=== PATIENT | male | born 1945 | race American Indian/Alaskan Native ===

== ENCOUNTER 2019-04-11 09:55 | Outpatient (CLI) | payer MEDICARE ==
[2019-04-11] MEDS ORDERED: XYLOCAINE TOPICAL 4% TP ONE (10:30)
[2019-04-11] MEDS ORDERED: AD OINTMENT TP SCH (10:30)
== END 2019-04-11 09:56 | disposition home or self-care (01) ==
LOC: WOUND 09:55
PROVIDERS: ATTEND Surgery
DX: L97.521 Non-pressure chronic ulcer of other part of left foot limited to breakdown of skin (principal); I96 Gangrene, not elsewhere classified; L84 Corns and callosities; I10 Essential (primary) hypertension; I48.91 Unspecified atrial fibrillation; I77.6 Arteritis, unspecified; Z87.891 Personal history of nicotine dependence; Z95.5 Presence of coronary angioplasty implant and graft
CPT/HCPCS: 11042; 11045; 36415; 73620; 80048; 83036; 85025; G0463; 99205; A6250

== ENCOUNTER 2019-04-11 11:50 | Outpatient (CLI) | payer MEDICARE ==
[2019-04-11 12:37] LABS: Basophils % (Auto) 0.6 % (0.0-1.8); Eosinophils # (Auto) 0.3 K/mm3 (0.0-0.4); Hematocrit 34.4 % (35.5-45.6); Hemoglobin 11.3 gm/dl (11.8-15.2); Lymphocytes # (Auto) 0.7 K/mm3 (1.2-5.4); Lymphocytes % (Auto) 9.9 % (13.4-35.0); Mean Corpuscular HGB Conc 33 % (32-34); Mean Corpuscular Volume 94 fl (84-94); Monocytes # (Auto) 0.4 K/mm3 (0.0-0.8); Monocytes % (Auto) 5.8 % (0.0-7.3); Platelet Count 212 K/mm3 (140-440); Red Blood Count 3.67 M/mm3 (3.65-5.03); Red Cell Distribution Width 16.3 % (13.2-15.2)
--- NOTE | 2019-04-11 13:18 | XRay Report ---
BILATERAL FEET 4 VIEWS INDICATION / CLINICAL INFORMATION: X-RAY OF LT RT FOOT R/O OSTEOMYELITIS OR OTHER ABNORMALIILTY. COMPARISON: None available. FINDINGS: Vascular calcification is present. A surgical screw is seen in the head of the fifth metatarsal on th e right. Mild degenerative changes seen in both first metatarsophalangeal joints. No definite radiogr aphic evidence of osteomyelitis on this exam. Signer Name: Nasir Isabel MD FACCande Signed: 04/11/2019 1:14 PM Workstation Name: [id number]
== END 2019-04-11 11:51 | disposition home or self-care (01) ==
LOC: XRAY 11:50
PROVIDERS: ATTEND Surgery
DX: I70.291 Other atherosclerosis of native arteries of extremities, right leg (principal); M19.071 Primary osteoarthritis, right ankle and foot; L97.509 Non-pressure chronic ulcer of other part of unspecified foot with unspecified severity; I99.8 Other disorder of circulatory system; G62.9 Polyneuropathy, unspecified; R73.09 Other abnormal glucose
CPT/HCPCS: 36415; 80048; 83036; 85025

== ENCOUNTER 2019-04-18 10:09 | Outpatient (CLI) | payer MEDICARE ==
[2019-04-18] MEDS ORDERED: SILVER NITRATE TP ONE (10:31)
[2019-04-18] MEDS ORDERED: XYLOCAINE TOPICAL 4% TP ONE (10:31)
== END 2019-04-18 10:10 | disposition home or self-care (01) ==
LOC: WOUND 10:09
PROVIDERS: ATTEND Surgery
DX: L97.522 Non-pressure chronic ulcer of other part of left foot with fat layer exposed (principal); I96 Gangrene, not elsewhere classified; I77.6 Arteritis, unspecified; L84 Corns and callosities; I10 Essential (primary) hypertension; G60.3 Idiopathic progressive neuropathy; Z87.891 Personal history of nicotine dependence

== ENCOUNTER 2019-04-24 12:05 | Inpatient (IN) | payer MEDICARE ==
--- NOTE | 2019-04-24 12:19 | Emergency Department Report ---
Blank Doc - Documentation Documentation: 73-year-old male that presents with bilateral leg swelling and acute kidney fa ilure. Was sent by PCP for possible sepsis. No fever or tackycardia in traiage noted. Denies taking any medications prior to arrival. This initial assessment/diagnostic orders/clinical plan/treatment(s) is/are subject to change based on patient's health status, clinical progression and re- assessment by fellow clinical providers in the ED. Further treatment and workup at subsequent clinical providers discretion. Patient/guardians urged not to elope from the ED as their condition may be serious if not clinically assessed and managed. Initial orders include: 1- Patient sent to MAIN for further evaluation and treatment 2- labs 3- EKG
--- NOTE | 2019-04-24 13:18 | XRay Report ---
CHEST 2 VIEWS INDICATION: Chest Pain. COMPARISON: None. FINDINGS: Support devices: None. Heart: Within normal limits. Pulmonary vasculature: Lungs/pleura: No acute air space or interstitial disease. No pneumothorax. Additional findings: None. IMPRESSION: 1. Normal chest. Signer Name: Dwayne Lindsay MD Signed: 04/24/2019 1:13 PM Workstation Name: [id number]
[2019-04-24 13:28] LABS: Hematocrit 25.2 % (35.5-45.6); Hemoglobin 8.5 gm/dl (11.8-15.2); INR 1.88 (0.87-1.13); Mean Corpuscular HGB Conc 34 % (32-34); Mean Corpuscular Volume 91 fl (84-94); Platelet Count 268 K/mm3 (140-440); Red Blood Count 2.76 M/mm3 (3.65-5.03); Red Cell Distribution Width 15.9 % (13.2-15.2)
[2019-04-24 13:30] LABS: Partial Thromboplastin Time 41.8 Sec. (24.2-36.6)
[2019-04-24 13:44] LABS: Albumin 3.9 g/dL (3.9-5); Calcium 9.6 mg/dL (8.4-10.2)
[2019-04-24 14:21] LABS: Chol/HDL Ratio 2.42 %
[2019-04-24] MEDS ORDERED: MORPHINE 4 MG/1 ML INJ IM ONE (14:40)
--- NOTE | 2019-04-24 14:55 | Event Note ---
Date: 04/24/19 73 year old male PVD with bilateral CLI who presented with gangrene of the RLE and ulceration of the LLE. Had his RLE revascularization completed 2 weeks ago with revascularization of the right popliteal and tibioperoneal trunk from a left TUBE HEATER approach. After revascularization, was referred to wound care. Had plan to have R 1st digit amputation tomorrow. Presented to [facility] today and iSTAT demonstrated mild decrease in hemoglobin and ARF. Patient was sent to the hospital for further evaluation. Discussed with Dr. Orourke who will plan on performing amputation tomorrow. Recommend arterial ultrasound of the lower extremities with RYANNE. Recommend CT AP w/o contrast to exclude RP bleed.
--- NOTE | 2019-04-24 15:08 | Consultation ---
History of Present Illness Consult date: 04/24/19 Chief complaint: Gangrene of right great toe - History of present illness History of present illness: 73 yo non-diabetic male who hit his right great toe on some furniture about two weeks ago. The toe has since become black with some drainage about it's base. He denies fever or chills. He quit smoking about a year ago. He says he has bilateral calf pain with ambulation. Medications and Allergies Allergies Allergy/AdvReac Type Severity Reaction Status Date / Time No Known Allergies Allergy Unverified 04/11/19 10:16 Review of Systems All systems: negative (none) Exam Vital Signs Temp Pulse Resp BP Pulse Ox 99.2 F 89 15 170/63 98 04/24/19 12:18 04/24/19 12:18 04/24/19 12:18 04/24/19 12:18 04/24/19 12:18 - General physical appearance Positive: well developed, well nourished, no distress - Eyes Positive: PERRL, normal occular movement - ENT Positive: normal pinna, normal nares, normal mucosa, no hearing loss, no congestion - Neck Positive: no masses, no bruits, trachea midline, no venous distension - Respiratory Positive: normal expansion, normal respiratory effort, clear to auscultation - Cardiovascular Rhythm: regular Heart Sounds: Present: S1 & S2. Absent: rub, click - Extremities Extremity abnormal: other (The right great toe is gangrenous with a small amount of purulent drainage circumferentially about the base of the toe. DP and PT pulses on the right are non-palpable.) - Breasts Breasts: deferred - Abdomen Abdomen: Present: soft, bowel sounds normal. Absent: tender, distended Hernia: none - Genitourinary Male Genitourinary: deferred - Neurologic Neurologic: alert and oriented to time, place and person, motor strength and sensation are grossly intact - Musculoskeletal normal gait, normal posture - Psychiatric Psychiatric: appropriate mood/affect, intact judgment & insight Results - Labs 04/24/19 12:55 04/24/19 12:55 Abnormal lab results 04/24/19 04/24/19 04/24/19 Range/Units 12:55 12:55 12:55 RBC 2.76 L (3.65-5.03) M/mm3 Hgb 8.5 L (11.8-15.2) gm/dl Hct 25.2 L (35.5-45.6) % RDW 15.9 H (13.2-15.2) % PT 21.2 H (12.2-14.9) Sec. INR 1.88 H (0.87-1.13) APTT 41.8 H (24.2-36.6) Sec. Potassium 5.2 H (3.6-5.0) mmol/L Chloride 108.5 H (98-107) mmol/L Carbon Dioxide 21 L (22-30) mmol/L BUN 61 H (9-20) mg/dL Creatinine 4.4 H (0.8-1.5) mg/dL Troponin T 0.033 H (0.00-0.029) ng/mL NT-Pro-B Natriuret Pep 6067 H (0-900) pg/mL Diabetes panel 04/24/19 Range/Units 12:55 Sodium 144 (137-145) mmol/L Potassium 5.2 H (3.6-5.0) mmol/L Chloride 108.5 H (98-107) mmol/L Carbon Dioxide 21 L (22-30) mmol/L BUN 61 H (9-20) mg/dL Creatinine 4.4 H (0.8-1.5) mg/dL Glucose 89 (75-100) mg/dL Calcium 9.6 (8.4-10.2) mg/dL AST 16 (5-40) units/L ALT 10 (7-56) units/L Alkaline Phosphatase 86 (35-129) units/L Total Protein 7.4 (6.3-8.2) g/dL Albumin 3.9 (3.9-5) g/dL Triglycerides 59 (2-149) mg/dL HDL Cholesterol 47 (40-59) mg/dL Calcium panel 04/24/19 Range/Units 12:55 Calcium 9.6 (8.4-10.2) mg/dL Albumin 3.9 (3.9-5) g/dL Pituitary panel 04/24/19 Range/Units 12:55 Sodium 144 (137-145) mmol/L Potassium 5.2 H (3.6-5.0) mmol/L Chloride 108.5 H (98-107) mmol/L Carbon Dioxide 21 L (22-30) mmol/L BUN 61 H (9-20) mg/dL Creatinine 4.4 H (0.8-1.5) mg/dL Glucose 89 (75-100) mg/dL Calcium 9.6 (8.4-10.2) mg/dL Adrenal panel 04/24/19 Range/Units 12:55 Sodium 144 (137-145) mmol/L Potassium 5.2 H (3.6-5.0) mmol/L Chloride 108.5 H (98-107) mmol/L Carbon Dioxide 21 L (22-30) mmol/L BUN 61 H (9-20) mg/dL Creatinine 4.4 H (0.8-1.5) mg/dL Glucose 89 (75-100) mg/dL Calcium 9.6 (8.4-10.2) mg/dL Total Bilirubin 0.30 (0.1-1.2) mg/dL AST 16 (5-40) units/L ALT 10 (7-56) units/L Alkaline Phosphatase 86 (35-129) units/L Total Protein 7.4 (6.3-8.2) g/dL Albumin 3.9 (3.9-5) g/dL Assessment and Plan - Patient Problems (1) 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 BRANDIE and anemia 3) I discussed amputation of the right great toe in the ED vs amputation in the OR tomorrow. Pt desires to proceed with amputation in the ED.
--- NOTE | 2019-04-24 15:15 | Post Operative Note ---
Pre-op diagnosis: Gangrene of right great toe Post-op diagnosis: same Procedure: Amputation of right great toe at MTP joint Anesthesia: other (IM Morphine) Surgeon: JONATHAN BURCH Estimated blood loss: minimal Pathology: list (Right great toe) Specimen disposition: to lab Condition: stable Disposition: no change
[2019-04-24] MEDS ORDERED: HYDROmorphone 1 MG/1 ML INJ IV ONE (15:42)
--- NOTE | 2019-04-24 16:10 | Cat Scan Report ---
CT ABDOMEN AND PELVIS WITHOUT CONTRAST HISTORY: decreased hemoglobin, low back pain COMPARISON: None. TECHNIQUE: Axial CT images were obtained through the abdomen and pelvis without IV contrast. Sagittal and coronal reformatted images. All CT scans at this location are performed using CT dose reduction for ALARA by means of automated exposure control. FINDINGS: CT ABDOMEN: Lung Bases: Clear. Liver: The liver is normal size and contour. There are a few scattered millimetric hypodensities prim arily in the left hepatic lobe which probably represent tiny cysts or hemangiomas. Biliary: 5 mm calcified gallstone is noted in the fundus of the gallbladder. No biliary dilatation. Spleen: No significant abnormality. Unenlarged. Pancreas: No significant abnormality. Adrenals: No significant abnormality. Kidneys: Mild bilateral hydronephrosis. No focal renal lesion or nephrolithiasis. Lymphatics: No lymphadenopathy. Vasculature: No significant abnormality. Bowel/Peritoneum: No significant abnormality. No free air. No free fluid. Normal appendix. CT PELVIS: : The bladder is markedly distended. No bladder wall abnormality or filling defect is identified. T he prostate gland is mildly enlarged measuring 5.9 cm in diameter. Osseous Structures: Mild lumbar spondylosis. Additional Findings: Bilateral gynecomastia. IMPRESSION: Markedly distended bladder and mild bilateral hydronephrosis. Correlate for bladder outlet obstructio n. Small gallstone. Scattered liver hypodensities consistent with small cysts or hemangiomas. No acute inflammatory process is identified Signer Name: Crescencio Myers Jr, MD Signed: 04/24/2019 4:06 PM Workstation Name: [id number]
--- NOTE | 2019-04-24 17:07 | Emergency Department Report ---
HPI - General Chief Complaint: Extremity Injury, Lower Time Seen by Provider: 04/24/19 12:15 - HPI HPI: 73-year-old -[place] male presents to the emergency Department from the office of his vascular surgeon, Dr. Blake, with the concern for possible sepsis from a gangrenous right great toe. The patient has a history of bilateral critical limb ischemia and had revascularization done about 2 weeks ago. The patient also had an injury to the right great toe in which he hit it on some furniture and this also happened about 2 weeks ago. Since that time it has become black and necrotic with some oozing or drainage. The patient was scheduled to have a right great toe amputation done tomorrow he was seen in the vascular office and he was ill-appearing and was sent into the emergency department for further evaluation. Patient is a former smoker having quit about 1 year ago. ED Past Medical Hx - Past Medical History Hx Hypertension: Yes Hx Dementia: Yes - Social History Smoking Status: Never Smoker Substance Use Type: None - Medications Home Medications: Home Medications Medication Instructions Recorded Confirmed Last Taken Type Amiodarone [Cordarone 200 MG TAB] 200 mg PO QDAY 04/24/19 04/24/19 04/23/19 History Clopidogrel [Plavix] 75 mg PO QDAY 04/24/19 04/24/19 04/23/19 History Donepezil [Aricept] 10 mg PO QDAY 04/24/19 04/24/19 04/23/19 History Furosemide [Lasix TAB] 40 mg PO QDAY 04/24/19 04/24/19 04/23/19 History Memantine [Namenda] 10 mg PO TID 04/24/19 04/24/19 04/23/19 History Metoprolol [Lopressor] 25 mg PO QDAY 04/24/19 04/24/19 04/23/19 History Rivaroxaban [Xarelto] 20 mg PO QDAY 04/24/19 04/24/19 04/23/19 History amLODIPine [Norvasc] 10 mg PO DAILY 04/24/19 04/24/19 04/23/19 History ED Review of Systems ROS: Stated complaint: DOC ORDER/LFT LOWER/PAIN Other details as noted in HPI Comment: All other systems reviewed and negative Constitutional: denies: chills, fever Eyes: denies: eye pain, vision change ENT: denies: ear pain, throat pain Respiratory: denies: cough, shortness of breath Cardiovascular: denies: chest pain, palpitations Gastrointestinal: denies: abdominal pain, vomiting Genitourinary: denies: dysuria, discharge Musculoskeletal: arthralgia, myalgia Skin: denies: rash, lesions Neurological: denies: headache, weakness Physical Exam - Physical Exam Vital Signs: Vital Signs 04/24/19 12:18 Temperature 99.2 F Pulse Rate 89 Respiratory 15 Rate Blood Pressure 170/63 [Left] O2 Sat by Pulse 98 Oximetry Physical Exam: GENERAL: The patient is well-developed well-nourished. HENT: Normocephalic. Atraumatic. Patient has moist mucous membranes. EYES: Extraocular motions are intact. NECK: Supple. Trachea is midline. CHEST/LUNGS: Clear to auscultation. There is no respiratory distress noted. HEART/CARDIOVASCULAR: Regular. There is no tachycardia. There is no murmur. ABDOMEN: Abdomen is soft, nontender. Patient has normal bowel sounds. There is no abdominal distention. SKIN: Gangrenous right great toe. NEURO: The patient is awake, alert, and oriented. The patient is cooperative. The patient has no focal neurologic deficits. Normal speech. MUSCULOSKELETAL: Gangrenous right great toe. Full ROM of all extremities. ED Course Vital Signs 04/24/19 12:18 Temperature 99.2 F Pulse Rate 89 Respiratory 15 Rate Blood Pressure 170/63 [Left] O2 Sat by Pulse 98 Oximetry - Consultations Consultation #1: 04/24/19 18:47 The general surgeon, Dr. Orourke, was called by the vascular physician. I spoke with the vascular physician, Dr. Blake, who is ordering a CT scan of the abdomen and pelvis without contrast ordered to evaluate the patient's drop in hemoglobin, and some arterial and venous Doppler studies have been ordered as well. ED Medical Decision Making - Lab Data Result diagrams: 04/24/19 12:55 04/24/19 12:55 - Radiology Data Radiology results: report reviewed, image reviewed interpreted by me: Chest x-ray does not show any acute process. There are no pleural effusions, obvious pneumonia and there is no pneumothorax. CT ABDOMEN AND PELVIS WITHOUT CONTRAST HISTORY: decreased hemoglobin, low back pain COMPARISON: None. TECHNIQUE: Axial CT images were obtained through the abdomen and pelvis without IV contrast. Sagittal and coronal reformatted images. All CT scans at this location are performed using CT dose reduction for ALARA by means of automated exposure control. FINDINGS: CT ABDOMEN: Lung Bases: Clear. Liver: The liver is normal size and contour. There are a few scattered millim etric hypodensities primarily in the left hepatic lobe which probably represent tiny cysts or hemangiomas. Biliary: 5 mm calcified gallstone is noted in the fundus of the gallbladder. No biliary dilatation. Spleen: No significant abnormality. Unenlarged. Pancreas: No significant abnormality. Adrenals: No significant abnormality. Kidneys: Mild bilateral hydronephrosis. No focal renal lesion or nephrolithiasis. Lymphatics: No lymphadenopathy. Vasculature: No significant abnormality. Bowel/Peritoneum: No significant abnormality. No free air. No free fluid. Normal appendix. CT PELVIS: : The bladder is markedly distended. No bladder wall abnormality or filling defect is identified. The prostate gland is mildly enlarged measuring 5.9 cm in diameter. Osseous Structures: Mild lumbar spondylosis. Additional Findings: Bilateral gynecomastia. IMPRESSION: Markedly distended bladder and mild bilateral hydronephrosis. Correlate for bladder outlet obstruction. Small gallstone. Scattered liver hypodensities consistent with small cysts or hemangiomas. No acute inflammatory process is identified - Medical Decision Making This patient was initially sent in by the vascular physician with a history of critical limb ischemia and revascularization, right toe gangrene that was scheduled for amputation tomorrow, and some concern for possible sepsis. The general surgeon, Dr. Orourke, did the MTP amputation of the right great toe in the emergency department. The patient appears to have some recent acute kidney injury and also has some drop in his hemoglobin. The anemia could be secondary to the kidney dysfunction, but a CT scan of the abdomen and pelvis was ordered by vascular to rule out some type of intra-abdominal or peritoneal bleed. It shows markedly distended bladder with mild bilateral hydronephrosis. A Triplett catheter will be placed for decompression. Patient has some hypertension but otherwise his vital signs stable throughout his ED course. He will be admitted to the hospital for further evaluation and treatment was accepted for admission by the hospitalist, Dr. Alanis. Critical Care Time: No Critical care attestation.: If time is entered above; I have spent that time in minutes in the direct care of this critically ill patient, excluding procedure time. ED Disposition Clinical Impression: Gangrene of toe of right foot, Peripheral arterial disease Acute renal failure Qualifiers: Acute renal failure type: unspecified Qualified Code(s): N17.9 - Acute kidney failure, unspecified Hypertension Qualifiers: Hypertension type: essential hypertension Qualified Code(s): I10 - Essential (primary) hypertension Anemia Qualifiers: Anemia type: unspecified type Qualified Code(s): D64.9 - Anemia, unspecified Disposition: 09 OP ADMIT IP TO THIS HOSP Is pt being admited?: Yes Condition: Fair Time of Disposition: 18:52
[2019-04-24] MEDS ORDERED: HYDROmorphone 2 MG/1 ML INJ IV ONE (18:01)
[2019-04-24] MEDS ORDERED: HYDROmorphone 1 MG/1 ML INJ ONE (18:06)
[2019-04-24] MEDS ORDERED: ONDANSETRON 4 MG/2 ML INJ IV PRN (22:27)
[2019-04-24] MEDS ORDERED: SODIUM CHLORIDE 0.9% 1000 ML 1,000 ML IV SCH (22:27)
[2019-04-24] MEDS ORDERED: METOCLOPRAMIDE 10 MG/2 ML INJ IV PRN (22:28)
[2019-04-24] MEDS ORDERED: HYDROmorphone 1 MG/1 ML INJ IV PRN (22:28)
--- NOTE | 2019-04-24 22:30 | History and Physical Report ---
History of Present Illness Date of examination: 04/24/19 Date of admission: 04/24/19 17:16 Chief complaint: Right foot infection--S/p right great toe amputation History of present illness: 73-year-old -[place] male with history of severe peripheral artery dis ease with recent intervention and right great toe gangrene for which patient had amputation of the right great toe while in the emergency room by Dr. Orourke. Patient has redness of the right foot for which the patient is being admitted. No fever or chills. Right great toe is black and necrotic with some oozing and drainage. Patient had amputation done while in the emergency room. Past Medical History Hypertension Dementia PAD Social History Smoking Status: Never Smoker Substance Use Type: None Surgical history right great toe amputation, Had his RLE revascularization completed 2 weeks ago with revascularization of the right popliteal and tibioperoneal trunk from a left JOINER approach. After revascularization, was referred to wound care Family history Hypertension - Medications Home Medications: Home Medications Medication Instructions Recorded Confirmed Last Taken Type Amiodarone [Cordarone 200 MG TAB] 200 mg PO QDAY 04/24/19 04/24/19 04/23/19 History Clopidogrel [Plavix] 75 mg PO QDAY 04/24/19 04/24/19 04/23/19 History Donepezil [Aricept] 10 mg PO QDAY 04/24/19 04/24/19 04/23/19 History Furosemide [Lasix TAB] 40 mg PO QDAY 04/24/19 04/24/19 04/23/19 History Memantine [Namenda] 10 mg PO TID 04/24/19 04/24/19 04/23/19 History Metoprolol [Lopressor] 25 mg PO QDAY 04/24/19 04/24/19 04/23/19 History Rivaroxaban [Xarelto] 20 mg PO QDAY 04/24/19 04/24/19 04/23/19 History amLODIPine [Norvasc] 10 mg PO DAILY 04/24/19 04/24/19 04/23/19 History Review of Systems ROS: Stated complaint: DOC ORDER/LFT LOWER/PAIN Other details as noted in HPI Comment: All other systems reviewed and negative Constitutional: denies: chills, fever Eyes: denies: eye pain, vision change ENT: denies: ear pain, throat pain Respiratory: denies: cough, shortness of breath Cardiovascular: denies: chest pain, palpitations Gastrointestinal: denies: abdominal pain, vomiting Genitourinary: denies: dysuria, discharge Musculoskeletal: arthralgia, myalgia Skin: denies: rash, lesions Neurological: denies: headache, weakness Medications and Allergies Allergies Allergy/AdvReac Type Severity Reaction Status Date / Time No Known Allergies Allergy Unverified 04/11/19 10:16 Home Medications Medication Instructions Recorded Confirmed Last Taken Type Amiodarone [Cordarone 200 MG TAB] 200 mg PO QDAY 04/24/19 04/24/19 04/23/19 History Clopidogrel [Plavix] 75 mg PO QDAY 04/24/19 04/24/19 04/23/19 History Donepezil [Aricept] 10 mg PO QDAY 04/24/19 04/24/19 04/23/19 History Furosemide [Lasix TAB] 40 mg PO QDAY 04/24/19 04/24/19 04/23/19 History Memantine [Namenda] 10 mg PO TID 04/24/19 04/24/19 04/23/19 History Metoprolol [Lopressor] 25 mg PO QDAY 04/24/19 04/24/19 04/23/19 History Rivaroxaban [Xarelto] 20 mg PO QDAY 04/24/19 04/24/19 04/23/19 History amLODIPine [Norvasc] 10 mg PO DAILY 04/24/19 04/24/19 04/23/19 History Exam - Constitutional Vitals: Temp Pulse Resp BP Pulse Ox 98.1 F 85 18 176/71 95 04/24/19 19:40 04/24/19 19:40 04/24/19 19:40 04/24/19 19:40 04/24/19 19:40 Results - Labs CBC & Chem 7: 04/24/19 12:55 04/24/19 12:55 Labs: Laboratory Last Values WBC 8.0 K/mm3 (4.5-11.0) 04/24/19 12:55 RBC 2.76 M/mm3 (3.65-5.03) L 04/24/19 12:55 Hgb 8.5 gm/dl (11.8-15.2) L 04/24/19 12:55 Hct 25.2 % (35.5-45.6) L 04/24/19 12:55 MCV 91 fl (84-94) 04/24/19 12:55 MCH 31 pg (28-32) 04/24/19 12:55 MCHC 34 % (32-34) 04/24/19 12:55 RDW 15.9 % (13.2-15.2) H 04/24/19 12:55 Plt Count 268 K/mm3 (140-440) 04/24/19 12:55 Lymph % (Auto) Business Case Analyst 04/24/19 12:55 [place] % (Auto) Business Case Analyst 04/24/19 12:55 Eos % (Auto) Business Case Analyst 04/24/19 12:55 Baso % (Auto) Business Case Analyst 04/24/19 12:55 Lymph # Business Case Analyst 04/24/19 12:55 [place] # Business Case Analyst 04/24/19 12:55 Eos # Business Case Analyst 04/24/19 12:55 Baso # Business Case Analyst 04/24/19 12:55 Seg Neutrophils % Business Case Analyst 04/24/19 12:55 Seg Neutrophils # Business Case Analyst 04/24/19 12:55 PT 21.2 Sec. (12.2-14.9) H 04/24/19 12:55 INR 1.88 (0.87-1.13) H 04/24/19 12:55 APTT 41.8 Sec. (24.2-36.6) H 04/24/19 12:55 Sodium 144 mmol/L (137-145) 04/24/19 12:55 Potassium 5.2 mmol/L (3.6-5.0) H 04/24/19 12:55 Chloride 108.5 mmol/L (98-107) H 04/24/19 12:55 Carbon Dioxide 21 mmol/L (22-30) L 04/24/19 12:55 20 mmol/L 04/24/19 12:55 BUN 61 mg/dL (9-20) H 04/24/19 12:55 4.4 mg/dL (0.8-1.5) H 04/24/19 12:55 Estimated GFR 16 ml/min 04/24/19 12:55 14 % 04/24/19 12:55 Glucose 89 mg/dL (75-100) 04/24/19 12:55 POC Glucose < 40 (70-105) L 04/24/19 21:24 Lactic Acid 1.80 mmol/L (0.7-2.0) 04/24/19 12:55 Calcium 9.6 mg/dL (8.4-10.2) 04/24/19 12:55 0.30 mg/dL (0.1-1.2) 04/24/19 12:55 AST 16 units/L (5-40) 04/24/19 12:55 ALT 10 units/L (7-56) 04/24/19 12:55 86 units/L (35-129) 04/24/19 12:55 0.027 ng/mL (0.00-0.029) 04/24/19 16:09 NT-Pro-B Natriuret Pep 6067 pg/mL (0-900) H 04/24/19 12:55 7.4 g/dL (6.3-8.2) 04/24/19 12:55 3.9 g/dL (3.9-5) 04/24/19 12:55 1.1 % 04/24/19 12:55 Triglycerides 59 mg/dL (2-149) 04/24/19 12:55 Cholesterol 114 mg/dL (50-199) 04/24/19 12:55 70 mg/dL (50-130) 04/24/19 12:55 47 mg/dL (40-59) 04/24/19 12:55 2.42 % 04/24/19 12:55 Short CBC 04/24/19 Range/Units 12:55 WBC 8.0 (4.5-11.0) K/mm3 Hgb 8.5 L (11.8-15.2) gm/dl Hct 25.2 L (35.5-45.6) % Plt Count 268 (140-440) K/mm3 BMP 04/24/19 12:55 Sodium 144 Potassium 5.2 H Chloride 108.5 H Carbon Dioxide 21 L BUN 61 H Creatinine 4.4 H Glucose 89 Calcium 9.6 Cardiac Enzymes 04/24/19 04/24/19 Range/Units 12:55 16:09 Troponin T 0.033 H 0.027 (0.00-0.029) ng/mL Liver Function 04/24/19 Range/Units 12:55 Total Bilirubin 0.30 (0.1-1.2) mg/dL AST 16 (5-40) units/L ALT 10 (7-56) units/L Alkaline Phosphatase 86 (35-129) units/L Albumin 3.9 (3.9-5) g/dL - Imaging and Cardiology EKG: report reviewed (atrial fibrillation 88/m) Imaging and Cardiology: CT abdomen IMPRESSION: Markedly distended bladder and mild bilateral hydronephrosis. Correlate for bladder outlet obstruction. Small gallstone. Scattered liver hypodensities consistent with small cysts or hemangiomas. No acute inflammatory process is identified Assessment and Plan Advance Directives: Yes (full code) VTE prophylaxis?: Chemical Plan of care discussed with patient/family: Yes - Patient Problems (1) Gangrene of toe of right foot Current Visit: Yes Status: Acute Plan to address problem: Patient had] 2 amputated in the emergency room by Dr. Orourke Postop patient patient doing well (2) Cellulitis of right foot Current Visit: Yes Status: Acute Plan to address problem: Patient initiated on IV Unasyn and IV vancomycin (3) Acute on chronic renal failure Current Visit: Yes Status: Acute Qualifiers: Acute renal failure type: with acute tubular necrosis Plan to address problem: IV fluids nephrology consult requested (4) Peripheral arterial disease Current Visit: Yes Status: Chronic Plan to address problem: Patient had revascularization of the right lower extremity few days ago Revascularization successful. (5) Hypertension Current Visit: Yes Status: Chronic Qualifiers: Hypertension type: essential hypertension Qualified Code(s): I10 - Essential (primary) hypertension Plan to address problem: Continue antihypertensives (6) Atrial fibrillation Current Visit: Yes Status: Chronic Qualifiers: Atrial fibrillation type: chronic Qualified Code(s): I48.2 - Chronic atrial fibrillation Plan to address problem: Continue Xarelto (7) Hyperkalemia Current Visit: Yes Status: Acute Plan to address problem: Mild IV calcium gluconate given (8) Anemia Current Visit: Yes Status: Chronic Qualifiers: Anemia type: due to chronic kidney disease Qualified Code(s): D64.9 - Anemia, unspecified Plan to address problem: Will defer to nephrology 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
[2019-04-24] MEDS ORDERED: CALCIUM GLUCONATE 2,000 MG in SODIUM CHLORIDE 0.9% 100 ML IV ONE ×2 (22:56→23:00)
[2019-04-24] MEDS ORDERED: VANCOMYCIN PHARMACY TO DOSE IV SCH (23:00)
[2019-04-24] MEDS ORDERED: VANCOMYCIN 1,750 MG in SODIUM CHLORIDE 0.9% 500 ML 500 ML IV ONE (23:00)
[2019-04-25] MEDS: oxyCODONE /ACETAMINOPHEN 5-325MG TAB PO PRN (02:41)
[2019-04-25 05:46] LABS: Bilirubin,Urine NEG (Negative); Blood,Urine LG (Negative); Color,Urine Yellow (Yellow); Protein,Urine <15 mg/dL mg/dL (Negative); Urobilinogen,Urine < 2.0 mg/dL (<2.0)
[2019-04-25 06:26] LABS: Basophils % (Auto) 0.5 % (0.0-1.8); Eosinophils # (Auto) 0.1 K/mm3 (0.0-0.4); Eosinophils % (Auto) 0.6 % (0.0-4.3); Hematocrit 23.8 % (35.5-45.6); Hemoglobin 7.6 gm/dl (11.8-15.2); Lymphocytes # (Auto) 0.6 K/mm3 (1.2-5.4); Mean Corpuscular HGB Conc 32 % (32-34); Mean Corpuscular Volume 94 fl (84-94); Monocytes # (Auto) 0.5 K/mm3 (0.0-0.8); Monocytes % (Auto) 5.7 % (0.0-7.3); Platelet Count 253 K/mm3 (140-440); Red Blood Count 2.54 M/mm3 (3.65-5.03); Red Cell Distribution Width 16.5 % (13.2-15.2)
[2019-04-25 06:38] LABS: Albumin 3.5 g/dL (3.9-5); Calcium 9.7 mg/dL (8.4-10.2)
--- NOTE | 2019-04-25 08:08 | Progress Note ---
Assessment and Plan Assessment and plan: Patient is a 73 yo man with a history of hypertension, Afib on Xarelto, AOCD, CKD 3-4, Dementia and PAD s/p recent RLE revascularization completed 2 weeks ago with revascularization of the right popliteal and tibioperoneal trunk from a left [employer]ER approach who came from Dr. Blake's [facility] office to [facility] with the concern for possible sepsis from a gangrenous right great toe. The patient has a history of bilateral critical limb ischemia and had revascularization done about 2 weeks ago. The patient also had an injury to the right great toe in which he hit it on some furniture and this also happened about 2 weeks ago. Since that time it has become black and necrotic with some oozing or drainage. The patient was scheduled to have a right great toe amputation done tomorrow, he was seen in the vascular office and he was ill-appearing and was sent into the emergency department for further evaluation. At the [facility] office, patient was found to have mild drop in hemoglobin and ARF. Patient was sent to the hospital for further evaluation. Dr. Orourke who will plan on performing amputation tomorrow. * CT abdomen IMPRESSION: Markedly distended bladder and mild bilateral hydronephrosis. Correlate for bladder outlet obstruction. Small gallstone. Scattered liver hypodensities consistent with small cysts or hemangiomas. No acute inflammatory process is identified Atherosclerosis of right lower extremity with gangrene s/p Amputated in the emergency room by Dr. Orourke on 04/24/2019 Cellulitis of right foot: Patient initiated on IV Unasyn and IV vancomycin Acute on chronic renal failure, tubular necrosis, dye exposure, +vasomotor nephropathy: treat with IV fluids, Nephrology consulted, evaluate for obstruction with renal u/s Bilateral hydronphrosis on CT: order renal U/S then decide if Urology consult and folely is needed. Peripheral arterial disease: Vascular surgeon following, Hypertension: Continue antihypertensives Atrial fibrillation: Continue Xarelto Hyperkalemia,IV calcium gluconate given: Nephrology consulted, monitor bmp closely Drop in H/H, acute on chronic Anemia chronic kidney disease stage 5: difficult decision on whether to stop Xarelto, repeat h/h Elevated brain natriuretic peptide (BNP) level: Echocardiogram for ejection fraction, Cardiology consulted DVT prophylaxis on Xarelto, watch cbc closely and GI prophylaxis CCT 35 min History Interval history: Patient was seen and examined. Follow-up on current diagnosis of PVD. No overnight events reported to me. Patient denies any chest pain, shortness breath, nausea/vomiting or severe headaches. Imaging, nursing note, chart, labs and old chart reviewed. Discussed with patient. Hospitalist Physical - Physical exam Narrative exam: Gen: WDWN, NAD, Awake, Alert, Orientated HEENT: NCAT, EOMI, PERRL, OP Clear Neck: supple, no adenopathy, no thyromegaly, no JVD CVS/Heart: irreg, normal S1S2, pulses present bilaterally Chest/Lungs: CTA B, Symmetrical chest expansion, good air entry bilaterally GI/Abdomen: soft, NTND, good bowel sounds, no guarding or rebound /Bladder: no suprapubic tenderness, no CVA or paraspinal tenderness Extermity/Skin: right foot dsg on MSK: FROM x 4 Neuro: CN 2-12 grossly intact, no new focal deficits Psych: calm - Constitutional Vitals: Temp Pulse Resp BP Pulse Ox 98.4 F 106 H 18 167/75 92 04/25/19 01:57 04/25/19 02:21 04/25/19 04:43 04/25/19 01:57 04/25/19 04:43 Results - Labs CBC & Chem 7: 04/25/19 06:06 04/25/19 06:06 Labs: Laboratory Last Values WBC 9.4 K/mm3 (4.5-11.0) 04/25/19 06:06 RBC 2.54 M/mm3 (3.65-5.03) L 04/25/19 06:06 Hgb 7.6 gm/dl (11.8-15.2) L 04/25/19 06:06 Hct 23.8 % (35.5-45.6) L 04/25/19 06:06 MCV 94 fl (84-94) 04/25/19 06:06 MCH 30 pg (28-32) 04/25/19 06:06 MCHC 32 % (32-34) 04/25/19 06:06 RDW 16.5 % (13.2-15.2) H 04/25/19 06:06 Plt Count 253 K/mm3 (140-440) 04/25/19 06:06 Lymph % (Auto) 6.0 % (13.4-35.0) L 04/25/19 06:06 [place] % (Auto) 5.7 % (0.0-7.3) 04/25/19 06:06 Eos % (Auto) 0.6 % (0.0-4.3) 04/25/19 06:06 Baso % (Auto) 0.5 % (0.0-1.8) 04/25/19 06:06 Lymph # 0.6 K/mm3 (1.2-5.4) L 04/25/19 06:06 [place] # 0.5 K/mm3 (0.0-0.8) 04/25/19 06:06 Eos # 0.1 K/mm3 (0.0-0.4) 04/25/19 06:06 Baso # 0.0 K/mm3 (0.0-0.1) 04/25/19 06:06 Seg Neutrophils % 87.2 % (40.0-70.0) H 04/25/19 06:06 Seg Neutrophils # 8.2 K/mm3 (1.8-7.7) H 04/25/19 06:06 PT 21.2 Sec. (12.2-14.9) H 04/24/19 12:55 INR 1.88 (0.87-1.13) H 04/24/19 12:55 APTT 41.8 Sec. (24.2-36.6) H 04/24/19 12:55 Sodium 141 mmol/L (137-145) 04/25/19 06:06 Potassium 5.6 mmol/L (3.6-5.0) H 04/25/19 06:06 Chloride 107.1 mmol/L (98-107) H 04/25/19 06:06 Carbon Dioxide 21 mmol/L (22-30) L 04/25/19 06:06 19 mmol/L 04/25/19 06:06 BUN 62 mg/dL (9-20) H 04/25/19 06:06 4.9 mg/dL (0.8-1.5) H 04/25/19 06:06 Estimated GFR 14 ml/min 04/25/19 06:06 13 % 04/25/19 06:06 Glucose 100 mg/dL (75-100) 04/25/19 06:06 POC Glucose 103 (70-105) 04/25/19 06:21 5.4 % (4-6) 04/25/19 06:06 Lactic Acid 1.80 mmol/L (0.7-2.0) 04/24/19 12:55 Calcium 9.7 mg/dL (8.4-10.2) 04/25/19 06:06 0.50 mg/dL (0.1-1.2) 04/25/19 06:06 AST 19 units/L (5-40) 04/25/19 06:06 ALT 10 units/L (7-56) 04/25/19 06:06 86 units/L (35-129) 04/25/19 06:06 0.027 ng/mL (0.00-0.029) 04/24/19 16:09 NT-Pro-B Natriuret Pep 6067 pg/mL (0-900) H 04/24/19 12:55 6.9 g/dL (6.3-8.2) 04/25/19 06:06 3.5 g/dL (3.9-5) L 04/25/19 06:06 1.0 % 04/25/19 06:06 Triglycerides 59 mg/dL (2-149) 04/24/19 12:55 Cholesterol 114 mg/dL (50-199) 04/24/19 12:55 70 mg/dL (50-130) 04/24/19 12:55 47 mg/dL (40-59) 04/24/19 12:55 2.42 % 04/24/19 12:55 Yellow (Yellow) 04/25/19 05:20 Clear (Clear) 04/25/19 05:20 8.0 (5.0-7.0) H 04/25/19 05:20 Ur Specific [place] 1.009 (1.003-1.030) 04/25/19 05:20 <15 mg/dl mg/dL (Negative) 04/25/19 05:20 Neg mg/dL (Negative) 04/25/19 05:20 Neg mg/dL (Negative) 04/25/19 05:20 Lg (Negative) 04/25/19 05:20 Neg (Negative) 04/25/19 05:20 Neg (Negative) 04/25/19 05:20 < 2.0 mg/dL (<2.0) 04/25/19 05:20 Ur Leukocyte Esterase Neg (Negative) 04/25/19 05:20 2.0 /HPF (0.0-6.0) 04/25/19 05:20 15.0 /HPF (0.0-6.0) 04/25/19 05:20 U Epithel Cells (Auto) < 1.0 /HPF (0-13.0) 04/25/19 05:20 Active Medications - Current Medications Current Medications: Generic Name Dose Route Start Last Admin Trade Name Freq PRN Reason Stop Dose Admin Acetaminophen 650 mg 04/24/19 22:27 Tylenol PO Q4H PRN Pain MILD(1-3)/Fever >100.5/LEVY Amiodarone HCl 200 mg 04/25/19 10:00 Cordarone PO QDAY [facility] Amlodipine Besylate 10 mg 04/25/19 10:00 Norvasc PO DAILY [facility] Clopidogrel Bisulfate 75 mg 04/25/19 10:00 Plavix PO QDAY [facility] Dextrose 50 ml 04/24/19 23:33 D50w (25gm) Syringe IV PRN PRN Hypoglycemia Donepezil HCl 10 mg 04/25/19 10:00 Aricept PO QDAY [facility] Famotidine 20 mg 04/25/19 10:00 Pepcid IV BID [facility] Furosemide 40 mg 04/25/19 10:00 Lasix PO QDAY [facility] Hydromorphone HCl 0.5 mg 04/24/19 22:28 Dilaudid IV Q3H PRN Pain , Severe (7-10) Sodium Chloride 1,000 mls @ 75 mls/hr 04/24/19 22:27 04/24/19 23:25 Nacl 0.9% 1000 Ml IV 04/25/19 12:00 75 mls/hr DIRECT [facility] Administration Ampicillin Sodium/Sulbactam Sodium 1.5 gm in 50 mls @ 100 mls/hr 04/25/19 10:00 Unasyn/Ns 1.5 Gm/50 Ml IV Q12HR [facility] Memantine 10 mg 04/25/19 08:00 Namenda PO TID [facility] Metoclopramide HCl 10 mg 04/24/19 22:28 Reglan IV Q6H PRN Nausea And Vomiting Metoprolol Tartrate 25 mg 04/25/19 10:00 Lopressor PO QDAY [facility] Ondansetron HCl 4 mg 04/24/19 22:27 Zofran IV Q8H PRN Nausea And Vomiting Oxycodone/Acetaminophen 1 tab 04/24/19 22:28 04/25/19 02:41 Percocet 5/325 PO 1 tab Q6H PRN Administration Pain, Moderate (4-6) Rivaroxaban 20 mg 04/25/19 10:00 Xarelto PO QDAY [facility] Protocol Sodium Chloride 10 ml 04/25/19 10:00 Sodium Chloride Flush Syringe 10 Ml IV BID [facility] Sodium Chloride 10 ml 04/24/19 22:27 Sodium Chloride Flush Syringe 10 Ml IV PRN PRN LINE FLUSH
[2019-04-25] MEDS ORDERED: SODIUM POLYSTYRENE 15 GM/60 ML ORAL LIQD PO ONE ×2 (08:10→13:00)
[2019-04-25] MEDS ORDERED: INSULIN REGULAR, HUMAN 100 UNITS/1 ML IV ONE ×3 (08:11→13:00)
[2019-04-25] MEDS ORDERED: DEXTROSE 50% IN WATER (25GM) 50 ML SYRINGE IV ONE (08:11)
--- NOTE | 2019-04-25 08:13 | Consultation ---
History of Present Illness - Reason for Consult Consult date: 04/25/19 acute renal failure, chronic renal failure - History of Present Illness The patient is a 73 YO male with history significant for Hypertension, BPH, Anemia, bilateral PAD, CKD, Paroxysmal A.fib on AC and Dementia who was admitted to the hospital evaluation of BRANDIE and Anemia. Patient is a very poor historian and there was no family members at the bedside. He had revascularization of the right popliteal and tibioperoneal trunk from a left [employer] approach about 2 weeks ago. After revascularization he was referred to wound care. He presented to Vascular clinic and iSTAT demonstrated mild decrease in hemoglobin and elevated creatinine. Patient was sent to [facility] for further evaluation. He underwent R great toe amputation yesterday. Labs are significant for creatinine 4.9 and K 5.6. On 05/12/2019 his creatinine was 4. CT abdomen shwoed bilateral hydronephrosis and distended bladder. Nephrology was consulted for evaluation of BRANDIE. Past History Past Medical History: atrial fib, anemia, hypertension, renal failure, other (PAD, Dementia) Medications and Allergies Allergies Allergy/AdvReac Type Severity Reaction Status Date / Time No Known Allergies Allergy Unverified 04/11/19 10:16 Home Medications Medication Instructions Recorded Confirmed Last Taken Type Amiodarone [Cordarone 200 MG TAB] 200 mg PO QDAY 04/24/19 04/24/19 04/23/19 History Clopidogrel [Plavix] 75 mg PO QDAY 04/24/19 04/24/19 04/23/19 History Donepezil [Aricept] 10 mg PO QDAY 04/24/19 04/24/19 04/23/19 History Furosemide [Lasix TAB] 40 mg PO QDAY 04/24/19 04/24/19 04/23/19 History Memantine [Namenda] 10 mg PO TID 04/24/19 04/24/19 04/23/19 History Metoprolol [Lopressor] 25 mg PO QDAY 04/24/19 04/24/19 04/23/19 History Rivaroxaban [Xarelto] 20 mg PO QDAY 04/24/19 04/24/19 04/23/19 History amLODIPine [Norvasc] 10 mg PO DAILY 04/24/19 04/24/19 04/23/19 History Active Meds: Active Medications Acetaminophen (Tylenol) 650 mg PO Q4H PRN PRN Reason: Pain MILD(1-3)/Fever >100.5/LEVY Amiodarone HCl (Cordarone) 200 mg PO QDAY [facility] Amlodipine Besylate (Norvasc) 10 mg PO DAILY [facility] Clopidogrel Bisulfate (Plavix) 75 mg PO QDAY [facility] Dextrose (D50w (25gm) Syringe) 50 ml IV PRN PRN PRN Reason: Hypoglycemia Dextrose (D50w (25gm) Syringe) 50 ml IV ONCE ONE Stop: 04/25/19 08:12 Donepezil HCl (Aricept) 10 mg PO QDAY [facility] Famotidine (Pepcid) 10 mg IV BID [facility] Furosemide (Lasix) 40 mg PO QDAY [facility] Hydromorphone HCl (Dilaudid) 0.5 mg IV Q3H PRN PRN Reason: Pain , Severe (7-10) Sodium Chloride (Nacl 0.9% 1000 Ml) 1,000 mls @ 75 mls/hr IV DIRECT SAGE Stop: 04/25/19 12:00 Last Admin: 04/24/19 23:25 Dose: 75 mls/hr Documented by: Ampicillin Sodium/Sulbactam Sodium (Unasyn/Ns 1.5 Gm/50 Ml) 1.5 gm in 50 mls @ 100 mls/hr IV Q12HR [facility] Insulin Human Regular (Humulin R) 2 units IV ONCE ONE Stop: 04/25/19 08:12 Memantine (Namenda) 10 mg PO TID [facility] Metoclopramide HCl (Reglan) 10 mg IV Q6H PRN PRN Reason: Nausea And Vomiting Metoprolol Tartrate (Lopressor) 25 mg PO QDAY [facility] Ondansetron HCl (Zofran) 4 mg IV Q8H PRN PRN Reason: Nausea And Vomiting Oxycodone/Acetaminophen (Percocet 5/325) 1 tab PO Q6H PRN PRN Reason: Pain, Moderate (4-6) Last Admin: 04/25/19 02:41 Dose: 1 tab Documented by: Rivaroxaban (Xarelto) 20 mg PO QDAY [facility]; Protocol Sodium Chloride (Sodium Chloride Flush Syringe 10 Ml) 10 ml IV BID [facility] Sodium Chloride (Sodium Chloride Flush Syringe 10 Ml) 10 ml IV PRN PRN PRN Reason: LINE FLUSH Sodium Polystyrene Sulfonate (Kionex) 30 gm PO ONCE ONE Stop: 04/25/19 08:11 Review of Systems ROS unobtainable: due to mental status Exam - Vital Signs Vital signs: Vital Signs Temp Pulse Resp BP Pulse Ox 99.2 F 89 15 170/63 98 04/24/19 12:18 04/24/19 12:18 04/24/19 12:18 04/24/19 12:18 04/24/19 12:18 - General Appearance General appearance: well-developed, appears stated age, other (no distress) EENT: ATNC, PERRL, hearing intact, vision intact Neck: Present: neck supple, trachea midline Respiratory: Clear to Ascultation Heart: regular, S1S2, no murmurs Gastrointestinal: Present: normoactive bowel sounds. Absent: tenderness, d istended Integumentary: other (slight erythema of L leg, R leg covered with dressing) Neurologic: no focal deficit, no asterixis, confused, disoriented Musculoskeletal: Present: other (Trace LE edema noted, R great toe amputated) Psychiatric: cooperative Results - Lab Results 04/25/19 14:33 04/25/19 06:06 Most recent lab results Calcium 9.7 mg/dL (8.4-10.2) 04/25/19 06:06 - Image Kidney/bladder ultrasound: other Assessment and Plan 1. Acute kidney injury: Vasomotor BRANDIE superimposed on CKD in the setting of obstrutive uropathy. CT abdomen showed distended bladder and hydronephrosis. Continue IV fluids. Monitor renal function. Renal prognosis is guarded. Avoid nephrotoxic agents. Meds dosage based on GFR. 2. FEN: Hyperkalemia, Kayexalate ordered. Metabolic acidosis, monitor. Monitor lytes. 3. Obstructive Uropathy: S/p delgado catheter. 4. PAD: S/p amputation of R great toe. 5. Normochromic anemia: POA. 6. Hypertension. 7. Dementia. 8. ?DM.
--- NOTE | 2019-04-25 08:50 | History and Physical Report ---
History of Present Illness Date of examination: 04/25/19 Date of admission: 04/24/19 17:16 History of present illness: 73 yo M PMHx severe bilateral PAD, CKD, HTN, Afib on AC admitted to the hospital due to R toe gangrene and surrounding cellulitis. He notes that the issue began after stubbing his toe on some furniture a few weeks prior to admission. He denied symptoms of systemic infection such as fevers, sweats, chills. He complains of some drainage from the toe in addition to necrotic changes of the skin. Dr. Orourke saw the patient in the ER and amputated the toe there at the [facility]. 2 weeks prior, the patient had an RLE revascularization and was referred to wound care at that time. There was plan to have the toe amputated on a scheduled basis at the time of the surgery, however on follow up was found to have acute decrease in Hgb and an BRANDIE. The patient notes there may be further debridement in the near future. Afebrile since admission with a normal white count. He is currently receiving Unasyn and vancomycin. There are no current cultures available for review. Imaging personally reviewed: 04/24 CTAP: distended bladder and mild bilateral hydronephrosis. 04/24 CXR: No abnormality Review of systems: Bold if positive; otherwise negative GENERAL: fever, chills, weight loss, fatigue, night sweats EYES: blurry vision, eye pain HENT: headache, hearing loss, sore throat, dysphagia, sinus pain CARDIO: chest pain, palpitations, orthopnea PULM: shortness of breath, wheezing, cough, sputum, hemoptysis GI: nausea, vomiting, diarrhea, abdominal pain, blood in stool : urinary frequency, urgency, dysuria, urethral discharge MSK: joint pain, back pain, swelling SKIN: rash, redness HEME: easy bruising, bleeding Past History Past Medical History: atrial fib, hypertension, PVD Past Surgical History: Other (RLE revascularization) Social history: smoking. denies: alcohol abuse Family history: CAD, hypertension Medications and Allergies Allergies Allergy/AdvReac Type Severity Reaction Status Date / Time No Known Allergies Allergy Unverified 04/11/19 10:16 Home Medications Medication Instructions Recorded Confirmed Last Taken Type Amiodarone [Cordarone 200 MG TAB] 200 mg PO QDAY 0904/24/19 04/23/19 History Clopidogrel [Plavix] 75 mg PO QDAY 04/24/19 04/24/19 04/23/19 History Donepezil [Aricept] 10 mg PO QDAY 04/24/19 04/24/19 04/23/19 History Furosemide [Lasix TAB] 40 mg PO QDAY 04/24/19 04/24/19 04/23/19 History Memantine [Namenda] 10 mg PO TID 04/24/19 04/24/19 04/23/19 History Metoprolol [Lopressor] 25 mg PO QDAY 04/24/19 04/24/19 04/23/19 History Rivaroxaban [Xarelto] 20 mg PO QDAY 04/24/19 04/24/19 04/23/19 History amLODIPine [Norvasc] 10 mg PO DAILY 04/24/19 04/24/19 04/23/19 History Active Meds: Active Medications Acetaminophen (Tylenol) 650 mg PO Q4H PRN PRN Reason: Pain MILD(1-3)/Fever >100.5/LEVY Amiodarone HCl (Cordarone) 200 mg PO QDAY [facility] Amlodipine Besylate (Norvasc) 10 mg PO DAILY [facility] Clopidogrel Bisulfate (Plavix) 75 mg PO QDAY [facility] Dextrose (D50w (25gm) Syringe) 50 ml IV PRN PRN PRN Reason: Hypoglycemia Donepezil HCl (Aricept) 10 mg PO QDAY [facility] Famotidine (Pepcid) 10 mg IV BID [facility] Furosemide (Lasix) 40 mg PO QDAY [facility] Hydromorphone HCl (Dilaudid) 0.5 mg IV Q3H PRN PRN Reason: Pain , Severe (7-10) Sodium Chloride (Nacl 0.9% 1000 Ml) 1,000 mls @ 75 mls/hr IV DIRECT [facility] Stop: 04/25/19 12:00 Last Admin: 04/24/19 23:25 Dose: 75 mls/hr Documented by: Ampicillin Sodium/Sulbactam Sodium (Unasyn/Ns 1.5 Gm/50 Ml) 1.5 gm in 50 mls @ 100 mls/hr IV Q12HR [facility] Memantine (Namenda) 10 mg PO TID [facility] Metoclopramide HCl (Reglan) 10 mg IV Q6H PRN PRN Reason: Nausea And Vomiting Metoprolol Tartrate (Lopressor) 25 mg PO QDAY [facility] Ondansetron HCl (Zofran) 4 mg IV Q8H PRN PRN Reason: Nausea And Vomiting Oxycodone/Acetaminophen (Percocet 5/325) 1 tab PO Q6H PRN PRN Reason: Pain, Moderate (4-6) Last Admin: 04/25/19 02:41 Dose: 1 tab Documented by: Rivaroxaban (Xarelto) 15 mg PO DAILY [facility] Sodium Chloride (Sodium Chloride Flush Syringe 10 Ml) 10 ml IV BID [facility] Sodium Chloride (Sodium Chloride Flush Syringe 10 Ml) 10 ml IV PRN PRN PRN Reason: LINE FLUSH Physical Examination - Physical Exam Narrative exam: General Normal appearance, well developed, no acute distress Eyes - PERRLA, EOM intact ENT - Moist mucous membranes, no lymphadenopathy Neck - No noticeable or palpable swelling, redness or rash around throat or on face Lymph Nodes - No lymphadenopathy Cardiovascular - RRR no m/r/g, no JVD, no carotid bruits Lungs - Clear to auscultation, no use of accessory muscles, no crackles or wheezes. Skin - No rashes, skin warm and dry, no erythematous areas Abdomen - Normal bowel sounds, abdomen soft and nontender Extremities - No edema, cyanosis or clubbing Musculoskeletal - 5/5 strength, normal range of motion, no swollen or erythematous joints. R great toe stump wrapped. R 2nd toe no acute ulcer. Neurological Alert and oriented x 3, CN 2-12 grossly intact. - Constitutional Vitals: Vital Signs Temp Pulse Resp BP Pulse Ox 99.2 F 96 H 18 173/69 90 04/25/19 07:35 04/25/19 07:35 04/25/19 07:35 04/25/19 07:35 04/25/19 07:35 Temperature -Last 24 Hours Temperature 99.2 F Temperature 98.4 F Temperature 98.1 F Temperature 97.8 F Temperature 99.2 F Results - Labs CBC & Chem 7: 04/25/19 14:33 04/25/19 06:06 Labs: Abnormal lab results 04/24/19 04/24/19 04/24/19 Range/Units 12:55 12:55 12:55 RBC 2.76 L (3.65-5.03) M/mm3 Hgb 8.5 L (11.8-15.2) gm/dl Hct 25.2 L (35.5-45.6) % RDW 15.9 H (13.2-15.2) % Lymph % (Auto) (13.4-35.0) % Lymph # (1.2-5.4) K/mm3 Seg Neutrophils % (40.0-70.0) % Seg Neutrophils # (1.8-7.7) K/mm3 PT 21.2 H (12.2-14.9) Sec. INR 1.88 H (0.87-1.13) APTT 41.8 H (24.2-36.6) Sec. Potassium 5.2 H (3.6-5.0) mmol/L Chloride 108.5 H (98-107) mmol/L Carbon Dioxide 21 L (22-30) mmol/L BUN 61 H (9-20) mg/dL Creatinine 4.4 H (0.8-1.5) mg/dL Glucose (75-100) mg/dL POC Glucose (70-105) Troponin T 0.033 H (0.00-0.029) ng/mL NT-Pro-B Natriuret Pep 6067 H (0-900) pg/mL Albumin (3.9-5) g/dL Urine pH (5.0-7.0) 04/24/19 04/24/19 04/25/19 Range/Units 21:24 22:24 05:20 RBC (3.65-5.03) M/mm3 Hgb (11.8-15.2) gm/dl Hct (35.5-45.6) % RDW (13.2-15.2) % Lymph % (Auto) (13.4-35.0) % Lymph # (1.2-5.4) K/mm3 Seg Neutrophils % (40.0-70.0) % Seg Neutrophils # (1.8-7.7) K/mm3 PT (12.2-14.9) Sec. INR (0.87-1.13) APTT (24.2-36.6) Sec. Potassium (3.6-5.0) mmol/L Chloride (98-107) mmol/L Carbon Dioxide (22-30) mmol/L BUN (9-20) mg/dL Creatinine (0.8-1.5) mg/dL Glucose 123 H (75-100) mg/dL POC Glucose < 40 L (70-105) Troponin T (0.00-0.029) ng/mL NT-Pro-B Natriuret Pep (0-900) pg/mL Albumin (3.9-5) g/dL Urine pH 8.0 H (5.0-7.0) 04/25/19 04/25/19 Range/Units 06:06 06:06 RBC 2.54 L (3.65-5.03) M/mm3 Hgb 7.6 L (11.8-15.2) gm/dl Hct 23.8 L (35.5-45.6) % RDW 16.5 H (13.2-15.2) % Lymph % (Auto) 6.0 L (13.4-35.0) % Lymph # 0.6 L (1.2-5.4) K/mm3 Seg Neutrophils % 87.2 H (40.0-70.0) % Seg Neutrophils # 8.2 H (1.8-7.7) K/mm3 PT (12.2-14.9) Sec. INR (0.87-1.13) APTT (24.2-36.6) Sec. Potassium 5.6 H (3.6-5.0) mmol/L Chloride 107.1 H (98-107) mmol/L Carbon Dioxide 21 L (22-30) mmol/L BUN 62 H (9-20) mg/dL Creatinine 4.9 H (0.8-1.5) mg/dL Glucose (75-100) mg/dL POC Glucose (70-105) Troponin T (0.00-0.029) ng/mL NT-Pro-B Natriuret Pep (0-900) pg/mL Albumin 3.5 L (3.9-5) g/dL Urine pH (5.0-7.0) - Imaging and Cardiology Chest x-ray: image reviewed CT scan - abdomen: image reviewed Assessment and Plan Cultures: None Assessment: 73 yo M PMHx severe bilateral PAD, CKD, HTN, Afib on AC admitted wit h R great toe gangrene and cellulitis 1. R great toe gangrene with cellulitis - Given there was surrounding cellulitis seen on the photos of the great and 2nd toe. Would continue vancomycin and Unasyn for now, and assuming good recovery from the surgery likely to discharge on PO antibiotics. Given that there was surrounding cellulitis according to the chart, I would treat for a cellulitis course even if surgical cure of osteo obtained. 2. Severe bilateral PAD - s/p recent revascularization 3. BRANDIE on CKD - renally dose antibiotics 4. HTN 5. Afib on AC Recs: - continue Unasyn 1.5g q12h - Continue vancomycin dosed per pharmacy. Appreciate their assistance. Goal trough 15-20. - follow up future debridements. - follow up pathology if obtained to determine possibility of surgical cure of osteo. - ultimate duration of antibiotics pending surgical outcomes. Thank you for the consult, we will continue to follow. Dr. Vernon taking over tomorrow. Angela Cabrera MD [facility] ([facility]) M: [phone] O: [phone] F: [phone]
[2019-04-25 09:32] LABS: Creatinine,Urine 64.1 mg/dL (0.1-20.0)
[2019-04-25] MEDS ORDERED: FAMOTIDINE 20 MG/2 ML INJ IV SCH (10:00)
[2019-04-25] MEDS ORDERED: RIVAROXABAN 20 MG TAB PO SCH (10:00)
[2019-04-25] MEDS ORDERED: CLOPIDOGREL 75 MG TAB PO SCH (10:00)
[2019-04-25] MEDS ORDERED: RIVAROXABAN 15 MG TAB PO SCH (10:00)
--- NOTE | 2019-04-25 11:43 | Event Note ---
Date: 04/25/19 GI has been consulted for drop in H/H, however patient currently off floor. No active signs of bleeding per nursing. Full consult to follow once patient is available.
--- NOTE | 2019-04-25 11:53 | Vascular Lab Report ---
DUPLEX DOPPLER LOWER EXTREMITY VEINS, BILATERAL INDICATION: Bilateral lower extremity swelling. TECHNIQUE: Duplex doppler imaging was performed through the veins of both lower extremities using ve nous compression and other maneuvers. COMPARISON: No relevant prior imaging study available. FINDINGS: Right Common femoral vein: Negative. Right Superficial femoral vein: Negative. Right Popliteal vein: Negative. Right Calf veins: Negative. Left Common femoral vein: Negative. Left Superficial femoral vein: Negative. Left Popliteal vein: Negative. Left Calf veins: Negative. Additional findings: No evidence for superficial or deep venous reflux disease by Valsalva, proximal compression or distal augmentation. No evidence for perforators in the right or left lower extremitie s. Moderate nonspecific bilateral subcutaneous edema is noted. IMPRESSION: No sonographic evidence for DVT in either lower extremity. No evidence for superficial or deep venou s reflux disease. Signer Name: Crescencio Myers Jr, MD Signed: 04/25/2019 11:48 AM Workstation Name: [id number]
--- NOTE | 2019-04-25 11:59 | Vascular Lab Report ---
LOWER EXTREMITY SEGMENTAL ARTERIAL DOPPLER PRESSURE AND PVR STUDY HISTORY: Right lower extremity gangrene, left lower extremity ulcer COMPARISON: none TECHNIQUE: Lower extremity segmental arterial doppler pressure and PVR analysis were obtained at [facility] lower extremity levels bilaterally. FINDINGS: RIGHT: Brachial artery peak-systolic pressure: 170 mmHg Posterior tibial artery: Unable to obtain due to patient's pain tolerance to cuff pressure. Second toe: 105 mmHg TBI: 0.62 LEFT: Brachial artery peak-systolic pressure: 101 mmHg Posterior tibialis: Unable to obtain due to patient's pain tolerance to cuff pressure. Great toe: 83 TBI: 0.49 Pressure volume recordings suggest blunted flow to the left foot compared to the right. IMPRESSION: TBI's as described. 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 Signer Name: Crescencio Myers Jr, MD Signed: 04/25/2019 11:55 AM Workstation Name: [id number]
--- NOTE | 2019-04-25 12:11 | Vascular Lab Report ---
DUPLEX DOPPLER LOWER EXTREMITY ARTERIAL, BILATERAL INDICATION: right great toe gangrene. Revascularization 2 weeks ago at right popliteal/tibioperoneal trunk. TECHNIQUE: Arterial duplex examination of both lower extremities performed using B-mode, color flow and spectral Doppler assessment. FINDINGS: RIGHT: Common Femoral Artery: PSV 120 cm/sec. Triphasic waveform. Proximal SFA/origin: PSV 247 cm/sec. Biphasic waveform. Prestenosis PSV 120 cm/s. Mid SFA: PSV 207 cm/sec. Biphasic waveform. Prestenosis PSV 120 cm/s Distal SFA: PSV 119 cm/sec. Biphasic waveform. Popliteal artery: PSV 274 cm/sec. Monophasic waveform. Prestenosis PSV 138 cm/s Tibioperoneal trunk: PSV 232 cm/s. Monophasic waveform. Prestenosis PSV 123 cm/s. Posterior tibial artery: PSV 135 cm/sec. Monophasic waveform. Anterior tibial artery: Occluded distally. LEFT: Common Femoral Artery: PSV 356 cm/sec. Biphasic waveform. Prestenosis PSV 182 cm/s Proximal SFA: PSV 108 cm/sec. Biphasic waveform. Mid SFA: PSV 229 cm/sec. Biphasic waveform. Prestenosis PSV 107 cm/s Distal SFA: PSV 82 cm/sec. Triphasic waveform. Popliteal artery: PSV 123 cm/sec. Biphasic waveform. Tibioperoneal trunk: PSV 455 cm/s. Monophasic waveform. Prestenosis PSV 63 cm/s. Posterior tibial artery: PSV 48 cm/sec. Monophasic waveform. Anterior tibial artery: Occluded. IMPRESSION: Greater than 50% stenosis in the right SFA origin. Less than 50% stenosis in the right mid SFA and mid to distal right popliteal artery. Approaching greater than 50% stenosis in the right tibioperoneal trunk. Approaching greater than 50% stenosis in the left proximal [employer]. Greater than 50% stenosis in the left mid SFA. Greater than 75% stenosis in the left tibioperoneal trunk. The bilateral anterior tibial arteries appear occluded distally. Doppler Waveform: * Triphasic is normal. * Biphasic is abnormal if clear transition from triphasic signal along vascular tree. * Monophasic is abnormal. Signer Name: Crescencio Myers Jr, MD Signed: 04/25/2019 12:06 PM Workstation Name: [id number]
--- NOTE | 2019-04-25 12:29 | Consultation ---
History of Present Illness - Reason for Consult Consult date: 04/25/19 - History of Present Illness 73 yo M PMHx severe bilateral PAD, CKD, HTN, Afib on AC admitted to the hospital due to R toe gangrene and surrounding cellulitis. He notes that the issue began after stubbing his toe on some furniture a few weeks prior to admission. He denied symptoms of systemic infection such as fevers, sweats, chills. He complains of some drainage from the toe in addition to necrotic changes of the skin. Dr. Orourke saw the patient in the ER and amputated the toe there at the [facility]. 2 weeks prior, the patient had an RLE revascularization and was referred to wound care at that time. There was plan to have the toe amputated on a scheduled basis at the time of the surgery, however on follow up was found to have acute decrease in Hgb and an BRANDIE CT abdomen IMPRESSION: Markedly distended bladder and mild bilateral hydronephrosis. Correlate for bladder outlet obstruction. Small gallstone. Scattered liver hypodensities consistent with small cysts or hemangiomas. No acute inflammatory process is identified uncirced---condom cath removed condom ----wire delgado (16f)---clear urine A/P BPH / retention home with delgado outpt cmg Past History Past Medical History: atrial fib, hypertension, PVD Past Surgical History: Other (RLE revascularization) Social history: smoking. denies: alcohol abuse Family history: CAD, hypertension Medications and Allergies Allergies Allergy/AdvReac Type Severity Reaction Status Date / Time No Known Allergies Allergy Unverified 04/11/19 10:16 Home Medications Medication Instructions Recorded Confirmed Last Taken Type Amiodarone [Cordarone 200 MG TAB] 200 mg PO QDAY 04/24/19 04/24/19 04/23/19 History Clopidogrel [Plavix] 75 mg PO QDAY 04/24/19 04/24/19 04/23/19 History Donepezil [Aricept] 10 mg PO QDAY 04/24/19 04/24/19 04/23/19 History Furosemide [Lasix TAB] 40 mg PO QDAY 04/24/19 04/24/19 04/23/19 History Memantine [Namenda] 10 mg PO TID 04/24/19 04/24/19 04/23/19 History Metoprolol [Lopressor] 25 mg PO QDAY 04/24/19 04/24/19 04/23/19 History Rivaroxaban [Xarelto] 20 mg PO QDAY 04/24/19 04/24/19 04/23/19 History amLODIPine [Norvasc] 10 mg PO DAILY 04/24/19 04/24/19 04/23/19 History Active Meds: Active Medications Acetaminophen (Tylenol) 650 mg PO Q4H PRN PRN Reason: Pain MILD(1-3)/Fever >100.5/LEVY Amiodarone HCl (Cordarone) 200 mg PO QDAY [facility] Amlodipine Besylate (Norvasc) 10 mg PO DAILY [facility] Aspirin (Baby Aspirin) 81 mg PO QDAY [facility] Dextrose (D50w (25gm) Syringe) 50 ml IV PRN PRN PRN Reason: Hypoglycemia Donepezil HCl (Aricept) 10 mg PO QDAY [facility] Famotidine (Pepcid) 10 mg IV BID [facility] Furosemide (Lasix) 40 mg PO QDAY [facility] Hydromorphone HCl (Dilaudid) 0.5 mg IV Q3H PRN PRN Reason: Pain , Severe (7-10) Ampicillin Sodium/Sulbactam Sodium (Unasyn/Ns 1.5 Gm/50 Ml) 1.5 gm in 50 mls @ 100 mls/hr IV Q12HR [facility] Insulin Human Regular (Humulin R) 2 units IV ONCE ONE Stop: 04/25/19 13:01 Memantine (Namenda) 10 mg PO TID [facility] Metoclopramide HCl (Reglan) 10 mg IV Q6H PRN PRN Reason: Nausea And Vomiting Metoprolol Tartrate (Lopressor) 25 mg PO QDAY [facility] Ondansetron HCl (Zofran) 4 mg IV Q8H PRN PRN Reason: Nausea And Vomiting Oxycodone/Acetaminophen (Percocet 5/325) 1 tab PO Q6H PRN PRN Reason: Pain, Moderate (4-6) Last Admin: 04/25/19 02:41 Dose: 1 tab Documented by: Sodium Chloride (Sodium Chloride Flush Syringe 10 Ml) 10 ml IV BID [facility] Sodium Chloride (Sodium Chloride Flush Syringe 10 Ml) 10 ml IV PRN PRN PRN Reason: LINE FLUSH Sodium Polystyrene Sulfonate (Kionex) 30 gm PO ONCE ONE Stop: 04/25/19 13:01 Exam - Constitutional Vitals: Temp Pulse Resp BP Pulse Ox 99.2 F 96 H 16 173/69 90 04/25/19 07:35 04/25/19 07:35 04/25/19 09:39 04/25/19 07:35 04/25/19 07:35 Results - Labs CBC & Chem 7: 04/25/19 06:06 04/25/19 06:06 Labs: Abnormal lab results 04/24/19 04/24/19 04/24/19 Range/Units 12:55 12:55 12:55 RBC 2.76 L (3.65-5.03) M/mm3 Hgb 8.5 L (11.8-15.2) gm/dl Hct 25.2 L (35.5-45.6) % RDW 15.9 H (13.2-15.2) % Lymph % (Auto) (13.4-35.0) % Lymph # (1.2-5.4) K/mm3 Seg Neutrophils % (40.0-70.0) % Seg Neutrophils # (1.8-7.7) K/mm3 PT 21.2 H (12.2-14.9) Sec. INR 1.88 H (0.87-1.13) APTT 41.8 H (24.2-36.6) Sec. Potassium 5.2 H (3.6-5.0) mmol/L Chloride 108.5 H (98-107) mmol/L Carbon Dioxide 21 L (22-30) mmol/L BUN 61 H (9-20) mg/dL Creatinine 4.4 H (0.8-1.5) mg/dL Glucose (75-100) mg/dL POC Glucose (70-105) Troponin T 0.033 H (0.00-0.029) ng/mL NT-Pro-B Natriuret Pep 6067 H (0-900) pg/mL Albumin (3.9-5) g/dL Urine pH (5.0-7.0) Urine Creatinine (0.1-20.0) mg/dL 04/24/19 04/24/19 04/25/19 Range/Units 21:24 22:24 05:20 RBC (3.65-5.03) M/mm3 Hgb (11.8-15.2) gm/dl Hct (35.5-45.6) % RDW (13.2-15.2) % Lymph % (Auto) (13.4-35.0) % Lymph # (1.2-5.4) K/mm3 Seg Neutrophils % (40.0-70.0) % Seg Neutrophils # (1.8-7.7) K/mm3 PT (12.2-14.9) Sec. INR (0.87-1.13) APTT (24.2-36.6) Sec. Potassium (3.6-5.0) mmol/L Chloride (98-107) mmol/L Carbon Dioxide (22-30) mmol/L BUN (9-20) mg/dL Creatinine (0.8-1.5) mg/dL Glucose 123 H (75-100) mg/dL POC Glucose < 40 L (70-105) Troponin T (0.00-0.029) ng/mL NT-Pro-B Natriuret Pep (0-900) pg/mL Albumin (3.9-5) g/dL Urine pH 8.0 H (5.0-7.0) Urine Creatinine (0.1-20.0) mg/dL 04/25/19 04/25/19 04/25/19 Range/Units 06:06 06:06 08:30 RBC 2.54 L (3.65-5.03) M/mm3 Hgb 7.6 L (11.8-15.2) gm/dl Hct 23.8 L (35.5-45.6) % RDW 16.5 H (13.2-15.2) % Lymph % (Auto) 6.0 L (13.4-35.0) % Lymph # 0.6 L (1.2-5.4) K/mm3 Seg Neutrophils % 87.2 H (40.0-70.0) % Seg Neutrophils # 8.2 H (1.8-7.7) K/mm3 PT (12.2-14.9) Sec. INR (0.87-1.13) APTT (24.2-36.6) Sec. Potassium 5.6 H (3.6-5.0) mmol/L Chloride 107.1 H (98-107) mmol/L Carbon Dioxide 21 L (22-30) mmol/L BUN 62 H (9-20) mg/dL Creatinine 4.9 H (0.8-1.5) mg/dL Glucose (75-100) mg/dL POC Glucose (70-105) Troponin T (0.00-0.029) ng/mL NT-Pro-B Natriuret Pep (0-900) pg/mL Albumin 3.5 L (3.9-5) g/dL Urine pH (5.0-7.0) Urine Creatinine 64.1 H (0.1-20.0) mg/dL
[2019-04-25] MEDS: AMIODARONE 200 MG TAB PO SCH (12:38)
[2019-04-25] MEDS: DONEPEZIL 10 MG TAB PO SCH (12:39)
[2019-04-25] MEDS: ASPIRIN 81 MG TAB CHEW PO SCH (12:39)
[2019-04-25] MEDS: MEMANTINE 10 MG TAB PO SCH ×3 (13:00→20:20)
--- NOTE | 2019-04-25 13:12 | Consultation ---
History of Present Illness - Reason for Consult Consult date: 04/25/19 anemia Requesting physician: JESSICA BARDALES - History of Present Illness Mr. Woods is a 73-year-old man admitted for abnormal hemoglobin and creatinine on i-STAT done as an outpatient. He is 2 weeks status post revascularization of his right lower extremity. He has significant peripheral arterial disease and underwent a right toe amputation yesterday for gangrene. In the ER, he was noted to have erythema of the foot and was admitted for further evaluation. Here, he was noted to be anemic and GI consultation is obtained. Of note, patient had been on Plavix and Xarelto as an outpatient for his peripheral arterial disease as well as for chronic atrial fibrillation.. Patient had a hemoglobin of 11.3 on April 11, and it was 8.5 yesterday and is down to 7.6 today. Patient however denies any GI bleeding. Bowel movements are regular on a daily basis without any change. There is no abdominal pain nausea vomiting hematemesis or hematochezia. He denies weight loss. There is no heartburn or dysphagia. He denies chest pain or shortness of breath or lightheadedness or dizziness. Patient is currently lying in bed and looking very comfortable. He denies any complaints. Meds reviewed. Past History Past Medical History: atrial fib, hypertension, PVD Past Surgical History: Other (RLE revascularization) Social history: smoking. denies: alcohol abuse Family history: CAD, hypertension Medications and Allergies Allergies Allergy/AdvReac Type Severity Reaction Status Date / Time No Known Allergies Allergy Unverified 04/11/19 10:16 Home Medications Medication Instructions Recorded Confirmed Last Taken Type Amiodarone [Cordarone 200 MG TAB] 200 mg PO QDAY 04/24/19 04/24/19 04/23/19 History Clopidogrel [Plavix] 75 mg PO QDAY 04/24/19 04/24/19 04/23/19 History Donepezil [Aricept] 10 mg PO QDAY 04/24/19 04/24/19 04/23/19 History Furosemide [Lasix TAB] 40 mg PO QDAY 04/24/19 04/24/19 04/23/19 History Memantine [Namenda] 10 mg PO TID 04/24/19 04/24/19 04/23/19 History Metoprolol [Lopressor] 25 mg PO QDAY 04/24/19 04/24/19 04/23/19 History Rivaroxaban [Xarelto] 20 mg PO QDAY 04/24/19 04/24/19 04/23/19 History amLODIPine [Norvasc] 10 mg PO DAILY 04/24/19 04/24/19 04/23/19 History Active Meds: Active Medications Acetaminophen (Tylenol) 650 mg PO Q4H PRN PRN Reason: Pain MILD(1-3)/Fever >100.5/LEVY Amiodarone HCl (Cordarone) 200 mg PO QDAY [facility] Last Admin: 04/25/19 12:38 Dose: 200 mg Documented by: Amlodipine Besylate (Norvasc) 10 mg PO DAILY [facility] Aspirin (Baby Aspirin) 81 mg PO QDAY [facility] Last Admin: 04/25/19 12:39 Dose: 81 mg Documented by: Dextrose (D50w (25gm) Syringe) 50 ml IV PRN PRN PRN Reason: Hypoglycemia Donepezil HCl (Aricept) 10 mg PO QDAY [facility] Last Admin: 04/25/19 12:39 Dose: 10 mg Documented by: Famotidine (Pepcid) 10 mg IV BID [facility] Last Admin: 04/25/19 12:38 Dose: 10 mg Documented by: Furosemide (Lasix) 40 mg PO QDAY [facility] Hydromorphone HCl (Dilaudid) 0.5 mg IV Q3H PRN PRN Reason: Pain , Severe (7-10) Ampicillin Sodium/Sulbactam Sodium (Unasyn/Ns 1.5 Gm/50 Ml) 1.5 gm in 50 mls @ 100 mls/hr IV Q12HR [facility] Memantine (Namenda) 10 mg PO TID [facility] Last Admin: 04/25/19 13:07 Dose: 10 mg Documented by: Metoclopramide HCl (Reglan) 10 mg IV Q6H PRN PRN Reason: Nausea And Vomiting Metoprolol Tartrate (Lopressor) 25 mg PO QDAY [facility] Ondansetron HCl (Zofran) 4 mg IV Q8H PRN PRN Reason: Nausea And Vomiting Oxycodone/Acetaminophen (Percocet 5/325) 1 tab PO Q6H PRN PRN Reason: Pain, Moderate (4-6) Last Admin: 04/25/19 02:41 Dose: 1 tab Documented by: Sodium Chloride (Sodium Chloride Flush Syringe 10 Ml) 10 ml IV BID [facility] Last Admin: 04/25/19 12:45 Dose: 10 ml Documented by: Sodium Chloride (Sodium Chloride Flush Syringe 10 Ml) 10 ml IV PRN PRN PRN Reason: LINE FLUSH Review of Systems All systems: negative (as noted) Exam - Constitutional Vitals: Temp Pulse Resp BP Pulse Ox 99.2 F 96 H 16 173/69 90 04/25/19 07:35 04/25/19 07:35 04/25/19 09:39 04/25/19 07:35 04/25/19 07:35 General appearance: Present: no acute distress - EENT Eyes: Present: PERRL, EOM intact ENT: hearing intact - Respiratory Respiratory effort: normal Respiratory: bilateral: CTA - Cardiovascular Rhythm: regular Heart Sounds: Present: S1 & S2 - Extremities Extremities: abnormal (ischemic changes to both feet, and s/p R great toe amputation, with dry clean dressing) - Abdominal General gastrointestinal: Present: soft, non-tender Results - Labs CBC & Chem 7: 04/25/19 06:06 04/25/19 06:06 Labs: Abnormal lab results 04/24/19 04/24/19 04/24/19 Range/Units 12:55 12:55 12:55 RBC 2.76 L (3.65-5.03) M/mm3 Hgb 8.5 L (11.8-15.2) gm/dl Hct 25.2 L (35.5-45.6) % RDW 15.9 H (13.2-15.2) % Lymph % (Auto) (13.4-35.0) % Lymph # (1.2-5.4) K/mm3 Seg Neutrophils % (40.0-70.0) % Seg Neutrophils # (1.8-7.7) K/mm3 PT 21.2 H (12.2-14.9) Sec. INR 1.88 H (0.87-1.13) APTT 41.8 H (24.2-36.6) Sec. Potassium 5.2 H (3.6-5.0) mmol/L Chloride 108.5 H (98-107) mmol/L Carbon Dioxide 21 L (22-30) mmol/L BUN 61 H (9-20) mg/dL Creatinine 4.4 H (0.8-1.5) mg/dL Glucose (75-100) mg/dL POC Glucose (70-105) Troponin T 0.033 H (0.00-0.029) ng/mL NT-Pro-B Natriuret Pep 6067 H (0-900) pg/mL Albumin (3.9-5) g/dL Urine pH (5.0-7.0) Urine Creatinine (0.1-20.0) mg/dL 04/24/19 04/24/19 04/25/19 Range/Units 21:24 22:24 05:20 RBC (3.65-5.03) M/mm3 Hgb (11.8-15.2) gm/dl Hct (35.5-45.6) % RDW (13.2-15.2) % Lymph % (Auto) (13.4-35.0) % Lymph # (1.2-5.4) K/mm3 Seg Neutrophils % (40.0-70.0) % Seg Neutrophils # (1.8-7.7) K/mm3 PT (12.2-14.9) Sec. INR (0.87-1.13) APTT (24.2-36.6) Sec. Potassium (3.6-5.0) mmol/L Chloride (98-107) mmol/L Carbon Dioxide (22-30) mmol/L BUN (9-20) mg/dL Creatinine (0.8-1.5) mg/dL Glucose 123 H (75-100) mg/dL POC Glucose < 40 L (70-105) Troponin T (0.00-0.029) ng/mL NT-Pro-B Natriuret Pep (0-900) pg/mL Albumin (3.9-5) g/dL Urine pH 8.0 H (5.0-7.0) Urine Creatinine (0.1-20.0) mg/dL 04/25/19 04/25/19 04/25/19 Range/Units 06:06 06:06 08:30 RBC 2.54 L (3.65-5.03) M/mm3 Hgb 7.6 L (11.8-15.2) gm/dl Hct 23.8 L (35.5-45.6) % RDW 16.5 H (13.2-15.2) % Lymph % (Auto) 6.0 L (13.4-35.0) % Lymph # 0.6 L (1.2-5.4) K/mm3 Seg Neutrophils % 87.2 H (40.0-70.0) % Seg Neutrophils # 8.2 H (1.8-7.7) K/mm3 PT (12.2-14.9) Sec. INR (0.87-1.13) APTT (24.2-36.6) Sec. Potassium 5.6 H (3.6-5.0) mmol/L Chloride 107.1 H (98-107) mmol/L Carbon Dioxide 21 L (22-30) mmol/L BUN 62 H (9-20) mg/dL Creatinine 4.9 H (0.8-1.5) mg/dL Glucose (75-100) mg/dL POC Glucose (70-105) Troponin T (0.00-0.029) ng/mL NT-Pro-B Natriuret Pep (0-900) pg/mL Albumin 3.5 L (3.9-5) g/dL Urine pH (5.0-7.0) Urine Creatinine 64.1 H (0.1-20.0) mg/dL - Imaging and Cardiology CT scan - abdomen: report reviewed (No retroperitoneal hematoma) Assessment and Plan 1. Anemia - with relatively rapid decline in H/H. No clear hx of GI bleed. Multifactorial, with component related to renal disease. May have had some soft tissue losses with interventions, since on anticoagulation. Need to exclude GI pathology given ongoing need for anticoagulation. - check stool for OB - empiric PPI - monitor H/H and transfuse as needed - will proceed with EGD/colonoscopy once medically stable, and Cardiac evaluation which is in progress is completed.
[2019-04-25] MEDS: AMPICILLIN/SULBACTA 1.5GM/50ML 1.5 GM/50 ML BAG IV SCH ×3 (14:12→23:53)
[2019-04-25] MEDS: PANTOPRAZOLE 40 MG TAB PO SCH (14:16)
--- NOTE | 2019-04-25 14:52 | Progress Note ---
Assessment and Plan He will need further evaluation and management of his bladder outlet obstruction prior to any additional arterial interventions. Nephrology has been consulted for the patient's elevated creatinine. The patient experienced a decline in his hemoglobin for which GI has been consulted. Subjective Date of service: 04/25/19 Principal diagnosis: peripheral vascular disease with nonhealing wounds Interval history: The patient presented for revascularization procedure. He was noted to have bilateral lower extremity edema. His evaluation in the hospital demonstrated L of obstruction and mild hydronephrosis. Additionally, the patient has renal i mpairment. On examination today, the patient has had a Triplett placed. His legs are swollen bilaterally however do not appear tense. Venous ultrasound demonstration no evidence of DVT in bilateral lower extremities. His arterial ultrasound demonstrates multifocal disease throughout both legs with occluded anterior tibial arteries bilaterally. Objective - Constitutional Vitals: Vital Signs - 12hr 04/25/19 04/25/19 04/25/19 04:43 07:35 09:39 Temperature 99.2 F Pulse Rate 96 H Respiratory 18 18 16 Rate Blood Pressure 173/69 O2 Sat by Pulse 92 90 Oximetry General appearance: Present: no acute distress - EENT Eyes: EOM intact ENT: hearing intact - Neck Neck: supple - Respiratory Respiratory effort: normal Extremities: abnormal Extremity abnormal: edema - Gastrointestinal General gastrointestinal: Present: deferred Rectal Exam: deferred - Genitourinary Male genitourinary: deferred - Psychiatric Psychiatric: cooperative - Labs CBC & Chem 7: 04/25/19 14:33 04/25/19 06:06 Labs: Abnormal lab results 04/24/19 04/24/19 04/25/19 Range/Units 21:24 22:24 05:20 RBC (3.65-5.03) M/mm3 Hgb (11.8-15.2) gm/dl Hct (35.5-45.6) % RDW (13.2-15.2) % Lymph % (Auto) (13.4-35.0) % Lymph # (1.2-5.4) K/mm3 Seg Neutrophils % (40.0-70.0) % Seg Neutrophils # (1.8-7.7) K/mm3 Potassium (3.6-5.0) mmol/L Chloride (98-107) mmol/L Carbon Dioxide (22-30) mmol/L BUN (9-20) mg/dL Creatinine (0.8-1.5) mg/dL Glucose 123 H (75-100) mg/dL POC Glucose < 40 L (70-105) Albumin (3.9-5) g/dL Urine pH 8.0 H (5.0-7.0) Urine Creatinine (0.1-20.0) mg/dL 04/25/19 04/25/19 04/25/19 Range/Units 06:06 06:06 08:30 RBC 2.54 L (3.65-5.03) M/mm3 Hgb 7.6 L (11.8-15.2) gm/dl Hct 23.8 L (35.5-45.6) % RDW 16.5 H (13.2-15.2) % Lymph % (Auto) 6.0 L (13.4-35.0) % Lymph # 0.6 L (1.2-5.4) K/mm3 Seg Neutrophils % 87.2 H (40.0-70.0) % Seg Neutrophils # 8.2 H (1.8-7.7) K/mm3 Potassium 5.6 H (3.6-5.0) mmol/L Chloride 107.1 H (98-107) mmol/L Carbon Dioxide 21 L (22-30) mmol/L BUN 62 H (9-20) mg/dL Creatinine 4.9 H (0.8-1.5) mg/dL Glucose (75-100) mg/dL POC Glucose (70-105) Albumin 3.5 L (3.9-5) g/dL Urine pH (5.0-7.0) Urine Creatinine 64.1 H (0.1-20.0) mg/dL Medications & Allergies - Medications Allergies/Adverse Reactions: Allergies No Known Allergies Allergy (Unverified 04/11/19 10:16) Home Medications: Home Medications Medication Instructions Recorded Confirmed Last Taken Type Amiodarone [Cordarone 200 MG TAB] 200 mg PO QDAY 04/24/19 04/24/19 04/23/19 History Clopidogrel [Plavix] 75 mg PO QDAY 04/24/19 04/24/19 04/23/19 History Donepezil [Aricept] 10 mg PO QDAY 04/24/19 04/24/19 04/23/19 History Furosemide [Lasix TAB] 40 mg PO QDAY 04/24/19 04/24/19 04/23/19 History Memantine [Namenda] 10 mg PO TID 04/24/19 04/24/19 04/23/19 History Metoprolol [Lopressor] 25 mg PO QDAY 04/24/19 04/24/19 04/23/19 History Rivaroxaban [Xarelto] 20 mg PO QDAY 04/24/19 04/24/19 04/23/19 History amLODIPine [Norvasc] 10 mg PO DAILY 04/24/19 04/24/19 04/23/19 History Active Medications: Generic Name Dose Route Start Last Admin Trade Name Freq PRN Reason Stop Dose Admin Acetaminophen 650 mg 04/24/19 22:27 Tylenol PO Q4H PRN Pain MILD(1-3)/Fever >100.5/LEVY Amiodarone HCl 200 mg 04/25/19 10:00 04/25/19 12:38 Cordarone PO 200 mg QDAY [facility] Administration Amlodipine Besylate 10 mg 04/25/19 10:00 Norvasc PO DAILY [facility] Aspirin 81 mg 04/25/19 10:00 04/25/19 12:39 Baby Aspirin PO 81 mg QDAY [facility] Administration Dextrose 50 ml 04/24/19 23:33 D50w (25gm) Syringe IV PRN PRN Hypoglycemia Donepezil HCl 10 mg 04/25/19 10:00 04/25/19 12:39 Aricept PO 10 mg QDAY [facility] Administration Furosemide 40 mg 04/25/19 10:00 Lasix PO QDAY [facility] Hydromorphone HCl 0.5 mg 04/24/19 22:28 Dilaudid IV Q3H PRN Pain , Severe (7-10) Ampicillin Sodium/Sulbactam Sodium 1.5 gm in 50 mls @ 100 mls/hr 04/25/19 10:00 04/25/19 14:12 Unasyn/Ns 1.5 Gm/50 Ml IV 100 mls/hr Q12HR [facility] Administration Memantine 10 mg 04/25/19 08:00 04/25/19 13:07 Namenda PO 10 mg TID [facility] Administration Metoclopramide HCl 10 mg 04/24/19 22:28 Reglan IV Q6H PRN Nausea And Vomiting Metoprolol Tartrate 25 mg 04/25/19 10:00 Lopressor PO QDAY [facility] Ondansetron HCl 4 mg 04/24/19 22:27 Zofran IV Q8H PRN Nausea And Vomiting Oxycodone/Acetaminophen 1 tab 04/24/19 22:28 04/25/19 02:41 Percocet 5/325 PO 1 tab Q6H PRN Administration Pain, Moderate (4-6) Pantoprazole Sodium 40 mg 04/25/19 14:00 04/25/19 14:16 Protonix PO 40 mg QDAY [facility] Administration Sodium Chloride 10 ml 04/25/19 10:00 04/25/19 12:45 Sodium Chloride Flush Syringe 10 Ml IV 10 ml BID [facility] Administration Sodium Chloride 10 ml 04/24/19 22:27 Sodium Chloride Flush Syringe 10 Ml IV PRN PRN LINE FLUSH
[2019-04-25 14:53] LABS: Hemoglobin 7.6 gm/dl (11.8-15.2)
--- NOTE | 2019-04-25 16:39 | Consultation ---
History of Present Illness Consult date: 04/25/19 Consult reason: congestive heart failure History of present illness: The patient is a 73-year-old man with multiple medical problems. He was specifically sent to the hospital by his vascular surgeon for progressive gangrene of the right foot. In the emergency room, he received a right toe amputation. Otherwise, he has no cardiac complaints no chest pain, no shortness of breath and no palpitations. Laboratory values done in the emergency room showed marked anemia with a hematocrit of 23 (was 34 two weeks ago), and severe renal failure, creatinine of 4.9 which appears to be chronic and progressive. I Dosier consultation was requested because a BNP level was ordered, and found elevated prompting a consultation for "CHF". As noted, the patient had no shortness of breath, chest x-ray showed clear lungs with no interstitial edema. ECG was a normal sinus rhythm, normal ECG. The patient's past cardiac history is uncertain, he is a poor historian and unable to articulate any prior cardiac workup. We do note he is on oral anticoagulation with Xarelto, and also takes amiodarone both of which probably suggest a history of paroxysmal atrial fibrillation. As reported above, current ECG is sinus rhythm. Past History Past Medical History: atrial fib, hypertension, PVD Past Surgical History: Other (RLE revascularization) Social history: smoking. denies: alcohol abuse Family history: CAD, hypertension Medications and Allergies Allergies Allergy/AdvReac Type Severity Reaction Status Date / Time No Known Allergies Allergy Unverified 04/11/19 10:16 Home Medications Medication Instructions Recorded Confirmed Last Taken Type Amiodarone [Cordarone 200 MG TAB] 200 mg PO QDAY 04/24/19 04/24/19 04/23/19 History Clopidogrel [Plavix] 75 mg PO QDAY 04/24/19 04/24/19 04/23/19 History Donepezil [Aricept] 10 mg PO QDAY 04/24/19 04/24/19 04/23/19 History Furosemide [Lasix TAB] 40 mg PO QDAY 04/24/19 04/24/19 04/23/19 History Memantine [Namenda] 10 mg PO TID 04/24/19 04/24/19 04/23/19 History Metoprolol [Lopressor] 25 mg PO QDAY 04/24/19 04/24/19 04/23/19 History Rivaroxaban [Xarelto] 20 mg PO QDAY 04/24/19 04/24/19 04/23/19 History amLODIPine [Norvasc] 10 mg PO DAILY 04/24/19 04/24/19 04/23/19 History Active Meds: Active Medications Acetaminophen (Tylenol) 650 mg PO Q4H PRN PRN Reason: Pain MILD(1-3)/Fever >100.5/LEVY Amiodarone HCl (Cordarone) 200 mg PO QDAY [facility] Last Admin: 04/25/19 12:38 Dose: 200 mg Documented by: Amlodipine Besylate (Norvasc) 10 mg PO DAILY [facility] Aspirin (Baby Aspirin) 81 mg PO QDAY [facility] Last Admin: 04/25/19 12:39 Dose: 81 mg Documented by: Dextrose (D50w (25gm) Syringe) 50 ml IV PRN PRN PRN Reason: Hypoglycemia Donepezil HCl (Aricept) 10 mg PO QDAY [facility] Last Admin: 04/25/19 12:39 Dose: 10 mg Documented by: Furosemide (Lasix) 40 mg PO QDAY [facility] Hydromorphone HCl (Dilaudid) 0.5 mg IV Q3H PRN PRN Reason: Pain , Severe (7-10) Ampicillin Sodium/Sulbactam Sodium (Unasyn/Ns 1.5 Gm/50 Ml) 1.5 gm in 50 mls @ 100 mls/hr IV Q12HR [facility] Last Admin: 04/25/19 14:12 Dose: 100 mls/hr Documented by: Memantine (Namenda) 10 mg PO TID [facility] Last Admin: 04/25/19 13:07 Dose: 10 mg Documented by: Metoclopramide HCl (Reglan) 10 mg IV Q6H PRN PRN Reason: Nausea And Vomiting Metoprolol Tartrate (Lopressor) 25 mg PO QDAY [facility] Ondansetron HCl (Zofran) 4 mg IV Q8H PRN PRN Reason: Nausea And Vomiting Oxycodone/Acetaminophen (Percocet 5/325) 1 tab PO Q6H PRN PRN Reason: Pain, Moderate (4-6) Last Admin: 04/25/19 02:41 Dose: 1 tab Documented by: Pantoprazole Sodium (Protonix) 40 mg PO QDAY [facility] Last Admin: 04/25/19 14:16 Dose: 40 mg Documented by: Sodium Chloride (Sodium Chloride Flush Syringe 10 Ml) 10 ml IV BID [facility] Last Admin: 04/25/19 12:45 Dose: 10 ml Documented by: Sodium Chloride (Sodium Chloride Flush Syringe 10 Ml) 10 ml IV PRN PRN PRN Reason: LINE FLUSH Review of Systems Cardiovascular: no chest pain, no orthopnea, no palpitations, no rapid/irregular heart beat, no edema, no syncope, no lightheadedness, no shortness of breath Physical Examination Vital Signs Temp Pulse Resp BP Pulse Ox 99.2 F 89 15 170/63 98 04/24/19 12:18 04/24/19 12:18 04/24/19 12:18 04/24/19 12:18 04/24/19 12:18 General appearance: no acute distress, cachectic HEENT: Positive: PERRL Neck: Positive: neck supple Cardiac: Positive: Reg Rate and Rhythm Lungs: Positive: Decreased Breath Sounds Neuro: Positive: Grossly Intact Abdomen: Positive: Soft Male genitourinary: Positive: deferred Skin: Positive: Clear Extremities: Absent: edema Results 04/25/19 14:33 04/25/19 06:06 Cardiac Enzymes 04/25/19 Range/Units 06:06 AST 19 (5-40) units/L CBC 04/25/19 04/25/19 Range/Units 06:06 14:33 WBC 9.4 (4.5-11.0) K/mm3 RBC 2.54 L (3.65-5.03) M/mm3 Hgb 7.6 L 7.6 L (11.8-15.2) gm/dl Hct 23.8 L 23.0 L (35.5-45.6) % Plt Count 253 (140-440) K/mm3 Lymph # 0.6 L (1.2-5.4) K/mm3 [place] # 0.5 (0.0-0.8) K/mm3 Eos # 0.1 (0.0-0.4) K/mm3 Baso # 0.0 (0.0-0.1) K/mm3 Comprehensive Metabolic Panel 04/24/19 04/25/19 Range/Units 22:24 06:06 Sodium 141 (137-145) mmol/L Potassium 5.6 H (3.6-5.0) mmol/L Chloride 107.1 H (98-107) mmol/L Carbon Dioxide 21 L (22-30) mmol/L BUN 62 H (9-20) mg/dL Creatinine 4.9 H (0.8-1.5) mg/dL Glucose 123 H 100 (75-100) mg/dL Calcium 9.7 (8.4-10.2) mg/dL AST 19 (5-40) units/L ALT 10 (7-56) units/L Alkaline Phosphatase 86 (35-129) units/L Total Protein 6.9 (6.3-8.2) g/dL Albumin 3.5 L (3.9-5) g/dL EKG interpretations - Telemetry EKG Rhythm: Sinus Rhythm Assessment and Plan - Patient Problems (1) Elevated brain natriuretic peptide (BNP) level Current Visit: Yes Status: Acute Plan to address problem: Patient has no symptoms or clinical signs of fluid overload or heart failure. We will manage conservatively from a cardiac standpoint. Request old records for further medical management.
[2019-04-25] MEDS: amLODIPine 10 MG TAB PO SCH (17:10)
[2019-04-25] MEDS: METOPROLOL TARTRATE 25 MG TAB PO SCH (17:12)
[2019-04-25] MEDS: FUROSEMIDE 40 MG TAB PO SCH (17:12)
[2019-04-25] MEDS: ACETAMINOPHEN 325 MG TAB PO PRN (20:20)
[2019-04-26] MEDS: AMPICILLIN/SULBACTA 1.5GM/50ML 1.5 GM/50 ML BAG IV SCH ×3 (00:25→22:27)
[2019-04-26] MEDS: ACETAMINOPHEN 325 MG TAB PO PRN (01:26)
[2019-04-26 06:12] LABS: Hematocrit 22.8 % (35.5-45.6); Hemoglobin 7.7 gm/dl (11.8-15.2); Mean Corpuscular HGB Conc 34 % (32-34); Mean Corpuscular Volume 92 fl (84-94); Platelet Count 245 K/mm3 (140-440); Red Blood Count 2.49 M/mm3 (3.65-5.03); Red Cell Distribution Width 16.6 % (13.2-15.2)
[2019-04-26 06:16] LABS: Calcium 9.2 mg/dL (8.4-10.2)
--- NOTE | 2019-04-26 08:45 | Progress Note ---
Assessment and Plan 1. Elevated BNP: Patient has no symptoms or clinical signs of fluid overload or heart failure. Could be related to renal failure. We will manage conservatively from a cardiac standpoint. 2. H/O paroxysmal atrial fibrillation: On amiodarone and Xarelto at home. Xarelto currently held - restart at lower dose of 15 mg per day when able to restart. 3. PAD and Right foot Gangerene s/p toe amputation. 4. Echo 04/24/19: [id number]%, biatrial enlargement, Moderate AI, Severe Pulmonary Htn. 5. Progressive anemia: Evaluation pending 6. Acute on CKD Continue cuirrent therapy. Will follow on intermittent basis. Subjective Date of service: 04/26/19 Principal diagnosis: peripheral vascular disease with nonhealing wounds Interval history: No cardiac complaints Objective Vital Signs Temp Pulse Resp BP Pulse Ox 04/26/19 07:13 96 H 96 04/26/19 07:12 98.7 F 97 H 20 162/59 90 04/26/19 06:21 99.4 F 04/26/19 02:43 100.5 F H 102 H 18 163/66 95 04/25/19 23:50 100.6 F H 04/25/19 19:39 100.6 F H 18 143/63 04/25/19 17:10 111 H 166/58 04/25/19 16:51 166/58 04/25/19 12:35 115/71 04/25/19 09:39 16 - Physical Examination HEENT: Positive: PERRL Neck: Positive: neck supple Cardiac: Positive: irregularly irregular Lungs: Positive: clear to auscultation Abdomen: Positive: Soft Skin: Positive: Clear Extremities: Absent: edema - Labs and Meds CBC 04/25/19 04/26/19 Range/Units 14:33 05:24 WBC 10.8 (4.5-11.0) K/mm3 RBC 2.49 L (3.65-5.03) M/mm3 Hgb 7.6 L 7.7 L (11.8-15.2) gm/dl Hct 23.0 L 22.8 L (35.5-45.6) % Plt Count 245 (140-440) K/mm3 Comprehensive Metabolic Panel 04/26/19 Range/Units 05:24 Sodium 147 H (137-145) mmol/L Potassium 4.5 (3.6-5.0) mmol/L Chloride 109.7 H (98-107) mmol/L Carbon Dioxide 25 (22-30) mmol/L BUN 47 H (9-20) mg/dL Creatinine 3.4 H (0.8-1.5) mg/dL Glucose 121 H (75-100) mg/dL Calcium 9.2 (8.4-10.2) mg/dL - Imaging and Cardiology EKG: report reviewed (atrial fibrillation 88/m)
[2019-04-26] MEDS: MEMANTINE 10 MG TAB PO SCH ×3 (08:50→19:35)
[2019-04-26] MEDS ORDERED: METOCLOPRAMIDE 10 MG/2 ML INJ IV PRN (09:00)
[2019-04-26] MEDS ORDERED: VANCOMYCIN 1,500 MG in SODIUM CHLORIDE 0.9% 500 ML 500 ML IV ONE (10:00)
[2019-04-26] MEDS: DONEPEZIL 10 MG TAB PO SCH (10:11)
[2019-04-26] MEDS: AMIODARONE 200 MG TAB PO SCH (10:11)
[2019-04-26] MEDS: FUROSEMIDE 40 MG TAB PO SCH (10:11)
[2019-04-26] MEDS: METOPROLOL TARTRATE 25 MG TAB PO SCH (10:11)
[2019-04-26] MEDS: amLODIPine 10 MG TAB PO SCH (10:11)
[2019-04-26] MEDS: PANTOPRAZOLE 40 MG TAB PO SCH (10:11)
[2019-04-26] MEDS: ASPIRIN 81 MG TAB CHEW PO SCH (10:11)
[2019-04-26] MEDS: SODIUM HYPOCHLORITE, DAKIN'S 1/2 STRENGTH (0.25%) 473 ML TOPICAL SOLN TP SCH (10:12)
--- NOTE | 2019-04-26 11:49 | Progress Note ---
Assessment and Plan 1. Acute kidney injury: Vasomotor BRANDIE superimposed on CKD in the setting of obstrutive uropathy. CT abdomen showed distended bladder and hydronephrosis. Renal function is improving. Monitor renal function. Renal prognosis is guarded. Avoid nephrotoxic agents. Meds dosage based on GFR. 2. FEN: Hyperkalemia, improved. Metabolic acidosis, improved. Hypernatremia, hold Lasix. Monitor lytes. 3. Obstructive Uropathy: S/p delgado catheter. 4. PAD: S/p amputation of R great toe. 5. Normochromic anemia: POA. 6. Hypertension. 7. Dementia. 8. ?DM. Subjective Date of service: 04/26/19 Principal diagnosis: peripheral vascular disease with nonhealing wounds Interval history: Patient was seen and examined at the bedside. Doing ok. Objective - Vital Signs Vital signs: Vital Signs - 12hr 04/25/19 04/26/19 04/26/19 23:50 02:43 06:21 Temperature 100.6 F H 100.5 F H 99.4 F Pulse Rate 102 H Respiratory 18 Rate Blood Pressure 163/66 O2 Sat by Pulse 95 Oximetry 04/26/19 04/26/19 07:12 07:13 Temperature 98.7 F Pulse Rate 97 H 96 H Respiratory 20 Rate Blood Pressure 162/59 O2 Sat by Pulse 90 96 Oximetry - General Appearance General appearance: well-developed, well-nourished, appears stated age, other (no distress) EENT: ATNC, PERRL, hearing intact Neck: supple Respiratory: Present: Clear to Ascultation Cardiology: regular, S1S2, no murmurs Gastrointestinal: normoactive bowel sounds, no tenderness, no distended Integumentary: chronic venous stasis, other (R leg dressing noted) Neurologic: no focal deficit, no asterixis, confused, disoriented Musculoskeletal: other (Trace LE edema noted, amputation of R great toe) Psychiatric: cooperative - Lab 04/26/19 05:24 04/26/19 05:24 Most recent lab results Calcium 9.2 mg/dL (8.4-10.2) 04/26/19 05:24 64.1 mg/dL (0.1-20.0) H 04/25/19 08:30 44 mmol/L 04/25/19 08:30 Medications & Allergies - Medications Allergies/Adverse Reactions: Allergies No Known Allergies Allergy (Unverified 04/11/19 10:16) Home Medications: Home Medications Medication Instructions Recorded Confirmed Last Taken Type Amiodarone [Cordarone 200 MG TAB] 200 mg PO QDAY 04/24/19 04/24/19 04/23/19 History Clopidogrel [Plavix] 75 mg PO QDAY 04/24/19 04/24/19 04/23/19 History Donepezil [Aricept] 10 mg PO QDAY 04/24/19 04/24/19 04/23/19 History Furosemide [Lasix TAB] 40 mg PO QDAY 04/24/19 04/24/19 04/23/19 History Memantine [Namenda] 10 mg PO TID 04/24/19 04/24/19 04/23/19 History Metoprolol [Lopressor] 25 mg PO QDAY 04/24/19 04/24/19 04/23/19 History Rivaroxaban [Xarelto] 20 mg PO QDAY 04/24/19 04/24/19 04/23/19 History amLODIPine [Norvasc] 10 mg PO DAILY 04/24/19 04/24/19 04/23/19 History Active Medications: Generic Name Dose Route Start Last Admin Trade Name Freq PRN Reason Stop Dose Admin Acetaminophen 650 mg 04/24/19 22:27 04/26/19 01:26 Tylenol PO 650 mg Q4H PRN Administration Pain MILD(1-3)/Fever >100.5/LEVY Amiodarone HCl 200 mg 04/25/19 10:00 04/26/19 10:11 Cordarone PO 200 mg QDAY SAGE Administration Amlodipine Besylate 10 mg 04/25/19 10:00 04/26/19 10:11 Norvasc PO 10 mg DAILY SAGE Administration Aspirin 81 mg 04/25/19 10:00 04/26/19 10:11 Baby Aspirin PO 81 mg QDAY SAGE Administration Dextrose 50 ml 04/24/19 23:33 D50w (25gm) Syringe IV PRN PRN Hypoglycemia Donepezil HCl 10 mg 04/25/19 10:00 04/26/19 10:11 Aricept PO 10 mg QDAY SAGE Administration Furosemide 40 mg 04/25/19 10:00 04/26/19 10:11 Lasix PO 40 mg QDAY SAGE Administration Hydromorphone HCl 0.5 mg 04/24/19 22:28 Dilaudid IV Q3H PRN Pain , Severe (7-10) Ampicillin Sodium/Sulbactam Sodium 1.5 gm in 50 mls @ 100 mls/hr 04/25/19 10:00 04/26/19 10:15 Unasyn/Ns 1.5 Gm/50 Ml IV 100 mls/hr Q12HR SAGE Administration Memantine 10 mg 04/25/19 08:00 04/26/19 08:50 Namenda PO 10 mg TID SAGE Administration Metoclopramide HCl 5 mg 04/26/19 09:00 Reglan IV Q6H PRN Nausea And Vomiting Metoprolol Tartrate 25 mg 04/25/19 10:00 04/26/19 10:11 Lopressor PO 25 mg QDAY SAGE Administration Ondansetron HCl 4 mg 04/24/19 22:27 Zofran IV Q8H PRN Nausea And Vomiting Oxycodone/Acetaminophen 1 tab 04/24/19 22:28 04/25/19 02:41 Percocet 5/325 PO 1 tab Q6H PRN Administration Pain, Moderate (4-6) Pantoprazole Sodium 40 mg 04/25/19 14:00 04/26/19 10:11 Protonix PO 40 mg QDAY SAGE Administration Sodium Chloride 10 ml 04/25/19 10:00 04/26/19 10:12 Sodium Chloride Flush Syringe 10 Ml IV 10 ml BID SAGE Administration Sodium Chloride 10 ml 04/24/19 22:27 Sodium Chloride Flush Syringe 10 Ml IV PRN PRN LINE FLUSH Sodium Hypochlorite 1 applic 04/26/19 10:00 04/26/19 10:12 Dakin's Half Strength TP 1 applicatio DAILY SAGE Administration
--- NOTE | 2019-04-26 13:03 | Gastroenterology Progress Note ---
Assessment and Plan - Patient Problems (1) Acute blood loss anemia Current Visit: Yes Status: Acute Plan to address problem: - Clinically improved; will plan EGD and colonoscopy on Sunday. - Continue to hold Xarelto until endoscopy completed. - Converted to clear liquid diet in the AM tomorrow. Subjective Date of service: 04/26/19 Principal diagnosis: Anemia Interval history: The patient has had no significant GI bleeding overnight. He denies N/V/abdomi nal pain and is tolerating his regular diet. Objective - Constitutional Vitals: Temp Pulse Resp BP Pulse Ox 98.7 F 96 H 20 162/59 96 04/26/19 07:12 04/26/19 07:13 04/26/19 07:12 04/26/19 07:12 04/26/19 07:13 General appearance: no acute distress - Respiratory Respiratory effort: normal Respiratory: bilateral: CTA - Cardiovascular Rhythm: regular Heart Sounds: Present: S1 & S2 - Gastrointestinal General gastrointestinal: Present: soft, non-tender, non-distended - Labs CBC & Chem 7: 04/26/19 05:24 04/26/19 05:24 Labs: Laboratory Results - last 24 hr 04/25/19 04/25/19 04/25/19 14:33 17:33 18:28 WBC RBC Hgb 7.6 L Hct 23.0 L MCV MCH MCHC RDW Plt Count Sodium Potassium Chloride Carbon Dioxide Anion Gap BUN Creatinine Estimated GFR BUN/Creatinine Ratio Glucose POC Glucose 66 L 107 H Calcium Random Vancomycin 04/26/19 04/26/19 04/26/19 00:12 05:24 05:24 WBC 10.8 RBC 2.49 L Hgb 7.7 L Hct 22.8 L MCV 92 MCH 31 MCHC 34 RDW 16.6 H Plt Count 245 Sodium 147 H Potassium 4.5 Chloride 109.7 H Carbon Dioxide 25 Anion Gap 17 BUN 47 H Creatinine 3.4 H Estimated GFR 22 BUN/Creatinine Ratio 14 Glucose 121 H POC Glucose 119 H Calcium 9.2 Random Vancomycin 04/26/19 04/26/19 04/26/19 05:24 06:41 11:34 WBC RBC Hgb Hct MCV MCH MCHC RDW Plt Count Sodium Potassium Chloride Carbon Dioxide Anion Gap BUN Creatinine Estimated GFR BUN/Creatinine Ratio Glucose POC Glucose 90 84 Calcium Random Vancomycin 10.9
--- NOTE | 2019-04-26 13:40 | Progress Note ---
Assessment and Plan Assessment and plan: Patient is a 73 yo man with a history of hypertension, Afib on Xarelto, AOCD, CKD 3-4, Dementia and PAD s/p recent RLE revascularization completed 2 weeks ago with revascularization of the right popliteal and tibioperoneal trunk from a left CHAIN PEGGER approach who came from Dr. Blake's [facility] office to [facility] ED with the concern for possible sepsis from a gangrenous right great toe. The patient has a history of bilateral critical limb ischemia and had revascularization done about 2 weeks ago. The patient also had an injury to the right great toe in which he hit it on some furniture and this also happened about 2 weeks ago. Since that time it has become black and necrotic with some oozing or drainage. The patient was scheduled to have a right great toe amputation done tomorrow, he was seen in the vascular office and he was ill-appearing and was sent into the emergency department for further evaluation. At the [facility] office, patient was found to have mild drop in hemoglobin and ARF. Patient was sent to the hospital for further evaluation. Dr. Orourke who will plan on performing amputation tomorrow. * CT abdomen IMPRESSION: Markedly distended bladder and mild bilateral hydronephrosis. Correlate for bladder outlet obstruction. Small gallstone. Scattered liver hypodensities consistent with small cysts or hemangiomas. 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 Orourke on 04/24/2019 Cellulitis of right foot: Patient initiated on IV Unasyn and IV vancomycin Acute on chronic renal failure, tubular necrosis, dye exposure, +vasomotor nephropathy: treat with IV fluids, Nephrology consulted, evaluate for obstruction with renal u/s Bilateral hydronphrosis on CT: order renal U/S then decide if Urology consult and folely is needed. 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 Follow-up on current diagnosis of PVD. No overnight events reported to me. Patient denies any chest pain, shortness breath, nausea/vomiting or severe headaches. Imaging, nursing note, chart, labs and old chart reviewed. Discussed with patient. Hospitalist Physical - Physical exam Narrative exam: Gen: WDWN, NAD, Awake, Alert, Orientated HEENT: NCAT, EOMI, PERRL, OP Clear Neck: supple, no adenopathy, no thyromegaly, no JVD CVS/Heart: irreg, normal S1S2, pulses present bilaterally Chest/Lungs: CTA B, Symmetrical chest expansion, good air entry bilaterally GI/Abdomen: soft, NTND, good bowel sounds, no guarding or rebound /Bladder: no suprapubic tenderness, no CVA or paraspinal tenderness Extermity/Skin: right foot dressing removed to reveal malodorous wet gangrene right big toe stump s/p amputation with drainage, dorsal foot and miller ulceration (miller ulceration is tender)+pitting ble edema, MSK: FROM x 4 Neuro: CN 2-12 grossly intact, no new focal deficits Psych: calm - Constitutional Vitals: Temp Pulse Resp BP Pulse Ox 98.7 F 96 H 20 162/59 96 04/26/19 07:12 04/26/19 07:13 04/26/19 07:12 04/26/19 07:12 04/26/19 07:13 General appearance: Present: no acute distress, cachectic Results - Labs CBC & Chem 7: 04/26/19 05:24 04/26/19 05:24 Labs: Laboratory Last Values WBC 10.8 K/mm3 (4.5-11.0) 04/26/19 05:24 RBC 2.49 M/mm3 (3.65-5.03) L 04/26/19 05:24 Hgb 7.7 gm/dl (11.8-15.2) L 04/26/19 05:24 Hct 22.8 % (35.5-45.6) L 04/26/19 05:24 MCV 92 fl (84-94) 04/26/19 05:24 MCH 31 pg (28-32) 04/26/19 05:24 MCHC 34 % (32-34) 04/26/19 05:24 RDW 16.6 % (13.2-15.2) H 04/26/19 05:24 Plt Count 245 K/mm3 (140-440) 04/26/19 05:24 Lymph % (Auto) 6.0 % (13.4-35.0) L 04/25/19 06:06 Mayes % (Auto) 5.7 % (0.0-7.3) 04/25/19 06:06 Eos % (Auto) 0.6 % (0.0-4.3) 04/25/19 06:06 Baso % (Auto) 0.5 % (0.0-1.8) 04/25/19 06:06 Lymph # 0.6 K/mm3 (1.2-5.4) L 04/25/19 06:06 Mayes # 0.5 K/mm3 (0.0-0.8) 04/25/19 06:06 Eos # 0.1 K/mm3 (0.0-0.4) 04/25/19 06:06 Baso # 0.0 K/mm3 (0.0-0.1) 04/25/19 06:06 Seg Neutrophils % 87.2 % (40.0-70.0) H 04/25/19 06:06 Seg Neutrophils # 8.2 K/mm3 (1.8-7.7) H 04/25/19 06:06 PT 21.2 Sec. (12.2-14.9) H 04/24/19 12:55 INR 1.88 (0.87-1.13) H 04/24/19 12:55 APTT 41.8 Sec. (24.2-36.6) H 04/24/19 12:55 Sodium 147 mmol/L (137-145) H 04/26/19 05:24 Potassium 4.5 mmol/L (3.6-5.0) 04/26/19 05:24 Chloride 109.7 mmol/L (98-107) H 04/26/19 05:24 Carbon Dioxide 25 mmol/L (22-30) 04/26/19 05:24 17 mmol/L 04/26/19 05:24 BUN 47 mg/dL (9-20) H 04/26/19 05:24 3.4 mg/dL (0.8-1.5) H 04/26/19 05:24 Estimated GFR 22 ml/min 04/26/19 05:24 14 % 04/26/19 05:24 Glucose 121 mg/dL (75-100) H 04/26/19 05:24 POC Glucose 84 (70-105) 04/26/19 11:34 5.4 % (4-6) 04/25/19 06:06 Lactic Acid 1.80 mmol/L (0.7-2.0) 04/24/19 12:55 Calcium 9.2 mg/dL (8.4-10.2) 04/26/19 05:24 0.50 mg/dL (0.1-1.2) 04/25/19 06:06 AST 19 units/L (5-40) 04/25/19 06:06 ALT 10 units/L (7-56) 04/25/19 06:06 86 units/L (35-129) 04/25/19 06:06 0.027 ng/mL (0.00-0.029) 04/24/19 16:09 NT-Pro-B Natriuret Pep 6067 pg/mL (0-900) H 04/24/19 12:55 6.9 g/dL (6.3-8.2) 04/25/19 06:06 3.5 g/dL (3.9-5) L 04/25/19 06:06 1.0 % 04/25/19 06:06 Triglycerides 59 mg/dL (2-149) 04/24/19 12:55 Cholesterol 114 mg/dL (50-199) 04/24/19 12:55 70 mg/dL (50-130) 04/24/19 12:55 47 mg/dL (40-59) 04/24/19 12:55 2.42 % 04/24/19 12:55 Yellow (Yellow) 04/25/19 05:20 Clear (Clear) 04/25/19 05:20 8.0 (5.0-7.0) H 04/25/19 05:20 Ur Specific [place] 1.009 (1.003-1.030) 04/25/19 05:20 <15 mg/dl mg/dL (Negative) 04/25/19 05:20 Neg mg/dL (Negative) 04/25/19 05:20 Neg mg/dL (Negative) 04/25/19 05:20 Lg (Negative) 04/25/19 05:20 Neg (Negative) 04/25/19 05:20 Neg (Negative) 04/25/19 05:20 < 2.0 mg/dL (<2.0) 04/25/19 05:20 Ur Leukocyte Esterase Neg (Negative) 04/25/19 05:20 2.0 /HPF (0.0-6.0) 04/25/19 05:20 15.0 /HPF (0.0-6.0) 04/25/19 05:20 U Epithel Cells (Auto) < 1.0 /HPF (0-13.0) 04/25/19 05:20 None seen (None Seen) 04/25/19 08:30 64.1 mg/dL (0.1-20.0) H 04/25/19 08:30 44 mmol/L 04/25/19 08:30 Random Vancomycin 10.9 ug/mL (0-40.0) 04/26/19 05:24 Active Medications - Current Medications Current Medications: Generic Name Dose Route Start Last Admin Trade Name Freq PRN Reason Stop Dose Admin Acetaminophen 650 mg 04/24/19 22:27 04/26/19 01:26 Tylenol PO 650 mg Q4H PRN Administration Pain MILD(1-3)/Fever >100.5/LEVY Amiodarone HCl 200 mg 04/25/19 10:00 04/26/19 10:11 Cordarone PO 200 mg QDAY SAGE Administration Amlodipine Besylate 10 mg 04/25/19 10:00 04/26/19 10:11 Norvasc PO 10 mg DAILY SAGE Administration Aspirin 81 mg 04/25/19 10:00 04/26/19 10:11 Baby Aspirin PO 81 mg QDAY SAGE Administration Dextrose 50 ml 04/24/19 23:33 D50w (25gm) Syringe IV PRN PRN Hypoglycemia Donepezil HCl 10 mg 04/25/19 10:00 04/26/19 10:11 Aricept PO 10 mg QDAY SAGE Administration Hydromorphone HCl 0.5 mg 04/24/19 22:28 Dilaudid IV Q3H PRN Pain , Severe (7-10) Ampicillin Sodium/Sulbactam Sodium 1.5 gm in 50 mls @ 100 mls/hr 04/25/19 10:00 04/26/19 10:15 Unasyn/Ns 1.5 Gm/50 Ml IV 100 mls/hr Q12HR SAGE Administration Memantine 10 mg 04/25/19 08:00 04/26/19 08:50 Namenda PO 10 mg TID SAGE Administration Metoclopramide HCl 5 mg 04/26/19 09:00 Reglan IV Q6H PRN Nausea And Vomiting Metoprolol Tartrate 25 mg 04/25/19 10:00 04/26/19 10:11 Lopressor PO 25 mg QDAY SAGE Administration Ondansetron HCl 4 mg 04/24/19 22:27 Zofran IV Q8H PRN Nausea And Vomiting Oxycodone/Acetaminophen 1 tab 04/24/19 22:28 04/25/19 02:41 Percocet 5/325 PO 1 tab Q6H PRN Administration Pain, Moderate (4-6) Pantoprazole Sodium 40 mg 04/25/19 14:00 04/26/19 10:11 Protonix PO 40 mg QDAY SAGE Administration Sodium Chloride 10 ml 04/25/19 10:00 04/26/19 10:12 Sodium Chloride Flush Syringe 10 Ml IV 10 ml BID SAGE Administration Sodium Chloride 10 ml 04/24/19 22:27 Sodium Chloride Flush Syringe 10 Ml IV PRN PRN LINE FLUSH Sodium Hypochlorite 1 applic 04/26/19 10:00 04/26/19 10:12 Dakin's Half Strength TP 1 applicatio DAILY SAGE Administration
--- NOTE | 2019-04-26 20:12 | Event Note ---
Date: 04/26/19 Patient with arterial duplex suggestive of flow-limiting stenosis in his recently revascularized right lower extremity. He may require additional endovascular treatment to assist with healing of his toe amputation site, however given his acute renal failure and suspected GI bleeding, this will need to be postponed until these issues have been resolved.
[2019-04-27] MEDS: ACETAMINOPHEN 325 MG TAB PO PRN ×2 (00:29→04:39)
[2019-04-27 04:56] LABS: Calcium 8.6 mg/dL (8.4-10.2)
[2019-04-27] MEDS: MEMANTINE 10 MG TAB PO SCH ×3 (08:34→20:21)
[2019-04-27] MEDS: PANTOPRAZOLE 40 MG TAB PO SCH (09:16)
[2019-04-27] MEDS: ASPIRIN 81 MG TAB CHEW PO SCH (09:16)
[2019-04-27] MEDS: DONEPEZIL 10 MG TAB PO SCH (09:17)
[2019-04-27] MEDS: AMIODARONE 200 MG TAB PO SCH (09:18)
[2019-04-27] MEDS: SODIUM HYPOCHLORITE, DAKIN'S 1/2 STRENGTH (0.25%) 473 ML TOPICAL SOLN TP SCH (09:18)
[2019-04-27] MEDS: amLODIPine 10 MG TAB PO SCH (09:20)
[2019-04-27] MEDS: METOPROLOL TARTRATE 25 MG TAB PO SCH (09:20)
[2019-04-27] MEDS ORDERED: POTASSIUM CHLORIDE ER 20 MEQ TAB PO ONE ×2 (09:45→11:10)
--- NOTE | 2019-04-27 09:51 | Progress Note ---
Assessment and Plan 1. Acute kidney injury: Vasomotor BRANDIE superimposed on CKD in the setting of obstrutive uropathy. CT abdomen showed distended bladder and hydronephrosis. Renal function is improving. Monitor renal function. Avoid nephrotoxic agents. Meds dosage based on GFR. 2. FEN: Hypokalemia, replete K.. Metabolic acidosis, improved. Hypernatremia, improving. Repleet Mg. Monitor lytes. 3. Obstructive Uropathy: S/p delgado catheter. 4. PAD: S/p amputation of R great toe. 5. Normochromic anemia: POA. 6. Hypertension. 7. Dementia. 8. ?DM. Subjective Date of service: 04/27/19 Principal diagnosis: Anemia Interval history: Patient was seen and examined at the bedside. Doing ok. Objective - Vital Signs Vital signs: Vital Signs - 12hr 04/27/19 04/27/19 04/27/19 02:31 05:51 07:45 Temperature 101.0 F H 100.9 F H 99.1 F Pulse Rate 97 H 60 Respiratory 18 18 Rate Blood Pressure 141/53 87/55 O2 Sat by Pulse 94 96 Oximetry - General Appearance General appearance: well-developed, well-nourished, appears stated age, other (no distress) EENT: ATNC, PERRL, vision intact Neck: supple Respiratory: Present: Clear to Ascultation Cardiology: regular, S1S2, no murmurs Gastrointestinal: normoactive bowel sounds, no tenderness, no distended Integumentary: chronic venous stasis, other (R leg dressing) Neurologic: no focal deficit, confused, disoriented Musculoskeletal: other (Trace LE edema noted, R great toe amputated) - Lab 04/26/19 05:24 04/27/19 03:53 Most recent lab results Calcium 8.6 mg/dL (8.4-10.2) 04/27/19 03:53 Phosphorus 4.30 mg/dL (2.5-4.5) 04/27/19 03:53 Magnesium 1.60 mg/dL (1.7-2.3) L 04/27/19 03:53 64.1 mg/dL (0.1-20.0) H 04/25/19 08:30 44 mmol/L 04/25/19 08:30 Medications & Allergies - Medications Allergies/Adverse Reactions: Allergies No Known Allergies Allergy (Unverified 04/11/19 10:16) Home Medications: Home Medications Medication Instructions Recorded Confirmed Last Taken Type Amiodarone [Cordarone 200 MG TAB] 200 mg PO QDAY 04/24/19 04/24/19 04/23/19 History Clopidogrel [Plavix] 75 mg PO QDAY 04/24/19 04/24/19 04/23/19 History Donepezil [Aricept] 10 mg PO QDAY 04/24/19 04/24/19 04/23/19 History Furosemide [Lasix TAB] 40 mg PO QDAY 04/24/19 04/24/19 04/23/19 History Memantine [Namenda] 10 mg PO TID 04/24/19 04/24/19 04/23/19 History Metoprolol [Lopressor] 25 mg PO QDAY 04/24/19 04/24/19 04/23/19 History Rivaroxaban [Xarelto] 20 mg PO QDAY 04/24/19 04/24/19 04/23/19 History amLODIPine [Norvasc] 10 mg PO DAILY 04/24/19 04/24/19 04/23/19 History Active Medications: Generic Name Dose Route Start Last Admin Trade Name Freq PRN Reason Stop Dose Admin Acetaminophen 650 mg 04/24/19 22:27 04/27/19 04:39 Tylenol PO 650 mg Q4H PRN Administration Pain MILD(1-3)/Fever >100.5/LEVY Amiodarone HCl 200 mg 04/25/19 10:00 04/27/19 09:18 Cordarone PO 200 mg QDAY SAGE Administration Amlodipine Besylate 10 mg 04/25/19 10:00 04/27/19 09:20 Norvasc PO Not Given DAILY SAGE Aspirin 81 mg 04/25/19 10:00 04/27/19 09:16 Baby Aspirin PO 81 mg QDAY SAGE Administration Dextrose 50 ml 04/24/19 23:33 D50w (25gm) Syringe IV PRN PRN Hypoglycemia Donepezil HCl 10 mg 04/25/19 10:00 04/27/19 09:17 Aricept PO 10 mg QDAY SAGE Administration Hydromorphone HCl 0.5 mg 04/24/19 22:28 Dilaudid IV Q3H PRN Pain , Severe (7-10) Ampicillin Sodium/Sulbactam Sodium 1.5 gm in 50 mls @ 100 mls/hr 04/27/19 12:00 Unasyn/Ns 1.5 Gm/50 Ml IV Q6HR SAGE Vancomycin HCl 1,500 mg/ 530 mls @ 333.333 mls/hr 04/27/19 14:00 Sodium Chloride IV Q24H SAGE Magnesium Oxide 400 mg 04/27/19 10:00 Mag-Ox PO BID SAGE Memantine 10 mg 04/25/19 08:00 04/27/19 08:34 Namenda PO 10 mg TID SAGE Administration Metoclopramide HCl 5 mg 04/26/19 09:00 Reglan IV Q6H PRN Nausea And Vomiting Metoprolol Tartrate 25 mg 04/25/19 10:00 04/27/19 09:20 Lopressor PO Not Given QDAY SAGE Ondansetron HCl 4 mg 04/24/19 22:27 Zofran IV Q8H PRN Nausea And Vomiting Oxycodone/Acetaminophen 1 tab 04/24/19 22:28 04/25/19 02:41 Percocet 5/325 PO 1 tab Q6H PRN Administration Pain, Moderate (4-6) Pantoprazole Sodium 40 mg 04/25/19 14:00 04/27/19 09:16 Protonix PO 40 mg QDAY SAGE Administration Sodium Chloride 10 ml 04/25/19 10:00 04/27/19 09:19 Sodium Chloride Flush Syringe 10 Ml IV 10 ml BID SAGE Administration Sodium Chloride 10 ml 04/24/19 22:27 Sodium Chloride Flush Syringe 10 Ml IV PRN PRN LINE FLUSH Sodium Hypochlorite 1 applic 04/26/19 10:00 04/27/19 09:18 Dakin's Half Strength TP 1 applicatio DAILY SAGE Administration
[2019-04-27] MEDS: MAGNESIUM OXIDE 400 MG TAB PO SCH ×2 (10:50→22:01)
--- NOTE | 2019-04-27 11:11 | Progress Note ---
Assessment and Plan Assessment and plan: Patient is a 73 yo man with a history of hypertension, Afib on Xarelto, AOCD, CKD 3-4, Dementia and PAD s/p recent RLE revascularization completed 2 weeks ago with revascularization of the right popliteal and tibioperoneal trunk from a left [employer] approach who came from Dr. Blake's [facility] office to [facility] ED with the concern for possible sepsis from a gangrenous right great toe. The patient has a history of bilateral critical limb ischemia and had revascularization done about 2 weeks ago. The patient also had an injury to the right great toe in which he hit it on some furniture and this also happened about 2 weeks ago. Since that time it has become black and necrotic with some oozing or drainage. The patient was scheduled to have a right great toe amputation done tomorrow, he was seen in the vascular office and he was ill-appearing and was sent into the emergency department for further evaluation. At the [facility] office, patient was found to have mild drop in hemoglobin and ARF. Patient was sent to the hospital for further evaluation. Dr. Orourke who will plan on performing amputation tomorrow. * CT abdomen IMPRESSION: Markedly distended bladder and mild bilateral hydronephrosis. Correlate for bladder outlet obstruction. Small gallstone. Scattered liver hypodensities consistent with small cysts or hemangiomas. 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 Orourke on 04/24/2019 Cellulitis of right foot: Patient initiated on IV Unasyn and IV vancomycin Acute on chronic renal failure, tubular necrosis, dye exposure, +vasomotor nephropathy: treat with IV fluids, Nephrology consulted, evaluate for obstruction with renal u/s Bilateral hydronphrosis on CT: order renal U/S then decide if Urology consult and folely is needed. Peripheral arterial disease: Vascular surgeon patient Hypertension: Continue antihypertensives Atrial fibrillation: off Xarelto Hyperkalemia,IV calcium gluconate given: Nephrology consulted, monitor bmp closely Drop in H/H, acute on chronic Anemia chronic kidney disease stage 5: difficult decision on whether to stop Xarelto, repeat h/h Elevated brain natriuretic peptide (BNP) level: Echocardiogram for ejection fr action, Cardiology consulted DVT prophylaxis off Xarelto, watch cbc closely and GI prophylaxis EGD/Colonoscopy on Sunday, off Xarelto ?need more right foot debridement and more re-vascularization History Interval history: Patient was seen and examined. Follow-up on current diagnosis of PVD. No overnight events reported to me. Patient denies any chest pain, shortness breath, nausea/vomiting or severe headaches. Imaging, nursing note, chart, labs and old chart reviewed. Discussed with patient. Hospitalist Physical - Physical exam Narrative exam: Gen: WDWN, NAD, Awake, Alert, Orientated HEENT: NCAT, EOMI, PERRL, OP Clear Neck: supple, no adenopathy, no thyromegaly, no JVD CVS/Heart: irreg, normal S1S2, pulses present bilaterally Chest/Lungs: CTA B, Symmetrical chest expansion, good air entry bilaterally GI/Abdomen: soft, NTND, good bowel sounds, no guarding or rebound /Bladder: no suprapubic tenderness, no CVA or paraspinal tenderness Extermity/Skin: right foot dressing removed to reveal malodorous wet gangrene right big toe stump s/p amputation with drainage, dorsal foot and miller ulceration (miller ulceration is tender)+pitting ble edema, MSK: FROM x 4 Neuro: CN 2-12 grossly intact, no new focal deficits Psych: calm - Constitutional Vitals: Temp Pulse Resp BP Pulse Ox 99.1 F 60 18 87/55 96 04/27/19 07:45 04/27/19 07:45 04/27/19 07:45 04/27/19 07:45 04/27/19 07:45 General appearance: Present: no acute distress, cachectic Results - Labs CBC & Chem 7: 04/26/19 05:24 04/27/19 03:53 Labs: Laboratory Last Values WBC 10.8 K/mm3 (4.5-11.0) 04/26/19 05:24 RBC 2.49 M/mm3 (3.65-5.03) L 04/26/19 05:24 Hgb 7.7 gm/dl (11.8-15.2) L 04/26/19 05:24 Hct 22.8 % (35.5-45.6) L 04/26/19 05:24 MCV 92 fl (84-94) 04/26/19 05:24 MCH 31 pg (28-32) 04/26/19 05:24 MCHC 34 % (32-34) 04/26/19 05:24 RDW 16.6 % (13.2-15.2) H 04/26/19 05:24 Plt Count 245 K/mm3 (140-440) 04/26/19 05:24 Lymph % (Auto) 6.0 % (13.4-35.0) L 04/25/19 06:06 [place] % (Auto) 5.7 % (0.0-7.3) 04/25/19 06:06 Eos % (Auto) 0.6 % (0.0-4.3) 04/25/19 06:06 Baso % (Auto) 0.5 % (0.0-1.8) 04/25/19 06:06 Lymph # 0.6 K/mm3 (1.2-5.4) L 04/25/19 06:06 Forrest # 0.5 K/mm3 (0.0-0.8) 04/25/19 06:06 Eos # 0.1 K/mm3 (0.0-0.4) 04/25/19 06:06 Baso # 0.0 K/mm3 (0.0-0.1) 04/25/19 06:06 Seg Neutrophils % 87.2 % (40.0-70.0) H 04/25/19 06:06 Seg Neutrophils # 8.2 K/mm3 (1.8-7.7) H 04/25/19 06:06 PT 21.2 Sec. (12.2-14.9) H 04/24/19 12:55 INR 1.88 (0.87-1.13) H 04/24/19 12:55 APTT 41.8 Sec. (24.2-36.6) H 04/24/19 12:55 Sodium 143 mmol/L (137-145) 04/27/19 03:53 Potassium 3.3 mmol/L (3.6-5.0) L D 04/27/19 03:53 Chloride 101.7 mmol/L (98-107) 04/27/19 03:53 Carbon Dioxide 27 mmol/L (22-30) 04/27/19 03:53 18 mmol/L 04/27/19 03:53 BUN 32 mg/dL (9-20) H 04/27/19 03:53 2.2 mg/dL (0.8-1.5) H 04/27/19 03:53 Estimated GFR 36 ml/min 04/27/19 03:53 15 % 04/27/19 03:53 Glucose 104 mg/dL (75-100) H 04/27/19 03:53 POC Glucose 111 (70-105) H 04/27/19 05:40 5.4 % (4-6) 04/25/19 06:06 Lactic Acid 1.80 mmol/L (0.7-2.0) 04/24/19 12:55 Calcium 8.6 mg/dL (8.4-10.2) 04/27/19 03:53 Phosphorus 4.30 mg/dL (2.5-4.5) 04/27/19 03:53 Magnesium 1.60 mg/dL (1.7-2.3) L 04/27/19 03:53 0.50 mg/dL (0.1-1.2) 04/25/19 06:06 AST 19 units/L (5-40) 04/25/19 06:06 ALT 10 units/L (7-56) 04/25/19 06:06 86 units/L (35-129) 04/25/19 06:06 0.027 ng/mL (0.00-0.029) 04/24/19 16:09 NT-Pro-B Natriuret Pep 6067 pg/mL (0-900) H 04/24/19 12:55 6.9 g/dL (6.3-8.2) 04/25/19 06:06 3.5 g/dL (3.9-5) L 04/25/19 06:06 1.0 % 04/25/19 06:06 Triglycerides 59 mg/dL (2-149) 04/24/19 12:55 Cholesterol 114 mg/dL (50-199) 04/24/19 12:55 70 mg/dL (50-130) 04/24/19 12:55 47 mg/dL (40-59) 04/24/19 12:55 2.42 % 04/24/19 12:55 Yellow (Yellow) 04/25/19 05:20 Clear (Clear) 04/25/19 05:20 8.0 (5.0-7.0) H 04/25/19 05:20 Ur Specific [place] 1.009 (1.003-1.030) 04/25/19 05:20 <15 mg/dl mg/dL (Negative) 04/25/19 05:20 Neg mg/dL (Negative) 04/25/19 05:20 Neg mg/dL (Negative) 04/25/19 05:20 Lg (Negative) 04/25/19 05:20 Neg (Negative) 04/25/19 05:20 Neg (Negative) 04/25/19 05:20 < 2.0 mg/dL (<2.0) 04/25/19 05:20 Ur Leukocyte Esterase Neg (Negative) 04/25/19 05:20 2.0 /HPF (0.0-6.0) 04/25/19 05:20 15.0 /HPF (0.0-6.0) 04/25/19 05:20 U Epithel Cells (Auto) < 1.0 /HPF (0-13.0) 04/25/19 05:20 None seen (None Seen) 04/25/19 08:30 64.1 mg/dL (0.1-20.0) H 04/25/19 08:30 44 mmol/L 04/25/19 08:30 Random Vancomycin 15.3 ug/mL (0-40.0) 04/27/19 03:53 Active Medications - Current Medications Current Medications: Generic Name Dose Route Start Last Admin Trade Name Freq PRN Reason Stop Dose Admin Acetaminophen 650 mg 04/24/19 22:27 04/27/19 04:39 Tylenol PO 650 mg Q4H PRN Administration Pain MILD(1-3)/Fever >100.5/LEVY Amiodarone HCl 200 mg 04/25/19 10:00 04/27/19 09:18 Cordarone PO 200 mg QDAY SAGE Administration Amlodipine Besylate 10 mg 04/25/19 10:00 04/27/19 09:20 Norvasc PO Not Given DAILY SAGE Aspirin 81 mg 04/25/19 10:00 04/27/19 09:16 Baby Aspirin PO 81 mg QDAY SAGE Administration Dextrose 50 ml 04/24/19 23:33 D50w (25gm) Syringe IV PRN PRN Hypoglycemia Donepezil HCl 10 mg 04/25/19 10:00 04/27/19 09:17 Aricept PO 10 mg QDAY SAGE Administration Hydromorphone HCl 0.5 mg 04/24/19 22:28 Dilaudid IV Q3H PRN Pain , Severe (7-10) Ampicillin Sodium/Sulbactam Sodium 1.5 gm in 50 mls @ 100 mls/hr 04/27/19 12:00 Unasyn/Ns 1.5 Gm/50 Ml IV Q6HR SAGE Vancomycin HCl 1,500 mg/ 530 mls @ 333.333 mls/hr 04/27/19 14:00 Sodium Chloride IV Q24H SAGE Magnesium Oxide 400 mg 04/27/19 10:00 04/27/19 10:50 Mag-Ox PO 400 mg BID SAGE Administration Memantine 10 mg 04/25/19 08:00 04/27/19 08:34 Namenda PO 10 mg TID SAGE Administration Metoclopramide HCl 5 mg 04/26/19 09:00 Reglan IV Q6H PRN Nausea And Vomiting Metoprolol Tartrate 25 mg 04/25/19 10:00 04/27/19 09:20 Lopressor PO Not Given QDAY SAGE Ondansetron HCl 4 mg 04/24/19 22:27 Zofran IV Q8H PRN Nausea And Vomiting Oxycodone/Acetaminophen 1 tab 04/24/19 22:28 04/25/19 02:41 Percocet 5/325 PO 1 tab Q6H PRN Administration Pain, Moderate (4-6) Pantoprazole Sodium 40 mg 04/25/19 14:00 04/27/19 09:16 Protonix PO 40 mg QDAY SAGE Administration Potassium Chloride 20 meq 04/27/19 11:10 K-Dur PO 04/27/19 11:11 ONCE ONE Sodium Chloride 10 ml 04/25/19 10:00 04/27/19 09:19 Sodium Chloride Flush Syringe 10 Ml IV 10 ml BID SAGE Administration Sodium Chloride 10 ml 04/24/19 22:27 Sodium Chloride Flush Syringe 10 Ml IV PRN PRN LINE FLUSH Sodium Hypochlorite 1 applic 04/26/19 10:00 04/27/19 09:18 Dakin's Half Strength TP 1 applicatio DAILY SAGE Administration
[2019-04-27] MEDS: AMPICILLIN/SULBACTA 1.5GM/50ML 1.5 GM/50 ML BAG IV SCH ×2 (11:18→17:33)
[2019-04-27] MEDS: VANCOMYCIN 1,500 MG in SODIUM CHLORIDE 0.9% 500 ML 500 ML IV SCH (14:19)
--- NOTE | 2019-04-27 18:12 | Gastroenterology Progress Note ---
Assessment and Plan - Patient Problems (1) Acute blood loss anemia Current Visit: Yes Status: Acute Plan to address problem: - Clinically improved; will plan EGD and colonoscopy on Sunday. - Continue to hold Xarelto until endoscopy completed. - Converted to clear liquid diet with prep today, and NPO after Mn. Subjective Date of service: 04/27/19 Principal diagnosis: Anemia Interval history: The patient is tolerating clear liquids without N/V/abdominal pain. He has not had any GI bleeding noted. Continues to be off xarelto. Objective - Constitutional Vitals: Temp Pulse Resp BP Pulse Ox 98.1 F 80 20 143/61 97 04/27/19 16:28 04/27/19 16:28 04/27/19 16:28 04/27/19 16:25 04/27/19 13:49 General appearance: no acute distress - Respiratory Respiratory effort: normal Respiratory: bilateral: CTA - Cardiovascular Rhythm: regular Heart Sounds: Present: S1 & S2 - Gastrointestinal General gastrointestinal: Present: soft, non-tender, non-distended - Labs CBC & Chem 7: 04/26/19 05:24 04/27/19 03:53 Labs: Laboratory Results - last 24 hr 04/27/19 04/27/19 04/27/19 00:07 03:53 03:53 Sodium 143 Potassium 3.3 L D Chloride 101.7 Carbon Dioxide 27 Anion Gap 18 BUN 32 H Creatinine 2.2 H Estimated GFR 36 BUN/Creatinine Ratio 15 Glucose 104 H POC Glucose 179 H Calcium 8.6 Phosphorus 4.30 Magnesium 1.60 L Random Vancomycin 15.3 04/27/19 04/27/19 05:40 11:18 Sodium Potassium Chloride Carbon Dioxide Anion Gap BUN Creatinine Estimated GFR BUN/Creatinine Ratio Glucose POC Glucose 111 H 103 Calcium Phosphorus Magnesium Random Vancomycin
[2019-04-27] MEDS ORDERED: POLYETHYLENE GLYCOL/ELECT SOLN 4000 ML PO ONE (19:00)
[2019-04-28] MEDS: DEXTROSE 50% IN WATER (25GM) 50 ML SYRINGE IV PRN (00:21)
[2019-04-28] MEDS ORDERED: DEXTROSE 50% IN WATER (25GM) 50 ML SYRINGE IV ONE ×3 (00:40→08:00)
[2019-04-28] MEDS: AMPICILLIN/SULBACTA 1.5GM/50ML 1.5 GM/50 ML BAG IV SCH ×3 (00:55→13:00)
--- NOTE | 2019-04-28 06:50 | Progress Note ---
Assessment and Plan Assessment and plan: Patient is a 73 yo man with a history of hypertension, Afib on Xarelto, AOCD, CKD 3-4, Dementia and PAD s/p recent RLE revascularization completed 2 weeks ago with revascularization of the right popliteal and tibioperoneal trunk from a left [employer]IAN approach who came from Dr. Blake's [facility] office to [facility] ED with the concern for possible sepsis from a gangrenous right great toe. The patient has a history of bilateral critical limb ischemia and had revascularization done about 2 weeks ago. The patient also had an injury to the right great toe in which he hit it on some furniture and this also happened about 2 weeks ago. Since that time it has become black and necrotic with some oozing or drainage. The patient was scheduled to have a right great toe amputation done tomorrow, he was seen in the vascular office and he was ill-appearing and was sent into the emergency department for further evaluation. At the [facility] office, patient was found to have mild drop in hemoglobin and ARF. Patient was sent to the hospital for further evaluation. Dr. Orourke who will plan on performing amputation tomorrow. * CT abdomen IMPRESSION: Markedly distended bladder and mild bilateral hydronephrosis. Correlate for bladder outlet obstruction. Small gallstone. Scattered liver hypodensities consistent with small cysts or hemangiomas. 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 Orourke on 04/24/2019 Cellulitis of right foot: Patient initiated on IV Unasyn and IV vancomycin Acute on chronic renal failure, tubular necrosis, dye exposure, +vasomotor nephropathy: treat with IV fluids, Nephrology consulted, evaluate for obstruction with renal u/s Bilateral hydronphrosis on CT: order renal U/S then decide if Urology consult and folely is needed. Peripheral arterial disease: Vascular surgeon patient Hypertension: Continue antihypertensives Atrial fibrillation: off Xarelto Hyperkalemia,IV calcium gluconate given: Nephrology consulted, monitor bmp closely Drop in H/H, acute on chronic Anemia chronic kidney disease stage 5: difficult decision on whether to stop Xarelto, repeat h/h Elevated brain natriuretic peptide (BNP) level: Echocardiogram for ejection fr action, Cardiology consulted DVT prophylaxis off Xarelto, watch cbc closely and GI prophylaxis full code Disposition: EGD/Colonoscopy on Sunday, off Xarelto, ?need more right foot debridement and more re-vascularization; restart Xarelto once cleared by GI, labs pending, History Interval history: Patient was seen and examined. Follow-up on current diagnosis of PVD. No overnight events reported to me. Patient denies any chest pain, shortness breath, nausea/vomiting or severe headaches. Imaging, nursing note, chart, labs and old chart reviewed. Discussed with patient. Hospitalist Physical - Physical exam Narrative exam: Gen: WDWN, NAD, Awake, Alert, Orientated HEENT: NCAT, EOMI, PERRL, OP Clear Neck: supple, no adenopathy, no thyromegaly, no JVD CVS/Heart: irreg, normal S1S2, pulses present bilaterally Chest/Lungs: CTA B, Symmetrical chest expansion, good air entry bilaterally GI/Abdomen: soft, NTND, good bowel sounds, no guarding or rebound /Bladder: no suprapubic tenderness, no CVA or paraspinal tenderness Extermity/Skin: right foot dressing removed to reveal malodorous wet gangrene right big toe stump s/p amputation with drainage, dorsal foot and miller ulceration (miller ulceration is tender)+pitting ble edema, MSK: FROM x 4 Neuro: CN 2-12 grossly intact, no new focal deficits Psych: calm - Constitutional Vitals: Temp Pulse Resp BP Pulse Ox 98.6 F 66 20 178/64 93 04/28/19 02:33 04/28/19 02:47 04/28/19 02:33 04/28/19 02:33 04/28/19 02:47 General appearance: Present: no acute distress, cachectic Results - Labs CBC & Chem 7: 04/26/19 05:24 04/28/19 00:30 Labs: Laboratory Last Values WBC 10.8 K/mm3 (4.5-11.0) 04/26/19 05:24 RBC 2.49 M/mm3 (3.65-5.03) L 04/26/19 05:24 Hgb 7.7 gm/dl (11.8-15.2) L 04/26/19 05:24 Hct 22.8 % (35.5-45.6) L 04/26/19 05:24 MCV 92 fl (84-94) 04/26/19 05:24 MCH 31 pg (28-32) 04/26/19 05:24 MCHC 34 % (32-34) 04/26/19 05:24 RDW 16.6 % (13.2-15.2) H 04/26/19 05:24 Plt Count 245 K/mm3 (140-440) 04/26/19 05:24 Lymph % (Auto) 6.0 % (13.4-35.0) L 04/25/19 06:06 [place] % (Auto) 5.7 % (0.0-7.3) 04/25/19 06:06 Eos % (Auto) 0.6 % (0.0-4.3) 04/25/19 06:06 Baso % (Auto) 0.5 % (0.0-1.8) 04/25/19 06:06 Lymph # 0.6 K/mm3 (1.2-5.4) L 04/25/19 06:06 [place] # 0.5 K/mm3 (0.0-0.8) 04/25/19 06:06 Eos # 0.1 K/mm3 (0.0-0.4) 04/25/19 06:06 Baso # 0.0 K/mm3 (0.0-0.1) 04/25/19 06:06 Seg Neutrophils % 87.2 % (40.0-70.0) H 04/25/19 06:06 Seg Neutrophils # 8.2 K/mm3 (1.8-7.7) H 04/25/19 06:06 PT 21.2 Sec. (12.2-14.9) H 04/24/19 12:55 INR 1.88 (0.87-1.13) H 04/24/19 12:55 APTT 41.8 Sec. (24.2-36.6) H 04/24/19 12:55 Sodium 143 mmol/L (137-145) 04/27/19 03:53 Potassium 3.3 mmol/L (3.6-5.0) L D 04/27/19 03:53 Chloride 101.7 mmol/L (98-107) 04/27/19 03:53 Carbon Dioxide 27 mmol/L (22-30) 04/27/19 03:53 18 mmol/L 04/27/19 03:53 BUN 32 mg/dL (9-20) H 04/27/19 03:53 2.2 mg/dL (0.8-1.5) H 04/27/19 03:53 Estimated GFR 36 ml/min 04/27/19 03:53 15 % 04/27/19 03:53 Glucose 96 mg/dL (75-100) 04/28/19 00:30 POC Glucose 89 (70-105) 04/28/19 06:13 5.4 % (4-6) 04/25/19 06:06 Lactic Acid 1.80 mmol/L (0.7-2.0) 04/24/19 12:55 Calcium 8.6 mg/dL (8.4-10.2) 04/27/19 03:53 Phosphorus 4.30 mg/dL (2.5-4.5) 04/27/19 03:53 Magnesium 1.60 mg/dL (1.7-2.3) L 04/27/19 03:53 0.50 mg/dL (0.1-1.2) 04/25/19 06:06 AST 19 units/L (5-40) 04/25/19 06:06 ALT 10 units/L (7-56) 04/25/19 06:06 86 units/L (35-129) 04/25/19 06:06 0.027 ng/mL (0.00-0.029) 04/24/19 16:09 NT-Pro-B Natriuret Pep 6067 pg/mL (0-900) H 04/24/19 12:55 6.9 g/dL (6.3-8.2) 04/25/19 06:06 3.5 g/dL (3.9-5) L 04/25/19 06:06 1.0 % 04/25/19 06:06 Triglycerides 59 mg/dL (2-149) 04/24/19 12:55 Cholesterol 114 mg/dL (50-199) 04/24/19 12:55 70 mg/dL (50-130) 04/24/19 12:55 47 mg/dL (40-59) 04/24/19 12:55 2.42 % 04/24/19 12:55 Yellow (Yellow) 04/25/19 05:20 Clear (Clear) 04/25/19 05:20 8.0 (5.0-7.0) H 04/25/19 05:20 Ur Specific [place] 1.009 (1.003-1.030) 04/25/19 05:20 <15 mg/dl mg/dL (Negative) 04/25/19 05:20 Neg mg/dL (Negative) 04/25/19 05:20 Neg mg/dL (Negative) 04/25/19 05:20 Lg (Negative) 04/25/19 05:20 Neg (Negative) 04/25/19 05:20 Neg (Negative) 04/25/19 05:20 < 2.0 mg/dL (<2.0) 04/25/19 05:20 Ur Leukocyte Esterase Neg (Negative) 04/25/19 05:20 2.0 /HPF (0.0-6.0) 04/25/19 05:20 15.0 /HPF (0.0-6.0) 04/25/19 05:20 U Epithel Cells (Auto) < 1.0 /HPF (0-13.0) 04/25/19 05:20 None seen (None Seen) 04/25/19 08:30 64.1 mg/dL (0.1-20.0) H 04/25/19 08:30 44 mmol/L 04/25/19 08:30 Random Vancomycin 15.3 ug/mL (0-40.0) 04/27/19 03:53 Active Medications - Current Medications Current Medications: Generic Name Dose Route Start Last Admin Trade Name Freq PRN Reason Stop Dose Admin Acetaminophen 650 mg 04/24/19 22:27 04/27/19 04:39 Tylenol PO 650 mg Q4H PRN Administration Pain MILD(1-3)/Fever >100.5/LEVY Amiodarone HCl 200 mg 04/25/19 10:00 04/27/19 09:18 Cordarone PO 200 mg QDAY SAGE Administration Amlodipine Besylate 10 mg 04/25/19 10:00 04/27/19 09:20 Norvasc PO Not Given DAILY SAGE Aspirin 81 mg 04/25/19 10:00 04/27/19 09:16 Baby Aspirin PO 81 mg QDAY SAGE Administration Dextrose 50 ml 04/24/19 23:33 04/28/19 00:21 D50w (25gm) Syringe IV 50 ml PRN PRN Administration Hypoglycemia Donepezil HCl 10 mg 04/25/19 10:00 04/27/19 09:17 Aricept PO 10 mg QDAY SAGE Administration Hydromorphone HCl 0.5 mg 04/24/19 22:28 Dilaudid IV Q3H PRN Pain , Severe (7-10) Ampicillin Sodium/Sulbactam Sodium 1.5 gm in 50 mls @ 100 mls/hr 04/27/19 12:00 04/28/19 06:18 Unasyn/Ns 1.5 Gm/50 Ml IV 100 mls/hr Q6HR SAGE Administration Vancomycin HCl 1,500 mg/ 530 mls @ 333.333 mls/hr 04/27/19 14:00 04/27/19 14:19 Sodium Chloride IV 333.333 mls/hr Q24H SAGE Administration Magnesium Oxide 400 mg 04/27/19 10:00 04/27/19 22:01 Mag-Ox PO 400 mg BID SAGE Administration Memantine 10 mg 04/25/19 08:00 04/27/19 20:21 Namenda PO 10 mg TID SAGE Administration Metoclopramide HCl 5 mg 04/26/19 09:00 Reglan IV Q6H PRN Nausea And Vomiting Metoprolol Tartrate 25 mg 04/25/19 10:00 04/27/19 09:20 Lopressor PO Not Given QDAY SAGE Ondansetron HCl 4 mg 04/24/19 22:27 Zofran IV Q8H PRN Nausea And Vomiting Oxycodone/Acetaminophen 1 tab 04/24/19 22:28 04/25/19 02:41 Percocet 5/325 PO 1 tab Q6H PRN Administration Pain, Moderate (4-6) Pantoprazole Sodium 40 mg 04/25/19 14:00 04/27/19 09:16 Protonix PO 40 mg QDAY SAGE Administration Sodium Chloride 10 ml 04/25/19 10:00 04/27/19 22:01 Sodium Chloride Flush Syringe 10 Ml IV 10 ml BID SAGE Administration Sodium Chloride 10 ml 04/24/19 22:27 Sodium Chloride Flush Syringe 10 Ml IV PRN PRN LINE FLUSH Sodium Hypochlorite 1 applic 04/26/19 10:00 04/27/19 09:18 Dakin's Half Strength TP 1 applicatio DAILY SAGE Administration
[2019-04-28 06:55] LABS: BUN/Creatinine Ratio 11; Blood Urea Nitrogen 16 mg/dL (9-20); Calcium 8.5 mg/dL (8.4-10.2); Hemolysis Index 258
[2019-04-28] MEDS ORDERED: MAGNESIUM SULFATE 2 GM/50 ML BAG IV ONE (08:00)
[2019-04-28] MEDS: MEMANTINE 10 MG TAB PO SCH ×4 (08:16→22:01)
[2019-04-28] MEDS: SODIUM HYPOCHLORITE, DAKIN'S 1/2 STRENGTH (0.25%) 473 ML TOPICAL SOLN TP SCH ×2 (10:10→11:38)
--- NOTE | 2019-04-28 10:11 | Progress Note ---
Assessment and Plan 1. Acute kidney injury: Vasomotor BRANDIE superimposed on CKD in the setting of obstrutive uropathy. CT abdomen showed distended bladder and hydronephrosis. Renal function is better. Monitor renal function. Avoid nephrotoxic agents. Meds dosage based on GFR. 2. FEN: Hyperkalemia, s/p D50, monitor. Metabolic acidosis, improved. Hypernatremia, improving. Repleet Mg. Monitor lytes. 3. Obstructive Uropathy: S/p delgado catheter. 4. PAD: S/p amputation of R great toe. 5. Normochromic anemia: POA. 6. Hypertension. 7. Dementia. 8. ?DM. Subjective Date of service: 04/28/19 Principal diagnosis: Anemia Interval history: Patient was seen and examined at the bedside. Doing ok. Objective - Vital Signs Vital signs: Vital Signs - 12hr 04/28/19 04/28/19 04/28/19 02:33 02:47 07:28 Temperature 98.6 F 98.7 F Pulse Rate 66 101 H Respiratory 20 20 Rate Blood Pressure 178/64 159/56 O2 Sat by Pulse 93 93 Oximetry - General Appearance General appearance: well-developed, well-nourished, appears stated age, other (no distress) EENT: ATNC, PERRL, mucous membranes moist Neck: supple Respiratory: Present: Clear to Ascultation Cardiology: regular, S1S2, no murmurs Gastrointestinal: normoactive bowel sounds, no tenderness, no distended Integumentary: other (R leg dressing noted) Neurologic: no focal deficit, no asterixis, confused Musculoskeletal: other (Trace LE edema noted, R great toe amputated) Psychiatric: cooperative - Lab 04/26/19 05:24 04/28/19 05:42 Most recent lab results Calcium 8.5 mg/dL (8.4-10.2) 04/28/19 05:42 Phosphorus 2.80 mg/dL (2.5-4.5) D 04/28/19 05:42 Magnesium 1.60 mg/dL (1.7-2.3) L 04/28/19 05:42 64.1 mg/dL (0.1-20.0) H 04/25/19 08:30 44 mmol/L 04/25/19 08:30 Medications & Allergies - Medications Allergies/Adverse Reactions: Allergies No Known Allergies Allergy (Unverified 04/11/19 10:16) Home Medications: Home Medications Medication Instructions Recorded Confirmed Last Taken Type Amiodarone [Cordarone 200 MG TAB] 200 mg PO QDAY 04/24/19 04/24/19 04/23/19 History Clopidogrel [Plavix] 75 mg PO QDAY 04/24/19 04/24/19 04/23/19 History Donepezil [Aricept] 10 mg PO QDAY 04/24/19 04/24/19 04/23/19 History Furosemide [Lasix TAB] 40 mg PO QDAY 04/24/19 04/24/19 04/23/19 History Memantine [Namenda] 10 mg PO TID 04/24/19 04/24/19 04/23/19 History Metoprolol [Lopressor] 25 mg PO QDAY 04/24/19 04/24/19 04/23/19 History Rivaroxaban [Xarelto] 20 mg PO QDAY 04/24/19 04/24/19 04/23/19 History amLODIPine [Norvasc] 10 mg PO DAILY 04/24/19 04/24/19 04/23/19 History Active Medications: Generic Name Dose Route Start Last Admin Trade Name Freq PRN Reason Stop Dose Admin Acetaminophen 650 mg 04/24/19 22:27 04/27/19 04:39 Tylenol PO 650 mg Q4H PRN Administration Pain MILD(1-3)/Fever >100.5/LEVY Amiodarone HCl 200 mg 04/25/19 10:00 04/27/19 09:18 Cordarone PO 200 mg QDAY SAGE Administration Amlodipine Besylate 10 mg 04/25/19 10:00 04/27/19 09:20 Norvasc PO Not Given DAILY SAGE Aspirin 81 mg 04/25/19 10:00 04/27/19 09:16 Baby Aspirin PO 81 mg QDAY SAGE Administration Dextrose 50 ml 04/24/19 23:33 04/28/19 00:21 D50w (25gm) Syringe IV 50 ml PRN PRN Administration Hypoglycemia Donepezil HCl 10 mg 04/25/19 10:00 04/27/19 09:17 Aricept PO 10 mg QDAY SAGE Administration Hydromorphone HCl 0.5 mg 09/12/19 22:28 Dilaudid IV Q3H PRN Pain , Severe (7-10) Ampicillin Sodium/Sulbactam Sodium 1.5 gm in 50 mls @ 100 mls/hr 04/27/19 12:00 04/28/19 07:05 Unasyn/Ns 1.5 Gm/50 Ml IV Infused Q6HR [facility] Infusion Vancomycin HCl 1,500 mg/ 530 mls @ 333.333 mls/hr 04/27/19 14:00 04/28/19 07:06 Sodium Chloride IV Infused Q24H [facility] Infusion Sodium Chloride 1,000 mls @ 50 mls/hr 04/28/19 09:00 Nacl 0.9% 1000 Ml IV DIRECT SAGE Magnesium Oxide 400 mg 04/27/19 10:00 04/27/19 22:01 Mag-Ox PO 400 mg BID SAGE Administration Memantine 10 mg 04/25/19 08:00 04/28/19 08:17 Namenda PO Not Given TID SAGE Metoclopramide HCl 5 mg 04/26/19 09:00 Reglan IV Q6H PRN Nausea And Vomiting Metoprolol Tartrate 25 mg 04/25/19 10:00 04/27/19 09:20 Lopressor PO Not Given QDAY SAGE Ondansetron HCl 4 mg 04/24/19 22:27 Zofran IV Q8H PRN Nausea And Vomiting Oxycodone/Acetaminophen 1 tab 04/24/19 22:28 04/25/19 02:41 Percocet 5/325 PO 1 tab Q6H PRN Administration Pain, Moderate (4-6) Pantoprazole Sodium 40 mg 04/25/19 14:00 04/27/19 09:16 Protonix PO 40 mg QDAY SAGE Administration Sodium Chloride 10 ml 04/25/19 10:00 04/27/19 22:01 Sodium Chloride Flush Syringe 10 Ml IV 10 ml BID SAGE Administration Sodium Chloride 10 ml 04/24/19 22:27 Sodium Chloride Flush Syringe 10 Ml IV PRN PRN LINE FLUSH Sodium Hypochlorite 1 applic 04/26/19 10:00 04/27/19 09:18 Dakin's Half Strength TP 1 applicatio DAILY SAGE Administration
[2019-04-28] MEDS: ASPIRIN 81 MG TAB CHEW PO SCH (11:37)
[2019-04-28] MEDS: AMIODARONE 200 MG TAB PO SCH (11:37)
[2019-04-28] MEDS: DONEPEZIL 10 MG TAB PO SCH (11:37)
[2019-04-28] MEDS: METOPROLOL TARTRATE 25 MG TAB PO SCH (11:38)
[2019-04-28] MEDS: MAGNESIUM OXIDE 400 MG TAB PO SCH ×2 (11:38→22:01)
[2019-04-28] MEDS: PANTOPRAZOLE 40 MG TAB PO SCH (11:39)
[2019-04-28] MEDS: amLODIPine 10 MG TAB PO SCH (11:39)
--- NOTE | 2019-04-28 14:02 | Progress Note ---
Assessment and Plan Cultures: None Assessment: 73 yo M PMHx severe bilateral PAD, CKD, HTN, Afib on AC admitted with R great toe gangrene and cellulitis 1. R great toe gangrene with cellulitis - Continue vancomycin and Unasyn for now. Awaiting surgical intervention (great toe amputation and possible endovascular revascularization) once GI bleeding issues sorted. Vascular following. 2. Severe bilateral PAD - s/p recent revascularization. Vascular following. waiting surgical intervention (great toe amputation and possible endovascular revascularization) 3. BRANDIE on CKD - renally dose antibiotics. BRANDIE improving. 4. HTN 5. Afib on AC Recs: - increased Unasyn to 3 gm q6 hrs - Continue vancomycin dosed per pharmacy. Appreciate their assistance. Goal trough 15-20. - Awaiting surgical intervention (great toe amputation and possible endovascular revascularization) once GI bleeding issues sorted. - would d/c abx 48 hours post amputation Taylor Vernon MD FACP [facility] C: [phone] Subjective Date of service: 04/28/19 Principal diagnosis: Anemia Interval history: Denies any complaints. No fever. No nausea, vomiting or diarrhea. No rash. Objective - Exam Narrative Exam: General Normal appearance, well developed, no acute distress Eyes - PERRLA, EOM intact ENT - Moist mucous membranes, no lymphadenopathy Neck - No noticeable or palpable swelling, redness or rash around throat or on face Lymph Nodes - No lymphadenopathy Cardiovascular - RRR no m/r/g, no JVD, no carotid bruits Lungs - Clear to auscultation, no use of accessory muscles, no crackles or whee zes. Skin - No rashes, skin warm and dry, no erythematous areas Abdomen - Normal bowel sounds, abdomen soft and nontender Extremities - No edema, cyanosis or clubbing Musculoskeletal - 5/5 strength, normal range of motion, no swollen or erythematous joints. R foot wrapped in dressing Neurological Alert and oriented x 3, CN 2-12 grossly intact. - Constitutional Vitals: Vital Signs Temp Pulse Resp BP Pulse Ox 98.7 F 101 H 20 159/56 93 04/28/19 07:28 04/28/19 07:28 04/28/19 07:28 04/28/19 07:28 04/28/19 07:28 Temperature -Last 24 Hours Temperature 98.7 F Temperature 98.6 F Temperature 98.1 F - Labs CBC & Chem 7: 04/26/19 05:24 04/28/19 05:42 Labs: Abnormal lab results 04/28/19 04/28/19 04/28/19 Range/Units 00:11 00:17 00:29 Potassium (3.6-5.0) mmol/L Glucose (75-100) mg/dL POC Glucose < 40 L < 40 L < 40 L (70-105) Magnesium (1.7-2.3) mg/dL 04/28/19 Range/Units 05:42 Potassium 5.3 H D (3.6-5.0) mmol/L Glucose 73 L (75-100) mg/dL POC Glucose (70-105) Magnesium 1.60 L (1.7-2.3) mg/dL
[2019-04-28] MEDS: VANCOMYCIN 1,500 MG in SODIUM CHLORIDE 0.9% 500 ML 500 ML IV SCH (14:07)
[2019-04-28] MEDS: AMPICILLIN/SULBACTA 3GM/100ML 3 GM/100 ML BAG IV SCH ×3 (15:00→22:00)
[2019-04-28] MEDS ORDERED: SODIUM CHLORIDE 0.9% 1000 ML 1,000 ML ONE ×2 (15:11→16:09)
[2019-04-28] MEDS ORDERED: LIDOCAINE MPF (2%) 20 MG/1 ML VIAL 5 ML ONE (16:00)
[2019-04-28] MEDS: SODIUM CHLORIDE 0.9% 1000 ML 1,000 ML IV SCH (16:20)
[2019-04-28] MEDS ORDERED: PROPOFOL 200 MG/20 ML VIAL IV ONE ×2 (16:30)
--- NOTE | 2019-04-28 17:05 | Post Operative Note ---
Pre-op diagnosis: Symptomatic Anemia Post-op diagnosis: other (HH, Tics, IH, No bleeding) Findings: 1. Small hiatal hernia 2. Sigmoid diverticulosis 3. Int Hemorrhoids, Grade I 4. Good prep without bleeding in upper/lower GI tract Procedure: EGD + Colonoscopy Anesthesia: MAC Surgeon: ALIREZA STONE Estimated blood loss: none Pathology: none Specimen disposition: other (N/A) Condition: stable Disposition: floor (Recs: 1. MVI daily therapy, and regular diet. 2. D/C tobacco. 3. Anemia likely of chronic disease, or medication side effect; no evidence of gross GI losses. 4. OK to resume Xarelto with caution.)
--- NOTE | 2019-04-28 17:25 | Progress Note ---
Assessment and Plan 73-year-old male with peripheral vascular disease, acute renal failure, and H&H decline of unclear cause with lower extremity edema. Patient has some residual right lower extremity arterial disease with a palpable right pedal pulse and preserved second digit wave forms suggestive of adequate blood flow to heal. Left lower extremity does not have adequate blood flow to heal and will require revascularization as an outpatient. Appreciate Dr. Orourke first digit amputation. Will need wound care. Followup at outpatient. Will have office contact family. Has acute renal failure and it appears to be predominately responding to fluids with Triplett placement. Patient will be following with urology as an outpatient. Unclear cause of hemoglobin decline. No retroperitoneal bleeding. Endoscopy negative. Hematology consult? From vascular point of view, patient can be on aspirin with DOAC. Does not need to be on plavix with DOAC given hemoglobin decline. Subjective Date of service: 04/28/19 Principal diagnosis: Anemia Interval history: Patient's an endoscopy. Spoke to patient prior to endoscopy. Feeling better. Creatinine improved. H&H stable. Palpable right posterior tibial pulse. Nonpalpable left pedal pulses. Objective - Constitutional Vitals: Vital Signs - 12hr 04/28/19 04/28/19 04/28/19 07:28 16:08 16:15 Temperature 98.7 F 98.2 F 98.2 F Pulse Rate 101 H 93 H 93 H Respiratory 20 17 17 Rate Blood Pressure 159/56 106/76 106/76 O2 Sat by Pulse 93 100 100 Oximetry General appearance: Present: no acute distress - EENT Eyes: EOM intact ENT: hearing intact - Respiratory Respiratory effort: normal Extremities: pulses intact (right posterior tibial pulse), normal temperature, normal color, abnormal (pt seen prior to endoscopy without materials to redress wound) Extremity abnormal: edema (2-3+ swelling of the lower extremities), pulses diminished (right dorsalis pedis and left pedal pulses) - Gastrointestinal General gastrointestinal: Present: soft - Psychiatric Psychiatric: appropriate mood/affect, cooperative - Labs CBC & Chem 7: 04/26/19 05:24 04/28/19 05:42 Labs: Abnormal lab results 04/28/19 04/28/19 04/28/19 Range/Units 00:11 00:17 00:29 Potassium (3.6-5.0) mmol/L Glucose (75-100) mg/dL POC Glucose < 40 L < 40 L < 40 L (70-105) Magnesium (1.7-2.3) mg/dL 04/28/19 Range/Units 05:42 Potassium 5.3 H D (3.6-5.0) mmol/L Glucose 73 L (75-100) mg/dL POC Glucose (70-105) Magnesium 1.60 L (1.7-2.3) mg/dL Medications & Allergies - Medications Allergies/Adverse Reactions: Allergies No Known Allergies Allergy (Unverified 04/11/19 10:16) Home Medications: Home Medications Medication Instructions Recorded Confirmed Last Taken Type Amiodarone [Cordarone 200 MG TAB] 200 mg PO QDAY 04/24/19 04/24/19 04/23/19 H istory Clopidogrel [Plavix] 75 mg PO QDAY 04/24/19 04/24/19 04/23/19 History Donepezil [Aricept] 10 mg PO QDAY 04/24/19 04/24/19 04/23/19 History Furosemide [Lasix TAB] 40 mg PO QDAY 04/24/19 04/24/19 04/23/19 History Memantine [Namenda] 10 mg PO TID 04/24/19 04/24/19 04/23/19 History Metoprolol [Lopressor] 25 mg PO QDAY 04/24/19 04/24/19 04/23/19 History Rivaroxaban [Xarelto] 20 mg PO QDAY 04/24/19 04/24/19 04/23/19 History amLODIPine [Norvasc] 10 mg PO DAILY 04/24/19 04/24/19 04/23/19 History Active Medications: Generic Name Dose Route Start Last Admin Trade Name Freq PRN Reason Stop Dose Admin Acetaminophen 650 mg 04/24/19 22:27 04/27/19 04:39 Tylenol PO 650 mg Q4H PRN Administration Pain MILD(1-3)/Fever >100.5/LEVY Amiodarone HCl 200 mg 04/25/19 10:00 04/28/19 11:37 Cordarone PO Not Given QDAY [facility] Amlodipine Besylate 10 mg 04/25/19 10:00 04/28/19 11:39 Norvasc PO Not Given DAILY SAGE Aspirin 81 mg 04/25/19 10:00 04/28/19 11:37 Baby Aspirin PO Not Given QDAY [facility] Dextrose 50 ml 04/24/19 23:33 04/28/19 00:21 D50w (25gm) Syringe IV 50 ml PRN PRN Administration Hypoglycemia Donepezil HCl 10 mg 04/25/19 10:00 04/28/19 11:37 Aricept PO Not Given QDAY [facility] Hydromorphone HCl 0.5 mg 04/24/19 22:28 Dilaudid IV Q3H PRN Pain , Severe (7-10) Vancomycin HCl 1,500 mg/ 530 mls @ 333.333 mls/hr 04/27/19 14:00 04/28/19 14:07 Sodium Chloride IV 333.33 mls/hr Q24H SAGE Administration Sodium Chloride 1,000 mls @ 50 mls/hr 04/28/19 09:00 04/28/19 16:20 Nacl 0.9% 1000 Ml IV 50 mls/hr DIRECT SAGE Administration Ampicillin Sodium/Sulbactam Sodium 3 gm in 100 mls @ 200 mls/hr 04/28/19 15:00 Unasyn/Ns 3 Gm/100 Ml IV Q6HR [facility] Protocol Magnesium Oxide 400 mg 04/27/19 10:00 04/28/19 11:38 Mag-Ox PO Not Given BID [facility] Memantine 10 mg 04/25/19 08:00 04/28/19 14:07 Namenda PO Not Given TID [facility] Metoclopramide HCl 5 mg 04/26/19 09:00 Reglan IV Q6H PRN Nausea And Vomiting Metoprolol Tartrate 25 mg 04/25/19 10:00 04/28/19 11:38 Lopressor PO Not Given QDAY [facility] Multivitamins 1 each 04/29/19 10:00 Theragran Tab PO QDAY [facility] Ondansetron HCl 4 mg 04/24/19 22:27 Zofran IV Q8H PRN Nausea And Vomiting Oxycodone/Acetaminophen 1 tab 04/24/19 22:28 04/25/19 02:41 Percocet 5/325 PO 1 tab Q6H PRN Administration Pain, Moderate (4-6) Pantoprazole Sodium 40 mg 04/25/19 14:00 04/28/19 11:39 Protonix PO Not Given QDAY [facility] Sodium Chloride 10 ml 04/25/19 10:00 04/28/19 11:39 Sodium Chloride Flush Syringe 10 Ml IV Not Given BID SAGE Sodium Chloride 10 ml 04/24/19 22:27 Sodium Chloride Flush Syringe 10 Ml IV PRN PRN LINE FLUSH Sodium Hypochlorite 1 applic 04/26/19 10:00 04/28/19 10:10 Dakin's Half Strength TP 1 applicatio DAILY [facility]GAE Administration
--- NOTE | 2019-04-28 17:57 | Operative Report ---
PROCEDURE PERFORMED: Esophagogastroduodenoscopy and colonoscopy. PREOPERATIVE DIAGNOSIS: Symptomatic anemia. POSTOPERATIVE DIAGNOSES: Hiatal hernia, diverticulosis, hemorrhoids, no active bleeding. ENDOSCOPIST: Dr. Wilfredo Hansen. INSTRUMENT: Olympus video endoscope. MEDICATIONS: MAC anesthesia by [facility]. COMPLICATIONS: No apparent complications. ESTIMATED BLOOD LOSS: None. SPECIMENS: None. IMPLANTS: None. ASSISTANTS: None. CONDITION AT COMPLETION: Stable. TECHNIQUE: The patient was informed of the risks and benefits of the procedure. He signed informed consent to proceed. He was placed in the left lateral decubitus position. The above sedative medications were given. His vital signs remained stable throughout the procedure. The instrument was advanced from the mouth to the second portion of the duodenum under direct visualization. At that point, the bowel was insufflated and the endoscope was slowly withdrawn. The colonoscope was then advanced from the anus to the cecum under direct visualization. The cecum was identified by the appendiceal orifice and the ileocecal valve, the bowel was insufflated, and the endoscope was slowly withdrawn. The quality of preparation was excellent. FINDINGS: 1. Good preparation of the bowels with no evidence of bleeding in the upper or lower GI tract. 2. Small hiatal hernia, otherwise normal upper endoscopy. 3. Medium small sigmoid diverticula. 4. Internal hemorrhoids, grade 1. RECOMMENDATIONS: 1. Multivitamin daily therapy and regular diet. 2. Discontinue tobacco. 3. Anemia is likely of chronic disease, or a medication side effect; there was no evidence of gross gastrointestinal losses. 4. Okay to resume daily Xarelto with caution. 5. We will sign off. Please call if needed. JOB# [id number] LUDY/NTS
[2019-04-29] MEDS: AMPICILLIN/SULBACTA 3GM/100ML 3 GM/100 ML BAG IV SCH ×4 (01:07→21:02)
[2019-04-29 07:03] LABS: BUN/Creatinine Ratio 9; Blood Urea Nitrogen 13 mg/dL (9-20); Calcium 8.3 mg/dL (8.4-10.2); Hemolysis Index 3
[2019-04-29] MEDS: DONEPEZIL 10 MG TAB PO SCH (09:34)
[2019-04-29] MEDS: ASPIRIN 81 MG TAB CHEW PO SCH (09:34)
[2019-04-29] MEDS: AMIODARONE 200 MG TAB PO SCH (09:34)
[2019-04-29] MEDS: amLODIPine 10 MG TAB PO SCH (09:34)
[2019-04-29] MEDS: PANTOPRAZOLE 40 MG TAB PO SCH (09:34)
[2019-04-29] MEDS: MULTIVITAMINS ,THERAPEUTIC TAB PO SCH (09:34)
[2019-04-29] MEDS: MAGNESIUM OXIDE 400 MG TAB PO SCH ×2 (09:34→21:03)
[2019-04-29] MEDS: METOPROLOL TARTRATE 25 MG TAB PO SCH (09:34)
[2019-04-29] MEDS: SODIUM HYPOCHLORITE, DAKIN'S 1/2 STRENGTH (0.25%) 473 ML TOPICAL SOLN TP SCH (09:35)
[2019-04-29] MEDS: MEMANTINE 10 MG TAB PO SCH ×3 (09:35→21:03)
--- NOTE | 2019-04-29 09:58 | Progress Note ---
Assessment and Plan 1. Acute kidney injury: Vasomotor BRANDIE superimposed on CKD in the setting of obstrutive uropathy. CT abdomen showed distended bladder and hydronephrosis. Renal function is better. Monitor renal function. Avoid nephrotoxic agents. Meds dosage based on GFR. 2. FEN: Hyperkalemia, improved. Metabolic acidosis, improved. Hypernatremia, sodium level is better. Monitor lytes. 3. Obstructive Uropathy: S/p delgado catheter. 4. PAD: S/p amputation of R great toe. 5. Normochromic anemia: POA. EGD negative. 6. Hypertension. 7. Dementia. 8. ?DM. Subjective Date of service: 04/29/19 Principal diagnosis: Anemia Interval history: Patient was seen and examined at the bedside. Doing ok. Objective - Vital Signs Vital signs: Vital Signs - 12hr 04/28/19 04/29/19 04/29/19 22:00 02:55 02:56 Temperature 98.3 F 98.3 F Pulse Rate 78 Pulse Rate [ 66 Right Brachial] Respiratory 18 18 18 Rate Blood Pressure 157/60 Blood Pressure 157/60 [Left] O2 Sat by Pulse 99 92 Oximetry 04/29/19 04/29/19 03:03 07:16 Temperature 97.4 F L 99.0 F Pulse Rate 90 91 H Pulse Rate [ Right Brachial] Respiratory 18 18 Rate Blood Pressure 132/67 147/58 Blood Pressure [Left] O2 Sat by Pulse 91 100 Oximetry - General Appearance General appearance: well-developed, appears stated age, other (no distress) EENT: ATNC, PERRL Neck: supple Respiratory: Present: Clear to Ascultation Cardiology: regular, S1S2, no murmurs Gastrointestinal: normoactive bowel sounds, no tenderness, no distended Integumentary: chronic venous stasis Neurologic: no focal deficit, no asterixis, confused, disoriented Musculoskeletal: other (Trace LE edema noted, R great toe amputated) - Lab 04/26/19 05:24 04/29/19 06:14 Most recent lab results Calcium 8.3 mg/dL (8.4-10.2) L 04/29/19 06:14 Phosphorus 2.80 mg/dL (2.5-4.5) D 04/28/19 05:42 Magnesium 1.60 mg/dL (1.7-2.3) L 04/28/19 05:42 64.1 mg/dL (0.1-20.0) H 04/25/19 08:30 44 mmol/L 04/25/19 08:30 Medications & Allergies - Medications Allergies/Adverse Reactions: Allergies No Known Allergies Allergy (Unverified 04/11/19 10:16) Home Medications: Home Medications Medication Instructions Recorded Confirmed Last Taken Type Amiodarone [Cordarone 200 MG TAB] 200 mg PO QDAY 04/24/19 04/24/19 04/23/19 History Clopidogrel [Plavix] 75 mg PO QDAY 04/24/19 04/24/19 04/23/19 History Donepezil [Aricept] 10 mg PO QDAY 04/24/19 04/24/19 04/23/19 History Furosemide [Lasix TAB] 40 mg PO QDAY 04/24/19 04/24/19 04/23/19 History Memantine [Namenda] 10 mg PO TID 04/24/19 04/24/19 04/23/19 History Metoprolol [Lopressor] 25 mg PO QDAY 04/24/19 04/24/19 04/23/19 History Rivaroxaban [Xarelto] 20 mg PO QDAY 04/24/19 04/24/19 04/23/19 History amLODIPine [Norvasc] 10 mg PO DAILY 04/24/19 04/24/19 04/23/19 History Active Medications: Generic Name Dose Route Start Last Admin Trade Name Freq PRN Reason Stop Dose Admin Acetaminophen 650 mg 04/24/19 22:27 04/27/19 04:39 Tylenol PO 650 mg Q4H PRN Administration Pain MILD(1-3)/Fever >100.5/LEVY Amiodarone HCl 200 mg 04/25/19 10:00 04/29/19 09:34 Cordarone PO 200 mg QDAY [facility] Administration Amlodipine Besylate 10 mg 04/25/19 10:00 04/29/19 09:34 Norvasc PO 10 mg DAILY [facility]AGE Administration Aspirin 81 mg 04/25/19 10:00 04/29/19 09:34 Baby Aspirin PO 81 mg QDAY [facility] Administration Dextrose 50 ml 04/24/19 23:33 04/28/19 00:21 D50w (25gm) Syringe IV 50 ml PRN PRN Administration Hypoglycemia Donepezil HCl 10 mg 04/25/19 10:00 04/29/19 09:34 Aricept PO 10 mg QDAY [facility] Administration Hydromorphone HCl 0.5 mg 04/24/19 22:28 Dilaudid IV Q3H PRN Pain , Severe (7-10) Vancomycin HCl 1,500 mg/ 530 mls @ 333.333 mls/hr 04/27/19 14:00 04/28/19 14:07 Sodium Chloride IV 333.33 mls/hr Q24H SAGE Administration Sodium Chloride 1,000 mls @ 50 mls/hr 04/28/19 09:00 04/28/19 16:20 Nacl 0.9% 1000 Ml IV 50 mls/hr DIRECT SAGE Administration Ampicillin Sodium/Sulbactam Sodium 3 gm in 100 mls @ 200 mls/hr 04/28/19 20:00 04/29/19 09:33 Unasyn/Ns 3 Gm/100 Ml IV 200 mls/hr Q6H [facility] Administration Protocol Magnesium Oxide 400 mg 04/27/19 10:00 04/29/19 09:34 Mag-Ox PO 400 mg BID SAGE Administration Memantine 10 mg 04/25/19 08:00 04/29/19 09:35 Namenda PO 10 mg TID SAGE Administration Metoclopramide HCl 5 mg 04/26/19 09:00 Reglan IV Q6H PRN Nausea And Vomiting Metoprolol Tartrate 25 mg 04/25/19 10:00 04/29/19 09:34 Lopressor PO 25 mg QDAY [facility] Administration Multivitamins 1 each 04/29/19 10:00 04/29/19 09:34 Theragran Tab PO 1 each QDAY [facility] Administration Ondansetron HCl 4 mg 04/24/19 22:27 Zofran IV Q8H PRN Nausea And Vomiting Oxycodone/Acetaminophen 1 tab 04/24/19 22:28 04/25/19 02:41 Percocet 5/325 PO 1 tab Q6H PRN Administration Pain, Moderate (4-6) Pantoprazole Sodium 40 mg 04/25/19 14:00 04/29/19 09:34 Protonix PO 40 mg QDAY SAGE Administration Sodium Chloride 10 ml 04/25/19 10:00 04/29/19 09:35 Sodium Chloride Flush Syringe 10 Ml IV 10 ml BID SAGE Administration Sodium Chloride 10 ml 04/24/19 22:27 Sodium Chloride Flush Syringe 10 Ml IV PRN PRN LINE FLUSH Sodium Hypochlorite 1 applic 04/26/19 10:00 04/29/19 09:35 Dakin's Half Strength TP 1 applicatio DAILY SAGE Administration
[2019-04-29] MEDS ORDERED: POTASSIUM CHLORIDE ER 20 MEQ TAB PO ONE (10:30)
--- NOTE | 2019-04-29 10:39 | Progress Note ---
Assessment and Plan Right foot Gangerene s/p toe amputation Hx of paroxysmal atrial fibrillation on amiodarone and Xarelto at home. Xarelto currently held - restart at lower dose of 15 mg per day when able to restart. PAD Anemia Acute on CKD Echo 04/24/19: EF55-65%, biatrial enlargement, Moderate AI, Severe Pulmonary Htn. Continue current therapy. Will follow on intermittent basis. Subjective Date of service: 04/29/19 Principal diagnosis: Anemia Interval history: Patient is resting in bed comfortably. No cardiac complaints. Objective Vital Signs Temp Pulse Pulse Resp BP BP Pulse Ox 04/29/19 07:16 99.0 F 91 H 18 147/58 100 04/29/19 03:03 97.4 F L 90 18 132/67 91 04/29/19 02:56 98.3 F 78 18 157/60 92 04/29/19 02:55 98.3 F 18 157/60 04/28/19 22:00 66 18 99 04/28/19 20:35 98.2 F 66 18 158/56 84 04/28/19 17:31 91 H 15 104/62 98 04/28/19 17:16 88 20 107/62 97 04/28/19 17:01 98.2 F 85 16 91/67 100 04/28/19 16:15 98.2 F 93 H 17 106/76 100 04/28/19 16:08 98.2 F 93 H 17 106/76 100 04/28/19 13:20 99.2 F 62 18 95/49 100 - Physical Examination General: No Apparent Distress HEENT: Positive: PERRL Neck: Positive: neck supple Cardiac: Positive: Reg Rate and Rhythm Lungs: Positive: Decreased Breath Sounds Neuro: Positive: Grossly Intact Abdomen: Positive: Soft Skin: Positive: Clear Extremities: Absent: edema - Labs and Meds Comprehensive Metabolic Panel 04/29/19 Range/Units 06:14 Sodium 145 (137-145) mmol/L Potassium 3.5 L D (3.6-5.0) mmol/L Chloride 106.7 (98-107) mmol/L Carbon Dioxide 26 (22-30) mmol/L BUN 13 (9-20) mg/dL Creatinine 1.4 (0.8-1.5) mg/dL Glucose 97 (75-100) mg/dL Calcium 8.3 L (8.4-10.2) mg/dL - Imaging and Cardiology EKG: report reviewed (atrial fibrillation 88/m)
--- NOTE | 2019-04-29 10:58 | Progress Note ---
Assessment and Plan Assessment and plan: R great toe gangrene with cellulitis - Continue vancomycin and Unasyn for now. Dr. Orourke performed great toe amputation. Continue wound care. Severe bilateral PAD - s/p recent revascularization. Vascular following. As above. BRANDIE on CKD - renally dose antibiotics. BRANDIE improving. Follow-up BMP. CT abdomen showed distended bladder and hydronephrosis. Obstructive uropathy. As above. Patient with Triplett catheter. Patient will likely follow up with urology as an outpatient. ? D/C with Triplett. HTN. Continue antihypertensive medications. Afib. off Xarelto Symptomatic anemia. EGD and colonoscopy revealed no evidence of GI blood loss. GI reports that it is OK to resume Xarelto with caution. Sigmoid diverticulosis. Stable. History Interval history: 73 yo M PMHx severe bilateral PAD, CKD, HTN, Afib on AC admitted with R great toe gangrene and cellulitis No new issues. Hospitalist Physical - Constitutional Vitals: Temp Pulse Resp BP Pulse Ox 99.0 F 91 H 18 147/58 100 04/29/19 07:16 04/29/19 07:16 04/29/19 07:16 04/29/19 07:16 04/29/19 07:16 General appearance: Present: no acute distress - EENT Eyes: Present: PERRL, EOM intact ENT: hearing intact, clear oral mucosa, dentition normal - Neck Neck: Present: supple, normal ROM - Respiratory Respiratory effort: normal Respiratory: bilateral: CTA - Cardiovascular Rhythm: regular Heart Sounds: Present: S1 & S2. Absent: gallop, rub - Extremities Extremities: no ischemia, No edema, Full ROM - Abdominal General gastrointestinal: soft, non-tender, non-distended, normal bowel sounds - Integumentary Integumentary: Present: clear, warm, dry - Neurologic Neurologic: CNII-XII intact, moves all extremities Results - Labs CBC & Chem 7: 04/26/19 05:24 04/29/19 06:14 Labs: Laboratory Last Values WBC 10.8 K/mm3 (4.5-11.0) 04/26/19 05:24 RBC 2.49 M/mm3 (3.65-5.03) L 04/26/19 05:24 Hgb 7.7 gm/dl (11.8-15.2) L 04/26/19 05:24 Hct 22.8 % (35.5-45.6) L 04/26/19 05:24 MCV 92 fl (84-94) 04/26/19 05:24 MCH 31 pg (28-32) 04/26/19 05:24 MCHC 34 % (32-34) 04/26/19 05:24 RDW 16.6 % (13.2-15.2) H 04/26/19 05:24 Plt Count 245 K/mm3 (140-440) 04/26/19 05:24 Lymph % (Auto) 6.0 % (13.4-35.0) L 04/25/19 06:06 George % (Auto) 5.7 % (0.0-7.3) 04/25/19 06:06 Eos % (Auto) 0.6 % (0.0-4.3) 04/25/19 06:06 Baso % (Auto) 0.5 % (0.0-1.8) 04/25/19 06:06 Lymph # 0.6 K/mm3 (1.2-5.4) L 04/25/19 06:06 George # 0.5 K/mm3 (0.0-0.8) 04/25/19 06:06 Eos # 0.1 K/mm3 (0.0-0.4) 04/25/19 06:06 Baso # 0.0 K/mm3 (0.0-0.1) 04/25/19 06:06 Seg Neutrophils % 87.2 % (40.0-70.0) H 04/25/19 06:06 Seg Neutrophils # 8.2 K/mm3 (1.8-7.7) H 04/25/19 06:06 PT 21.2 Sec. (12.2-14.9) H 04/24/19 12:55 INR 1.88 (0.87-1.13) H 04/24/19 12:55 APTT 41.8 Sec. (24.2-36.6) H 04/24/19 12:55 Sodium 145 mmol/L (137-145) 04/29/19 06:14 Potassium 3.5 mmol/L (3.6-5.0) L D 04/29/19 06:14 Chloride 106.7 mmol/L (98-107) 04/29/19 06:14 Carbon Dioxide 26 mmol/L (22-30) 04/29/19 06:14 16 mmol/L 04/29/19 06:14 BUN 13 mg/dL (9-20) 04/29/19 06:14 1.4 mg/dL (0.8-1.5) 04/29/19 06:14 Estimated GFR > 60 ml/min 04/29/19 06:14 9 % 04/29/19 06:14 Glucose 97 mg/dL (75-100) 04/29/19 06:14 POC Glucose 95 (70-105) 04/29/19 06:03 5.4 % (4-6) 04/25/19 06:06 Lactic Acid 1.80 mmol/L (0.7-2.0) 04/24/19 12:55 Calcium 8.3 mg/dL (8.4-10.2) L 04/29/19 06:14 Phosphorus 2.80 mg/dL (2.5-4.5) D 04/28/19 05:42 Magnesium 1.60 mg/dL (1.7-2.3) L 04/28/19 05:42 0.50 mg/dL (0.1-1.2) 04/25/19 06:06 AST 19 units/L (5-40) 04/25/19 06:06 ALT 10 units/L (7-56) 04/25/19 06:06 86 units/L (35-129) 04/25/19 06:06 0.027 ng/mL (0.00-0.029) 04/24/19 16:09 NT-Pro-B Natriuret Pep 6067 pg/mL (0-900) H 04/24/19 12:55 6.9 g/dL (6.3-8.2) 04/25/19 06:06 3.5 g/dL (3.9-5) L 04/25/19 06:06 1.0 % 04/25/19 06:06 Triglycerides 59 mg/dL (2-149) 04/24/19 12:55 Cholesterol 114 mg/dL (50-199) 04/24/19 12:55 70 mg/dL (50-130) 04/24/19 12:55 47 mg/dL (40-59) 04/24/19 12:55 2.42 % 04/24/19 12:55 Yellow (Yellow) 04/25/19 05:20 Clear (Clear) 04/25/19 05:20 8.0 (5.0-7.0) H 04/25/19 05:20 Ur Specific [place] 1.009 (1.003-1.030) 04/25/19 05:20 <15 mg/dl mg/dL (Negative) 04/25/19 05:20 Neg mg/dL (Negative) 04/25/19 05:20 Neg mg/dL (Negative) 04/25/19 05:20 Lg (Negative) 04/25/19 05:20 Neg (Negative) 04/25/19 05:20 Neg (Negative) 04/25/19 05:20 < 2.0 mg/dL (<2.0) 04/25/19 05:20 Ur Leukocyte Esterase Neg (Negative) 04/25/19 05:20 2.0 /HPF (0.0-6.0) 04/25/19 05:20 15.0 /HPF (0.0-6.0) 04/25/19 05:20 U Epithel Cells (Auto) < 1.0 /HPF (0-13.0) 04/25/19 05:20 None seen (None Seen) 04/25/19 08:30 64.1 mg/dL (0.1-20.0) H 04/25/19 08:30 44 mmol/L 04/25/19 08:30 Random Vancomycin 15.3 ug/mL (0-40.0) 04/27/19 03:53 Active Medications - Current Medications Current Medications: Generic Name Dose Route Start Last Admin Trade Name Freq PRN Reason Stop Dose Admin Acetaminophen 650 mg 04/24/19 22:27 04/27/19 04:39 Tylenol PO 650 mg Q4H PRN Administration Pain MILD(1-3)/Fever >100.5/LEVY Amiodarone HCl 200 mg 04/25/19 10:00 04/29/19 09:34 Cordarone PO 200 mg QDAY SAGE Administration Amlodipine Besylate 10 mg 04/25/19 10:00 04/29/19 09:34 Norvasc PO 10 mg DAILY SAGE Administration Aspirin 81 mg 04/25/19 10:00 04/29/19 09:34 Baby Aspirin PO 81 mg QDAY SAGE Administration Dextrose 50 ml 04/24/19 23:33 04/28/19 00:21 D50w (25gm) Syringe IV 50 ml PRN PRN Administration Hypoglycemia Donepezil HCl 10 mg 04/25/19 10:00 04/29/19 09:34 Aricept PO 10 mg QDAY SAGE Administration Hydromorphone HCl 0.5 mg 04/24/19 22:28 Dilaudid IV Q3H PRN Pain , Severe (7-10) Vancomycin HCl 1,500 mg/ 530 mls @ 333.333 mls/hr 04/27/19 14:00 04/28/19 14:07 Sodium Chloride IV 333.33 mls/hr Q24H SAGE Administration Sodium Chloride 1,000 mls @ 50 mls/hr 04/28/19 09:00 04/28/19 16:20 Nacl 0.9% 1000 Ml IV 50 mls/hr DIRECT SAGE Administration Ampicillin Sodium/Sulbactam Sodium 3 gm in 100 mls @ 200 mls/hr 04/28/19 20:00 04/29/19 09:33 Unasyn/Ns 3 Gm/100 Ml IV 200 mls/hr Q6H SAGE Administration Protocol Magnesium Oxide 400 mg 04/27/19 10:00 04/29/19 09:34 Mag-Ox PO 400 mg BID SAGE Administration Memantine 10 mg 04/25/19 08:00 04/29/19 09:35 Namenda PO 10 mg TID SAGE Administration Metoclopramide HCl 5 mg 04/26/19 09:00 Reglan IV Q6H PRN Nausea And Vomiting Metoprolol Tartrate 25 mg 04/25/19 10:00 04/29/19 09:34 Lopressor PO 25 mg QDAY SAGE Administration Multivitamins 1 each 04/29/19 10:00 04/29/19 09:34 Theragran Tab PO 1 each QDAY SAGE Administration Ondansetron HCl 4 mg 04/24/19 22:27 Zofran IV Q8H PRN Nausea And Vomiting Oxycodone/Acetaminophen 1 tab 04/24/19 22:28 04/25/19 02:41 Percocet 5/325 PO 1 tab Q6H PRN Administration Pain, Moderate (4-6) Pantoprazole Sodium 40 mg 04/25/19 14:00 04/29/19 09:34 Protonix PO 40 mg QDAY SAGE Administration Sodium Chloride 10 ml 04/25/19 10:00 04/29/19 09:35 Sodium Chloride Flush Syringe 10 Ml IV 10 ml BID SAGE Administration Sodium Chloride 10 ml 04/24/19 22:27 Sodium Chloride Flush Syringe 10 Ml IV PRN PRN LINE FLUSH Sodium Hypochlorite 1 applic 04/26/19 10:00 04/29/19 09:35 Dakin's Half Strength TP 1 applicatio DAILY SAGE Administration
--- NOTE | 2019-04-29 12:27 | Progress Note ---
Assessment and Plan Cultures: None Assessment: 73 yo M PMHx severe bilateral PAD, CKD, HTN, Afib on AC admitted with R great toe gangrene and cellulitis 1. R great toe gangrene with cellulitis - S/P great toe amputation on 04/24/2019. Awaiting possible endovascular revascularization, vascular following, may be done outpatient. Continue vancomycin and Unasyn for now for total 7 days to cover adequately for cellulitis. 2. Severe bilateral PAD - s/p recent revascularization. Vascular following. Possible endovascular revascularization as outpatient. 3. BRANDIE on CKD - renally dose antibiotics. BRANDIE improving. Creatinine today 1.4. 4. HTN 5. Afib on AC Recs: - Continue IV Unasyn 3 gm q6 hrs, IV vancomycin, goal trough 15-20 till 05/01/2019 Taylor Vernon MD [facility] C: [phone] Subjective Date of service: 04/29/19 Principal diagnosis: Anemia Interval history: No complaints. Eating lunch. Feels well. No fever. Objective - Exam Narrative Exam: General Normal appearance, well developed, no acute distress Eyes - PERRLA, EOM intact ENT - Moist mucous membranes, no lymphadenopathy Neck - No noticeable or palpable swelling, redness or rash around throat or on face Lymph Nodes - No lymphadenopathy Cardiovascular - RRR no m/r/g, no JVD, no carotid bruits Lungs - Clear to auscultation, no use of accessory muscles, no crackles or wheezes. Skin - No rashes, skin warm and dry, no erythematous areas Abdomen - Normal bowel sounds, abdomen soft and nontender Extremities - No edema, cyanosis or clubbing Musculoskeletal - 5/5 strength, normal range of motion, no swollen or erythematous joints. R foot wrapped in dressing, tenderness at surgical site. Neurological Alert and oriented x 3, CN 2-12 grossly intact. - Constitutional Vitals: Vital Signs Temp Pulse Resp BP Pulse Ox 99.0 F 91 H 18 147/58 100 04/29/19 07:16 04/29/19 07:16 04/29/19 07:16 04/29/19 07:16 04/29/19 07:16 Temperature -Last 24 Hours Temperature 99.0 F Temperature 97.4 F Temperature 98.3 F Temperature 98.3 F Temperature 98.2 F Temperature 98.2 F Temperature 98.2 F Temperature 98.2 F Temperature 99.2 F - Labs CBC & Chem 7: 04/26/19 05:24 04/29/19 06:14 Labs: Abnormal lab results 04/29/19 04/29/19 Range/Units 06:14 11:42 Potassium 3.5 L D (3.6-5.0) mmol/L POC Glucose 118 H (70-105) Calcium 8.3 L (8.4-10.2) mg/dL
[2019-04-29] MEDS: VANCOMYCIN 1,500 MG in SODIUM CHLORIDE 0.9% 500 ML 500 ML IV SCH (13:17)
--- NOTE | 2019-04-29 16:58 | Progress Note ---
Assessment and Plan 73-year-old male with peripheral vascular disease, acute renal failure, and H&H decline of unclear cause with lower extremity edema. Patient has some residual right lower extremity arterial disease with a palpable right posterior tibial pulse and preserved second digit wave forms suggestive of adequate blood flow to heal. Left lower extremity does not have adequate blood flow to heal and will require revascularization as an outpatient. Appreciate Dr. Orourke first digit amputation. Will need wound care. Followup at outpatient. Will have office contact family. Has ulcer of right third digit around the nailbed. Will reconsult wound care. Arterial doppler and PPG of third digit pending. Known left subclavian steal. Can be followed as an outpatient. Has acute renal failure and it appears to be predominately responding to fluids with Triplett placement. Patient will be following with urology as an outpatient. Has baseline CRI (1.4 2 weeks ago); back at baseline. Appreciate nephrology assistance. Unclear cause of hemoglobin decline. No retroperitoneal bleeding. Endoscopy negative. Hematology consult? From vascular point of view, patient can be on aspirin with DOAC. Does not need to be on plavix with DOAC given hemoglobin decline. Subjective Date of service: 04/29/19 Principal diagnosis: Anemia Interval history: Feeling better. Creatinine back to baseline and stable. H&H stable. Palpable right posterior tibial pulse. Nonpalpable left pedal pulses. Has wound of right third digit on tip of fingers. Objective - Constitutional Vitals: Vital Signs - 12hr 04/29/19 04/29/19 07:16 13:54 Temperature 99.0 F 99.1 F Pulse Rate 91 H 84 Respiratory 18 18 Rate Blood Pressure 147/58 125/45 O2 Sat by Pulse 100 91 Oximetry General appearance: Present: no acute distress - EENT Eyes: EOM intact ENT: hearing intact - Respiratory Respiratory effort: normal Extremities: pulses intact (R PT pulse, R radial and partially ulnar), normal temperature, normal color, abnormal (bandaged right foot and left foot) - Psychiatric Psychiatric: appropriate mood/affect, cooperative - Labs CBC & Chem 7: 04/26/19 05:24 04/29/19 06:14 Labs: Abnormal lab results 04/29/19 04/29/19 Range/Units 06:14 11:42 Potassium 3.5 L D (3.6-5.0) mmol/L POC Glucose 118 H (70-105) Calcium 8.3 L (8.4-10.2) mg/dL Medications & Allergies - Medications Allergies/Adverse Reactions: Allergies No Known Allergies Allergy (Unverified 04/11/19 10:16) Home Medications: Home Medications Medication Instructions Recorded Confirmed Last Taken Type Amiodarone [Cordarone 200 MG TAB] 200 mg PO QDAY 04/24/19 04/24/19 04/23/19 History Clopidogrel [Plavix] 75 mg PO QDAY 04/24/19 04/24/19 04/23/19 History Donepezil [Aricept] 10 mg PO QDAY 04/24/19 04/24/19 04/23/19 History Furosemide [Lasix TAB] 40 mg PO QDAY 04/24/19 04/24/19 04/23/19 History Memantine [Namenda] 10 mg PO TID 04/24/19 04/24/19 04/23/19 History Metoprolol [Lopressor] 25 mg PO QDAY 04/24/19 04/24/19 04/23/19 History Rivaroxaban [Xarelto] 20 mg PO QDAY 04/24/19 04/24/19 04/23/19 History amLODIPine [Norvasc] 10 mg PO DAILY 04/24/19 04/24/19 04/23/19 History Active Medications: Generic Name Dose Route Start Last Admin Trade Name Freq PRN Reason Stop Dose Admin Acetaminophen 650 mg 04/24/19 22:27 04/27/19 04:39 Tylenol PO 650 mg Q4H PRN Administration Pain MILD(1-3)/Fever >100.5/LEVY Amiodarone HCl 200 mg 04/25/19 10:00 04/29/19 09:34 Cordarone PO 200 mg QDAY SAGE Administration Amlodipine Besylate 10 mg 04/25/19 10:00 04/29/19 09:34 Norvasc PO 10 mg DAILY SAGE Administration Aspirin 81 mg 04/25/19 10:00 04/29/19 09:34 Baby Aspirin PO 81 mg QDAY SAGE Administration Dextrose 50 ml 04/24/19 23:33 04/28/19 00:21 D50w (25gm) Syringe IV 50 ml PRN PRN Administration Hypoglycemia Donepezil HCl 10 mg 04/25/19 10:00 04/29/19 09:34 Aricept PO 10 mg QDAY SAGE Administration Hydromorphone HCl 0.5 mg 04/24/19 22:28 Dilaudid IV Q3H PRN Pain , Severe (7-10) Vancomycin HCl 1,500 mg/ 530 mls @ 333.333 mls/hr 04/27/19 14:00 04/29/19 13:17 Sodium Chloride IV 333.33 mls/hr Q24H SAGE Administration Sodium Chloride 1,000 mls @ 50 mls/hr 04/28/19 09:00 04/28/19 16:20 Nacl 0.9% 1000 Ml IV 50 mls/hr DIRECT SAGE Administration Ampicillin Sodium/Sulbactam Sodium 3 gm in 100 mls @ 200 mls/hr 04/28/19 20:00 04/29/19 13:17 Unasyn/Ns 3 Gm/100 Ml IV 200 mls/hr Q6H SAGE Administration Protocol Magnesium Oxide 400 mg 04/27/19 10:00 04/29/19 09:34 Mag-Ox PO 400 mg BID SAGE Administration Memantine 10 mg 04/25/19 08:00 04/29/19 13:18 Namenda PO 10 mg TID SAGE Administration Metoclopramide HCl 5 mg 04/26/19 09:00 Reglan IV Q6H PRN Nausea And Vomiting Metoprolol Tartrate 25 mg 04/25/19 10:00 04/29/19 09:34 Lopressor PO 25 mg QDAY SAGE Administration Multivitamins 1 each 04/29/19 10:00 04/29/19 09:34 Theragran Tab PO 1 each QDAY SAGE Administration Ondansetron HCl 4 mg 04/24/19 22:27 Zofran IV Q8H PRN Nausea And Vomiting Oxycodone/Acetaminophen 1 tab 04/24/19 22:28 04/25/19 02:41 Percocet 5/325 PO 1 tab Q6H PRN Administration Pain, Moderate (4-6) Pantoprazole Sodium 40 mg 04/25/19 14:00 04/29/19 09:34 Protonix PO 40 mg QDAY SAGE Administration Sodium Chloride 10 ml 04/25/19 10:00 04/29/19 09:35 Sodium Chloride Flush Syringe 10 Ml IV 10 ml BID SAGE Administration Sodium Chloride 10 ml 04/24/19 22:27 Sodium Chloride Flush Syringe 10 Ml IV PRN PRN LINE FLUSH Sodium Hypochlorite 1 applic 04/26/19 10:00 04/29/19 09:35 Dakin's Half Strength TP 1 applicatio DAILY SAGE Administration
[2019-04-30] MEDS: AMPICILLIN/SULBACTA 3GM/100ML 3 GM/100 ML BAG IV SCH ×4 (01:53→22:34)
[2019-04-30 06:12] LABS: Basophils # (Auto) 0.1 K/mm3 (0.0-0.1); Basophils % (Auto) 0.7 % (0.0-1.8); Eosinophils # (Auto) 0.7 K/mm3 (0.0-0.4); Eosinophils % (Auto) 9.1 % (0.0-4.3); Hematocrit 24.1 % (35.5-45.6); Lymphocytes # (Auto) 0.8 K/mm3 (1.2-5.4); Lymphocytes % (Auto) 10.3 % (13.4-35.0); Mean Corpuscular HGB Conc 33 % (32-34); Mean Corpuscular Volume 91 fl (84-94); Monocytes # (Auto) 0.6 K/mm3 (0.0-0.8); Monocytes % (Auto) 8.1 % (0.0-7.3); Platelet Count 266 K/mm3 (140-440); Red Blood Count 2.65 M/mm3 (3.65-5.03); Red Cell Distribution Width 16.1 % (13.2-15.2)
[2019-04-30 06:35] LABS: BUN/Creatinine Ratio 9; Blood Urea Nitrogen 13 mg/dL (9-20); Calcium 8.7 mg/dL (8.4-10.2); Hemolysis Index 2
[2019-04-30] MEDS: MEMANTINE 10 MG TAB PO SCH ×3 (08:29→22:34)
--- NOTE | 2019-04-30 08:39 | Progress Note ---
Assessment and Plan 1. Acute kidney injury: Vasomotor BRANDIE superimposed on CKD in the setting of obstrutive uropathy. CT abdomen showed distended bladder and hydronephrosis. Renal function is better. Monitor renal function. Avoid nephrotoxic agents. Meds dosage based on GFR. 2. FEN: Hyperkalemia, improved. Metabolic acidosis, improved. Hypernatremia, sodium level is better. Monitor lytes. 3. Obstructive Uropathy: S/p delgado catheter. 4. PAD: S/p amputation of R great toe. 5. Normochromic anemia: POA. EGD negative. 6. Hypertension. 7. Dementia. 8. ?DM. Subjective Date of service: 04/30/19 Principal diagnosis: Anemia Interval history: Patient was seen and examined at the bedside. Doing ok. Objective - Vital Signs Vital signs: Vital Signs - 12hr 04/29/19 04/30/19 04/30/19 22:00 01:59 07:51 Temperature 99.5 F 98.9 F Pulse Rate 92 H 90 Pulse Rate [ 89 Right Brachial] Respiratory 18 18 20 Rate Blood Pressure 148/65 167/67 O2 Sat by Pulse 96 95 97 Oximetry - General Appearance General appearance: well-developed, appears stated age, other (no distress) EENT: ATNC, PERRL Neck: supple Respiratory: Present: Clear to Ascultation Cardiology: regular, S1S2, no murmurs Gastrointestinal: normoactive bowel sounds, no tenderness, no distended Integumentary: chronic venous stasis, other (L leg dressing noted) Neurologic: no focal deficit, no asterixis, disoriented Musculoskeletal: other (Trcae LE edema noted) Psychiatric: cooperative - Lab 04/30/19 05:57 04/30/19 05:57 Most recent lab results Calcium 8.7 mg/dL (8.4-10.2) 04/30/19 05:57 Phosphorus 2.80 mg/dL (2.5-4.5) D 04/28/19 05:42 Magnesium 1.80 mg/dL (1.7-2.3) 04/30/19 05:57 64.1 mg/dL (0.1-20.0) H 04/25/19 08:30 44 mmol/L 04/25/19 08:30 Medications & Allergies - Medications Allergies/Adverse Reactions: Allergies No Known Allergies Allergy (Unverified 04/11/19 10:16) Home Medications: Home Medications Medication Instructions Recorded Confirmed Last Taken Type Amiodarone [Cordarone 200 MG TAB] 200 mg PO QDAY 04/24/19 04/24/19 04/23/19 History Clopidogrel [Plavix] 75 mg PO QDAY 04/24/19 04/24/19 04/23/19 History Donepezil [Aricept] 10 mg PO QDAY 04/24/19 04/24/19 04/23/19 History Furosemide [Lasix TAB] 40 mg PO QDAY 04/24/19 04/24/19 04/23/19 History Memantine [Namenda] 10 mg PO TID 04/24/19 04/24/19 04/23/19 History Metoprolol [Lopressor] 25 mg PO QDAY 04/24/19 04/24/19 04/23/19 History Rivaroxaban [Xarelto] 20 mg PO QDAY 04/24/19 04/24/19 04/23/19 History amLODIPine [Norvasc] 10 mg PO DAILY 04/24/19 04/24/19 04/23/19 History Active Medications: Generic Name Dose Route Start Last Admin Trade Name Freq PRN Reason Stop Dose Admin Acetaminophen 650 mg 04/24/19 22:27 04/27/19 04:39 Tylenol PO 650 mg Q4H PRN Administration Pain MILD(1-3)/Fever >100.5/LEVY Amiodarone HCl 200 mg 04/25/19 10:00 04/29/19 09:34 Cordarone PO 200 mg QDAY SAGE Administration Amlodipine Besylate 10 mg 04/25/19 10:00 04/29/19 09:34 Norvasc PO 10 mg DAILY SAGE Administration Aspirin 81 mg 04/25/19 10:00 04/29/19 09:34 Baby Aspirin PO 81 mg QDAY SAGE Administration Dextrose 50 ml 04/24/19 23:33 04/28/19 00:21 D50w (25gm) Syringe IV 50 ml PRN PRN Administration Hypoglycemia Donepezil HCl 10 mg 04/25/19 10:00 04/29/19 09:34 Aricept PO 10 mg QDAY SAGE Administration Hydromorphone HCl 0.5 mg 04/24/19 22:28 Dilaudid IV Q3H PRN Pain , Severe (7-10) Vancomycin HCl 1,500 mg/ 530 mls @ 333.333 mls/hr 04/27/19 14:00 04/29/19 13:17 Sodium Chloride IV 05/01/19 15:36 333.33 mls/hr Q24H SAGE Administration Sodium Chloride 1,000 mls @ 50 mls/hr 04/28/19 09:00 04/28/19 16:20 Nacl 0.9% 1000 Ml IV 50 mls/hr DIRECT SAGE Administration Ampicillin Sodium/Sulbactam Sodium 3 gm in 100 mls @ 200 mls/hr 04/28/19 20:00 04/30/19 08:30 Unasyn/Ns 3 Gm/100 Ml IV 05/01/19 20:29 200 mls/hr Q6H SAGE Administration Protocol Magnesium Oxide 400 mg 04/27/19 10:00 04/29/19 21:03 Mag-Ox PO 400 mg BID SAGE Administration Memantine 10 mg 04/25/19 08:00 04/30/19 08:29 Namenda PO 10 mg TID SAGE Administration Metoclopramide HCl 5 mg 04/26/19 09:00 Reglan IV Q6H PRN Nausea And Vomiting Metoprolol Tartrate 25 mg 04/25/19 10:00 04/29/19 09:34 Lopressor PO 25 mg QDAY SAGE Administration Multivitamins 1 each 04/29/19 10:00 04/29/19 09:34 Theragran Tab PO 1 each QDAY SAGE Administration Ondansetron HCl 4 mg 04/24/19 22:27 Zofran IV Q8H PRN Nausea And Vomiting Oxycodone/Acetaminophen 1 tab 04/24/19 22:28 04/25/19 02:41 Percocet 5/325 PO 1 tab Q6H PRN Administration Pain, Moderate (4-6) Pantoprazole Sodium 40 mg 04/25/19 14:00 04/29/19 09:34 Protonix PO 40 mg QDAY SAGE Administration Sodium Chloride 10 ml 04/25/19 10:00 04/29/19 21:04 Sodium Chloride Flush Syringe 10 Ml IV 10 ml BID SAGE Administration Sodium Chloride 10 ml 04/24/19 22:27 04/30/19 08:29 Sodium Chloride Flush Syringe 10 Ml IV 10 ml PRN PRN Administration LINE FLUSH Sodium Hypochlorite 1 applic 04/26/19 10:00 04/29/19 09:35 Dakin's Half Strength TP 1 applicatio DAILY SAGE Administration
[2019-04-30] MEDS: MAGNESIUM OXIDE 400 MG TAB PO SCH ×2 (09:12→22:34)
[2019-04-30] MEDS: ASPIRIN 81 MG TAB CHEW PO SCH (09:12)
[2019-04-30] MEDS: DONEPEZIL 10 MG TAB PO SCH (09:12)
[2019-04-30] MEDS: MULTIVITAMINS ,THERAPEUTIC TAB PO SCH (09:12)
[2019-04-30] MEDS: PANTOPRAZOLE 40 MG TAB PO SCH (09:12)
[2019-04-30] MEDS: METOPROLOL TARTRATE 25 MG TAB PO SCH (09:13)
[2019-04-30] MEDS: AMIODARONE 200 MG TAB PO SCH (09:13)
[2019-04-30] MEDS: amLODIPine 10 MG TAB PO SCH (09:13)
[2019-04-30] MEDS: SODIUM HYPOCHLORITE, DAKIN'S 1/2 STRENGTH (0.25%) 473 ML TOPICAL SOLN TP SCH (09:14)
--- NOTE | 2019-04-30 10:14 | Progress Note ---
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 Subjective Date of service: 04/30/19 Patient Reports: Positive: no new complaints Objective Vital Signs - 12hr 04/30/19 04/30/19 04/30/19 01:59 07:51 09:13 Temperature 99.5 F 98.9 F Pulse Rate 92 H 90 90 Pulse Rate [ Right Brachial] Respiratory 18 20 Rate Blood Pressure 148/65 167/67 167/67 O2 Sat by Pulse 95 97 Oximetry 04/30/19 10:00 Temperature Pulse Rate Pulse Rate [ 90 Right Brachial] Respiratory 20 Rate Blood Pressure O2 Sat by Pulse 97 Oximetry - Musculoskeletal other (Right foot wound is fairly clean with some necrotic soft tissue. 1st metatarsal head is exposed.) - Labs 04/30/19 05:57 04/30/19 05:57 Diabetes panel 04/30/19 Range/Units 05:57 Sodium 142 (137-145) mmol/L Potassium 4.2 (3.6-5.0) mmol/L Chloride 103.6 (98-107) mmol/L Carbon Dioxide 27 (22-30) mmol/L BUN 13 (9-20) mg/dL Creatinine 1.4 (0.8-1.5) mg/dL Glucose 97 (75-100) mg/dL Calcium 8.7 (8.4-10.2) mg/dL Calcium panel 04/30/19 Range/Units 05:57 Calcium 8.7 (8.4-10.2) mg/dL Pituitary panel 04/30/19 Range/Units 05:57 Sodium 142 (137-145) mmol/L Potassium 4.2 (3.6-5.0) mmol/L Chloride 103.6 (98-107) mmol/L Carbon Dioxide 27 (22-30) mmol/L BUN 13 (9-20) mg/dL Creatinine 1.4 (0.8-1.5) mg/dL Glucose 97 (75-100) mg/dL Calcium 8.7 (8.4-10.2) mg/dL Adrenal panel 04/30/19 Range/Units 05:57 Sodium 142 (137-145) mmol/L Potassium 4.2 (3.6-5.0) mmol/L Chloride 103.6 (98-107) mmol/L Carbon Dioxide 27 (22-30) mmol/L BUN 13 (9-20) mg/dL Creatinine 1.4 (0.8-1.5) mg/dL Glucose 97 (75-100) mg/dL Calcium 8.7 (8.4-10.2) mg/dL
--- NOTE | 2019-04-30 12:05 | Progress Note ---
Assessment and Plan Cultures: None Assessment: 73 yo M PMHx severe bilateral PAD, CKD, HTN, Afib on AC admitted with R great toe gangrene and cellulitis 1. R great toe gangrene with cellulitis - S/P great toe amputation on 04/24/2019. Awaiting possible endovascular revascularization, vascular following, may be done outpatient. Continue vancomycin and Unasyn for now for total 7 days to cover adequately for cellulitis. 2. Severe bilateral PAD - s/p recent revascularization. Vascular following. Possible endovascular revascularization as outpatient. 3. BRANDIE on CKD - renally dose antibiotics. BRANDIE improving. Creatinine today 1.4. 4. HTN 5. Afib on AC Recs: - Continue IV Unasyn 3 gm q6 hrs, IV vancomycin, goal trough 15-20 mcg/ml for 48 hours post R 1st metatarsal head amputation, hence tentative end date will be 05/03/2019. Taylor Vernon MD [facility] C: [phone] Subjective Date of service: 04/30/19 Principal diagnosis: Anemia Interval history: No new complaints. No fever. Awaiting surgery tomorrow. Still has some pain in left leg. Objective - Exam Narrative Exam: General Normal appearance, well developed, no acute distress Eyes - PERRLA, EOM intact ENT - Moist mucous membranes, no lymphadenopathy Neck - No noticeable or palpable swelling, redness or rash around throat or on face Lymph Nodes - No lymphadenopathy Cardiovascular - RRR no m/r/g, no JVD, no carotid bruits Lungs - Clear to auscultation, no use of accessory muscles, no crackles or whe ezes. Skin - No rashes, skin warm and dry, no erythematous areas Abdomen - Normal bowel sounds, abdomen soft and nontender Extremities - No edema, cyanosis or clubbing Musculoskeletal - 5/5 strength, normal range of motion, no swollen or erythematous joints. R foot wrapped in dressing, tenderness at surgical site. Left leg tenderness + Neurological Alert and oriented x 3. - Constitutional Vitals: Vital Signs Temp Pulse Resp BP Pulse Ox 98.9 F 90 20 167/67 97 04/30/19 07:51 04/30/19 10:00 04/30/19 10:00 04/30/19 09:13 04/30/19 10:00 Temperature -Last 24 Hours Temperature 98.9 F Temperature 99.5 F Temperature 97.4 F Temperature 99.1 F - Labs CBC & Chem 7: 04/30/19 05:57 04/30/19 05:57 Labs: Abnormal lab results 04/29/19 04/30/19 04/30/19 Range/Units 17:10 00:24 05:57 RBC 2.65 L (3.65-5.03) M/mm3 Hgb 8.0 L (11.8-15.2) gm/dl Hct 24.1 L (35.5-45.6) % RDW 16.1 H (13.2-15.2) % Lymph % (Auto) 10.3 L (13.4-35.0) % Mobile % (Auto) 8.1 H (0.0-7.3) % Eos % (Auto) 9.1 H (0.0-4.3) % Lymph # 0.8 L (1.2-5.4) K/mm3 Eos # 0.7 H (0.0-0.4) K/mm3 Seg Neutrophils % 71.8 H (40.0-70.0) % POC Glucose 123 H 110 H (70-105) 04/30/19 Range/Units 11:59 RBC (3.65-5.03) M/mm3 Hgb (11.8-15.2) gm/dl Hct (35.5-45.6) % RDW (13.2-15.2) % Lymph % (Auto) (13.4-35.0) % Mobile % (Auto) (0.0-7.3) % Eos % (Auto) (0.0-4.3) % Lymph # (1.2-5.4) K/mm3 Eos # (0.0-0.4) K/mm3 Seg Neutrophils % (40.0-70.0) % POC Glucose 120 H (70-105)
[2019-04-30] MEDS: VANCOMYCIN 1,500 MG in SODIUM CHLORIDE 0.9% 500 ML 500 ML IV SCH (14:10)
--- NOTE | 2019-04-30 16:04 | Vascular Lab Report ---
RIGHT UPPER EXTREMITY ARTERIAL DOPPLER ULTRASOUND HISTORY: Right upper extremity third digit ulcer COMPARISON: None. TECHNIQUE: Rodriguez-scale, color Doppler and pulse wave Doppler examination of right upper extremity christie ami was performed. FINDINGS: Subclavian artery: PSV 192 cm/s. Triphasic waveform. Axillary artery: PSV 183 cm/s. Biphasic waveform. Brachial artery: PSV 216 cm/s. Biphasic waveform. Radial artery: PSV 96 cm/s. Triphasic waveform. Ulnar artery: PSV 96 cm/s. Biphasic waveform. Additional findings: None. IMPRESSION: Right upper extremity arteries appear patent with no significant stenosis. Signer Name: Crescencio Myers Jr, MD Signed: 04/30/2019 3:59 PM Workstation Name: [id number]
--- NOTE | 2019-04-30 18:51 | Progress Note ---
Assessment and Plan - Patient Problems (1) Urinary obstruction Current Visit: Yes Status: Acute Plan to address problem: Plan is to discharge with Triplett catheter. Follow-up with Drs. quiroz (2) Acute blood loss anemia Current Visit: Yes Status: Resolved (3) Cellulitis of right foot Current Visit: Yes Status: Acute Plan to address problem: Colitis and ischemia right foot. Patient at some point will require revascularization. Currently treating with IV antibiotics. Dictation in a.m. Metatarsal (4) Gangrene of toe of right foot Current Visit: Yes Status: Acute (5) Atrial fibrillation Current Visit: Yes Status: Chronic Qualifiers: Atrial fibrillation type: chronic Qualified Code(s): I48.2 - Chronic atrial fibrillation Plan to address problem: Early on anticoagulations around toe was held secondary to amputation. (6) Hypertension Current Visit: Yes Status: Chronic Qualifiers: Hypertension type: essential hypertension Qualified Code(s): I10 - Essential (primary) hypertension History Interval history: Patient scheduled to have another amputation tomorrow first met head. Consider revascularization possible outpatient basis. Hospital course uncomplicated over p.m. Hospitalist Physical - Constitutional Vitals: Temp Pulse Resp BP Pulse Ox 98.0 F 76 20 140/55 98 04/30/19 13:36 04/30/19 13:36 04/30/19 13:36 04/30/19 13:36 04/30/19 13:36 General appearance: Present: no acute distress, well-nourished - EENT Eyes: Present: PERRL, EOM intact ENT: clear oral mucosa, dentition normal, no oropharyngeal erythema, no poor dentition, no thrush - Neck Neck: Present: supple, normal ROM - Respiratory Respiratory: bilateral: CTA - Cardiovascular Rhythm: regular - Extremities Extremity abnormal: erythema, pulses diminished, other (ischemic digits. Ischemia) Peripheral Pulses: abnormal - Abdominal General gastrointestinal: soft, non-tender, non-distended, other (schaphoid) Results - Labs CBC & Chem 7: 04/30/19 05:57 04/30/19 05:57 Labs: Laboratory Last Values WBC 7.7 K/mm3 (4.5-11.0) 04/30/19 05:57 RBC 2.65 M/mm3 (3.65-5.03) L 04/30/19 05:57 Hgb 8.0 gm/dl (11.8-15.2) L 04/30/19 05:57 Hct 24.1 % (35.5-45.6) L 04/30/19 05:57 MCV 91 fl (84-94) 04/30/19 05:57 MCH 30 pg (28-32) 04/30/19 05:57 MCHC 33 % (32-34) 04/30/19 05:57 RDW 16.1 % (13.2-15.2) H 04/30/19 05:57 Plt Count 266 K/mm3 (140-440) 04/30/19 05:57 Lymph % (Auto) 10.3 % (13.4-35.0) L 04/30/19 05:57 Tompkins % (Auto) 8.1 % (0.0-7.3) H 04/30/19 05:57 Eos % (Auto) 9.1 % (0.0-4.3) H 04/30/19 05:57 Baso % (Auto) 0.7 % (0.0-1.8) 04/30/19 05:57 Lymph # 0.8 K/mm3 (1.2-5.4) L 04/30/19 05:57 Tompkins # 0.6 K/mm3 (0.0-0.8) 04/30/19 05:57 Eos # 0.7 K/mm3 (0.0-0.4) H 04/30/19 05:57 Baso # 0.1 K/mm3 (0.0-0.1) 04/30/19 05:57 Seg Neutrophils % 71.8 % (40.0-70.0) H 04/30/19 05:57 Seg Neutrophils # 5.5 K/mm3 (1.8-7.7) 04/30/19 05:57 PT 21.2 Sec. (12.2-14.9) H 04/24/19 12:55 INR 1.88 (0.87-1.13) H 04/24/19 12:55 APTT 41.8 Sec. (24.2-36.6) H 04/24/19 12:55 Sodium 142 mmol/L (137-145) 04/30/19 05:57 Potassium 4.2 mmol/L (3.6-5.0) 04/30/19 05:57 Chloride 103.6 mmol/L (98-107) 04/30/19 05:57 Carbon Dioxide 27 mmol/L (22-30) 04/30/19 05:57 16 mmol/L 04/30/19 05:57 BUN 13 mg/dL (9-20) 04/30/19 05:57 1.4 mg/dL (0.8-1.5) 04/30/19 05:57 Estimated GFR > 60 ml/min 04/30/19 05:57 9 % 04/30/19 05:57 Glucose 97 mg/dL (75-100) 04/30/19 05:57 POC Glucose 119 (70-105) H 04/30/19 18:00 5.4 % (4-6) 04/25/19 06:06 Lactic Acid 1.80 mmol/L (0.7-2.0) 04/24/19 12:55 Calcium 8.7 mg/dL (8.4-10.2) 04/30/19 05:57 Phosphorus 2.80 mg/dL (2.5-4.5) D 04/28/19 05:42 Magnesium 1.80 mg/dL (1.7-2.3) 04/30/19 05:57 0.50 mg/dL (0.1-1.2) 04/25/19 06:06 AST 19 units/L (5-40) 04/25/19 06:06 ALT 10 units/L (7-56) 04/25/19 06:06 86 units/L (35-129) 04/25/19 06:06 0.027 ng/mL (0.00-0.029) 04/24/19 16:09 NT-Pro-B Natriuret Pep 6067 pg/mL (0-900) H 04/24/19 12:55 6.9 g/dL (6.3-8.2) 04/25/19 06:06 3.5 g/dL (3.9-5) L 04/25/19 06:06 1.0 % 04/25/19 06:06 Triglycerides 59 mg/dL (2-149) 04/24/19 12:55 Cholesterol 114 mg/dL (50-199) 04/24/19 12:55 70 mg/dL (50-130) 04/24/19 12:55 47 mg/dL (40-59) 04/24/19 12:55 2.42 % 04/24/19 12:55 Yellow (Yellow) 04/25/19 05:20 Clear (Clear) 04/25/19 05:20 8.0 (5.0-7.0) H 04/25/19 05:20 Ur Specific Knobel 1.009 (1.003-1.030) 04/25/19 05:20 <15 mg/dl mg/dL (Negative) 04/25/19 05:20 Neg mg/dL (Negative) 04/25/19 05:20 Neg mg/dL (Negative) 04/25/19 05:20 Lg (Negative) 04/25/19 05:20 Neg (Negative) 04/25/19 05:20 Neg (Negative) 04/25/19 05:20 < 2.0 mg/dL (<2.0) 04/25/19 05:20 Ur Leukocyte Esterase Neg (Negative) 04/25/19 05:20 2.0 /HPF (0.0-6.0) 04/25/19 05:20 15.0 /HPF (0.0-6.0) 04/25/19 05:20 U Epithel Cells (Auto) < 1.0 /HPF (0-13.0) 04/25/19 05:20 None seen (None Seen) 04/25/19 08:30 64.1 mg/dL (0.1-20.0) H 04/25/19 08:30 44 mmol/L 04/25/19 08:30 Random Vancomycin 15.3 ug/mL (0-40.0) 04/27/19 03:53 Active Medications - Current Medications Current Medications: Generic Name Dose Route Start Last Admin Trade Name Freq PRN Reason Stop Dose Admin Acetaminophen 650 mg 04/24/19 22:27 04/27/19 04:39 Tylenol PO 650 mg Q4H PRN Administration Pain MILD(1-3)/Fever >100.5/LEVY Amiodarone HCl 200 mg 04/25/19 10:00 04/30/19 09:13 Cordarone PO 200 mg QDAY SAGE Administration Amlodipine Besylate 10 mg 04/25/19 10:00 04/30/19 09:13 Norvasc PO 10 mg DAILY SAGE Administration Aspirin 81 mg 04/25/19 10:00 04/30/19 09:12 Baby Aspirin PO 81 mg QDAY SAGE Administration Dextrose 50 ml 04/24/19 23:33 04/28/19 00:21 D50w (25gm) Syringe IV 50 ml PRN PRN Administration Hypoglycemia Donepezil HCl 10 mg 04/25/19 10:00 04/30/19 09:12 Aricept PO 10 mg QDAY SAGE Administration Hydromorphone HCl 0.5 mg 04/24/19 22:28 Dilaudid IV Q3H PRN Pain , Severe (7-10) Vancomycin HCl 1,500 mg/ 530 mls @ 333.333 mls/hr 04/27/19 14:00 04/30/19 14:10 Sodium Chloride IV 05/01/19 15:36 333.33 mls/hr Q24H SAGE Administration Sodium Chloride 1,000 mls @ 50 mls/hr 04/28/19 09:00 04/28/19 16:20 Nacl 0.9% 1000 Ml IV 50 mls/hr DIRECT SAGE Administration Ampicillin Sodium/Sulbactam Sodium 3 gm in 100 mls @ 200 mls/hr 04/28/19 20:00 04/30/19 13:30 Unasyn/Ns 3 Gm/100 Ml IV 05/01/19 20:29 200 mls/hr Q6H SAGE Administration Protocol Magnesium Oxide 400 mg 04/27/19 10:00 04/30/19 09:12 Mag-Ox PO 400 mg BID SAGE Administration Memantine 10 mg 04/25/19 08:00 04/30/19 13:31 Namenda PO 10 mg TID SAGE Administration Metoclopramide HCl 5 mg 04/26/19 09:00 Reglan IV Q6H PRN Nausea And Vomiting Metoprolol Tartrate 25 mg 04/25/19 10:00 04/30/19 09:13 Lopressor PO 25 mg QDAY SAGE Administration Multivitamins 1 each 04/29/19 10:00 04/30/19 09:12 Theragran Tab PO 1 each QDAY SAGE Administration Ondansetron HCl 4 mg 04/24/19 22:27 Zofran IV Q8H PRN Nausea And Vomiting Oxycodone/Acetaminophen 1 tab 04/24/19 22:28 04/25/19 02:41 Percocet 5/325 PO 1 tab Q6H PRN Administration Pain, Moderate (4-6) Pantoprazole Sodium 40 mg 04/25/19 14:00 04/30/19 09:12 Protonix PO 40 mg QDAY SAGE Administration Sodium Chloride 10 ml 04/25/19 10:00 04/30/19 09:14 Sodium Chloride Flush Syringe 10 Ml IV 10 ml BID SAGE Administration Sodium Chloride 10 ml 04/24/19 22:27 04/30/19 08:29 Sodium Chloride Flush Syringe 10 Ml IV 10 ml PRN PRN Administration LINE FLUSH Sodium Hypochlorite 1 applic 04/26/19 10:00 04/30/19 09:14 Dakin's Half Strength TP 1 applicatio DAILY SAGE Administration
[2019-05-01] MEDS: AMPICILLIN/SULBACTA 3GM/100ML 3 GM/100 ML BAG IV SCH ×4 (01:19→20:27)
[2019-05-01] MEDS: MEMANTINE 10 MG TAB PO SCH ×3 (08:16→20:27)
--- NOTE | 2019-05-01 08:30 | Vascular Lab Report ---
VL RYANNE EVALUATION HISTORY: Ulcer on third digit of right hand, peripheral arterial disease, status post amputation of r ight big toe due to gangrene TECHNIQUE: Pressure volume recordings were obtained in the 5 digits of both hands. FINDINGS: Right hand: There is severely blunted flow to the first digit. There is moderate blunted flow to the fifth digit. There is mildly reduced flow to the second, third and fourth digits. There appears to be adequate camryn w to the right third digit which contains the ulcer. Left hand: There is moderate to severe blunted flow to the first, second and third digits. There is mildly reduced flow to the fourth and fifth digits. No evidence for arterial occlusion. IMPRESSION: There appears to be adequate flow to the right third digit as described. There is moderate to severe reduction of flow in the right first digit, right fifth digit and left fi rst, second and third digits. Signer Name: Crescencio Myers Jr, MD Signed: 05/01/2019 8:26 AM Workstation Name: [id number]
[2019-05-01] MEDS: AMIODARONE 200 MG TAB PO SCH (10:07)
[2019-05-01] MEDS: PANTOPRAZOLE 40 MG TAB PO SCH (10:07)
[2019-05-01] MEDS: MULTIVITAMINS ,THERAPEUTIC TAB PO SCH (10:07)
[2019-05-01] MEDS: DONEPEZIL 10 MG TAB PO SCH (10:07)
[2019-05-01] MEDS: METOPROLOL TARTRATE 25 MG TAB PO SCH (10:08)
[2019-05-01] MEDS: MAGNESIUM OXIDE 400 MG TAB PO SCH ×2 (10:08→22:05)
[2019-05-01] MEDS: amLODIPine 10 MG TAB PO SCH (10:08)
[2019-05-01] MEDS: SODIUM HYPOCHLORITE, DAKIN'S 1/2 STRENGTH (0.25%) 473 ML TOPICAL SOLN TP SCH (10:09)
[2019-05-01] MEDS: ASPIRIN 81 MG TAB CHEW PO SCH (10:12)
--- NOTE | 2019-05-01 10:13 | Progress Note ---
Assessment and Plan 1. Acute kidney injury: Vasomotor BRANDIE superimposed on CKD in the setting of obstrutive uropathy. CT abdomen showed distended bladder and hydronephrosis. Renal function is better. Monitor renal function. Avoid nephrotoxic agents. Meds dosage based on GFR. 2. FEN: Hyperkalemia, improved. Metabolic acidosis, improved. Hypernatremia, sodium level is better. Monitor lytes. 3. Obstructive Uropathy: S/p delgado catheter. 4. PAD: S/p amputation of R great toe. 5. Normochromic anemia: POA. EGD negative. 6. Hypertension. 7. Dementia. 8. ?DM. Subjective Date of service: 05/01/19 Principal diagnosis: Anemia Interval history: Patient was seen and examined at the bedside. Doing ok. Objective - Vital Signs Vital signs: Vital Signs - 12hr 05/01/19 05/01/19 05/01/19 02:31 02:33 02:34 Temperature 99.3 F Pulse Rate 88 Respiratory 18 Rate Blood Pressure 149/64 O2 Sat by Pulse 94 Oximetry 05/01/19 05/01/19 08:02 10:08 Temperature 99.0 F Pulse Rate 92 H 87 Respiratory 20 Rate Blood Pressure 142/57 150/62 O2 Sat by Pulse 96 Oximetry - General Appearance General appearance: well-developed, appears stated age, other (no distress) EENT: ATNC, PERRL, mucous membranes moist, vision intact Neck: supple Respiratory: Present: Clear to Ascultation Cardiology: regular, S1S2, no murmurs Gastrointestinal: normoactive bowel sounds, no tenderness, no distended Integumentary: chronic venous stasis, other (R foot dressing noted) Neurologic: no focal deficit, no asterixis, confused, disoriented Musculoskeletal: other (trace LE edema) Psychiatric: cooperative - Lab 04/30/19 05:57 04/30/19 05:57 Most recent lab results Calcium 8.7 mg/dL (8.4-10.2) 04/30/19 05:57 Phosphorus 2.80 mg/dL (2.5-4.5) D 04/28/19 05:42 Magnesium 1.80 mg/dL (1.7-2.3) 04/30/19 05:57 64.1 mg/dL (0.1-20.0) H 04/25/19 08:30 44 mmol/L 04/25/19 08:30 Medications & Allergies - Medications Allergies/Adverse Reactions: Allergies No Known Allergies Allergy (Unverified 04/11/19 10:16) Home Medications: Home Medications Medication Instructions Recorded Confirmed Last Taken Type Amiodarone [Cordarone 200 MG TAB] 200 mg PO QDAY 04/24/19 04/24/19 04/23/19 History Clopidogrel [Plavix] 75 mg PO QDAY 04/24/19 04/24/19 04/23/19 History Donepezil [Aricept] 10 mg PO QDAY 04/24/19 04/24/19 04/23/19 History Furosemide [Lasix TAB] 40 mg PO QDAY 04/24/19 04/24/19 04/23/19 History Memantine [Namenda] 10 mg PO TID 04/24/19 04/24/19 04/23/19 History Metoprolol [Lopressor] 25 mg PO QDAY 04/24/19 04/24/19 04/23/19 History Rivaroxaban [Xarelto] 20 mg PO QDAY 04/24/19 04/24/19 04/23/19 History amLODIPine [Norvasc] 10 mg PO DAILY 04/24/19 04/24/19 04/23/19 History Active Medications: Generic Name Dose Route Start Last Admin Trade Name Freq PRN Reason Stop Dose Admin Acetaminophen 650 mg 04/24/19 22:27 04/27/19 04:39 Tylenol PO 650 mg Q4H PRN Administration Pain MILD(1-3)/Fever >100.5/LEVY Amiodarone HCl 200 mg 04/25/19 10:00 05/01/19 10:07 Cordarone PO 200 mg QDAY SAGE Administration Amlodipine Besylate 10 mg 04/25/19 10:00 05/01/19 10:08 Norvasc PO 10 mg DAILY SAGE Administration Aspirin 81 mg 04/25/19 10:00 05/01/19 10:12 Baby Aspirin PO Not Given QDAY SAGE Dextrose 50 ml 04/24/19 23:33 04/28/19 00:21 D50w (25gm) Syringe IV 50 ml PRN PRN Administration Hypoglycemia Donepezil HCl 10 mg 04/25/19 10:00 05/01/19 10:07 Aricept PO 10 mg QDAY SAGE Administration Hydromorphone HCl 0.5 mg 04/24/19 22:28 Dilaudid IV Q3H PRN Pain , Severe (7-10) Vancomycin HCl 1,500 mg/ 530 mls @ 333.333 mls/hr 04/27/19 14:00 04/30/19 14:10 Sodium Chloride IV 05/03/19 15:36 333.33 mls/hr Q24H SAGE Administration Sodium Chloride 1,000 mls @ 50 mls/hr 04/28/19 09:00 04/28/19 16:20 Nacl 0.9% 1000 Ml IV 50 mls/hr DIRECT SAGE Administration Ampicillin Sodium/Sulbactam Sodium 3 gm in 100 mls @ 200 mls/hr 04/28/19 20:00 05/01/19 08:15 Unasyn/Ns 3 Gm/100 Ml IV 05/03/19 14:29 200 mls/hr Q6H SAGE Administration Protocol Magnesium Oxide 400 mg 04/27/19 10:00 05/01/19 10:08 Mag-Ox PO 400 mg BID SAGE Administration Memantine 10 mg 04/25/19 08:00 05/01/19 08:16 Namenda PO Not Given TID SAGE Metoclopramide HCl 5 mg 04/26/19 09:00 Reglan IV Q6H PRN Nausea And Vomiting Metoprolol Tartrate 25 mg 04/25/19 10:00 05/01/19 10:08 Lopressor PO 25 mg QDAY SAGE Administration Multivitamins 1 each 04/29/19 10:00 05/01/19 10:07 Theragran Tab PO 1 each QDAY SAGE Administration Ondansetron HCl 4 mg 04/24/19 22:27 Zofran IV Q8H PRN Nausea And Vomiting Oxycodone/Acetaminophen 1 tab 04/24/19 22:28 04/25/19 02:41 Percocet 5/325 PO 1 tab Q6H PRN Administration Pain, Moderate (4-6) Pantoprazole Sodium 40 mg 04/25/19 14:00 05/01/19 10:07 Protonix PO 40 mg QDAY SAGE Administration Sodium Chloride 10 ml 04/25/19 10:00 05/01/19 09:26 Sodium Chloride Flush Syringe 10 Ml IV 10 ml BID SAGE Administration Sodium Chloride 10 ml 04/24/19 22:27 04/30/19 08:29 Sodium Chloride Flush Syringe 10 Ml IV 10 ml PRN PRN Administration LINE FLUSH Sodium Hypochlorite 1 applic 04/26/19 10:00 05/01/19 10:09 Dakin's Half Strength TP 1 applicatio DAILY SAGE Administration
[2019-05-01] MEDS ORDERED: LIDOCAINE (1%) 10 MG/1 ML VIAL 20 ML MDV ONE (11:11)
--- NOTE | 2019-05-01 12:43 | Anesthesia Day of Surgery ---
Anesthesia Day of Surgery - Day of Surgery Patient Examined: Yes Patient H&P Reviewed: Yes Patient is NPO: Yes Beta Blockers: Yes Cardiac Clearance: Yes
--- NOTE | 2019-05-01 12:50 | Anesthesia Consultation ---
Anesthesia Consult and Med Hx Date of service: 05/01/19 - Airway Anesthetic Teeth Evaluation: Edentulous ROM Head & Neck: Adequate Mental/Hyoid Distance: Adequate Mallampati Class: Class II Intubation Access Assessment: Good - Pre-Operative Health Status ASA Pre-Surgery Classification: ASA3 Proposed Anesthetic Plan: General (pt request GA) - Pulmonary Hx Smoking: No (Quit) Hx Respiratory Symptoms: No (Pulmonary HTN) - Cardiovascular System Hx Hypertension: Yes Hx Cardia Arrhythmia: Yes (A-Fib) Hx Peripheral Vascular Disease: Yes - Endocrine Hx Renal Disease: Yes - Hematic Hx Anemia: Yes - Other Systems Hx Alcohol Use: No Hx Substance Use: No - Additional Comments Anesthesia Medical History Comments: Hx of paroxysmal atrial fibrillation on amiodarone and Xarelto at home. Xarelto currently held - restart at lower dose of 15 mg per day when able to restart. PAD. Anemia. Acute on CKD. Echo 04/24/19: EF55-65%, biatrial enlargement, Moderate AI, Severe Pulmonary Htn.
[2019-05-01] MEDS ORDERED: fentaNYL 100 MCG/2 ML INJ IV PRN (12:51)
[2019-05-01] MEDS ORDERED: ONDANSETRON 4 MG/2 ML INJ IV PRN (12:51)
[2019-05-01] MEDS ORDERED: LACTATED RINGERS 1,000 ML IV SCH (13:00)
[2019-05-01] MEDS ORDERED: fentaNYL 100 MCG/2 ML INJ ONE (14:01)
[2019-05-01] MEDS ORDERED: PROPOFOL 200 MG/20 ML VIAL IV ONE (14:01)
[2019-05-01] MEDS: VANCOMYCIN 1,500 MG in SODIUM CHLORIDE 0.9% 500 ML 500 ML IV SCH (14:11)
[2019-05-01] MEDS ORDERED: BUPIVACAINE/PF (0.5%) 5 MG/1 ML 30 ML VIAL INFILTRATI ONE ×2 (14:12)
[2019-05-01] MEDS ORDERED: PHENYLEPHRINE/NS 1,000 MCG/10 ML SYRINGE (OR USE) IV ONE (14:15)
--- NOTE | 2019-05-01 14:16 | Event Note ---
Date: 05/01/19 Off the floor to OR. Continue antibiotics. Will see in AM.
[2019-05-01] MEDS ORDERED: ePHEDrine SULFATE 50 MG/1 ML INJ ONE ×2 (14:32→16:46)
[2019-05-01] MEDS ORDERED: ONDANSETRON 4 MG/2 ML INJ ONE (15:00)
--- NOTE | 2019-05-01 15:02 | Post Operative Note ---
Pre-op diagnosis: Gangrene of right great toe Post-op diagnosis: same Procedure: TMA, right 1st metatarsal head Anesthesia: GETA Surgeon: JONATHAN BURCH Estimated blood loss: minimal Pathology: list (Right 1st metatarsal head) Specimen disposition: to lab Condition: stable Disposition: PACU
[2019-05-01] MEDS ORDERED: PHENYLEPHRINE 10 MG/1 ML INJ SDV IV ONE ×3 (15:55→16:45)
[2019-05-01] MEDS ORDERED: PHENYLEPHRINE 10 MG/1 ML INJ SDV ONE (16:01)
[2019-05-01] MEDS ORDERED: ePHEDrine SULFATE 50 MG/1 ML INJ IM ONE (16:45)
[2019-05-01 18:57] LABS: Hematocrit 22.8 % (35.5-45.6); Hemoglobin 7.5 gm/dl (11.8-15.2)
[2019-05-01] MEDS ORDERED: SODIUM CHLORIDE 0.9% 500 ML 500 ML IV NR (19:04)
--- NOTE | 2019-05-01 19:10 | Post Anesthesia Evaluation ---
- Post Anesthesia Evaluation Patient Participated: Yes Airway Patent: Yes Stable Respiratory Function: Yes Nausea/Vomiting: No Temp > 96.8F: Yes Pain Manageable: Yes Adequeate Hydration: Yes Anesthesia Complications: No Block Receding Appropriately: Not Applicable Patient on Ventilator: No Other Comments: Will transfuse one PRBC. BP has been low; stable MAP
--- NOTE | 2019-05-01 20:24 | Progress Note ---
Assessment and Plan - Patient Problems (1) Urinary obstruction Current Visit: Yes Status: Acute Plan to address problem: Plan is to discharge with Triplett catheter. Follow-up with Drs. quiroz patient still has Triplett and no complications. (2) Acute blood loss anemia Current Visit: Yes Status: Resolved Plan to address problem: Patient's H&H has remained stable. No acute blood loss at this time. (3) Cellulitis of right foot Current Visit: Yes Status: Acute Plan to address problem: Colitis and ischemia right foot. Patient at some point will require revascul arization. Currently treating with IV antibiotics. Return to OR for further surgical intervention (4) Gangrene of toe of right foot Current Visit: Yes Status: Acute Plan to address problem: surgical intervention would need revascularization at some point. At present pain fairly well controlled. (5) Atrial fibrillation Current Visit: Yes Status: Chronic Qualifiers: Atrial fibrillation type: chronic Qualified Code(s): I48.2 - Chronic atrial fibrillation Plan to address problem: Early on anticoagulations around toe was held secondary to amputation. (6) Hypertension Current Visit: Yes Status: Chronic Qualifiers: Hypertension type: essential hypertension Qualified Code(s): I10 - Essential (primary) hypertension History Interval history: Patient went down this morning for amputation of first metatarsophalangeal joint. Hospitalist Physical - Constitutional Vitals: Temp Pulse Resp BP Pulse Ox 98.9 F 95 H 20 93/60 98 05/01/19 20:01 05/01/19 20:01 05/01/19 20:01 05/01/19 20:01 05/01/19 20:01 General appearance: Present: no acute distress, well-nourished - EENT Eyes: Present: PERRL, EOM intact ENT: hearing intact, clear oral mucosa, dentition normal - Neck Neck: Present: supple, normal ROM - Respiratory Respiratory effort: normal Respiratory: bilateral: CTA - Cardiovascular Rhythm: regular - Extremities Extremities: No edema, normal temperature Extremity abnormal: erythema, pulses diminished, tenderness Peripheral Pulses: within normal limits - Abdominal General gastrointestinal: soft, non-tender, non-distended, normal bowel sounds - Integumentary Integumentary: Present: clear, warm, dry Results - Labs CBC & Chem 7: 05/01/19 Unknown 04/30/19 05:57 Labs: Laboratory Last Values WBC 7.7 K/mm3 (4.5-11.0) 04/30/19 05:57 RBC 2.65 M/mm3 (3.65-5.03) L 04/30/19 05:57 Hgb 7.5 gm/dl (11.8-15.2) L 05/01/19 Unknown Hct 22.8 % (35.5-45.6) L 05/01/19 Unknown MCV 91 fl (84-94) 04/30/19 05:57 MCH 30 pg (28-32) 04/30/19 05:57 MCHC 33 % (32-34) 04/30/19 05:57 RDW 16.1 % (13.2-15.2) H 04/30/19 05:57 Plt Count 266 K/mm3 (140-440) 04/30/19 05:57 Lymph % (Auto) 10.3 % (13.4-35.0) L 04/30/19 05:57 [place] % (Auto) 8.1 % (0.0-7.3) H 04/30/19 05:57 Eos % (Auto) 9.1 % (0.0-4.3) H 04/30/19 05:57 Baso % (Auto) 0.7 % (0.0-1.8) 04/30/19 05:57 Lymph # 0.8 K/mm3 (1.2-5.4) L 04/30/19 05:57 [place] # 0.6 K/mm3 (0.0-0.8) 04/30/19 05:57 Eos # 0.7 K/mm3 (0.0-0.4) H 04/30/19 05:57 Baso # 0.1 K/mm3 (0.0-0.1) 04/30/19 05:57 Seg Neutrophils % 71.8 % (40.0-70.0) H 04/30/19 05:57 Seg Neutrophils # 5.5 K/mm3 (1.8-7.7) 04/30/19 05:57 PT 21.2 Sec. (12.2-14.9) H 04/24/19 12:55 INR 1.88 (0.87-1.13) H 04/24/19 12:55 APTT 41.8 Sec. (24.2-36.6) H 04/24/19 12:55 Sodium 142 mmol/L (137-145) 04/30/19 05:57 Potassium 4.2 mmol/L (3.6-5.0) 04/30/19 05:57 Chloride 103.6 mmol/L (98-107) 04/30/19 05:57 Carbon Dioxide 27 mmol/L (22-30) 04/30/19 05:57 16 mmol/L 04/30/19 05:57 BUN 13 mg/dL (9-20) 04/30/19 05:57 1.4 mg/dL (0.8-1.5) 04/30/19 05:57 Estimated GFR > 60 ml/min 04/30/19 05:57 9 % 04/30/19 05:57 Glucose 97 mg/dL (75-100) 04/30/19 05:57 POC Glucose 105 (70-105) 05/01/19 17:18 5.4 % (4-6) 04/25/19 06:06 Lactic Acid 1.80 mmol/L (0.7-2.0) 04/24/19 12:55 Calcium 8.7 mg/dL (8.4-10.2) 04/30/19 05:57 Phosphorus 2.80 mg/dL (2.5-4.5) D 04/28/19 05:42 Magnesium 1.80 mg/dL (1.7-2.3) 04/30/19 05:57 0.50 mg/dL (0.1-1.2) 04/25/19 06:06 AST 19 units/L (5-40) 04/25/19 06:06 ALT 10 units/L (7-56) 04/25/19 06:06 86 units/L (35-129) 04/25/19 06:06 0.027 ng/mL (0.00-0.029) 04/24/19 16:09 NT-Pro-B Natriuret Pep 6067 pg/mL (0-900) H 04/24/19 12:55 6.9 g/dL (6.3-8.2) 04/25/19 06:06 3.5 g/dL (3.9-5) L 04/25/19 06:06 1.0 % 04/25/19 06:06 Triglycerides 59 mg/dL (2-149) 04/24/19 12:55 Cholesterol 114 mg/dL (50-199) 04/24/19 12:55 70 mg/dL (50-130) 04/24/19 12:55 47 mg/dL (40-59) 04/24/19 12:55 2.42 % 04/24/19 12:55 Yellow (Yellow) 04/25/19 05:20 Clear (Clear) 04/25/19 05:20 8.0 (5.0-7.0) H 04/25/19 05:20 Ur Specific [place] 1.009 (1.003-1.030) 04/25/19 05:20 <15 mg/dl mg/dL (Negative) 04/25/19 05:20 Neg mg/dL (Negative) 04/25/19 05:20 Neg mg/dL (Negative) 04/25/19 05:20 Lg (Negative) 04/25/19 05:20 Neg (Negative) 04/25/19 05:20 Neg (Negative) 04/25/19 05:20 < 2.0 mg/dL (<2.0) 04/25/19 05:20 Ur Leukocyte Esterase Neg (Negative) 04/25/19 05:20 2.0 /HPF (0.0-6.0) 04/25/19 05:20 15.0 /HPF (0.0-6.0) 04/25/19 05:20 U Epithel Cells (Auto) < 1.0 /HPF (0-13.0) 04/25/19 05:20 None seen (None Seen) 04/25/19 08:30 64.1 mg/dL (0.1-20.0) H 04/25/19 08:30 44 mmol/L 04/25/19 08:30 Random Vancomycin 15.3 ug/mL (0-40.0) 04/27/19 03:53 Blood Type B POSITIVE 05/01/19 Unknown Antibody Screen Negative 05/01/19 Unknown Crossmatch See Detail 05/01/19 Unknown Active Medications - Current Medications Current Medications: Generic Name Dose Route Start Last Admin Trade Name Freq PRN Reason Stop Dose Admin Acetaminophen 650 mg 04/24/19 22:27 04/27/19 04:39 Tylenol PO 650 mg Q4H PRN Administration Pain MILD(1-3)/Fever >100.5/LEVY Amiodarone HCl 200 mg 04/25/19 10:00 05/01/19 10:07 Cordarone PO 200 mg QDAY SAGE Administration Amlodipine Besylate 10 mg 04/25/19 10:00 05/01/19 10:08 Norvasc PO 10 mg DAILY SAGE Administration Aspirin 81 mg 04/25/19 10:00 05/01/19 10:12 Baby Aspirin PO Not Given QDAY SAGE Dextrose 50 ml 04/24/19 23:33 04/28/19 00:21 D50w (25gm) Syringe IV 50 ml PRN PRN Administration Hypoglycemia Donepezil HCl 10 mg 04/25/19 10:00 05/01/19 10:07 Aricept PO 10 mg QDAY SAGE Administration Fentanyl 50 mcg 05/01/19 12:51 Sublimaze IV 05/01/19 23:59 Q5MIN PRN Pain , Severe (7-10) Hydromorphone HCl 0.5 mg 04/24/19 22:28 Dilaudid IV Q3H PRN Pain , Severe (7-10) Vancomycin HCl 1,500 mg/ 530 mls @ 333.333 mls/hr 04/27/19 14:00 05/01/19 14:11 Sodium Chloride IV 05/03/19 15:36 Not Given Q24H SAGE Sodium Chloride 1,000 mls @ 50 mls/hr 04/28/19 09:00 04/28/19 16:20 Nacl 0.9% 1000 Ml IV 50 mls/hr DIRECT SAGE Administration Ampicillin Sodium/Sulbactam Sodium 3 gm in 100 mls @ 200 mls/hr 04/28/19 20:00 05/01/19 14:11 Unasyn/Ns 3 Gm/100 Ml IV 05/03/19 14:29 Not Given Q6H SAGE Protocol Lactated Ringer's 1,000 mls @ 100 mls/hr 05/01/19 13:00 05/01/19 13:00 Lactated Ringers IV 100 mls/hr DIRECT SAGE Administration Sodium Chloride 500 mls @ 0 mls/hr 05/01/19 19:04 Nacl 0.9% 500 Ml IV 05/02/19 04:00 ONCE NR As Directed Magnesium Oxide 400 mg 04/27/19 10:00 05/01/19 10:08 Mag-Ox PO 400 mg BID SAGE Administration Memantine 10 mg 04/25/19 08:00 05/01/19 14:05 Namenda PO Not Given TID SAGE Metoclopramide HCl 5 mg 04/26/19 09:00 Reglan IV Q6H PRN Nausea And Vomiting Metoprolol Tartrate 25 mg 04/25/19 10:00 05/01/19 10:08 Lopressor PO 25 mg QDAY SAGE Administration Multivitamins 1 each 04/29/19 10:00 05/01/19 10:07 Theragran Tab PO 1 each QDAY SAGE Administration Ondansetron HCl 4 mg 04/24/19 22:27 Zofran IV Q8H PRN Nausea And Vomiting Ondansetron HCl 4 mg 05/01/19 12:51 Zofran IV 05/01/19 23:59 ONCE PRN Nausea And Vomiting Oxycodone/Acetaminophen 1 tab 04/24/19 22:28 04/25/19 02:41 Percocet 5/325 PO 1 tab Q6H PRN Administration Pain, Moderate (4-6) Pantoprazole Sodium 40 mg 04/25/19 14:00 05/01/19 10:07 Protonix PO 40 mg QDAY SAGE Administration Sodium Chloride 10 ml 04/25/19 10:00 05/01/19 09:26 Sodium Chloride Flush Syringe 10 Ml IV 10 ml BID SAGE Administration Sodium Chloride 10 ml 04/24/19 22:27 04/30/19 08:29 Sodium Chloride Flush Syringe 10 Ml IV 10 ml PRN PRN Administration LINE FLUSH Sodium Hypochlorite 1 applic 04/26/19 10:00 05/01/19 10:09 Dakin's Half Strength TP 1 applicatio DAILY SAGE Administration Nutrition/Malnutrition Assess - Dietary Evaluation Nutrition/Malnutrition Findings: Nutrition Notes Start: 05/01/19 10:50 Freq: Status: Active Protocol: Document 05/01/19 10:50 KS (Rec: 05/01/19 11:24 KS [id number]) Co-Sign 05/01/19 10:50 LP Nutrition Notes Need for Assessment generated from: LOS Initial or Follow up Brief Note Current Diagnosis CKD (stage V CKD),Hypertension Other Pertinent Diagnosis Afib on AC, bi PAD, ARF toe amputation Current Diet NPO after midnight [place] Body Weight (kg) 0 Subjective/Other Information Pt consistently eating 100% of meals. Nutrition Intervention Revisit per MD consult or patient Sign Off request:
[2019-05-01] MEDS: SODIUM CHLORIDE 0.9% 1000 ML 1,000 ML IV SCH (20:27)
[2019-05-02] MEDS: DEXTROSE 50% IN WATER (25GM) 50 ML SYRINGE IV PRN (00:17)
[2019-05-02] MEDS: ACETAMINOPHEN 325 MG TAB PO PRN ×2 (01:18→08:42)
[2019-05-02] MEDS: AMPICILLIN/SULBACTA 3GM/100ML 3 GM/100 ML BAG IV SCH ×4 (04:58→19:26)
[2019-05-02] MEDS: MEMANTINE 10 MG TAB PO SCH ×3 (08:19→19:26)
[2019-05-02 08:47] LABS: BUN/Creatinine Ratio 12; Blood Urea Nitrogen 15 mg/dL (9-20); Calcium 8.9 mg/dL (8.4-10.2); Hemolysis Index 85
[2019-05-02] MEDS: amLODIPine 10 MG TAB PO SCH (09:10)
[2019-05-02] MEDS: PANTOPRAZOLE 40 MG TAB PO SCH (09:10)
[2019-05-02] MEDS: AMIODARONE 200 MG TAB PO SCH (09:10)
[2019-05-02] MEDS: DONEPEZIL 10 MG TAB PO SCH (09:11)
[2019-05-02] MEDS: ASPIRIN 81 MG TAB CHEW PO SCH (09:11)
[2019-05-02] MEDS: METOPROLOL TARTRATE 25 MG TAB PO SCH (09:11)
[2019-05-02] MEDS: MULTIVITAMINS ,THERAPEUTIC TAB PO SCH (09:11)
[2019-05-02] MEDS: MAGNESIUM OXIDE 400 MG TAB PO SCH ×2 (09:15→22:11)
--- NOTE | 2019-05-02 09:41 | Progress Note ---
Assessment and Plan PAD with right foot Gangerene s/p toe amputation Hx of paroxysmal atrial fibrillation on amiodarone and Xarelto as an outpatient. Anemia Acute renal failure Echo 04/24/19: EF 55-65%, biatrial enlargement, Moderate AI, Severe Pulmonary Htn. Continue current therapy. Will follow on intermittent basis. Subjective Date of service: 05/02/19 Principal diagnosis: Anemia Interval history: Patient is resting in bed comfortably. He has no cardiac complaints. Objective Vital Signs Temp Pulse Resp BP Pulse Ox 05/02/19 09:11 172/79 05/02/19 09:10 172/79 05/02/19 07:34 99.3 F 87 20 172/79 95 05/02/19 04:45 100.4 F H 102 H 16 147/56 95 05/02/19 04:15 100.8 F H 103 H 16 142/63 100 05/02/19 03:45 100.8 F H 105 H 16 138/59 100 05/02/19 03:15 100.8 F H 110 H 16 152/63 97 05/02/19 02:45 101.0 F H 107 H 16 149/62 100 05/02/19 02:41 107 H 18 149/62 100 05/02/19 02:19 102.1 F H 108 H 20 82/45 100 05/02/19 02:18 16 05/02/19 02:15 102.1 F H 113 H 16 82/45 100 05/02/19 01:45 99.2 F 112 H 16 77/54 100 05/02/19 01:18 16 05/02/19 01:15 99.6 F 110 H 16 95/70 98 05/02/19 01:00 99.3 F 108 H 16 111/65 100 05/01/19 22:10 16 05/01/19 21:40 18 05/01/19 20:01 98.9 F 95 H 20 93/60 98 05/01/19 19:45 97 H 18 91/57 96 05/01/19 19:10 97.5 F L 90 19 92/57 95 05/01/19 18:55 89 18 89/58 96 05/01/19 18:40 90 16 80/54 97 05/01/19 18:25 85 18 90/53 98 05/01/19 18:10 98.7 F 86 16 81/55 99 05/01/19 17:55 88 81 H 83/52 95 05/01/19 17:40 85 85 H 87/54 97 05/01/19 17:25 983 F H 83 86 H 86/53 97 05/01/19 17:10 84 15 82/52 97 05/01/19 16:55 97.1 F L 84 14 82/52 100 05/01/19 16:40 73 15 77/46 98 05/01/19 16:25 77 14 87/51 99 05/01/19 16:10 97.0 F L 81 12 94/52 100 05/01/19 15:55 82 13 76/50 97 05/01/19 15:40 86 14 81/53 98 05/01/19 15:25 88 15 87/55 100 05/01/19 15:20 87 14 97/62 100 05/01/19 15:15 90 18 91/57 100 05/01/19 15:12 96.9 F L 96 H 13 95/63 100 05/01/19 12:30 98.3 F 78 18 99/67 99 05/01/19 12:25 98.3 F 78 18 99/67 99 05/01/19 10:08 87 150/62 - Physical Examination General: No Apparent Distress HEENT: Positive: PERRL Neck: Positive: neck supple Cardiac: Positive: Reg Rate and Rhythm Lungs: Positive: Decreased Breath Sounds Neuro: Positive: Grossly Intact Abdomen: Positive: Soft Extremities: Absent: edema - Labs and Meds CBC 05/01/19 Range/Units Unknown Hgb 7.5 L (11.8-15.2) gm/dl Hct 22.8 L (35.5-45.6) % Comprehensive Metabolic Panel 05/02/19 Range/Units 08:12 Sodium 137 (137-145) mmol/L Potassium 4.6 (3.6-5.0) mmol/L Chloride 100.9 (98-107) mmol/L Carbon Dioxide 22 (22-30) mmol/L BUN 15 (9-20) mg/dL Creatinine 1.3 (0.8-1.5) mg/dL Glucose 86 (75-100) mg/dL Calcium 8.9 (8.4-10.2) mg/dL
--- NOTE | 2019-05-02 10:41 | Progress Note ---
Assessment and Plan 1. Acute kidney injury: Vasomotor BRANDIE superimposed on CKD in the setting of obstrutive uropathy. CT abdomen showed distended bladder and hydronephrosis. Renal function is better. Monitor renal function. Avoid nephrotoxic agents. Meds dosage based on GFR. 2. FEN: Hyperkalemia, improved. Metabolic acidosis, improved. Hypernatremia, sodium level is better. Monitor lytes. 3. Obstructive Uropathy: S/p delgado catheter. 4. PAD: S/p amputation of R great toe. S/p TMA, right 1st metatarsal head. 5. Normochromic anemia: POA. EGD negative. 6. Hypertension. 7. Dementia. 8. ?DM. Subjective Date of service: 05/02/19 Principal diagnosis: Anemia Interval history: Patient was seen and examined at the bedside. Doing ok. Objective - Vital Signs Vital signs: Vital Signs - 12hr 05/02/19 05/02/19 05/02/19 01:00 01:15 01:18 Temperature 99.3 F 99.6 F Pulse Rate 108 H 110 H Respiratory 16 16 16 Rate Blood Pressure 111/65 95/70 O2 Sat by Pulse 100 98 Oximetry 05/02/19 05/02/19 05/02/19 01:45 02:15 02:18 Temperature 99.2 F 102.1 F H Pulse Rate 112 H 113 H Respiratory 16 16 16 Rate Blood Pressure 77/54 82/45 O2 Sat by Pulse 100 100 Oximetry 05/02/19 05/02/19 05/02/19 02:19 02:41 02:45 Temperature 102.1 F H 101.0 F H Pulse Rate 108 H 107 H 107 H Respiratory 20 18 16 Rate Blood Pressure 82/45 149/62 149/62 O2 Sat by Pulse 100 100 100 Oximetry 05/02/19 05/02/19 05/02/19 03:15 03:45 04:15 Temperature 100.8 F H 100.8 F H 100.8 F H Pulse Rate 110 H 105 H 103 H Respiratory 16 16 16 Rate Blood Pressure 152/63 138/59 142/63 O2 Sat by Pulse 97 100 100 Oximetry 05/02/19 05/02/19 05/02/19 04:45 07:34 09:10 Temperature 100.4 F H 99.3 F Pulse Rate 102 H 87 Respiratory 16 20 Rate Blood Pressure 147/56 172/79 172/79 O2 Sat by Pulse 95 95 Oximetry 05/02/19 09:11 Temperature Pulse Rate Respiratory Rate Blood Pressure 172/79 O2 Sat by Pulse Oximetry - General Appearance General appearance: well-developed, appears stated age, other (no distress) EENT: ATNC, PERRL, mucous membranes moist, hearing intact Neck: supple Respiratory: Present: Clear to Ascultation Cardiology: regular, S1S2, no murmurs Gastrointestinal: normoactive bowel sounds, no tenderness, no distended Integumentary: chronic venous stasis, other (R foot dressing noted) Neurologic: no focal deficit, no asterixis, confused Musculoskeletal: other (amputation of R great toe) Psychiatric: cooperative - Lab 05/01/19 Unknown 05/02/19 08:12 Most recent lab results Calcium 8.9 mg/dL (8.4-10.2) 05/02/19 08:12 Phosphorus 2.80 mg/dL (2.5-4.5) D 04/28/19 05:42 Magnesium 1.80 mg/dL (1.7-2.3) 04/30/19 05:57 64.1 mg/dL (0.1-20.0) H 04/25/19 08:30 44 mmol/L 04/25/19 08:30 Medications & Allergies - Medications Allergies/Adverse Reactions: Allergies No Known Allergies Allergy (Unverified 04/11/19 10:16) Home Medications: Home Medications Medication Instructions Recorded Confirmed Last Taken Type Amiodarone [Cordarone 200 MG TAB] 200 mg PO QDAY 04/24/19 04/24/19 04/23/19 History Clopidogrel [Plavix] 75 mg PO QDAY 04/24/19 04/24/19 04/23/19 History Donepezil [Aricept] 10 mg PO QDAY 04/24/19 04/24/19 04/23/19 History Furosemide [Lasix TAB] 40 mg PO QDAY 04/24/19 04/24/19 04/23/19 History Memantine [Namenda] 10 mg PO TID 04/24/19 04/24/19 04/23/19 History Metoprolol [Lopressor] 25 mg PO QDAY 04/24/19 04/24/19 04/23/19 History Rivaroxaban [Xarelto] 20 mg PO QDAY 04/24/19 04/24/19 04/23/19 History amLODIPine [Norvasc] 10 mg PO DAILY 04/24/19 04/24/19 04/23/19 History Active Medications: Generic Name Dose Route Start Last Admin Trade Name Freq PRN Reason Stop Dose Admin Acetaminophen 650 mg 04/24/19 22:27 05/02/19 08:42 Tylenol PO 650 mg Q4H PRN Administration Pain MILD(1-3)/Fever >100.5/LEVY Amiodarone HCl 200 mg 04/25/19 10:00 05/02/19 09:10 Cordarone PO 200 mg QDAY SAGE Administration Amlodipine Besylate 10 mg 04/25/19 10:00 05/02/19 09:10 Norvasc PO 10 mg DAILY SAGE Administration Aspirin 81 mg 04/25/19 10:00 05/02/19 09:11 Baby Aspirin PO 81 mg QDAY SAGE Administration Dextrose 50 ml 04/24/19 23:33 05/02/19 00:17 D50w (25gm) Syringe IV 50 ml PRN PRN Administration Hypoglycemia Donepezil HCl 10 mg 04/25/19 10:00 05/02/19 09:11 Aricept PO 10 mg QDAY SAGE Administration Hydromorphone HCl 0.5 mg 04/24/19 22:28 05/01/19 21:40 Dilaudid IV 0.5 mg Q3H PRN Administration Pain , Severe (7-10) Vancomycin HCl 1,500 mg/ 530 mls @ 333.333 mls/hr 04/27/19 14:00 05/01/19 14:11 Sodium Chloride IV 05/03/19 15:36 Not Given Q24H SAGE Sodium Chloride 1,000 mls @ 50 mls/hr 04/28/19 09:00 05/01/19 20:27 Nacl 0.9% 1000 Ml IV 50 mls/hr DIRECT SAGE Administration Ampicillin Sodium/Sulbactam Sodium 3 gm in 100 mls @ 200 mls/hr 04/28/19 20:00 05/02/19 08:17 Unasyn/Ns 3 Gm/100 Ml IV 05/03/19 14:29 200 mls/hr Q6H SAGE Administration Protocol Lactated Ringer's 1,000 mls @ 100 mls/hr 05/01/19 13:00 05/01/19 13:00 Lactated Ringers IV 100 mls/hr DIRECT SAGE Administration Magnesium Oxide 400 mg 04/27/19 10:00 05/02/19 09:15 Mag-Ox PO 400 mg BID SAGE Administration Memantine 10 mg 04/25/19 08:00 05/02/19 08:19 Namenda PO 10 mg TID SAGE Administration Metoclopramide HCl 5 mg 04/26/19 09:00 Reglan IV Q6H PRN Nausea And Vomiting Metoprolol Tartrate 25 mg 04/25/19 10:00 05/02/19 09:11 Lopressor PO 25 mg QDAY SAGE Administration Multivitamins 1 each 04/29/19 10:00 05/02/19 09:11 Theragran Tab PO 1 each QDAY SAGE Administration Ondansetron HCl 4 mg 04/24/19 22:27 Zofran IV Q8H PRN Nausea And Vomiting Oxycodone/Acetaminophen 1 tab 04/24/19 22:28 04/25/19 02:41 Percocet 5/325 PO 1 tab Q6H PRN Administration Pain, Moderate (4-6) Pantoprazole Sodium 40 mg 04/25/19 14:00 05/02/19 09:10 Protonix PO 40 mg QDAY SAGE Administration Sodium Chloride 10 ml 04/25/19 10:00 05/02/19 09:12 Sodium Chloride Flush Syringe 10 Ml IV Not Given BID SAGE Sodium Chloride 10 ml 04/24/19 22:27 04/30/19 08:29 Sodium Chloride Flush Syringe 10 Ml IV 10 ml PRN PRN Administration LINE FLUSH Sodium Hypochlorite 1 applic 04/26/19 10:00 05/01/19 10:09 Dakin's Half Strength TP 1 applicatio DAILY SAGE Administration
[2019-05-02] MEDS: SODIUM HYPOCHLORITE, DAKIN'S 1/2 STRENGTH (0.25%) 473 ML TOPICAL SOLN TP SCH (11:41)
--- NOTE | 2019-05-02 12:34 | Progress Note ---
Assessment and Plan Cultures: None Assessment: 73 yo M PMHx severe bilateral PAD, CKD, HTN, Afib on AC admitted with R great toe gangrene and cellulitis 1. R great toe gangrene with cellulitis - S/P great toe amputation on 04/24/2019 followed by TMA, right 1st metatarsal head on 05/01/2019. Awaiting possible endovascular revascularization, vascular following, may be done outpatient. On vancomycin and Unasyn 2. Severe bilateral PAD - s/p recent revascularization. Vascular following. Possible endovascular revascularization as outpatient. 3. BRANDIE on CKD - renally dose antibiotics. BRANDIE improving. 4. HTN 5. Afib on AC Recs: - new fevers, ?post operative. Clinically feels well. - continue IV Unasyn 3 gm q6 hrs with IV vancomycin, goal trough 15-20 mcg/ml for now. Initial plan was to stop 48 hours post R 1st metatarsal head amputation with end date 05/03/2019. However, may need to extend depending on fevers and clinical course. - if febrile again, would get blood cultures - CBC ordered for AM Taylor Vernon MD FACP [facility] C: [phone] Subjective Date of service: 05/02/19 Principal diagnosis: Anemia Interval history: Patient denies any complaints. But noted to have fevers yesterday. Denies any cough or shortness of breath. Denies urinary burning. No rash. Objective - Exam Narrative Exam: Physical Exam: Constitutional: Alert, cooperative. No acute distress Head, Ears, Nose: Normocephalic, atraumatic. External ears, nose normal Eyes: Conjunctivae/corneas clear. No icterus. No ptosis. Neck: Supple, no meningeal signs Cardiovascular: S1, S2 normal. Respiratory: Good air entry, clear to auscultation bilaterally GI: Soft, non-tender; bowel sounds normal. No peritoneal signs Musculoskeletal: No pedal edema, no cyanosis. R foot wrapped in dressing, tenderness at surgical site. Left leg tenderness + Skin: No rash or abscess Hem/Lymphatic: No palpable cervical or supraclavicular nodes. No lymphangitis Psych: Mood ok. Affect normal Neurological: Awake, alert, oriented. - Constitutional Vitals: Vital Signs Temp Pulse Resp BP Pulse Ox 99.3 F 87 20 172/79 95 05/02/19 07:34 09/20/19 07:34 05/02/19 07:34 05/02/19 09:11 05/02/19 07:34 Temperature -Last 24 Hours Temperature 99.3 F Temperature 100.4 F Temperature 100.8 F Temperature 100.8 F Temperature 100.8 F Temperature 101.0 F Temperature 102.1 F Temperature 102.1 F Temperature 99.2 F Temperature 99.6 F Temperature 99.3 F Temperature 98.9 F Temperature 97.5 F Temperature 98.7 F Temperature 983 F Temperature 97.1 F Temperature 97.0 F Temperature 96.9 F - Labs CBC & Chem 7: 05/01/19 Unknown 05/02/19 08:12 Labs: Abnormal lab results 05/01/19 05/01/19 05/01/19 Range/Units 23:53 Unknown Unknown Hgb 7.5 L (11.8-15.2) gm/dl Hct 22.8 L (35.5-45.6) % POC Glucose < 40 L (70-105) Crossmatch See Detail 05/02/19 05/02/19 05/02/19 Range/Units 00:02 00:52 11:42 Hgb (11.8-15.2) gm/dl Hct (35.5-45.6) % POC Glucose 53 L 106 H 112 H (70-105) Crossmatch
[2019-05-02] MEDS: VANCOMYCIN 1,500 MG in SODIUM CHLORIDE 0.9% 500 ML 500 ML IV SCH (14:19)
--- NOTE | 2019-05-02 17:01 | Progress Note ---
Assessment and Plan - Patient Problems (1) Urinary obstruction Current Visit: Yes Status: Acute Plan to address problem: Renal obstruction secondary to BPH. Patient scheduled to discharge with Triplett catheter and follow up with Dr. Winston carvajal as outpatient. (2) Acute blood loss anemia Current Visit: Yes Status: Resolved Plan to address problem: Patient's H&H has remained stable. No acute blood loss at this time. (3) Cellulitis of right foot Current Visit: Yes Status: Acute Plan to address problem: Colitis and ischemia right foot. Patient at some point will require revascularization. Currently treating with IV antibiotics. Return to OR for further surgical intervention (4) Gangrene of toe of right foot Current Visit: Yes Status: Acute Plan to address problem: Patient status post surgical intervention of amputation of first metatarsophalangeal joint. Patient at present pain fairly well controlled. Follow management per surgery. (5) Atrial fibrillation Current Visit: Yes Status: Chronic Qualifiers: Atrial fibrillation type: chronic Qualified Code(s): I48.2 - Chronic atrial fibrillation Plan to address problem: anticoagulation he'll secondary to surgery. Should benefit restartingelaquis in am. Currently on amiodarone and AV tika blocking agent metoprolol. She rates very well controlled. Anticoagulations is still on hold secondary to amputation yesterday. (6) Hypertension Current Visit: Yes Status: Chronic Qualifiers: Hypertension type: essential hypertension Qualified Code(s): I10 - Essential (primary) hypertension Plan to address problem: Has blood pressure 125/83. Continue present management metoprolol. History Interval history: Patient postop day one pain fairly well control. Plan is for patient to be discharged 1 to 2 days. Hospitalist Physical - Constitutional Vitals: Temp Pulse Resp BP Pulse Ox 98.2 F 88 20 125/56 96 05/02/19 13:39 05/02/19 13:39 05/02/19 13:39 05/02/19 13:39 05/02/19 13:39 General appearance: Present: no acute distress, well-nourished - EENT Eyes: Present: PERRL, EOM intact ENT: hearing intact, clear oral mucosa, dentition normal - Neck Neck: Present: supple, normal ROM - Respiratory Respiratory effort: normal Respiratory: bilateral: CTA - Cardiovascular Rhythm: irregularly irregular - Extremities Extremities: no ischemia, pulses intact, normal temperature Extremity abnormal: edema, other (metatarsal phalangeal joint bandaged surgical bandage.) - Abdominal General gastrointestinal: soft, non-tender, non-distended, normal bowel sounds - Integumentary Integumentary: Present: clear, warm, dry - Psychiatric Psychiatric: appropriate mood/affect - Neurologic Neurologic: CNII-XII intact, focal deficits, moves all extremities Results - Labs CBC & Chem 7: 05/01/19 Unknown 05/02/19 08:12 Labs: Laboratory Last Values WBC 7.7 K/mm3 (4.5-11.0) 04/30/19 05:57 RBC 2.65 M/mm3 (3.65-5.03) L 04/30/19 05:57 Hgb 7.5 gm/dl (11.8-15.2) L 05/01/19 Unknown Hct 22.8 % (35.5-45.6) L 05/01/19 Unknown MCV 91 fl (84-94) 04/30/19 05:57 MCH 30 pg (28-32) 04/30/19 05:57 MCHC 33 % (32-34) 04/30/19 05:57 RDW 16.1 % (13.2-15.2) H 04/30/19 05:57 Plt Count 266 K/mm3 (140-440) 04/30/19 05:57 Lymph % (Auto) 10.3 % (13.4-35.0) L 04/30/19 05:57 [place] % (Auto) 8.1 % (0.0-7.3) H 04/30/19 05:57 Eos % (Auto) 9.1 % (0.0-4.3) H 04/30/19 05:57 Baso % (Auto) 0.7 % (0.0-1.8) 04/30/19 05:57 Lymph # 0.8 K/mm3 (1.2-5.4) L 04/30/19 05:57 [place] # 0.6 K/mm3 (0.0-0.8) 04/30/19 05:57 Eos # 0.7 K/mm3 (0.0-0.4) H 04/30/19 05:57 Baso # 0.1 K/mm3 (0.0-0.1) 04/30/19 05:57 Seg Neutrophils % 71.8 % (40.0-70.0) H 04/30/19 05:57 Seg Neutrophils # 5.5 K/mm3 (1.8-7.7) 04/30/19 05:57 PT 21.2 Sec. (12.2-14.9) H 04/24/19 12:55 INR 1.88 (0.87-1.13) H 04/24/19 12:55 APTT 41.8 Sec. (24.2-36.6) H 04/24/19 12:55 Sodium 137 mmol/L (137-145) 05/02/19 08:12 Potassium 4.6 mmol/L (3.6-5.0) 05/02/19 08:12 Chloride 100.9 mmol/L (98-107) 05/02/19 08:12 Carbon Dioxide 22 mmol/L (22-30) 05/02/19 08:12 19 mmol/L 05/02/19 08:12 BUN 15 mg/dL (9-20) 05/02/19 08:12 1.3 mg/dL (0.8-1.5) 05/02/19 08:12 Estimated GFR > 60 ml/min 05/02/19 08:12 12 % 05/02/19 08:12 Glucose 86 mg/dL (75-100) 05/02/19 08:12 POC Glucose 112 (70-105) H 05/02/19 11:42 5.4 % (4-6) 04/25/19 06:06 Lactic Acid 1.80 mmol/L (0.7-2.0) 04/24/19 12:55 Calcium 8.9 mg/dL (8.4-10.2) 05/02/19 08:12 Phosphorus 2.80 mg/dL (2.5-4.5) D 04/28/19 05:42 Magnesium 1.80 mg/dL (1.7-2.3) 04/30/19 05:57 0.50 mg/dL (0.1-1.2) 04/25/19 06:06 AST 19 units/L (5-40) 04/25/19 06:06 ALT 10 units/L (7-56) 04/25/19 06:06 86 units/L (35-129) 04/25/19 06:06 0.027 ng/mL (0.00-0.029) 04/24/19 16:09 NT-Pro-B Natriuret Pep 6067 pg/mL (0-900) H 04/24/19 12:55 6.9 g/dL (6.3-8.2) 04/25/19 06:06 3.5 g/dL (3.9-5) L 04/25/19 06:06 1.0 % 04/25/19 06:06 Triglycerides 59 mg/dL (2-149) 04/24/19 12:55 Cholesterol 114 mg/dL (50-199) 04/24/19 12:55 70 mg/dL (50-130) 04/24/19 12:55 47 mg/dL (40-59) 04/24/19 12:55 2.42 % 04/24/19 12:55 Yellow (Yellow) 04/25/19 05:20 Clear (Clear) 04/25/19 05:20 8.0 (5.0-7.0) H 04/25/19 05:20 Ur Specific [place] 1.009 (1.003-1.030) 04/25/19 05:20 <15 mg/dl mg/dL (Negative) 04/25/19 05:20 Neg mg/dL (Negative) 04/25/19 05:20 Neg mg/dL (Negative) 04/25/19 05:20 Lg (Negative) 04/25/19 05:20 Neg (Negative) 04/25/19 05:20 Neg (Negative) 04/25/19 05:20 < 2.0 mg/dL (<2.0) 04/25/19 05:20 Ur Leukocyte Esterase Neg (Negative) 04/25/19 05:20 2.0 /HPF (0.0-6.0) 04/25/19 05:20 15.0 /HPF (0.0-6.0) 04/25/19 05:20 U Epithel Cells (Auto) < 1.0 /HPF (0-13.0) 04/25/19 05:20 None seen (None Seen) 04/25/19 08:30 64.1 mg/dL (0.1-20.0) H 04/25/19 08:30 44 mmol/L 04/25/19 08:30 Random Vancomycin 15.3 ug/mL (0-40.0) 04/27/19 03:53 Blood Type B POSITIVE 05/01/19 Unknown Antibody Screen Negative 05/01/19 Unknown Crossmatch See Detail 05/01/19 Unknown Active Medications - Current Medications Current Medications: Generic Name Dose Route Start Last Admin Trade Name Freq PRN Reason Stop Dose Admin Acetaminophen 650 mg 04/24/19 22:27 05/02/19 08:42 Tylenol PO 650 mg Q4H PRN Administration Pain MILD(1-3)/Fever >100.5/LEVY Amiodarone HCl 200 mg 04/25/19 10:00 05/02/19 09:10 Cordarone PO 200 mg QDAY SAGE Administration Amlodipine Besylate 10 mg 04/25/19 10:00 05/02/19 09:10 Norvasc PO 10 mg DAILY SAGE Administration Aspirin 81 mg 04/25/19 10:00 05/02/19 09:11 Baby Aspirin PO 81 mg QDAY SAGE Administration Dextrose 50 ml 04/24/19 23:33 05/02/19 00:17 D50w (25gm) Syringe IV 50 ml PRN PRN Administration Hypoglycemia Donepezil HCl 10 mg 04/25/19 10:00 05/02/19 09:11 Aricept PO 10 mg QDAY SAGE Administration Hydromorphone HCl 0.5 mg 04/24/19 22:28 05/01/19 21:40 Dilaudid IV 0.5 mg Q3H PRN Administration Pain , Severe (7-10) Vancomycin HCl 1,500 mg/ 530 mls @ 333.333 mls/hr 04/27/19 14:00 05/02/19 14:19 Sodium Chloride IV 05/03/19 15:36 333.33 mls/hr Q24H SAGE Administration Sodium Chloride 1,000 mls @ 50 mls/hr 04/28/19 09:00 05/01/19 20:27 Nacl 0.9% 1000 Ml IV 50 mls/hr DIRECT SAGE Administration Ampicillin Sodium/Sulbactam Sodium 3 gm in 100 mls @ 200 mls/hr 04/28/19 20:00 05/02/19 13:41 Unasyn/Ns 3 Gm/100 Ml IV 05/03/19 14:29 200 mls/hr Q6H SAGE Administration Protocol Lactated Ringer's 1,000 mls @ 100 mls/hr 05/01/19 13:00 05/01/19 13:00 Lactated Ringers IV 100 mls/hr DIRECT SAGE Administration Magnesium Oxide 400 mg 04/27/19 10:00 05/02/19 09:15 Mag-Ox PO 400 mg BID SAGE Administration Memantine 10 mg 04/25/19 08:00 05/02/19 13:45 Namenda PO 10 mg TID SAGE Administration Metoclopramide HCl 5 mg 04/26/19 09:00 Reglan IV Q6H PRN Nausea And Vomiting Metoprolol Tartrate 25 mg 04/25/19 10:00 05/02/19 09:11 Lopressor PO 25 mg QDAY SAGE Administration Multivitamins 1 each 04/29/19 10:00 05/02/19 09:11 Theragran Tab PO 1 each QDAY SAGE Administration Ondansetron HCl 4 mg 04/24/19 22:27 Zofran IV Q8H PRN Nausea And Vomiting Oxycodone/Acetaminophen 1 tab 04/24/19 22:28 04/25/19 02:41 Percocet 5/325 PO 1 tab Q6H PRN Administration Pain, Moderate (4-6) Pantoprazole Sodium 40 mg 04/25/19 14:00 05/02/19 09:10 Protonix PO 40 mg QDAY SAGE Administration Sodium Chloride 10 ml 04/25/19 10:00 05/02/19 09:12 Sodium Chloride Flush Syringe 10 Ml IV Not Given BID SAGE Sodium Chloride 10 ml 04/24/19 22:27 04/30/19 08:29 Sodium Chloride Flush Syringe 10 Ml IV 10 ml PRN PRN Administration LINE FLUSH Sodium Hypochlorite 1 applic 04/26/19 10:00 05/02/19 11:41 Dakin's Half Strength TP Not Given DAILY SAGE Nutrition/Malnutrition Assess - Dietary Evaluation Nutrition/Malnutrition Findings: Nutrition Notes Start: 05/01/19 10:50 Freq: Status: Active Protocol: Document 05/01/19 10:50 KS (Rec: 05/01/19 11:24 KS [id number]) Co-Sign 05/01/19 10:50 LP Nutrition Notes Need for Assessment generated from: LOS Initial or Follow up Brief Note Current Diagnosis CKD (stage V CKD),Hypertension Other Pertinent Diagnosis Afib on AC, bi PAD, ARF toe amputation Current Diet NPO after midnight [place] Body Weight (kg) 0 Subjective/Other Information Pt consistently eating 100% of meals. Nutrition Intervention Revisit per MD consult or patient Sign Off request:
[2019-05-03] MEDS: SODIUM CHLORIDE 0.9% 1000 ML 1,000 ML IV SCH (00:33)
[2019-05-03] MEDS: AMPICILLIN/SULBACTA 3GM/100ML 3 GM/100 ML BAG IV SCH ×3 (01:54→14:47)
[2019-05-03] MEDS: ACETAMINOPHEN 325 MG TAB PO PRN ×2 (02:25→18:05)
[2019-05-03 05:11] LABS: Basophils % (Auto) 0.7 % (0.0-1.8); Eosinophils # (Auto) 0.4 K/mm3 (0.0-0.4); Eosinophils % (Auto) 6.4 % (0.0-4.3); Hematocrit 25.1 % (35.5-45.6); Hemoglobin 8.3 gm/dl (11.8-15.2); Lymphocytes # (Auto) 0.4 K/mm3 (1.2-5.4); Mean Corpuscular HGB Conc 33 % (32-34); Mean Corpuscular Volume 91 fl (84-94); Monocytes # (Auto) 0.6 K/mm3 (0.0-0.8); Monocytes % (Auto) 8.5 % (0.0-7.3); Platelet Count 229 K/mm3 (140-440); Red Blood Count 2.74 M/mm3 (3.65-5.03); Red Cell Distribution Width 15.8 % (13.2-15.2)
--- NOTE | 2019-05-03 07:45 | Progress Note ---
Assessment and Plan 1. Acute kidney injury: Vasomotor BRANDIE superimposed on CKD in the setting of obstrutive uropathy. CT abdomen showed distended bladder and hydronephrosis. Renal function is better. Monitor renal function. Avoid nephrotoxic agents. Meds dosage based on GFR. 2. FEN: Hyperkalemia, improved. Metabolic acidosis, improved. Hypernatremia, improved. Monitor lytes. 3. Obstructive Uropathy: S/p delgado catheter. 4. PAD: S/p amputation of R great toe. S/p TMA, right 1st metatarsal head. 5. Normochromic anemia: POA. EGD negative. 6. Hypertension. 7. Dementia. 8. ?DM. Subjective Date of service: 05/03/19 Principal diagnosis: Anemia Interval history: Patient was seen and examined at the bedside. Doing ok. Objective - Vital Signs Vital signs: Vital Signs - 12hr 05/02/19 05/03/19 05/03/19 21:03 02:14 05:32 Temperature 102.9 F H Pulse Rate 105 H Respiratory 18 Rate Blood Pressure 74/47 161/68 O2 Sat by Pulse 92 96 Oximetry 05/03/19 05:39 Temperature 100.6 F H Pulse Rate Respiratory Rate Blood Pressure O2 Sat by Pulse Oximetry - General Appearance General appearance: well-developed, appears stated age, other (no distress) EENT: ATNC, PERRL, mucous membranes moist, hearing intact Neck: supple Respiratory: Present: Clear to Ascultation Cardiology: regular, S1S2, no murmurs Gastrointestinal: normoactive bowel sounds, no tenderness, no distended Integumentary: chronic venous stasis Neurologic: no focal deficit, no asterixis, confused Musculoskeletal: other (Trace LE edema, R foot dressing) Psychiatric: cooperative - Lab 05/03/19 04:18 05/02/19 08:12 Most recent lab results Calcium 8.9 mg/dL (8.4-10.2) 05/02/19 08:12 Phosphorus 2.80 mg/dL (2.5-4.5) D 04/28/19 05:42 Magnesium 1.80 mg/dL (1.7-2.3) 04/30/19 05:57 64.1 mg/dL (0.1-20.0) H 04/25/19 08:30 44 mmol/L 04/25/19 08:30 Medications & Allergies - Medications Allergies/Adverse Reactions: Allergies No Known Allergies Allergy (Unverified 04/11/19 10:16) Home Medications: Home Medications Medication Instructions Recorded Confirmed Last Taken Type Amiodarone [Cordarone 200 MG TAB] 200 mg PO QDAY 04/24/19 04/24/19 04/23/19 History Clopidogrel [Plavix] 75 mg PO QDAY 04/24/19 04/24/19 04/23/19 History Donepezil [Aricept] 10 mg PO QDAY 04/24/19 04/24/19 04/23/19 History Furosemide [Lasix TAB] 40 mg PO QDAY 04/24/19 04/24/19 04/23/19 History Memantine [Namenda] 10 mg PO TID 04/24/19 04/24/19 04/23/19 History Metoprolol [Lopressor] 25 mg PO QDAY 04/24/19 04/24/19 04/23/19 History Rivaroxaban [Xarelto] 20 mg PO QDAY 04/24/19 04/24/19 04/23/19 History amLODIPine [Norvasc] 10 mg PO DAILY 04/24/19 04/24/19 04/23/19 History Active Medications: Generic Name Dose Route Start Last Admin Trade Name Robyn PRN Reason Stop Dose Admin Acetaminophen 650 mg 04/24/19 22:27 05/03/19 02:25 Tylenol PO 650 mg Q4H PRN Administration Pain MILD(1-3)/Fever >100.5/LEVY Amiodarone HCl 200 mg 04/25/19 10:00 05/02/19 09:10 Cordarone PO 200 mg QDAY SAGE Administration Amlodipine Besylate 10 mg 04/25/19 10:00 05/02/19 09:10 Norvasc PO 10 mg DAILY SAGE Administration Aspirin 81 mg 04/25/19 10:00 05/02/19 09:11 Baby Aspirin PO 81 mg QDAY SAGE Administration Dextrose 50 ml 04/24/19 23:33 05/02/19 00:17 D50w (25gm) Syringe IV 50 ml PRN PRN Administration Hypoglycemia Donepezil HCl 10 mg 04/25/19 10:00 05/02/19 09:11 Aricept PO 10 mg QDAY SAGE Administration Hydromorphone HCl 0.5 mg 04/24/19 22:28 05/01/19 21:40 Dilaudid IV 0.5 mg Q3H PRN Administration Pain , Severe (7-10) Vancomycin HCl 1,500 mg/ 530 mls @ 333.333 mls/hr 04/27/19 14:00 05/02/19 14:19 Sodium Chloride IV 05/03/19 15:36 333.33 mls/hr Q24H SAGE Administration Sodium Chloride 1,000 mls @ 50 mls/hr 04/28/19 09:00 05/03/19 00:33 Nacl 0.9% 1000 Ml IV 50 mls/hr DIRECT SAGE Administration Ampicillin Sodium/Sulbactam Sodium 3 gm in 100 mls @ 200 mls/hr 04/28/19 20:00 05/03/19 01:54 Unasyn/Ns 3 Gm/100 Ml IV 05/03/19 14:29 200 mls/hr Q6H SAGE Administration Protocol Lactated Ringer's 1,000 mls @ 100 mls/hr 05/01/19 13:00 05/01/19 13:00 Lactated Ringers IV 100 mls/hr DIRECT SAGE Administration Magnesium Oxide 400 mg 04/27/19 10:00 05/02/19 22:11 Mag-Ox PO 400 mg BID SAGE Administration Memantine 10 mg 04/25/19 08:00 05/02/19 19:26 Namenda PO 10 mg TID SAGE Administration Metoclopramide HCl 5 mg 04/26/19 09:00 Reglan IV Q6H PRN Nausea And Vomiting Metoprolol Tartrate 25 mg 04/25/19 10:00 05/02/19 09:11 Lopressor PO 25 mg QDAY SAGE Administration Multivitamins 1 each 04/29/19 10:00 05/02/19 09:11 Theragran Tab PO 1 each QDAY SAGE Administration Ondansetron HCl 4 mg 04/24/19 22:27 Zofran IV Q8H PRN Nausea And Vomiting Oxycodone/Acetaminophen 1 tab 04/24/19 22:28 04/25/19 02:41 Percocet 5/325 PO 1 tab Q6H PRN Administration Pain, Moderate (4-6) Pantoprazole Sodium 40 mg 04/25/19 14:00 05/02/19 09:10 Protonix PO 40 mg QDAY SAGE Administration Sodium Chloride 10 ml 04/25/19 10:00 05/02/19 22:59 Sodium Chloride Flush Syringe 10 Ml IV 10 ml BID SAGE Administration Sodium Chloride 10 ml 04/24/19 22:27 04/30/19 08:29 Sodium Chloride Flush Syringe 10 Ml IV 10 ml PRN PRN Administration LINE FLUSH Sodium Hypochlorite 1 applic 04/26/19 10:00 05/02/19 11:41 Dakin's Half Strength TP Not Given DAILY SAGE
[2019-05-03] MEDS: MEMANTINE 10 MG TAB PO SCH ×3 (08:58→20:47)
[2019-05-03] MEDS: MULTIVITAMINS ,THERAPEUTIC TAB PO SCH (09:02)
[2019-05-03] MEDS: DONEPEZIL 10 MG TAB PO SCH (09:02)
[2019-05-03] MEDS: METOPROLOL TARTRATE 25 MG TAB PO SCH (09:02)
[2019-05-03] MEDS: ASPIRIN 81 MG TAB CHEW PO SCH (09:02)
[2019-05-03] MEDS: AMIODARONE 200 MG TAB PO SCH (09:02)
[2019-05-03] MEDS: MAGNESIUM OXIDE 400 MG TAB PO SCH ×2 (09:02→21:51)
[2019-05-03] MEDS: PANTOPRAZOLE 40 MG TAB PO SCH (09:02)
[2019-05-03] MEDS: amLODIPine 10 MG TAB PO SCH (09:03)
[2019-05-03] MEDS: SODIUM HYPOCHLORITE, DAKIN'S 1/2 STRENGTH (0.25%) 473 ML TOPICAL SOLN TP SCH (09:03)
--- NOTE | 2019-05-03 09:21 | Progress Note ---
Assessment and Plan 1. Peripheral vascular disease with recent right foot gangrene status post amputation of the toes 2. Paroxysmal atrial fibrillation currently in sinus rhythm 3. Essential hypertension 4. 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 Cardiac-russell stable continue antibiotic treatment continue present cardiac management Subjective Date of service: 05/03/19 Principal diagnosis: Anemia Interval history: No cardiac symptoms. Objective Vital Signs Temp Pulse Resp BP Pulse Ox 05/03/19 09:03 91 H 153/64 05/03/19 09:02 91 H 153/64 05/03/19 07:53 99.4 F 91 H 18 153/64 97 05/03/19 05:39 100.6 F H 05/03/19 05:32 161/68 05/03/19 02:14 102.9 F H 105 H 18 74/47 96 05/02/19 21:03 92 05/02/19 19:16 99.0 F 86 18 87/56 97 05/02/19 13:39 98.2 F 88 20 125/56 96 - Physical Examination General: No Apparent Distress HEENT: Positive: PERRL Neck: Positive: neck supple Cardiac: Positive: Regular Rate, Regular Rhythm, S1/S2, PMI, Laterally Displaced Lungs: Positive: clear to auscultation Neuro: Positive: Grossly Intact Abdomen: Positive: Soft Skin: Positive: Clear Extremities: Absent: edema - Labs and Meds CBC 05/03/19 Range/Units 04:18 WBC 6.6 (4.5-11.0) K/mm3 RBC 2.74 L (3.65-5.03) M/mm3 Hgb 8.3 L (11.8-15.2) gm/dl Hct 25.1 L (35.5-45.6) % Plt Count 229 (140-440) K/mm3 Lymph # 0.4 L (1.2-5.4) K/mm3 [place] # 0.6 (0.0-0.8) K/mm3 Eos # 0.4 (0.0-0.4) K/mm3 Baso # 0.0 (0.0-0.1) K/mm3 - Imaging and Cardiology EKG: report reviewed (atrial fibrillation 88/m)
--- NOTE | 2019-05-03 11:37 | Progress Note ---
Assessment and Plan Assessment and plan: R great toe gangrene with cellulitis - Continue antibiotics per ID. Continue wound care. Severe bilateral PAD - s/p recent revascularization. Vascular following. As above. BRANDIE on CKD - renally dose antibiotics. BRANDIE improving. Follow-up BMP. CT abdomen showed distended bladder and hydronephrosis. Obstructive uropathy. Patient scheduled to discharge with Triplett catheter and follow up with urology as an outpatient HTN. Continue antihypertensive medications. Afib. Resume anticoagulation per cardiology. Acute blood loss anemia. EGD and colonoscopy revealed no evidence of GI blood loss. Sigmoid diverticulosis. Stable. History Interval history: 73 yo M PMHx severe bilateral PAD, CKD, HTN, Afib on AC admitted with R great toe gangrene and cellulitis No new issues. Hospitalist Physical - Constitutional Vitals: Temp Pulse Resp BP Pulse Ox 99.4 F 91 H 20 153/64 94 05/03/19 07:53 05/03/19 09:03 05/03/19 10:00 05/03/19 09:03 05/03/19 10:00 General appearance: Present: no acute distress, well-nourished - EENT Eyes: Present: PERRL, EOM intact ENT: hearing intact, clear oral mucosa, dentition normal - Neck Neck: Present: supple, normal ROM - Respiratory Respiratory effort: normal Respiratory: bilateral: CTA - Cardiovascular Rhythm: regular Heart Sounds: Present: S1 & S2. Absent: gallop, rub - Extremities Extremities: no ischemia, No edema, Full ROM - Abdominal General gastrointestinal: soft, non-tender, non-distended, normal bowel sounds - Integumentary Integumentary: Present: clear, warm, dry - Neurologic Neurologic: CNII-XII intact, moves all extremities Results - Labs CBC & Chem 7: 05/03/19 04:18 05/02/19 08:12 Labs: Laboratory Last Values WBC 6.6 K/mm3 (4.5-11.0) 05/03/19 04:18 RBC 2.74 M/mm3 (3.65-5.03) L 05/03/19 04:18 Hgb 8.3 gm/dl (11.8-15.2) L 05/03/19 04:18 Hct 25.1 % (35.5-45.6) L 05/03/19 04:18 MCV 91 fl (84-94) 05/03/19 04:18 MCH 30 pg (28-32) 05/03/19 04:18 MCHC 33 % (32-34) 05/03/19 04:18 RDW 15.8 % (13.2-15.2) H 05/03/19 04:18 Plt Count 229 K/mm3 (140-440) 05/03/19 04:18 Lymph % (Auto) 6.0 % (13.4-35.0) L 05/03/19 04:18 [place] % (Auto) 8.5 % (0.0-7.3) H 05/03/19 04:18 Eos % (Auto) 6.4 % (0.0-4.3) H 05/03/19 04:18 Baso % (Auto) 0.7 % (0.0-1.8) 05/03/19 04:18 Lymph # 0.4 K/mm3 (1.2-5.4) L 05/03/19 04:18 [place] # 0.6 K/mm3 (0.0-0.8) 05/03/19 04:18 Eos # 0.4 K/mm3 (0.0-0.4) 05/03/19 04:18 Baso # 0.0 K/mm3 (0.0-0.1) 05/03/19 04:18 Seg Neutrophils % 78.4 % (40.0-70.0) H 05/03/19 04:18 Seg Neutrophils # 5.2 K/mm3 (1.8-7.7) 05/03/19 04:18 PT 21.2 Sec. (12.2-14.9) H 04/24/19 12:55 INR 1.88 (0.87-1.13) H 04/24/19 12:55 APTT 41.8 Sec. (24.2-36.6) H 04/24/19 12:55 Sodium 137 mmol/L (137-145) 05/02/19 08:12 Potassium 4.6 mmol/L (3.6-5.0) 05/02/19 08:12 Chloride 100.9 mmol/L (98-107) 05/02/19 08:12 Carbon Dioxide 22 mmol/L (22-30) 05/02/19 08:12 19 mmol/L 05/02/19 08:12 BUN 15 mg/dL (9-20) 05/02/19 08:12 1.3 mg/dL (0.8-1.5) 05/02/19 08:12 Estimated GFR > 60 ml/min 05/02/19 08:12 12 % 05/02/19 08:12 Glucose 86 mg/dL (75-100) 05/02/19 08:12 POC Glucose 111 (70-105) H 05/03/19 05:46 5.4 % (4-6) 04/25/19 06:06 Lactic Acid 1.80 mmol/L (0.7-2.0) 04/24/19 12:55 Calcium 8.9 mg/dL (8.4-10.2) 05/02/19 08:12 Phosphorus 2.80 mg/dL (2.5-4.5) D 04/28/19 05:42 Magnesium 1.80 mg/dL (1.7-2.3) 04/30/19 05:57 0.50 mg/dL (0.1-1.2) 04/25/19 06:06 AST 19 units/L (5-40) 04/25/19 06:06 ALT 10 units/L (7-56) 04/25/19 06:06 86 units/L (35-129) 04/25/19 06:06 0.027 ng/mL (0.00-0.029) 04/24/19 16:09 NT-Pro-B Natriuret Pep 6067 pg/mL (0-900) H 04/24/19 12:55 6.9 g/dL (6.3-8.2) 04/25/19 06:06 3.5 g/dL (3.9-5) L 04/25/19 06:06 1.0 % 04/25/19 06:06 Triglycerides 59 mg/dL (2-149) 04/24/19 12:55 Cholesterol 114 mg/dL (50-199) 04/24/19 12:55 70 mg/dL (50-130) 04/24/19 12:55 47 mg/dL (40-59) 04/24/19 12:55 2.42 % 04/24/19 12:55 Yellow (Yellow) 04/25/19 05:20 Clear (Clear) 04/25/19 05:20 8.0 (5.0-7.0) H 04/25/19 05:20 Ur Specific [place] 1.009 (1.003-1.030) 04/25/19 05:20 <15 mg/dl mg/dL (Negative) 04/25/19 05:20 Neg mg/dL (Negative) 04/25/19 05:20 Neg mg/dL (Negative) 04/25/19 05:20 Lg (Negative) 04/25/19 05:20 Neg (Negative) 04/25/19 05:20 Neg (Negative) 04/25/19 05:20 < 2.0 mg/dL (<2.0) 04/25/19 05:20 Ur Leukocyte Esterase Neg (Negative) 04/25/19 05:20 2.0 /HPF (0.0-6.0) 04/25/19 05:20 15.0 /HPF (0.0-6.0) 04/25/19 05:20 U Epithel Cells (Auto) < 1.0 /HPF (0-13.0) 04/25/19 05:20 None seen (None Seen) 04/25/19 08:30 64.1 mg/dL (0.1-20.0) H 04/25/19 08:30 44 mmol/L 04/25/19 08:30 Random Vancomycin 15.3 ug/mL (0-40.0) 04/27/19 03:53 Blood Type B POSITIVE 05/01/19 Unknown Antibody Screen Negative 05/01/19 Unknown Crossmatch See Detail 05/01/19 Unknown Active Medications - Current Medications Current Medications: Generic Name Dose Route Start Last Admin Trade Name Freq PRN Reason Stop Dose Admin Acetaminophen 650 mg 04/24/19 22:27 05/03/19 02:25 Tylenol PO 650 mg Q4H PRN Administration Pain MILD(1-3)/Fever >100.5/LEVY Amiodarone HCl 200 mg 04/25/19 10:00 05/03/19 09:02 Cordarone PO 200 mg QDAY SAGE Administration Amlodipine Besylate 10 mg 04/25/19 10:00 05/03/19 09:03 Norvasc PO 10 mg DAILY SAGE Administration Aspirin 81 mg 04/25/19 10:00 05/03/19 09:02 Baby Aspirin PO 81 mg QDAY SAGE Administration Dextrose 50 ml 04/24/19 23:33 05/02/19 00:17 D50w (25gm) Syringe IV 50 ml PRN PRN Administration Hypoglycemia Donepezil HCl 10 mg 04/25/19 10:00 05/03/19 09:02 Aricept PO 10 mg QDAY SAGE Administration Hydromorphone HCl 0.5 mg 04/24/19 22:28 05/01/19 21:40 Dilaudid IV 0.5 mg Q3H PRN Administration Pain , Severe (7-10) Vancomycin HCl 1,500 mg/ 530 mls @ 333.333 mls/hr 04/27/19 14:00 05/02/19 14:19 Sodium Chloride IV 05/03/19 15:36 333.33 mls/hr Q24H SAGE Administration Sodium Chloride 1,000 mls @ 50 mls/hr 04/28/19 09:00 05/03/19 00:33 Nacl 0.9% 1000 Ml IV 50 mls/hr DIRECT SAGE Administration Ampicillin Sodium/Sulbactam Sodium 3 gm in 100 mls @ 200 mls/hr 04/28/19 20:00 05/03/19 09:00 Unasyn/Ns 3 Gm/100 Ml IV 05/03/19 14:29 200 mls/hr Q6H SAGE Administration Protocol Lactated Ringer's 1,000 mls @ 100 mls/hr 05/01/19 13:00 05/01/19 13:00 Lactated Ringers IV 100 mls/hr DIRECT SAGE Administration Magnesium Oxide 400 mg 04/27/19 10:00 05/03/19 09:02 Mag-Ox PO 400 mg BID SAGE Administration Memantine 10 mg 04/25/19 08:00 05/03/19 08:58 Namenda PO 10 mg TID SAGE Administration Metoclopramide HCl 5 mg 04/26/19 09:00 Reglan IV Q6H PRN Nausea And Vomiting Metoprolol Tartrate 25 mg 04/25/19 10:00 05/03/19 09:02 Lopressor PO 25 mg QDAY SAGE Administration Multivitamins 1 each 04/29/19 10:00 05/03/19 09:02 Theragran Tab PO 1 each QDAY SAGE Administration Ondansetron HCl 4 mg 04/24/19 22:27 Zofran IV Q8H PRN Nausea And Vomiting Oxycodone/Acetaminophen 1 tab 04/24/19 22:28 04/25/19 02:41 Percocet 5/325 PO 1 tab Q6H PRN Administration Pain, Moderate (4-6) Pantoprazole Sodium 40 mg 04/25/19 14:00 05/03/19 09:02 Protonix PO 40 mg QDAY SAGE Administration Sodium Chloride 10 ml 04/25/19 10:00 05/03/19 09:04 Sodium Chloride Flush Syringe 10 Ml IV 10 ml BID SAGE Administration Sodium Chloride 10 ml 04/24/19 22:27 04/30/19 08:29 Sodium Chloride Flush Syringe 10 Ml IV 10 ml PRN PRN Administration LINE FLUSH Sodium Hypochlorite 1 applic 04/26/19 10:00 05/03/19 09:03 Dakin's Half Strength TP 1 applicatio DAILY SAGE Administration Nutrition/Malnutrition Assess - Dietary Evaluation Nutrition/Malnutrition Findings: Nutrition Notes Start: 05/01/19 10: 50 Freq: Status: Active Protocol: Document 05/01/19 10:50 KS (Rec: 05/01/19 11:24 KS [id number]) Co-Sign 05/01/19 10:50 LP Nutrition Notes Need for Assessment generated from: LOS Initial or Follow up Brief Note Current Diagnosis CKD (stage V CKD),Hypertension Other Pertinent Diagnosis Afib on AC, bi PAD, ARF toe amputation Current Diet NPO after midnight [place] Body Weight (kg) 0 Subjective/Other Information Pt consistently eating 100% of meals. Nutrition Intervention Revisit per MD consult or patient Sign Off request:
[2019-05-03] MEDS: VANCOMYCIN 1,500 MG in SODIUM CHLORIDE 0.9% 500 ML 500 ML IV SCH (14:46)
[2019-05-04] MEDS: DEXTROSE 50% IN WATER (25GM) 50 ML VIAL IV PRN ×2 (01:48→05:46)
[2019-05-04] MEDS ORDERED: hydrALAZINE 20 MG/1 ML INJ IV PRN ×2 (02:18→02:19)
[2019-05-04] MEDS: ACETAMINOPHEN 325 MG TAB PO PRN ×2 (02:30→08:35)
[2019-05-04] MEDS ORDERED: hydrALAZINE 20 MG/1 ML INJ IV STA (02:43)
[2019-05-04] MEDS ORDERED: hydrALAZINE 20 MG/1 ML INJ IV ONE (02:48)
[2019-05-04] MEDS: SODIUM CHLORIDE 0.9% 1000 ML 1,000 ML IV SCH (04:16)
[2019-05-04 04:58] LABS: Basophils % (Auto) 0.6 % (0.0-1.8); Eosinophils # (Auto) 0.2 K/mm3 (0.0-0.4); Eosinophils % (Auto) 2.5 % (0.0-4.3); Hematocrit 26.8 % (35.5-45.6); Lymphocytes # (Auto) 0.3 K/mm3 (1.2-5.4); Lymphocytes % (Auto) 4.8 % (13.4-35.0); Mean Corpuscular HGB Conc 34 % (32-34); Mean Corpuscular Volume 90 fl (84-94); Monocytes # (Auto) 0.5 K/mm3 (0.0-0.8); Monocytes % (Auto) 7.1 % (0.0-7.3); Platelet Count 239 K/mm3 (140-440); Red Blood Count 2.99 M/mm3 (3.65-5.03); Red Cell Distribution Width 16.1 % (13.2-15.2)
[2019-05-04 05:13] LABS: BUN/Creatinine Ratio 12; Blood Urea Nitrogen 15 mg/dL (9-20); Calcium 8.3 mg/dL (8.4-10.2); Hemolysis Index 9
[2019-05-04] MEDS: MEMANTINE 10 MG TAB PO SCH ×3 (08:35→20:05)
--- NOTE | 2019-05-04 10:20 | Progress Note ---
Assessment and Plan 1. Peripheral vascular disease with recent right foot gangrene status post amputation of the toes 2. Paroxysmal atrial fibrillation currently in sinus rhythm 3. Essential hypertension 4. 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 Cardiac-russell stable continue antibiotic treatment continue present cardiac management Subjective Date of service: 05/04/19 Principal diagnosis: Anemia Interval history: No cardiac symptoms. Objective Vital Signs Temp Pulse Resp BP Pulse Ox 05/04/19 07:36 103.0 F H 114 H 18 164/63 92 05/04/19 04:13 164/64 05/04/19 03:01 68 207/77 05/04/19 02:14 100.4 F H 68 20 207/77 95 05/03/19 19:48 93 05/03/19 19:28 98.6 F 102 H 18 160/67 95 05/03/19 18:05 20 05/03/19 14:22 99.5 F 89 18 144/64 91 - Physical Examination General: No Apparent Distress HEENT: Positive: PERRL Neck: Positive: neck supple Cardiac: Positive: Regular Rate, S1/S2, PMI, Laterally Displaced Lungs: Positive: clear to auscultation, No Wheeze, Rales, Rhonchi Neuro: Positive: Grossly Intact Abdomen: Positive: Soft Skin: Positive: Clear Extremities: Absent: edema - Labs and Meds CBC 05/04/19 Range/Units 03:58 WBC 6.7 (4.5-11.0) K/mm3 RBC 2.99 L (3.65-5.03) M/mm3 Hgb 9.0 L (11.8-15.2) gm/dl Hct 26.8 L (35.5-45.6) % Plt Count 239 (140-440) K/mm3 Lymph # 0.3 L (1.2-5.4) K/mm3 [place] # 0.5 (0.0-0.8) K/mm3 Eos # 0.2 (0.0-0.4) K/mm3 Baso # 0.0 (0.0-0.1) K/mm3 Comprehensive Metabolic Panel 05/04/19 Range/Units 03:58 Sodium 140 (137-145) mmol/L Potassium 3.6 D (3.6-5.0) mmol/L Chloride 103.5 (98-107) mmol/L Carbon Dioxide 22 (22-30) mmol/L BUN 15 (9-20) mg/dL Creatinine 1.3 (0.8-1.5) mg/dL Glucose 98 (75-100) mg/dL Calcium 8.3 L (8.4-10.2) mg/dL - Imaging and Cardiology EKG: report reviewed (atrial fibrillation 88/m)
--- NOTE | 2019-05-04 10:20 | Progress Note ---
Assessment and Plan Assessment and plan: R great toe gangrene with cellulitis - Continue antibiotics per ID. Continue wound care. Sepsis. Etiology secondary to above. Patient with new temperature spike this morning. ID resumed antibiotics. Severe bilateral PAD - s/p recent revascularization. Vascular following. As above. BRANDIE on CKD - renally dose antibiotics. BRANDIE improving. Follow-up BMP. CT abdomen showed distended bladder and hydronephrosis. Obstructive uropathy. Patient scheduled to discharge with Triplett catheter and follow up with urology as an outpatient HTN. Continue antihypertensive medications. Afib. Resume anticoagulation per cardiology. Acute blood loss anemia. EGD and colonoscopy revealed no evidence of GI blood loss. Sigmoid diverticulosis. Stable. History Interval history: 73 yo M PMHx severe bilateral PAD, CKD, HTN, Afib on AC admitted with R great toe gangrene and cellulitis No new issues. Hospitalist Physical - Constitutional Vitals: Temp Pulse Resp BP Pulse Ox 103.0 F H 114 H 18 164/63 92 05/04/19 07:36 05/04/19 07:36 05/04/19 07:36 05/04/19 07:36 05/04/19 07:36 General appearance: Present: no acute distress, well-nourished - EENT Eyes: Present: PERRL, EOM intact ENT: hearing intact, clear oral mucosa, dentition normal - Neck Neck: Present: supple, normal ROM - Respiratory Respiratory effort: normal Respiratory: bilateral: CTA - Cardiovascular Rhythm: regular Heart Sounds: Present: S1 & S2. Absent: gallop, rub - Extremities Extremities: no ischemia, No edema, Full ROM - Abdominal General gastrointestinal: soft, non-tender, non-distended, normal bowel sounds - Integumentary Integumentary: Present: clear, warm, dry - Neurologic Neurologic: CNII-XII intact, moves all extremities Results - Labs CBC & Chem 7: 05/04/19 03:58 05/04/19 03:58 Labs: Laboratory Last Values WBC 6.7 K/mm3 (4.5-11.0) 05/04/19 03:58 RBC 2.99 M/mm3 (3.65-5.03) L 05/04/19 03:58 Hgb 9.0 gm/dl (11.8-15.2) L 05/04/19 03:58 Hct 26.8 % (35.5-45.6) L 05/04/19 03:58 MCV 90 fl (84-94) 05/04/19 03:58 MCH 30 pg (28-32) 05/04/19 03:58 MCHC 34 % (32-34) 05/04/19 03:58 RDW 16.1 % (13.2-15.2) H 05/04/19 03:58 Plt Count 239 K/mm3 (140-440) 05/04/19 03:58 Lymph % (Auto) 4.8 % (13.4-35.0) L 05/04/19 03:58 [place] % (Auto) 7.1 % (0.0-7.3) 05/04/19 03:58 Eos % (Auto) 2.5 % (0.0-4.3) 05/04/19 03:58 Baso % (Auto) 0.6 % (0.0-1.8) 05/04/19 03:58 Lymph # 0.3 K/mm3 (1.2-5.4) L 05/04/19 03:58 [place] # 0.5 K/mm3 (0.0-0.8) 05/04/19 03:58 Eos # 0.2 K/mm3 (0.0-0.4) 05/04/19 03:58 Baso # 0.0 K/mm3 (0.0-0.1) 05/04/19 03:58 Seg Neutrophils % 85.0 % (40.0-70.0) H 05/04/19 03:58 Seg Neutrophils # 5.7 K/mm3 (1.8-7.7) 05/04/19 03:58 PT 21.2 Sec. (12.2-14.9) H 04/24/19 12:55 INR 1.88 (0.87-1.13) H 04/24/19 12:55 APTT 41.8 Sec. (24.2-36.6) H 04/24/19 12:55 Sodium 140 mmol/L (137-145) 05/04/19 03:58 Potassium 3.6 mmol/L (3.6-5.0) D 05/04/19 03:58 Chloride 103.5 mmol/L (98-107) 05/04/19 03:58 Carbon Dioxide 22 mmol/L (22-30) 05/04/19 03:58 18 mmol/L 05/04/19 03:58 BUN 15 mg/dL (9-20) 05/04/19 03:58 1.3 mg/dL (0.8-1.5) 05/04/19 03:58 Estimated GFR > 60 ml/min 05/04/19 03:58 12 % 05/04/19 03:58 Glucose 98 mg/dL (75-100) 05/04/19 03:58 POC Glucose 59 (70-105) L 05/04/19 05:33 5.4 % (4-6) 04/25/19 06:06 Lactic Acid 1.80 mmol/L (0.7-2.0) 04/24/19 12:55 Calcium 8.3 mg/dL (8.4-10.2) L 05/04/19 03:58 Phosphorus 2.80 mg/dL (2.5-4.5) D 04/28/19 05:42 Magnesium 1.80 mg/dL (1.7-2.3) 04/30/19 05:57 0.50 mg/dL (0.1-1.2) 04/25/19 06:06 AST 19 units/L (5-40) 04/25/19 06:06 ALT 10 units/L (7-56) 04/25/19 06:06 86 units/L (35-129) 04/25/19 06:06 0.027 ng/mL (0.00-0.029) 04/24/19 16:09 NT-Pro-B Natriuret Pep 6067 pg/mL (0-900) H 04/24/19 12:55 6.9 g/dL (6.3-8.2) 04/25/19 06:06 3.5 g/dL (3.9-5) L 04/25/19 06:06 1.0 % 04/25/19 06:06 Triglycerides 59 mg/dL (2-149) 04/24/19 12:55 Cholesterol 114 mg/dL (50-199) 04/24/19 12:55 70 mg/dL (50-130) 04/24/19 12:55 47 mg/dL (40-59) 04/24/19 12:55 2.42 % 04/24/19 12:55 Yellow (Yellow) 04/25/19 05:20 Clear (Clear) 04/25/19 05:20 8.0 (5.0-7.0) H 04/25/19 05:20 Ur Specific [place] 1.009 (1.003-1.030) 04/25/19 05:20 <15 mg/dl mg/dL (Negative) 04/25/19 05:20 Neg mg/dL (Negative) 04/25/19 05:20 Neg mg/dL (Negative) 04/25/19 05:20 Lg (Negative) 04/25/19 05:20 Neg (Negative) 04/25/19 05:20 Neg (Negative) 04/25/19 05:20 < 2.0 mg/dL (<2.0) 04/25/19 05:20 Ur Leukocyte Esterase Neg (Negative) 04/25/19 05:20 2.0 /HPF (0.0-6.0) 04/25/19 05:20 15.0 /HPF (0.0-6.0) 04/25/19 05:20 U Epithel Cells (Auto) < 1.0 /HPF (0-13.0) 04/25/19 05:20 None seen (None Seen) 04/25/19 08:30 64.1 mg/dL (0.1-20.0) H 04/25/19 08:30 44 mmol/L 04/25/19 08:30 Random Vancomycin 15.3 ug/mL (0-40.0) 04/27/19 03:53 Blood Type B POSITIVE 05/01/19 Unknown Antibody Screen Negative 05/01/19 Unknown Crossmatch See Detail 05/01/19 Unknown Active Medications - Current Medications Current Medications: Generic Name Dose Route Start Last Admin Trade Name Freq PRN Reason Stop Dose Admin Acetaminophen 650 mg 04/24/19 22:27 05/04/19 08:35 Tylenol PO 650 mg Q4H PRN Administration Pain MILD(1-3)/Fever >100.5/LEVY Amiodarone HCl 200 mg 04/25/19 10:00 05/03/19 09:02 Cordarone PO 200 mg QDAY SAGE Administration Amlodipine Besylate 10 mg 04/25/19 10:00 05/03/19 09:03 Norvasc PO 10 mg DAILY SAGE Administration Aspirin 81 mg 04/25/19 10:00 05/03/19 09:02 Baby Aspirin PO 81 mg QDAY SAGE Administration Dextrose 25 gm 05/04/19 02:00 05/04/19 05:46 D50w (25gm) Vial IV 25 gm PRN PRN Administration Hypoglycemia Donepezil HCl 10 mg 04/25/19 10:00 05/03/19 09:02 Aricept PO 10 mg QDAY SAGE Administration Hydralazine HCl 5 mg 05/04/19 02:19 Apresoline IV Q6H PRN Hypertension Hydromorphone HCl 0.5 mg 04/24/19 22:28 05/01/19 21:40 Dilaudid IV 0.5 mg Q3H PRN Administration Pain , Severe (7-10) Sodium Chloride 1,000 mls @ 50 mls/hr 04/28/19 09:00 05/04/19 04:16 Nacl 0.9% 1000 Ml IV 50 mls/hr DIRECT SAGE Administration Lactated Ringer's 1,000 mls @ 100 mls/hr 05/01/19 13:00 05/01/19 13:00 Lactated Ringers IV 100 mls/hr DIRECT SAGE Administration Cefepime HCl 1 gm in 100 mls @ 200 mls/hr 05/04/19 09:00 Maxipime/Ns 1 Gm/100 Ml IV Q8H SAGE Protocol Vancomycin HCl 1,500 mg/ 530 mls @ 333.333 mls/hr 05/04/19 15:00 Sodium Chloride IV Q24H SAGE Magnesium Oxide 400 mg 04/27/19 10:00 05/03/19 21:51 Mag-Ox PO 400 mg BID SAGE Administration Memantine 10 mg 04/25/19 08:00 05/04/19 08:35 Namenda PO 10 mg TID SAGE Administration Metoclopramide HCl 5 mg 04/26/19 09:00 Reglan IV Q6H PRN Nausea And Vomiting Metoprolol Tartrate 25 mg 04/25/19 10:00 05/03/19 09:02 Lopressor PO 25 mg QDAY SAGE Administration Multivitamins 1 each 04/29/19 10:00 05/03/19 09:02 Theragran Tab PO 1 each QDAY SAGE Administration Ondansetron HCl 4 mg 04/24/19 22:27 Zofran IV Q8H PRN Nausea And Vomiting Oxycodone/Acetaminophen 1 tab 04/24/19 22:28 04/25/19 02:41 Percocet 5/325 PO 1 tab Q6H PRN Administration Pain, Moderate (4-6) Pantoprazole Sodium 40 mg 04/25/19 14:00 05/03/19 09:02 Protonix PO 40 mg QDAY SAGE Administration Sodium Chloride 10 ml 04/25/19 10:00 05/03/19 21:51 Sodium Chloride Flush Syringe 10 Ml IV 10 ml BID SAGE Administration Sodium Chloride 10 ml 04/24/19 22:27 04/30/19 08:29 Sodium Chloride Flush Syringe 10 Ml IV 10 ml PRN PRN Administration LINE FLUSH Sodium Hypochlorite 1 applic 04/26/19 10:00 05/03/19 09:03 Dakin's Half Strength TP 1 applicatio DAILY SAGE Administration Nutrition/Malnutrition Assess - Dietary Evaluation Nutrition/Malnutrition Findings: Nutrition Notes Start: 05/01/19 10:50 Freq: Status: Active Protocol: Document 05/01/19 10:50 KS (Rec: 05/01/19 11:24 KS [id number]) Co-Sign 05/01/19 10:50 LP Nutrition Notes Need for Assessment generated from: LOS Initial or Follow up Brief Note Current Diagnosis CKD (stage V CKD),Hypertension Other Pertinent Diagnosis Afib on AC, bi PAD, ARF toe amputation Current Diet NPO after midnight [place] Body Weight (kg) 0 Subjective/Other Information Pt consistently eating 100% of meals. Nutrition Intervention Revisit per MD consult or patient Sign Off request:
[2019-05-04] MEDS: AMIODARONE 200 MG TAB PO SCH (10:57)
[2019-05-04] MEDS: ASPIRIN 81 MG TAB CHEW PO SCH (10:57)
[2019-05-04] MEDS: PANTOPRAZOLE 40 MG TAB PO SCH (10:57)
[2019-05-04] MEDS: SODIUM HYPOCHLORITE, DAKIN'S 1/2 STRENGTH (0.25%) 473 ML TOPICAL SOLN TP SCH (10:58)
[2019-05-04] MEDS: MAGNESIUM OXIDE 400 MG TAB PO SCH ×2 (10:58→21:04)
[2019-05-04] MEDS: DONEPEZIL 10 MG TAB PO SCH (10:58)
[2019-05-04] MEDS: amLODIPine 10 MG TAB PO SCH (10:58)
[2019-05-04] MEDS: MULTIVITAMINS ,THERAPEUTIC TAB PO SCH (10:58)
[2019-05-04] MEDS: METOPROLOL TARTRATE 25 MG TAB PO SCH (10:59)
[2019-05-04] MEDS: CEFEPIME/NS 1 GM/100 ML 1 GM/100 ML BAG IV SCH ×2 (11:14→17:39)
--- NOTE | 2019-05-04 11:32 | Progress Note ---
Assessment and Plan 1. Acute kidney injury: Vasomotor BRANDIE superimposed on CKD in the setting of obstrutive uropathy. CT abdomen showed distended bladder and hydronephrosis. Renal function is better. Monitor renal function. Avoid nephrotoxic agents. Meds dosage based on GFR. 2. FEN: Hyperkalemia, improved. Metabolic acidosis, improved. Hypernatremia, improved. Monitor lytes. 3. Obstructive Uropathy: S/p delgado catheter. 4. PAD: S/p amputation of R great toe. S/p TMA, right 1st metatarsal head. 5. Normochromic anemia: POA. EGD negative. 6. Paroxysmal A.fib: SR now. 7. Hypertension. 8. Dementia. Subjective Date of service: 05/04/19 Principal diagnosis: Anemia Interval history: Patient was seen and examined at the bedside. Doing ok. Objective - Vital Signs Vital signs: Vital Signs - 12hr 05/04/19 05/04/19 05/04/19 02:14 03:01 04:13 Temperature 100.4 F H Pulse Rate 68 68 Respiratory 20 Rate Blood Pressure 207/77 207/77 164/64 O2 Sat by Pulse 95 Oximetry 05/04/19 05/04/19 05/04/19 07:36 10:58 10:59 Temperature 103.0 F H Pulse Rate 114 H 114 H 114 H Respiratory 18 Rate Blood Pressure 164/63 164/63 164/63 O2 Sat by Pulse 92 Oximetry 05/04/19 11:26 Temperature 102.6 F H Pulse Rate 106 H Respiratory 18 Rate Blood Pressure 137/55 O2 Sat by Pulse 96 Oximetry - General Appearance General appearance: well-developed, appears stated age, other (no distress) EENT: ATNC, PERRL, mucous membranes moist Neck: supple Respiratory: Present: Clear to Ascultation Cardiology: regular, S1S2, no murmurs Gastrointestinal: normoactive bowel sounds, no tenderness, no distended Integumentary: chronic venous stasis Neurologic: no focal deficit, no asterixis, confused Musculoskeletal: other (amputation of R great toe) Psychiatric: cooperative - Lab 05/04/19 03:58 05/04/19 03:58 Most recent lab results Calcium 8.3 mg/dL (8.4-10.2) L 05/04/19 03:58 Phosphorus 2.80 mg/dL (2.5-4.5) D 04/28/19 05:42 Magnesium 1.80 mg/dL (1.7-2.3) 04/30/19 05:57 64.1 mg/dL (0.1-20.0) H 04/25/19 08:30 44 mmol/L 04/25/19 08:30 Medications & Allergies - Medications Allergies/Adverse Reactions: Allergies No Known Allergies Allergy (Unverified 04/11/19 10:16) Home Medications: Home Medications Medication Instructions Recorded Confirmed Last Taken Type Amiodarone [Cordarone 200 MG TAB] 200 mg PO QDAY 04/24/19 04/24/19 04/23/19 History Clopidogrel [Plavix] 75 mg PO QDAY 04/24/19 04/24/19 04/23/19 History Donepezil [Aricept] 10 mg PO QDAY 04/24/19 04/24/19 04/23/19 History Furosemide [Lasix TAB] 40 mg PO QDAY 04/24/19 04/24/19 04/23/19 History Memantine [Namenda] 10 mg PO TID 04/24/19 04/24/19 04/23/19 History Metoprolol [Lopressor] 25 mg PO QDAY 04/24/19 04/24/19 04/23/19 History Rivaroxaban [Xarelto] 20 mg PO QDAY 04/24/19 04/24/19 04/23/19 History amLODIPine [Norvasc] 10 mg PO DAILY 04/24/19 04/24/19 04/23/19 History Active Medications: Generic Name Dose Route Start Last Admin Trade Name Robyn PRN Reason Stop Dose Admin Acetaminophen 650 mg 04/24/19 22:27 05/04/19 08:35 Tylenol PO 650 mg Q4H PRN Administration Pain MILD(1-3)/Fever >100.5/LEVY Amiodarone HCl 200 mg 04/25/19 10:00 05/04/19 10:57 Cordarone PO 200 mg QDAY SAGE Administration Amlodipine Besylate 10 mg 04/25/19 10:00 05/04/19 10:58 Norvasc PO 10 mg DAILY SAGE Administration Aspirin 81 mg 04/25/19 10:00 05/04/19 10:57 Baby Aspirin PO 81 mg QDAY SAGE Administration Dextrose 25 gm 05/04/19 02:00 05/04/19 05:46 D50w (25gm) Vial IV 25 gm PRN PRN Administration Hypoglycemia Donepezil HCl 10 mg 04/25/19 10:00 05/04/19 10:58 Aricept PO 10 mg QDAY SAGE Administration Hydralazine HCl 5 mg 05/04/19 02:19 Apresoline IV Q6H PRN Hypertension Hydromorphone HCl 0.5 mg 04/24/19 22:28 05/01/19 21:40 Dilaudid IV 0.5 mg Q3H PRN Administration Pain , Severe (7-10) Sodium Chloride 1,000 mls @ 50 mls/hr 04/28/19 09:00 05/04/19 04:16 Nacl 0.9% 1000 Ml IV 50 mls/hr DIRECT SAGE Administration Lactated Ringer's 1,000 mls @ 100 mls/hr 05/01/19 13:00 05/01/19 13:00 Lactated Ringers IV 100 mls/hr DIRECT SAGE Administration Cefepime HCl 1 gm in 100 mls @ 200 mls/hr 05/04/19 09:00 05/04/19 11:14 Maxipime/Ns 1 Gm/100 Ml IV 200 mls/hr Q8H SAGE Administration Protocol Vancomycin HCl 1,500 mg/ 530 mls @ 333.333 mls/hr 05/04/19 15:00 Sodium Chloride IV Q24H SAGE Magnesium Oxide 400 mg 04/27/19 10:00 05/04/19 10:58 Mag-Ox PO 400 mg BID SAGE Administration Memantine 10 mg 04/25/19 08:00 05/04/19 08:35 Namenda PO 10 mg TID SAGE Administration Metoclopramide HCl 5 mg 04/26/19 09:00 Reglan IV Q6H PRN Nausea And Vomiting Metoprolol Tartrate 25 mg 04/25/19 10:00 05/04/19 10:59 Lopressor PO 25 mg QDAY SAGE Administration Multivitamins 1 each 04/29/19 10:00 05/04/19 10:58 Theragran Tab PO 1 each QDAY SAGE Administration Ondansetron HCl 4 mg 04/24/19 22:27 Zofran IV Q8H PRN Nausea And Vomiting Oxycodone/Acetaminophen 1 tab 04/24/19 22:28 04/25/19 02:41 Percocet 5/325 PO 1 tab Q6H PRN Administration Pain, Moderate (4-6) Pantoprazole Sodium 40 mg 04/25/19 14:00 05/04/19 10:57 Protonix PO 40 mg QDAY SAGE Administration Sodium Chloride 10 ml 04/25/19 10:00 05/04/19 11:01 Sodium Chloride Flush Syringe 10 Ml IV 10 ml BID SAGE Administration Sodium Chloride 10 ml 04/24/19 22:27 04/30/19 08:29 Sodium Chloride Flush Syringe 10 Ml IV 10 ml PRN PRN Administration LINE FLUSH Sodium Hypochlorite 1 applic 04/26/19 10:00 05/04/19 10:58 Dakin's Half Strength TP 1 applicatio DAILY SAGE Administration
[2019-05-04] MEDS ORDERED: VANCOMYCIN 1,500 MG in SODIUM CHLORIDE 0.9% 500 ML 500 ML IV SCH (15:00)
[2019-05-05] MEDS: CEFEPIME/NS 1 GM/100 ML 1 GM/100 ML BAG IV SCH ×3 (01:08→17:06)
[2019-05-05] MEDS: ACETAMINOPHEN 325 MG TAB PO PRN ×3 (02:25→22:56)
[2019-05-05] MEDS: SODIUM CHLORIDE 0.9% 1000 ML 1,000 ML IV SCH (05:36)
[2019-05-05 06:27] LABS: Basophils # (Auto) 0.1 K/mm3 (0.0-0.1); Basophils % (Auto) 0.8 % (0.0-1.8); Eosinophils # (Auto) 0.1 K/mm3 (0.0-0.4); Eosinophils % (Auto) 1.2 % (0.0-4.3); Hemoglobin 8.9 gm/dl (11.8-15.2); Lymphocytes # (Auto) 0.6 K/mm3 (1.2-5.4); Lymphocytes % (Auto) 7.2 % (13.4-35.0); Mean Corpuscular HGB Conc 33 % (32-34); Mean Corpuscular Volume 89 fl (84-94); Monocytes # (Auto) 0.5 K/mm3 (0.0-0.8); Monocytes % (Auto) 5.9 % (0.0-7.3); Platelet Count 225 K/mm3 (140-440); Red Blood Count 3.02 M/mm3 (3.65-5.03); Red Cell Distribution Width 16.5 % (13.2-15.2)
[2019-05-05 06:42] LABS: BUN/Creatinine Ratio 13; Blood Urea Nitrogen 17 mg/dL (9-20); Calcium 8.2 mg/dL (8.4-10.2); Hemolysis Index 2
[2019-05-05] MEDS: MEMANTINE 10 MG TAB PO SCH ×3 (07:55→20:24)
[2019-05-05] MEDS ORDERED: POTASSIUM CHLORIDE ER 20 MEQ TAB PO NR (08:44)
--- NOTE | 2019-05-05 08:44 | Progress Note ---
Assessment and Plan 1. Acute kidney injury: Vasomotor BRANDIE superimposed on CKD in the setting of obstrutive uropathy. CT abdomen showed distended bladder and hydronephrosis. Renal function is better. Monitor renal function. Avoid nephrotoxic agents. Meds dosage based on GFR. 2. FEN: Rep[place] K. Monitor lytes. 3. Obstructive Uropathy: S/p delgado catheter. 4. PAD: S/p amputation of R great toe. S/p TMA, right 1st metatarsal head. 5. New fever: Followed by ID. 6. Normochromic anemia: POA. EGD negative. 7. Paroxysmal A.fib: SR now. 8. Hypertension. 9. Dementia. Subjective Date of service: 05/05/19 Principal diagnosis: Anemia Interval history: Patient was seen and examined at the bedside. Doing ok. Objective - Vital Signs Vital signs: Vital Signs - 12hr 05/05/19 05/05/19 05/05/19 02:00 07:35 07:45 Temperature 100.6 F H 102.2 F H Pulse Rate 107 H 103 H Respiratory 20 20 Rate Blood Pressure 140/61 Blood Pressure 163/61 [Left] O2 Sat by Pulse 94 94 95 Oximetry - General Appearance General appearance: well-developed, appears stated age, other (no distress) EENT: ATNC, PERRL Neck: supple Respiratory: Present: Clear to Ascultation Cardiology: regular, S1S2, no murmurs Gastrointestinal: normoactive bowel sounds, no tenderness, no distended Integumentary: chronic venous stasis Neurologic: no focal deficit, no asterixis, confused Musculoskeletal: other (amputation of R great toe) - Lab 05/05/19 05:46 05/05/19 05:46 Most recent lab results Calcium 8.2 mg/dL (8.4-10.2) L 05/05/19 05:46 Phosphorus 2.80 mg/dL (2.5-4.5) D 04/28/19 05:42 Magnesium 1.80 mg/dL (1.7-2.3) 04/30/19 05:57 64.1 mg/dL (0.1-20.0) H 04/25/19 08:30 44 mmol/L 04/25/19 08:30 Medications & Allergies - Medications Allergies/Adverse Reactions: Allergies No Known Allergies Allergy (Unverified 04/11/19 10:16) Home Medications: Home Medications Medication Instructions Recorded Confirmed Last Taken Type Amiodarone [Cordarone 200 MG TAB] 200 mg PO QDAY 04/24/19 04/24/19 04/23/19 History Clopidogrel [Plavix] 75 mg PO QDAY 04/24/19 04/24/19 04/23/19 History Donepezil [Aricept] 10 mg PO QDAY 04/24/19 04/24/19 04/23/19 History Furosemide [Lasix TAB] 40 mg PO QDAY 04/24/19 04/24/19 04/23/19 History Memantine [Namenda] 10 mg PO TID 04/24/19 04/24/19 04/23/19 History Metoprolol [Lopressor] 25 mg PO QDAY 04/24/19 04/24/19 04/23/19 History Rivaroxaban [Xarelto] 20 mg PO QDAY 04/24/19 04/24/19 04/23/19 History amLODIPine [Norvasc] 10 mg PO DAILY 04/24/19 04/24/19 04/23/19 History Active Medications: Generic Name Dose Route Start Last Admin Trade Name Freq PRN Reason Stop Dose Admin Acetaminophen 650 mg 04/24/19 22:27 05/05/19 07:55 Tylenol PO 650 mg Q4H PRN Administration Pain MILD(1-3)/Fever >100.5/LEVY Amiodarone HCl 200 mg 04/25/19 10:00 05/04/19 10:57 Cordarone PO 200 mg QDAY SAGE Administration Amlodipine Besylate 10 mg 04/25/19 10:00 05/04/19 10:58 Norvasc PO 10 mg DAILY SAGE Administration Aspirin 81 mg 04/25/19 10:00 05/04/19 10:57 Baby Aspirin PO 81 mg QDAY SAGE Administration Dextrose 25 gm 05/04/19 02:00 05/04/19 05:46 D50w (25gm) Vial IV 25 gm PRN PRN Administration Hypoglycemia Donepezil HCl 10 mg 04/25/19 10:00 05/04/19 10:58 Aricept PO 10 mg QDAY SAGE Administration Hydralazine HCl 5 mg 05/04/19 02:19 Apresoline IV Q6H PRN Hypertension Hydromorphone HCl 0.5 mg 04/24/19 22:28 05/01/19 21:40 Dilaudid IV 0.5 mg Q3H PRN Administration Pain , Severe (7-10) Sodium Chloride 1,000 mls @ 50 mls/hr 04/28/19 09:00 05/05/19 05:36 Nacl 0.9% 1000 Ml IV 50 mls/hr DIRECT SAGE Administration Lactated Ringer's 1,000 mls @ 100 mls/hr 05/01/19 13:00 05/01/19 13:00 Lactated Ringers IV 100 mls/hr DIRECT SAGE Administration Cefepime HCl 1 gm in 100 mls @ 200 mls/hr 05/04/19 09:00 05/05/19 01:08 Maxipime/Ns 1 Gm/100 Ml IV 200 mls/hr Q8H SAGE Administration Protocol Vancomycin HCl 1,500 mg/ 530 mls @ 333.333 mls/hr 05/05/19 10:00 Sodium Chloride IV Q18H SAGE Magnesium Oxide 400 mg 04/27/19 10:00 05/04/19 21:04 Mag-Ox PO 400 mg BID SAGE Administration Memantine 10 mg 04/25/19 08:00 05/05/19 07:55 Namenda PO 10 mg TID SAGE Administration Metoclopramide HCl 5 mg 04/26/19 09:00 Reglan IV Q6H PRN Nausea And Vomiting Metoprolol Tartrate 25 mg 04/25/19 10:00 05/04/19 10:59 Lopressor PO 25 mg QDAY SAGE Administration Multivitamins 1 each 04/29/19 10:00 05/04/19 10:58 Theragran Tab PO 1 each QDAY SAGE Administration Ondansetron HCl 4 mg 04/24/19 22:27 Zofran IV Q8H PRN Nausea And Vomiting Oxycodone/Acetaminophen 1 tab 04/24/19 22:28 04/25/19 02:41 Percocet 5/325 PO 1 tab Q6H PRN Administration Pain, Moderate (4-6) Pantoprazole Sodium 40 mg 04/25/19 14:00 05/04/19 10:57 Protonix PO 40 mg QDAY SAGE Administration Sodium Chloride 10 ml 04/25/19 10:00 05/04/19 21:05 Sodium Chloride Flush Syringe 10 Ml IV 10 ml BID SAGE Administration Sodium Chloride 10 ml 04/24/19 22:27 04/30/19 08:29 Sodium Chloride Flush Syringe 10 Ml IV 10 ml PRN PRN Administration LINE FLUSH Sodium Hypochlorite 1 applic 04/26/19 10:00 05/04/19 10:58 Dakin's Half Strength TP 1 applicatio DAILY SAGE Administration
[2019-05-05] MEDS: DONEPEZIL 10 MG TAB PO SCH (09:45)
[2019-05-05] MEDS: ASPIRIN 81 MG TAB CHEW PO SCH (09:45)
[2019-05-05] MEDS: PANTOPRAZOLE 40 MG TAB PO SCH (09:46)
[2019-05-05] MEDS: MULTIVITAMINS ,THERAPEUTIC TAB PO SCH (09:46)
[2019-05-05] MEDS: AMIODARONE 200 MG TAB PO SCH (09:46)
[2019-05-05] MEDS: MAGNESIUM OXIDE 400 MG TAB PO SCH ×2 (09:46→21:03)
[2019-05-05] MEDS: amLODIPine 10 MG TAB PO SCH (09:46)
[2019-05-05] MEDS: METOPROLOL TARTRATE 25 MG TAB PO SCH (09:46)
[2019-05-05] MEDS: SODIUM HYPOCHLORITE, DAKIN'S 1/2 STRENGTH (0.25%) 473 ML TOPICAL SOLN TP SCH (09:47)
--- NOTE | 2019-05-05 09:47 | Progress Note ---
Assessment and Plan PAD with right foot [place] s/p toe amputation followed by TMA of the right 1st metatarsal head Hx of paroxysmal atrial fibrillation on amiodarone and metoprolol for suppression. on Xarelto as an outpatient. Anemia s/p transfusion of PRBCs Acute renal failure Echo 04/24/19: EF 55-65%, biatrial enlargement, Moderate AI, Severe Pulmonary Htn. Continue current therapy. Will follow on intermittent basis. Subjective Date of service: 05/05/19 Principal diagnosis: Anemia Interval history: Patient is resting in bed comfortably. He has no cardiac complaints. Noted febrile this morning. Objective Vital Signs Temp Pulse Resp BP BP Pulse Ox 05/05/19 07:45 102.2 F H 103 H 20 140/61 95 05/05/19 07:35 94 05/05/19 02:00 100.6 F H 107 H 20 163/61 94 05/04/19 20:03 94 05/04/19 19:22 99.6 F 90 18 162/71 92 05/04/19 14:39 98.3 F 92 H 18 133/54 92 05/04/19 11:26 102.6 F H 106 H 18 137/55 96 05/04/19 10:59 114 H 164/63 05/04/19 10:58 114 H 164/63 05/04/19 10:00 96 - Physical Examination General: No Apparent Distress HEENT: Positive: PERRL Neck: Positive: neck supple Cardiac: Positive: Reg Rate and Rhythm Lungs: Positive: Decreased Breath Sounds Neuro: Positive: Grossly Intact Abdomen: Positive: Soft - Labs and Meds CBC 05/05/19 Range/Units 05:46 WBC 7.8 (4.5-11.0) K/mm3 RBC 3.02 L (3.65-5.03) M/mm3 Hgb 8.9 L (11.8-15.2) gm/dl Hct 27.0 L (35.5-45.6) % Plt Count 225 (140-440) K/mm3 Lymph # 0.6 L (1.2-5.4) K/mm3 [place] # 0.5 (0.0-0.8) K/mm3 Eos # 0.1 (0.0-0.4) K/mm3 Baso # 0.1 (0.0-0.1) K/mm3 Comprehensive Metabolic Panel 05/05/19 Range/Units 05:46 Sodium 141 (137-145) mmol/L Potassium 3.4 L (3.6-5.0) mmol/L Chloride 104.9 (98-107) mmol/L Carbon Dioxide 21 L (22-30) mmol/L BUN 17 (9-20) mg/dL Creatinine 1.3 (0.8-1.5) mg/dL Glucose 100 (75-100) mg/dL Calcium 8.2 L (8.4-10.2) mg/dL
[2019-05-05] MEDS: VANCOMYCIN 1,500 MG in SODIUM CHLORIDE 0.9% 500 ML 500 ML IV SCH (10:00)
--- NOTE | 2019-05-05 10:05 | Progress Note ---
Assessment and Plan Assessment and plan: R great toe gangrene with cellulitis - Continue antibiotics per ID. Continue wound care. Right third finger paronychia/cellulitis. Consult Ortho for further evaluation Sepsis. Etiology secondary to above. Patient with new temperature spike this morning. ID resumed antibiotics. Severe bilateral PAD - s/p recent revascularization. Vascular following. As above. BRANDIE on CKD - renally dose antibiotics. BRANDIE improving. Follow-up BMP. CT abdomen showed distended bladder and hydronephrosis. Obstructive uropathy. Patient scheduled to discharge with Triplett catheter and follow up with urology as an outpatient HTN. Continue antihypertensive medications. Afib. Resume anticoagulation per cardiology. Acute blood loss anemia. EGD and colonoscopy revealed no evidence of GI blood loss. Sigmoid diverticulosis. Stable. History Interval history: 73 yo M PMHx severe bilateral PAD, CKD, HTN, Afib on AC admitted with R great toe gangrene and cellulitis. Patient still with spiking fevers No new issues. Hospitalist Physical - Constitutional Vitals: Temp Pulse Resp BP Pulse Ox 102.2 F H 103 H 20 140/61 95 05/05/19 07:45 05/05/19 07:45 05/05/19 07:45 05/05/19 07:45 05/05/19 07:45 General appearance: Present: no acute distress, well-nourished - EENT Eyes: Present: PERRL, EOM intact ENT: hearing intact, clear oral mucosa, dentition normal - Neck Neck: Present: supple, normal ROM - Respiratory Respiratory effort: normal Respiratory: bilateral: CTA - Cardiovascular Rhythm: regular Heart Sounds: Present: S1 & S2. Absent: gallop, rub - Extremities Extremities: no ischemia, No edema, Full ROM - Abdominal General gastrointestinal: soft, non-tender, non-distended, normal bowel sounds - Integumentary Integumentary: Present: clear, warm, dry - Neurologic Neurologic: CNII-XII intact, moves all extremities Results - Labs CBC & Chem 7: 05/05/19 05:46 05/05/19 05:46 Labs: Laboratory Last Values WBC 7.8 K/mm3 (4.5-11.0) 05/05/19 05:46 RBC 3.02 M/mm3 (3.65-5.03) L 05/05/19 05:46 Hgb 8.9 gm/dl (11.8-15.2) L 05/05/19 05:46 Hct 27.0 % (35.5-45.6) L 05/05/19 05:46 MCV 89 fl (84-94) 05/05/19 05:46 MCH 29 pg (28-32) 05/05/19 05:46 MCHC 33 % (32-34) 05/05/19 05:46 RDW 16.5 % (13.2-15.2) H 05/05/19 05:46 Plt Count 225 K/mm3 (140-440) 05/05/19 05:46 Lymph % (Auto) 7.2 % (13.4-35.0) L 05/05/19 05:46 [place] % (Auto) 5.9 % (0.0-7.3) 05/05/19 05:46 Eos % (Auto) 1.2 % (0.0-4.3) 05/05/19 05:46 Baso % (Auto) 0.8 % (0.0-1.8) 05/05/19 05:46 Lymph # 0.6 K/mm3 (1.2-5.4) L 05/05/19 05:46 [place] # 0.5 K/mm3 (0.0-0.8) 05/05/19 05:46 Eos # 0.1 K/mm3 (0.0-0.4) 05/05/19 05:46 Baso # 0.1 K/mm3 (0.0-0.1) 05/05/19 05:46 Seg Neutrophils % 84.9 % (40.0-70.0) H 05/05/19 05:46 Seg Neutrophils # 6.7 K/mm3 (1.8-7.7) 05/05/19 05:46 PT 21.2 Sec. (12.2-14.9) H 04/24/19 12:55 INR 1.88 (0.87-1.13) H 04/24/19 12:55 APTT 41.8 Sec. (24.2-36.6) H 04/24/19 12:55 Sodium 141 mmol/L (137-145) 05/05/19 05:46 Potassium 3.4 mmol/L (3.6-5.0) L 05/05/19 05:46 Chloride 104.9 mmol/L (98-107) 05/05/19 05:46 Carbon Dioxide 21 mmol/L (22-30) L 05/05/19 05:46 19 mmol/L 05/05/19 05:46 BUN 17 mg/dL (9-20) 05/05/19 05:46 1.3 mg/dL (0.8-1.5) 05/05/19 05:46 Estimated GFR > 60 ml/min 05/05/19 05:46 13 % 05/05/19 05:46 Glucose 100 mg/dL (75-100) 05/05/19 05:46 POC Glucose 101 (70-105) 05/05/19 06:29 5.4 % (4-6) 04/25/19 06:06 Lactic Acid 1.80 mmol/L (0.7-2.0) 04/24/19 12:55 Calcium 8.2 mg/dL (8.4-10.2) L 05/05/19 05:46 Phosphorus 2.80 mg/dL (2.5-4.5) D 04/28/19 05:42 Magnesium 1.80 mg/dL (1.7-2.3) 04/30/19 05:57 0.50 mg/dL (0.1-1.2) 04/25/19 06:06 AST 19 units/L (5-40) 04/25/19 06:06 ALT 10 units/L (7-56) 04/25/19 06:06 86 units/L (35-129) 04/25/19 06:06 0.027 ng/mL (0.00-0.029) 04/24/19 16:09 NT-Pro-B Natriuret Pep 6067 pg/mL (0-900) H 04/24/19 12:55 6.9 g/dL (6.3-8.2) 04/25/19 06:06 3.5 g/dL (3.9-5) L 04/25/19 06:06 1.0 % 04/25/19 06:06 Triglycerides 59 mg/dL (2-149) 04/24/19 12:55 Cholesterol 114 mg/dL (50-199) 04/24/19 12:55 70 mg/dL (50-130) 04/24/19 12:55 47 mg/dL (40-59) 04/24/19 12:55 2.42 % 04/24/19 12:55 Yellow (Yellow) 04/25/19 05:20 Clear (Clear) 04/25/19 05:20 8.0 (5.0-7.0) H 04/25/19 05:20 Ur Specific [place] 1.009 (1.003-1.030) 04/25/19 05:20 <15 mg/dl mg/dL (Negative) 04/25/19 05:20 Neg mg/dL (Negative) 04/25/19 05:20 Neg mg/dL (Negative) 04/25/19 05:20 Lg (Negative) 04/25/19 05:20 Neg (Negative) 04/25/19 05:20 Neg (Negative) 04/25/19 05:20 < 2.0 mg/dL (<2.0) 04/25/19 05:20 Ur Leukocyte Esterase Neg (Negative) 04/25/19 05:20 2.0 /HPF (0.0-6.0) 04/25/19 05:20 15.0 /HPF (0.0-6.0) 04/25/19 05:20 U Epithel Cells (Auto) < 1.0 /HPF (0-13.0) 04/25/19 05:20 None seen (None Seen) 04/25/19 08:30 64.1 mg/dL (0.1-20.0) H 04/25/19 08:30 44 mmol/L 04/25/19 08:30 Vancomycin Trough 9.5 ug/mL (5.0-20.0) 05/04/19 14:55 Random Vancomycin 15.3 ug/mL (0-40.0) 04/27/19 03:53 Blood Type B POSITIVE 05/01/19 Unknown Antibody Screen Negative 05/01/19 Unknown Crossmatch See Detail 05/01/19 Unknown Active Medications - Current Medications Current Medications: Generic Name Dose Route Start Last Admin Trade Name Freq PRN Reason Stop Dose Admin Acetaminophen 650 mg 04/24/19 22:27 05/05/19 07:55 Tylenol PO 650 mg Q4H PRN Administration Pain MILD(1-3)/Fever >100.5/LEVY Amiodarone HCl 200 mg 04/25/19 10:00 05/05/19 09:46 Cordarone PO 200 mg QDAY SAGE Administration Amlodipine Besylate 10 mg 04/25/19 10:00 05/05/19 09:46 Norvasc PO 10 mg DAILY SAGE Administration Aspirin 81 mg 04/25/19 10:00 05/05/19 09:45 Baby Aspirin PO 81 mg QDAY SAGE Administration Dextrose 25 gm 05/04/19 02:00 05/04/19 05:46 D50w (25gm) Vial IV 25 gm PRN PRN Administration Hypoglycemia Donepezil HCl 10 mg 04/25/19 10:00 05/05/19 09:45 Aricept PO 10 mg QDAY SAGE Administration Hydralazine HCl 5 mg 05/04/19 02:19 Apresoline IV Q6H PRN Hypertension Hydromorphone HCl 0.5 mg 04/24/19 22:28 05/01/19 21:40 Dilaudid IV 0.5 mg Q3H PRN Administration Pain , Severe (7-10) Sodium Chloride 1,000 mls @ 50 mls/hr 04/28/19 09:00 05/05/19 05:36 Nacl 0.9% 1000 Ml IV 50 mls/hr DIRECT SAGE Administration Lactated Ringer's 1,000 mls @ 100 mls/hr 05/01/19 13:00 05/01/19 13:00 Lactated Ringers IV 100 mls/hr DIRECT SAGE Administration Cefepime HCl 1 gm in 100 mls @ 200 mls/hr 05/04/19 09:00 05/05/19 09:44 Maxipime/Ns 1 Gm/100 Ml IV 200 mls/hr Q8H SAGE Administration Protocol Vancomycin HCl 1,500 mg/ 530 mls @ 333.333 mls/hr 05/05/19 10:00 Sodium Chloride IV Q18H SAGE Magnesium Oxide 400 mg 04/27/19 10:00 05/05/19 09:46 Mag-Ox PO 400 mg BID SAGE Administration Memantine 10 mg 04/25/19 08:00 05/05/19 07:55 Namenda PO 10 mg TID SAGE Administration Metoclopramide HCl 5 mg 04/26/19 09:00 Reglan IV Q6H PRN Nausea And Vomiting Metoprolol Tartrate 25 mg 04/25/19 10:00 05/05/19 09:46 Lopressor PO 25 mg QDAY SAGE Administration Multivitamins 1 each 04/29/19 10:00 05/05/19 09:46 Theragran Tab PO 1 each QDAY SAGE Administration Ondansetron HCl 4 mg 04/24/19 22:27 Zofran IV Q8H PRN Nausea And Vomiting Oxycodone/Acetaminophen 1 tab 04/24/19 22:28 04/25/19 02:41 Percocet 5/325 PO 1 tab Q6H PRN Administration Pain, Moderate (4-6) Pantoprazole Sodium 40 mg 04/25/19 14:00 05/05/19 09:46 Protonix PO 40 mg QDAY SAGE Administration Sodium Chloride 10 ml 04/25/19 10:00 05/05/19 09:44 Sodium Chloride Flush Syringe 10 Ml IV 10 ml BID SAGE Administration Sodium Chloride 10 ml 04/24/19 22:27 04/30/19 08:29 Sodium Chloride Flush Syringe 10 Ml IV 10 ml PRN PRN Administration LINE FLUSH Sodium Hypochlorite 1 applic 04/26/19 10:00 05/05/19 09:47 Dakin's Half Strength TP 10 applicatio DAILY SAGE Administration Nutrition/Malnutrition Assess - Dietary Evaluation Nutrition/Malnutrition Findings: Nutrition Notes Start: 05/01/19 10:50 Freq: Status: Active Protocol: Document 05/01/19 10:50 KS (Rec: 05/01/19 11:24 KS [id number]) Co-Sign 05/01/19 10:50 LP Nutrition Notes Need for Assessment generated from: LOS Initial or Follow up Brief Note Current Diagnosis CKD (stage V CKD),Hypertension Other Pertinent Diagnosis Afib on AC, bi PAD, ARF toe amputation Current Diet NPO after midnight M[place] Body Weight (kg) 0 Subjective/Other Information Pt consistently eating 100% of meals. Nutrition Intervention Revisit per MD consult or patient Sign Off request:
--- NOTE | 2019-05-05 12:23 | Progress Note ---
Assessment and Plan Cultures: 05/04/2019 blood culture: no growth thus far Assessment: 73 yo M PMHx severe bilateral PAD, CKD, HTN, Afib on AC admitted with R great toe gangrene and cellulitis 1. R great toe gangrene with cellulitis - S/P great toe amputation on 04/24/2019 followed by TMA, right 1st metatarsal head on 05/01/2019. Awaiting possible endovascular revascularization, vascular following, may be done outpatient. 2. Severe bilateral PAD - s/p recent revascularization. Vascular following. Possible endovascular revascularization as outpatient. 3. BRANDIE on CKD - renally dose antibiotics. BRANDIE improving. 4. HTN 5. Afib on AC 6. New fevers: ongoing for the last 2-3 days. blood cultures negative thus far. source: ?right middle finger paronychia v/s R great toe stump wound. Patient was off abx on 05/03/2019 but abx were restarted on 05/04/2019. Recs: - new fevers, inspite of antibiotics, could be related to right middle finger paronychia. Consult surgery to eval for possible I&D - continue wound care of R great toe stump wound - continue empiric IV Cefepime and Vancomycin - follow up blood cultures d/w Dr. Monet. Taylor Vernon MD [facility] C: [phone] Subjective Date of service: 05/05/19 Principal diagnosis: Anemia Interval history: Patient spiking high fevers for the last 2 days. Denies any cough or shortness of breath. No chest pain. No diarrhea. Discussed with RN. Objective - Exam Narrative Exam: Physical Exam: Constitutional: Alert, cooperative. No acute distress Head, Ears, Nose: Normocephalic, atraumatic. External ears, nose normal Eyes: Conjunctivae/corneas clear. No icterus. No ptosis. Neck: Supple, no meningeal signs Cardiovascular: S1, S2 normal. Respiratory: Good air entry, clear to auscultation bilaterally GI: Soft, non-tender; bowel sounds normal. No peritoneal signs. Triplett + Musculoskeletal: No pedal edema, no cyanosis. R foot tenderness at surgical site, great toe amputation site with a deep wound, dark base. left leg tenderness much improved. Right middle finger with paronychia Skin: No rash or abscess Hem/Lymphatic: No palpable cervical or supraclavicular nodes. No lymphangitis Psych: Mood ok. Affect normal Neurological: Awake, alert, oriented. - Constitutional Vitals: Vital Signs Temp Pulse Resp BP Pulse Ox 102.2 F H 103 H 20 140/61 95 05/05/19 07:45 05/05/19 07:45 05/05/19 07:45 05/05/19 07:45 05/05/19 07:45 Temperature -Last 24 Hours Temperature 102.2 F Temperature 100.6 F Temperature 99.6 F Temperature 98.3 F - Labs CBC & Chem 7: 05/05/19 05:46 05/05/19 05:46 Labs: Abnormal lab results 05/04/19 05/05/19 05/05/19 Range/Units 18:01 05:46 05:46 RBC 3.02 L (3.65-5.03) M/mm3 Hgb 8.9 L (11.8-15.2) gm/dl Hct 27.0 L (35.5-45.6) % RDW 16.5 H (13.2-15.2) % Lymph % (Auto) 7.2 L (13.4-35.0) % Lymph # 0.6 L (1.2-5.4) K/mm3 Seg Neutrophils % 84.9 H (40.0-70.0) % Potassium 3.4 L (3.6-5.0) mmol/L Carbon Dioxide 21 L (22-30) mmol/L POC Glucose 55 L (70-105) Calcium 8.2 L (8.4-10.2) mg/dL
[2019-05-05] MEDS: oxyCODONE /ACETAMINOPHEN 5-325MG TAB PO PRN (15:03)
--- NOTE | 2019-05-05 16:44 | Consultation ---
History of Present Illness - HPI Consult date: 05/05/19 Consult reason: joint pain History of present illness: 73 yo M PMHx severe bilateral PAD, CKD, HTN, Afib on AC admitted with R great toe gangrene and cellulitis ...Patient also developed slight infection to right 3rd finger Past History Past Medical History: atrial fib, hypertension, PVD Past Surgical History: Other (RLE revascularization) Social history: smoking. denies: alcohol abuse Family history: CAD, hypertension Medications and Allergies Allergies Allergy/AdvReac Type Severity Reaction Status Date / Time No Known Allergies Allergy Unverified 04/11/19 10:16 Home Medications Medication Instructions Recorded Confirmed Last Taken Type Amiodarone [Cordarone 200 MG TAB] 200 mg PO QDAY 04/24/19 04/24/19 04/23/19 History Donepezil [Aricept] 10 mg PO QDAY 04/24/19 04/24/19 04/23/19 History Furosemide [Lasix TAB] 40 mg PO QDAY 04/24/19 04/24/19 04/23/19 History Memantine [Namenda] 10 mg PO TID 04/24/19 04/24/19 04/23/19 History Metoprolol [Lopressor TAB] 25 mg PO QDAY 04/24/19 04/24/19 04/23/19 History Rivaroxaban [Xarelto] 20 mg PO QDAY 04/24/19 04/24/19 04/23/19 History amLODIPine [Norvasc] 10 mg PO DAILY 04/24/19 04/24/19 04/23/19 History Aspirin [Aspirin BABY CHEW TAB] 81 mg PO QDAY #30 tab.chew 05/09/19 Unknown Rx DOXYCYCLINE Hyclate [Vibramycin 100 mg PO BID #14 capsule 05/09/19 Unknown Rx CAP] oxyCODONE /ACETAMINOPHEN [Percocet 1 tab PO BID PRN #14 tablet 05/09/19 Unknown Rx 5/325 mg] Dextrose [Glucose] 33 gm PO BID #30 gel.packet 05/10/19 Unknown Rx Active Meds: Active Medications Acetaminophen (Tylenol) 650 mg PO Q4H PRN PRN Reason: Pain MILD(1-3)/Fever >100.5/LEVY Last Admin: 05/05/19 07:55 Dose: 650 mg Documented by: Amiodarone HCl (Cordarone) 200 mg PO QDAY [facility] Last Admin: 05/05/19 09:46 Dose: 200 mg Documented by: Amlodipine Besylate (Norvasc) 10 mg PO DAILY [facility] Last Admin: 05/05/19 09:46 Dose: 10 mg Documented by: Aspirin (Baby Aspirin) 81 mg PO QDAY [facility] Last Admin: 05/05/19 09:45 Dose: 81 mg Documented by: Dextrose (D50w (25gm) Vial) 25 gm IV PRN PRN PRN Reason: Hypoglycemia Last Admin: 05/04/19 05:46 Dose: 25 gm Documented by: Donepezil HCl (Aricept) 10 mg PO QDAY [facility] Last Admin: 05/05/19 09:45 Dose: 10 mg Documented by: Hydralazine HCl (Apresoline) 5 mg IV Q6H PRN PRN Reason: Hypertension Hydromorphone HCl (Dilaudid) 0.5 mg IV Q3H PRN PRN Reason: Pain , Severe (7-10) Last Admin: 05/01/19 21:40 Dose: 0.5 mg Documented by: Sodium Chloride (Nacl 0.9% 1000 Ml) 1,000 mls @ 50 mls/hr IV DIRECT [facility] Last Admin: 05/05/19 05:36 Dose: 50 mls/hr Documented by: Lactated Ringer's (Lactated Ringers) 1,000 mls @ 100 mls/hr IV DIRECT [facility] Last Admin: 05/01/19 13:00 Dose: 100 mls/hr Documented by: Cefepime HCl (Maxipime/Ns 1 Gm/100 Ml) 1 gm in 100 mls @ 200 mls/hr IV Q8H [facility]; Protocol Last Admin: 05/05/19 09:44 Dose: 200 mls/hr Documented by: Vancomycin HCl 1,500 mg/ (Sodium Chloride) 530 mls @ 333.333 mls/hr IV Q18H [facility] Last Admin: 05/05/19 10:00 Dose: 333.333 mls/hr Documented by: Magnesium Oxide (Mag-Ox) 400 mg PO BID [facility] Last Admin: 05/05/19 09:46 Dose: 400 mg Documented by: Memantine (Namenda) 10 mg PO TID [facility] Last Admin: 05/05/19 13:06 Dose: 10 mg Documented by: Metoclopramide HCl (Reglan) 5 mg IV Q6H PRN PRN Reason: Nausea And Vomiting Metoprolol Tartrate (Lopressor) 25 mg PO QDAY [facility] Last Admin: 05/05/19 09:46 Dose: 25 mg Documented by: Multivitamins (Theragran Tab) 1 each PO QDAY [facility] Last Admin: 05/05/19 09:46 Dose: 1 each Documented by: Ondansetron HCl (Zofran) 4 mg IV Q8H PRN PRN Reason: Nausea And Vomiting Oxycodone/Acetaminophen (Percocet 5/325) 1 tab PO Q6H PRN PRN Reason: Pain, Moderate (4-6) Last Admin: 05/05/19 15:03 Dose: 1 tab Documented by: Pantoprazole Sodium (Protonix) 40 mg PO QDAY [facility] Last Admin: 05/05/19 09:46 Dose: 40 mg Documented by: Sodium Chloride (Sodium Chloride Flush Syringe 10 Ml) 10 ml IV BID [facility] Last Admin: 05/05/19 09:44 Dose: 10 ml Documented by: Sodium Chloride (Sodium Chloride Flush Syringe 10 Ml) 10 ml IV PRN PRN PRN Reason: LINE FLUSH Last Admin: 04/30/19 08:29 Dose: 10 ml Documented by: Sodium Hypochlorite (Dakin's Half Strength) 1 applic TP DAILY [facility] Last Admin: 05/05/19 09:47 Dose: 10 applicatio Documented by: Assessment and Plan paronychia 3rd finger will observe for now, may require partial excision nailbed in future once infection clears
[2019-05-05] MEDS ORDERED: ALBUTEROL 2.5 MG/3 ML NEBU IH PRN (22:07)
[2019-05-05] MEDS ORDERED: FUROSEMIDE 40 MG/4 ML INJ IV ONE (22:27)
[2019-05-05] MEDS: DEXTROSE 50% IN WATER (25GM) 50 ML VIAL IV PRN (23:45)
--- NOTE | 2019-05-06 00:13 | Event Note ---
Date: 05/06/19 She displayed increase work load and breathing. On auscultation scattered crackles throughout. 1 time dose of IV Lasix 40 mg given. Order placed for respiratory to treat and assess per protocol, albuterol when necessary. CXR pending. D/c'd IVF's
[2019-05-06] MEDS: CEFEPIME/NS 1 GM/100 ML 1 GM/100 ML BAG IV SCH ×2 (00:27→09:28)
[2019-05-06] MEDS: ACETAMINOPHEN 325 MG TAB PO PRN ×2 (02:47→09:33)
[2019-05-06] MEDS: VANCOMYCIN 1,500 MG in SODIUM CHLORIDE 0.9% 500 ML 500 ML IV SCH ×2 (03:49→21:04)
--- NOTE | 2019-05-06 08:06 | XRay Report ---
CHEST 1 VIEW INDICATION: SOB, crackles. COMPARISON: 04/24/2019 FINDINGS: Support devices: None. Heart: Enlarged. Pulmonary vasculature: Indistinct. Lungs/Pleura: Multilobar reticular interstitial opacities are new compared to the last exam. No pulmo nary consolidation. No pleural effusion. Additional findings: None. IMPRESSION: 1. Interval development of multilobar interstitial pulmonary edema. Signer Name: Dwayne Lindsay MD Signed: 05/06/2019 8:01 AM Workstation Name: [id number]
--- NOTE | 2019-05-06 09:11 | Procedure Note ---
Date of procedure: 05/01/19 Pre-op diagnosis: Right great toe gangrene Post-op diagnosis: same Procedure: Amputation of right 1st metatarsal head Description of procedure: Pt was placed supine on the OR table. GETA was administered. The right foot was prepped and draped. An incision was made over the medial aspect of the right 1st metatarsal head. Periosteum was elevated off of the metatarsal head and distal metatarsal shaft. The distal metatarsal shaft was amputated with a bone saw. Hemostasis was obtained with the Bovie. Wound was irrigated with warm saline and packed open with a dilute Betadine moistened Kerlix roll followed by a Kerlix roll about the foot. Pt tolerated the procedure well. Anesthesia: GETA Surgeon: JONATHAN BURCH Estimated blood loss: minimal Pathology: list (Right 1st metatarsal head) Specimen disposition: to lab Condition: stable Disposition: PACU
--- NOTE | 2019-05-06 09:14 | Progress Note ---
Assessment and Plan 1. Acute kidney injury: Vasomotor BRANDIE superimposed on CKD in the setting of obstrutive uropathy. CT abdomen showed distended bladder and hydronephrosis. Renal function is better. Monitor renal function. Avoid nephrotoxic agents. Meds dosage based on GFR. 2. FEN: Replete K. Monitor lytes. 3. Obstructive Uropathy: S/p delgado catheter. 4. PAD: S/p amputation of R great toe. S/p TMA, right 1st metatarsal head. 5. New fever: Followed by ID. 6. Normochromic anemia: POA. EGD negative. 7. Paroxysmal A.fib: SR now. 8. Hypertension. 9. Dementia. Subjective Date of service: 05/06/19 Principal diagnosis: Anemia Interval history: Patient was seen and examined at the bedside. Doing ok. Objective - Vital Signs Vital signs: Vital Signs - 12hr 05/05/19 05/05/19 05/05/19 22:00 22:50 22:56 Temperature 102.7 F H Pulse Rate Respiratory 20 Rate Blood Pressure O2 Sat by Pulse 94 Oximetry 05/06/19 05/06/19 05/06/19 02:32 02:33 02:47 Temperature 102.9 F H Pulse Rate 99 H 94 H Respiratory 22 16 Rate Blood Pressure 124/46 O2 Sat by Pulse 88 100 Oximetry 05/06/19 05/06/19 07:26 07:37 Temperature 100.8 F H Pulse Rate 109 H Respiratory 20 Rate Blood Pressure 120/62 O2 Sat by Pulse 99 98 Oximetry - General Appearance General appearance: well-developed, appears stated age, other (no distress) EENT: ATNC, PERRL, vision intact Neck: supple Respiratory: Present: Clear to Ascultation Cardiology: regular, S1S2, no murmurs Gastrointestinal: normoactive bowel sounds, no tenderness, no distended Integumentary: chronic venous stasis Neurologic: no focal deficit, no asterixis, confused Musculoskeletal: other (amputation of R great toe, wound vac noted) Psychiatric: cooperative - Lab 05/05/19 05:46 05/07/19 04:27 Most recent lab results Calcium 8.2 mg/dL (8.4-10.2) L 05/05/19 05:46 Phosphorus 2.80 mg/dL (2.5-4.5) D 04/28/19 05:42 Magnesium 1.80 mg/dL (1.7-2.3) 04/30/19 05:57 64.1 mg/dL (0.1-20.0) H 04/25/19 08:30 44 mmol/L 04/25/19 08:30 Medications & Allergies - Medications Allergies/Adverse Reactions: Allergies No Known Allergies Allergy (Unverified 04/11/19 10:16) Home Medications: Home Medications Medication Instructions Recorded Confirmed Last Taken Type Amiodarone [Cordarone 200 MG TAB] 200 mg PO QDAY 04/24/19 04/24/19 04/23/19 History Clopidogrel [Plavix] 75 mg PO QDAY 04/24/19 04/24/19 04/23/19 History Donepezil [Aricept] 10 mg PO QDAY 04/24/19 04/24/19 04/23/19 History Furosemide [Lasix TAB] 40 mg PO QDAY 04/24/19 04/24/19 04/23/19 History Memantine [Namenda] 10 mg PO TID 04/24/19 04/24/19 04/23/19 History Metoprolol [Lopressor] 25 mg PO QDAY 04/24/19 04/24/19 04/23/19 History Rivaroxaban [Xarelto] 20 mg PO QDAY 04/24/19 04/24/19 04/23/19 History amLODIPine [Norvasc] 10 mg PO DAILY 04/24/19 04/24/19 04/23/19 History Active Medications: Generic Name Dose Route Start Last Admin Trade Name Robyn PRN Reason Stop Dose Admin Acetaminophen 650 mg 04/24/19 22:27 05/06/19 02:47 Tylenol PO 650 mg Q4H PRN Administration Pain MILD(1-3)/Fever >100.5/LEVY Albuterol 2.5 mg 05/05/19 22:07 Proventil IH Q4HRT PRN Shortness Of Breath Amiodarone HCl 200 mg 04/25/19 10:00 05/05/19 09:46 Cordarone PO 200 mg QDAY SAGE Administration Amlodipine Besylate 10 mg 04/25/19 10:00 05/05/19 09:46 Norvasc PO 10 mg DAILY SAGE Administration Aspirin 81 mg 04/25/19 10:00 05/05/19 09:45 Baby Aspirin PO 81 mg QDAY SAGE Administration Dextrose 25 gm 05/04/19 02:00 05/05/19 23:45 D50w (25gm) Vial IV 25 gm PRN PRN Administration Hypoglycemia Donepezil HCl 10 mg 04/25/19 10:00 05/05/19 09:45 Aricept PO 10 mg QDAY SAGE Administration Hydralazine HCl 5 mg 05/04/19 02:19 Apresoline IV Q6H PRN Hypertension Hydromorphone HCl 0.5 mg 04/24/19 22:28 05/01/19 21:40 Dilaudid IV 0.5 mg Q3H PRN Administration Pain , Severe (7-10) Cefepime HCl 1 gm in 100 mls @ 200 mls/hr 05/04/19 09:00 05/06/19 00:27 Maxipime/Ns 1 Gm/100 Ml IV 200 mls/hr Q8H SAGE Administration Protocol Vancomycin HCl 1,500 mg/ 530 mls @ 333.333 mls/hr 05/05/19 10:00 05/06/19 03:49 Sodium Chloride IV 333.333 mls/hr Q18H [facility]AGE Administration Magnesium Oxide 400 mg 04/27/19 10:00 05/05/19 21:03 Mag-Ox PO 400 mg BID SAGE Administration Memantine 10 mg 04/25/19 08:00 05/05/19 20:24 Namenda PO 10 mg TID SAGE Administration Metoclopramide HCl 5 mg 04/26/19 09:00 Reglan IV Q6H PRN Nausea And Vomiting Metoprolol Tartrate 25 mg 04/25/19 10:00 05/05/19 09:46 Lopressor PO 25 mg QDAY SAGE Administration Multivitamins 1 each 04/29/19 10:00 05/05/19 09:46 Theragran Tab PO 1 each QDAY SAGE Administration Ondansetron HCl 4 mg 04/24/19 22:27 Zofran IV Q8H PRN Nausea And Vomiting Oxycodone/Acetaminophen 1 tab 04/24/19 22:28 05/05/19 15:03 Percocet 5/325 PO 1 tab Q6H PRN Administration Pain, Moderate (4-6) Pantoprazole Sodium 40 mg 04/25/19 14:00 05/05/19 09:46 Protonix PO 40 mg QDAY SAGE Administration Sodium Chloride 10 ml 04/25/19 10:00 05/05/19 21:03 Sodium Chloride Flush Syringe 10 Ml IV 10 ml BID SAGE Administration Sodium Chloride 10 ml 04/24/19 22:27 04/30/19 08:29 Sodium Chloride Flush Syringe 10 Ml IV 10 ml PRN PRN Administration LINE FLUSH Sodium Hypochlorite 1 applic 04/26/19 10:00 05/05/19 09:47 Dakin's Half Strength TP 10 applicatio DAILY SAGE Administration
[2019-05-06] MEDS: MEMANTINE 10 MG TAB PO SCH ×3 (09:32→21:04)
[2019-05-06] MEDS: PANTOPRAZOLE 40 MG TAB PO SCH (09:32)
[2019-05-06] MEDS: METOPROLOL TARTRATE 25 MG TAB PO SCH (09:32)
[2019-05-06] MEDS: amLODIPine 10 MG TAB PO SCH (09:33)
[2019-05-06] MEDS: MAGNESIUM OXIDE 400 MG TAB PO SCH ×2 (09:33→21:04)
[2019-05-06] MEDS: ASPIRIN 81 MG TAB CHEW PO SCH (09:33)
[2019-05-06] MEDS: MULTIVITAMINS ,THERAPEUTIC TAB PO SCH (09:33)
[2019-05-06] MEDS: DONEPEZIL 10 MG TAB PO SCH (09:33)
[2019-05-06] MEDS: AMIODARONE 200 MG TAB PO SCH (09:33)
[2019-05-06] MEDS: SODIUM HYPOCHLORITE, DAKIN'S 1/2 STRENGTH (0.25%) 473 ML TOPICAL SOLN TP SCH (09:34)
--- NOTE | 2019-05-06 12:36 | Progress Note ---
Assessment and Plan Cultures: 05/04/2019 blood culture: no growth thus far Assessment: 73 yo M PMHx severe bilateral PAD, CKD, HTN, Afib on AC admitted with R great toe gangrene and cellulitis 1. R great toe gangrene with cellulitis - S/P great toe amputation on 04/24/2019 followed by TMA, right 1st metatarsal head on 05/01/2019. Awaiting possible endovascular revascularization, vascular following, may be done outpatient. 2. Severe bilateral PAD - s/p recent revascularization. Vascular following. Possible endovascular revascularization as outpatient. 3. BRANDIE on CKD - renally dose antibiotics. BRANDIE improving. 4. HTN 5. Afib on AC 6. New fevers: ongoing for the last 2-3 days. blood cultures negative thus far. source: ?right middle finger paronychia v/s R great toe stump wound. Patient was off abx on 05/03/2019 but abx were restarted on 05/04/2019. Seen by ortho, recs noted. Recs: - new fevers, inspite of antibiotics, could be related to right middle finger paronychia. Ortho following - continue wound care of R great toe stump wound, now has WoundVAC - given drowsiness, will d/c Cefepime and switch to Ceftriaxone given potential neurotoxicity - continue IV Vancomycin - follow up blood cultures d/w Dr. Corwin Vernon MD [facility] C: [phone] Subjective Date of service: 05/06/19 Principal diagnosis: Anemia Interval history: Still febrile. Developed SOB last night requiring lasix. More drowsy today. Objective - Exam Narrative Exam: Physical Exam: Constitutional: drowsy but can be awakened. No acute distress Head, Ears, Nose: Normocephalic, atraumatic. External ears, nose normal Eyes: Conjunctivae/corneas clear. No icterus. No ptosis. Neck: Supple, no meningeal signs Cardiovascular: S1, S2 normal. Respiratory: Good air entry, clear to auscultation bilaterally GI: Soft, non-tender; bowel sounds normal. No peritoneal signs. Triplett + Musculoskeletal: No pedal edema, no cyanosis. R foot tenderness at surgical site, great toe amputation site with a deep wound, dark base. left leg tenderness much improved. Right middle finger with paronychia Skin: No rash or abscess Hem/Lymphatic: No palpable cervical or supraclavicular nodes. No lymphangitis Psych: drowsy Neurological: drowsy, but can be awakened - Constitutional Vitals: Vital Signs Temp Pulse Resp BP Pulse Ox 100.8 F H 109 H 20 120/62 98 05/06/19 07:37 05/06/19 07:37 05/06/19 07:37 05/06/19 07:37 05/06/19 07:37 Temperature -Last 24 Hours Temperature 100.8 F Temperature 102.9 F Temperature 102.7 F Temperature 99.0 F Temperature 99.8 F - Labs CBC & Chem 7: 05/05/19 05:46 05/06/19 01:07 Labs: Abnormal lab results 05/05/19 05/05/19 05/05/19 Range/Units 17:10 23:35 23:41 Glucose (75-100) mg/dL POC Glucose 145 H < 40 L < 40 L (70-105) 05/06/19 05/06/19 05/06/19 Range/Units 01:07 01:07 06:24 Glucose 138 H (75-100) mg/dL POC Glucose 188 H 124 H (70-105) 05/06/19 Range/Units 11:49 Glucose (75-100) mg/dL POC Glucose 147 H (70-105)
--- NOTE | 2019-05-06 14:31 | Progress Note ---
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 Subjective Date of service: 05/01/19 Patient Reports: Positive: no new complaints Objective Vital Signs - 12hr 05/06/19 05/06/19 05/06/19 02:32 02:33 02:47 Temperature 102.9 F H Pulse Rate 99 H 94 H Respiratory 22 16 Rate Blood Pressure 124/46 O2 Sat by Pulse 88 100 Oximetry 05/06/19 05/06/19 07:26 07:37 Temperature 100.8 F H Pulse Rate 109 H Respiratory 20 Rate Blood Pressure 120/62 O2 Sat by Pulse 99 98 Oximetry - Integumentary other (Right foot wound has a wound vac in place.) - Labs 05/05/19 05:46 05/06/19 01:07 Diabetes panel 05/06/19 Range/Units 01:07 Glucose 138 H (75-100) mg/dL Pituitary panel 05/06/19 Range/Units 01:07 Glucose 138 H (75-100) mg/dL Adrenal panel 05/06/19 Range/Units 01:07 Glucose 138 H (75-100) mg/dL
--- NOTE | 2019-05-06 14:43 | Progress Note ---
Assessment and Plan Assessment and plan: --R great toe gangrene with cellulitis - Continue antibiotics per ID. Continue wound care, wound VAC in place. --Right third finger paronychia/cellulitis. Ortho evaluation noted and appreciated . Continue current management --Sepsis. Etiology secondary to above. Patient with new temperature spike this morning. ID resumed antibiotics. --Severe bilateral PAD - s/p recent revascularization. Vascular following. As above. --Vasomotor BRANDIE on CKD :. BRANDIE improving. Follow-up BMP. CT abdomen showed distended bladder and hydronephrosis. --Obstructive uropathy. Urology evaluated at admission, Patient scheduled to discharge with Triplett catheter and follow up with urology as an outpatient --HTN. Continue antihypertensive medications. --Afib. Resume anticoagulation per cardiology. --Acute blood loss anemia. EGD and colonoscopy revealed no evidence of GI blood loss. --Sigmoid diverticulosis. Stable. --Dementia; continue Namenda, supportive care Consults and recommendations noted and appreciated Brief History and hospital course: Patient is a 73 yo man with a history of hypertension, Afib on Xarelto, AOCD, CKD 3-4, Dementia and PAD s/p recent RLE revascularization completed 2 weeks ago with revascularization of the right popliteal and tibioperoneal trunk from a left REGROOVER approach who came from Dr. Blake's [facility] office to [facility] ED with the concern for possible sepsis from a gangrenous right great toe. The patient has a history of bilateral critical limb ischemia and had revascularization done about 2 weeks ago. The patient also had an injury to the right great toe in which he hit it on some furniture and this also happened about 2 weeks ago. Since that time it has become black and necrotic with some oozing or drainage. The patient was scheduled to have a right great toe amputation done tomorrow, he was seen in the vascular office and he was ill-appearing and was sent into the emergency department for further evaluation. At the [facility] office, patient was fo und to have mild drop in hemoglobin and ARF. Patient was sent to the hospital for further evaluation. Dr. Orourke who will plan on performing amputation tomorrow. * CT abdomen IMPRESSION: Markedly distended bladder and mild bilateral hydronephrosis. Correlate for bladder outlet obstruction. Small gallstone. Scattered liver hypodensities consistent with small cysts or hemangiomas. No acute inflammatory process is identified History Interval history: Patient seen and examined medical records reviewed Patient feels slightly better no new complaints Hospitalist Physical - Constitutional Vitals: Temp Pulse Resp BP Pulse Ox 100.8 F H 109 H 20 120/62 98 05/06/19 07:37 05/06/19 07:37 05/06/19 07:37 05/06/19 07:37 05/06/19 07:37 General appearance: Present: no acute distress, well-nourished - EENT Eyes: Present: PERRL, EOM intact - Neck Neck: Present: supple, normal ROM - Respiratory Respiratory effort: normal Respiratory: bilateral: diminished, negative: rales, rhonchi, wheezing - Cardiovascular Rhythm: regular Heart Sounds: Present: S1 & S2 - Extremities Extremities: no ischemia, No edema - Abdominal General gastrointestinal: soft, non-tender, non-distended, normal bowel sounds - Integumentary Integumentary: Present: clear, warm - Psychiatric Psychiatric: appropriate mood/affect, cooperative - Neurologic Neurologic: CNII-XII intact, moves all extremities Results - Labs CBC & Chem 7: 05/05/19 05:46 05/07/19 04:27 Labs: Laboratory Last Values WBC 7.8 K/mm3 (4.5-11.0) 05/05/19 05:46 RBC 3.02 M/mm3 (3.65-5.03) L 05/05/19 05:46 Hgb 8.9 gm/dl (11.8-15.2) L 05/05/19 05:46 Hct 27.0 % (35.5-45.6) L 05/05/19 05:46 MCV 89 fl (84-94) 05/05/19 05:46 MCH 29 pg (28-32) 05/05/19 05:46 MCHC 33 % (32-34) 05/05/19 05:46 RDW 16.5 % (13.2-15.2) H 05/05/19 05:46 Plt Count 225 K/mm3 (140-440) 05/05/19 05:46 Lymph % (Auto) 7.2 % (13.4-35.0) L 05/05/19 05:46 Bennett % (Auto) 5.9 % (0.0-7.3) 05/05/19 05:46 Eos % (Auto) 1.2 % (0.0-4.3) 05/05/19 05:46 Baso % (Auto) 0.8 % (0.0-1.8) 05/05/19 05:46 Lymph # 0.6 K/mm3 (1.2-5.4) L 05/05/19 05:46 Bennett # 0.5 K/mm3 (0.0-0.8) 05/05/19 05:46 Eos # 0.1 K/mm3 (0.0-0.4) 05/05/19 05:46 Baso # 0.1 K/mm3 (0.0-0.1) 05/05/19 05:46 Seg Neutrophils % 84.9 % (40.0-70.0) H 05/05/19 05:46 Seg Neutrophils # 6.7 K/mm3 (1.8-7.7) 05/05/19 05:46 PT 21.2 Sec. (12.2-14.9) H 04/24/19 12:55 INR 1.88 (0.87-1.13) H 04/24/19 12:55 APTT 41.8 Sec. (24.2-36.6) H 04/24/19 12:55 Sodium 141 mmol/L (137-145) 05/05/19 05:46 Potassium 3.4 mmol/L (3.6-5.0) L 05/05/19 05:46 Chloride 104.9 mmol/L (98-107) 05/05/19 05:46 Carbon Dioxide 21 mmol/L (22-30) L 05/05/19 05:46 19 mmol/L 05/05/19 05:46 BUN 17 mg/dL (9-20) 05/05/19 05:46 1.3 mg/dL (0.8-1.5) 05/05/19 05:46 Estimated GFR > 60 ml/min 05/05/19 05:46 13 % 05/05/19 05:46 Glucose 138 mg/dL (75-100) H 05/06/19 01:07 POC Glucose 147 (70-105) H 05/06/19 11:49 5.4 % (4-6) 04/25/19 06:06 Lactic Acid 1.80 mmol/L (0.7-2.0) 04/24/19 12:55 Calcium 8.2 mg/dL (8.4-10.2) L 05/05/19 05:46 Phosphorus 2.80 mg/dL (2.5-4.5) D 04/28/19 05:42 Magnesium 1.80 mg/dL (1.7-2.3) 04/30/19 05:57 0.50 mg/dL (0.1-1.2) 04/25/19 06:06 AST 19 units/L (5-40) 04/25/19 06:06 ALT 10 units/L (7-56) 04/25/19 06:06 86 units/L (35-129) 04/25/19 06:06 0.027 ng/mL (0.00-0.029) 04/24/19 16:09 NT-Pro-B Natriuret Pep 6067 pg/mL (0-900) H 04/24/19 12:55 6.9 g/dL (6.3-8.2) 04/25/19 06:06 3.5 g/dL (3.9-5) L 04/25/19 06:06 1.0 % 04/25/19 06:06 Triglycerides 59 mg/dL (2-149) 04/24/19 12:55 Cholesterol 114 mg/dL (50-199) 04/24/19 12:55 70 mg/dL (50-130) 04/24/19 12:55 47 mg/dL (40-59) 04/24/19 12:55 2.42 % 04/24/19 12:55 Yellow (Yellow) 04/25/19 05:20 Clear (Clear) 04/25/19 05:20 8.0 (5.0-7.0) H 04/25/19 05:20 Ur Specific [place] 1.009 (1.003-1.030) 04/25/19 05:20 <15 mg/dl mg/dL (Negative) 04/25/19 05:20 Neg mg/dL (Negative) 04/25/19 05:20 Neg mg/dL (Negative) 04/25/19 05:20 Lg (Negative) 04/25/19 05:20 Neg (Negative) 04/25/19 05:20 Neg (Negative) 04/25/19 05:20 < 2.0 mg/dL (<2.0) 04/25/19 05:20 Ur Leukocyte Esterase Neg (Negative) 04/25/19 05:20 2.0 /HPF (0.0-6.0) 04/25/19 05:20 15.0 /HPF (0.0-6.0) 04/25/19 05:20 U Epithel Cells (Auto) < 1.0 /HPF (0-13.0) 04/25/19 05:20 None seen (None Seen) 04/25/19 08:30 64.1 mg/dL (0.1-20.0) H 04/25/19 08:30 44 mmol/L 04/25/19 08:30 Vancomycin Trough 9.5 ug/mL (5.0-20.0) 05/04/19 14:55 Random Vancomycin 15.3 ug/mL (0-40.0) 04/27/19 03:53 Blood Type B POSITIVE 05/01/19 Unknown Antibody Screen Negative 05/01/19 Unknown Crossmatch See Detail 05/01/19 Unknown Active Medications - Current Medications Current Medications: Generic Name Dose Route Start Last Admin Trade Name Freq PRN Reason Stop Dose Admin Acetaminophen 650 mg 04/24/19 22:27 05/06/19 09:33 Tylenol PO 650 mg Q4H PRN Administration Pain MILD(1-3)/Fever >100.5/LEVY Albuterol 2.5 mg 05/05/19 22:07 Proventil IH Q4HRT PRN Shortness Of Breath Amiodarone HCl 200 mg 04/25/19 10:00 05/06/19 09:33 Cordarone PO 200 mg QDAY SAGE Administration Amlodipine Besylate 10 mg 04/25/19 10:00 05/06/19 09:33 Norvasc PO 10 mg DAILY SAGE Administration Aspirin 81 mg 04/25/19 10:00 05/06/19 09:33 Baby Aspirin PO 81 mg QDAY SAGE Administration Dextrose 25 gm 05/04/19 02:00 05/05/19 23:45 D50w (25gm) Vial IV 25 gm PRN PRN Administration Hypoglycemia Donepezil HCl 10 mg 04/25/19 10:00 05/06/19 09:33 Aricept PO 10 mg QDAY SAGE Administration Hydralazine HCl 5 mg 05/04/19 02:19 Apresoline IV Q6H PRN Hypertension Hydromorphone HCl 0.5 mg 04/24/19 22:28 05/01/19 21:40 Dilaudid IV 0.5 mg Q3H PRN Administration Pain , Severe (7-10) Vancomycin HCl 1,500 mg/ 530 mls @ 333.333 mls/hr 05/05/19 10:00 05/06/19 03:49 Sodium Chloride IV 333.333 mls/hr Q18H SAGE Administration Ceftriaxone Sodium 1 gm in 50 mls @ 100 mls/hr 05/07/19 10:00 Rocephin/Ns 1 Gm/50 Ml IV Q24HR [facility] Protocol Magnesium Oxide 400 mg 04/27/19 10:00 05/06/19 09:33 Mag-Ox PO 400 mg BID SAGE Administration Memantine 10 mg 04/25/19 08:00 05/06/19 13:42 Namenda PO 10 mg TID SAGE Administration Metoclopramide HCl 5 mg 04/26/19 09:00 Reglan IV Q6H PRN Nausea And Vomiting Metoprolol Tartrate 25 mg 04/25/19 10:00 05/06/19 09:32 Lopressor PO 25 mg QDAY SAGE Administration Multivitamins 1 each 04/29/19 10:00 05/06/19 09:33 Theragran Tab PO 1 each QDAY SAGE Administration Ondansetron HCl 4 mg 04/24/19 22:27 Zofran IV Q8H PRN Nausea And Vomiting Oxycodone/Acetaminophen 1 tab 04/24/19 22:28 05/05/19 15:03 Percocet 5/325 PO 1 tab Q6H PRN Administration Pain, Moderate (4-6) Pantoprazole Sodium 40 mg 04/25/19 14:00 05/06/19 09:32 Protonix PO 40 mg QDAY SAGE Administration Sodium Chloride 10 ml 04/25/19 10:00 05/06/19 09:34 Sodium Chloride Flush Syringe 10 Ml IV 10 ml BID SAGE Administration Sodium Chloride 10 ml 04/24/19 22:27 04/30/19 08:29 Sodium Chloride Flush Syringe 10 Ml IV 10 ml PRN PRN Administration LINE FLUSH Sodium Hypochlorite 1 applic 04/26/19 10:00 05/06/19 09:34 Dakin's Half Strength TP 1 applicatio DAILY SAGE Administration Nutrition/Malnutrition Assess - Dietary Evaluation Nutrition/Malnutrition Findings: Nutrition Notes Start: 05/01/19 10:50 Freq: Status: Active Protocol: Document 05/01/19 10:50 KS (Rec: 05/01/19 11:24 KS [id number]) Co-Sign 05/01/19 10:50 LP Nutrition Notes Need for Assessment generated from: LOS Initial or Follow up Brief Note Current Diagnosis CKD (stage V CKD),Hypertension Other Pertinent Diagnosis Afib on AC, bi PAD, ARF toe amputation Current Diet NPO after midnight [place] Body Weight (kg) 0 Subjective/Other Information Pt consistently eating 100% of meals. Nutrition Intervention Revisit per MD consult or patient Sign Off request:
[2019-05-06] MEDS: oxyCODONE /ACETAMINOPHEN 5-325MG TAB PO PRN (20:47)
[2019-05-07] MEDS: ACETAMINOPHEN 325 MG TAB PO PRN ×2 (02:56→21:33)
[2019-05-07 05:50] LABS: BUN/Creatinine Ratio 16; Blood Urea Nitrogen 21 mg/dL (9-20); Hemolysis Index 2
[2019-05-07] MEDS: MEMANTINE 10 MG TAB PO SCH ×3 (08:55→19:52)
[2019-05-07] MEDS: MAGNESIUM OXIDE 400 MG TAB PO SCH ×3 (08:56→21:33)
[2019-05-07] MEDS: DONEPEZIL 10 MG TAB PO SCH ×2 (08:56→10:00)
[2019-05-07] MEDS: AMIODARONE 200 MG TAB PO SCH ×2 (08:56→10:00)
[2019-05-07] MEDS: PANTOPRAZOLE 40 MG TAB PO SCH ×2 (08:56→10:00)
[2019-05-07] MEDS: ASPIRIN 81 MG TAB CHEW PO SCH ×2 (08:56→10:00)
[2019-05-07] MEDS: amLODIPine 10 MG TAB PO SCH ×2 (08:56→10:00)
[2019-05-07] MEDS: METOPROLOL TARTRATE 25 MG TAB PO SCH ×2 (08:57→10:00)
[2019-05-07] MEDS: MULTIVITAMINS ,THERAPEUTIC TAB PO SCH ×2 (08:57→10:00)
[2019-05-07] MEDS: SODIUM HYPOCHLORITE, DAKIN'S 1/2 STRENGTH (0.25%) 473 ML TOPICAL SOLN TP SCH ×2 (08:58→10:00)
[2019-05-07] MEDS: cefTRIAXone/NS 1 GM/50 ML 1 GM/50 ML BAG IV SCH (09:02)
--- NOTE | 2019-05-07 11:45 | Progress Note ---
Assessment and Plan Cultures: 05/04/2019 blood culture: no growth thus far Assessment: 73 yo M PMHx severe bilateral PAD, CKD, HTN, Afib on AC admitted with R great toe gangrene and cellulitis 1. R great toe gangrene with cellulitis - S/P great toe amputation on 04/24/2019 followed by TMA, right 1st metatarsal head on 05/01/2019. Awaiting possible endovascular revascularization, vascular following, may be done outpatient. 2. Severe bilateral PAD - s/p recent revascularization. Vascular following. Possible endovascular revascularization as outpatient. 3. BRANDIE on CKD - renally dose antibiotics. BRANDIE improving. 4. HTN 5. Afib on AC 6. New fevers: ongoing for the last 2-3 days. blood cultures negative thus far. source: ?right middle finger paronychia v/s R great toe stump wound. Patient was off abx on 05/03/2019 but abx were restarted on 05/04/2019. Seen by ortho, recs noted. Recs: - ongoing fevers, inspite of antibiotics, could be related to right middle finger paronychia - continue wound care of R great toe stump wound, now has WoundVAC - continue empiric IV Ceftriaxone - continue IV Vancomycin with renal monitoring - follow up blood cultures Taylor Vernon MD [facility] C: [phone] Subjective Date of service: 05/07/19 Principal diagnosis: Anemia Interval history: Continues to be febrile. Denies any new complaints. Mental status is better today. Objective - Exam Narrative Exam: Physical Exam: Constitutional: awake, alert. No acute distress Head, Ears, Nose: Normocephalic, atraumatic. External ears, nose normal Eyes: Conjunctivae/corneas clear. No icterus. No ptosis. Neck: Supple, no meningeal signs Cardiovascular: S1, S2 normal. Respiratory: Good air entry, clear to auscultation bilaterally GI: Soft, non-tender; bowel sounds normal. No peritoneal signs. Triplett + Musculoskeletal: No pedal edema, no cyanosis. R foot tenderness at surgical site, great toe amputation site with a woundVAC. left leg tenderness much improved. Right middle finger with paronychia Skin: No rash or abscess Hem/Lymphatic: No palpable cervical or supraclavicular nodes. No lymphangitis Psych: mood ok, affect normal Neurological: awake, alert, no focal deficits - Constitutional Vitals: Vital Signs Temp Pulse Resp BP Pulse Ox 100.0 F H 67 18 138/56 94 05/07/19 07:55 05/07/19 07:55 05/07/19 07:55 05/07/19 07:55 05/07/19 08:30 Temperature -Last 24 Hours Temperature 100.0 F Temperature 99.5 F Temperature 101.9 F Temperature 99.1 F Temperature 98.9 F - Labs CBC & Chem 7: 05/05/19 05:46 05/07/19 04:27 Labs: Abnormal lab results 05/06/19 05/07/19 05/07/19 Range/Units 11:49 00:32 04:27 Potassium 3.5 L (3.6-5.0) mmol/L BUN 21 H (9-20) mg/dL POC Glucose 147 H 125 H (70-105) Calcium 8.0 L (8.4-10.2) mg/dL 05/07/19 Range/Units 11:47 Potassium (3.6-5.0) mmol/L BUN (9-20) mg/dL POC Glucose < 40 L (70-105) Calcium (8.4-10.2) mg/dL
--- NOTE | 2019-05-07 16:17 | Progress Note ---
Assessment and Plan Assessment and plan: --R great toe gangrene with cellulitis - Continue antibiotics per ID. Continue wound care, wound VAC in place. --Right third finger paronychia/cellulitis. Ortho evaluation noted and appreciated . Continue current management --Sepsis. Etiology secondary to above. Patient with new temperature spike this morning. ID resumed antibiotics. --Severe bilateral PAD - s/p recent revascularization. Vascular following. As above. --Vasomotor BRANDIE on CKD :. BRANDIE improving. Follow-up BMP. CT abdomen showed distended bladder and hydronephrosis. --Obstructive uropathy. Urology evaluated at admission, Patient scheduled to discharge with Triplett catheter and follow up with urology as an outpatient --HTN. Continue antihypertensive medications. --Afib. Resume anticoagulation per cardiology. --Acute blood loss anemia. EGD and colonoscopy revealed no evidence of GI blood loss. --Sigmoid diverticulosis. Stable. --Dementia; continue Namenda, supportive care Consults and recommendations noted and appreciated Brief History and hospital course: Patient is a 73 yo man with a history of hypertension, Afib on Xarelto, AOCD, CKD 3-4, Dementia and PAD s/p recent RLE revascularization completed 2 weeks ago with revascularization of the right popliteal and tibioperoneal trunk from a left [employer] approach who came from Dr. Blake's [facility] office to [facility] ED with the concern for possible sepsis from a gangrenous right great toe. The patient has a history of bilateral critical limb ischemia and had revascularization done about 2 weeks ago. The patient also had an injury to the right great toe in which he hit it on some furniture and this also happened about 2 weeks ago. Since that time it has become black and necrotic with some oozing or drainage. The patient was scheduled to have a right great toe amputation done tomorrow, he was seen in the vascular office and he was ill-appearing and was sent into the emergency department for further evaluation. At the [facility] office, patient was fo und to have mild drop in hemoglobin and ARF. Patient was sent to the hospital for further evaluation. Dr. Orourke who will plan on performing amputation tomorrow. * CT abdomen IMPRESSION: Markedly distended bladder and mild bilateral hydronephrosis. Correlate for bladder outlet obstruction. Small gallstone. Scattered liver hypodensities consistent with small cysts or hemangiomas. No acute inflammatory process is identified History Interval history: patient seen and examined, No new complaints Hospitalist Physical - Constitutional Vitals: Temp Pulse Resp BP Pulse Ox 97.6 F 88 18 138/48 95 05/07/19 13:47 05/07/19 13:47 05/07/19 13:47 05/07/19 13:47 05/07/19 13:47 General appearance: Present: no acute distress, well-nourished - EENT Eyes: Present: PERRL, EOM intact - Neck Neck: Present: supple, normal ROM - Respiratory Respiratory effort: normal Respiratory: bilateral: diminished, negative: rales, rhonchi, wheezing - Cardiovascular Rhythm: regular - Extremities Extremities: no ischemia, pulses intact - Abdominal General gastrointestinal: soft, non-tender, non-distended, normal bowel sounds - Integumentary Integumentary: Present: clear, warm - Psychiatric Psychiatric: appropriate mood/affect, cooperative - Neurologic Neurologic: CNII-XII intact, moves all extremities Results - Labs CBC & Chem 7: 05/10/19 12:11 05/10/19 04:54 Labs: Laboratory Last Values WBC 7.8 K/mm3 (4.5-11.0) 05/05/19 05:46 RBC 3.02 M/mm3 (3.65-5.03) L 05/05/19 05:46 Hgb 8.9 gm/dl (11.8-15.2) L 05/05/19 05:46 Hct 27.0 % (35.5-45.6) L 05/05/19 05:46 MCV 89 fl (84-94) 05/05/19 05:46 MCH 29 pg (28-32) 05/05/19 05:46 MCHC 33 % (32-34) 05/05/19 05:46 RDW 16.5 % (13.2-15.2) H 05/05/19 05:46 Plt Count 225 K/mm3 (140-440) 05/05/19 05:46 Lymph % (Auto) 7.2 % (13.4-35.0) L 05/05/19 05:46 [place] % (Auto) 5.9 % (0.0-7.3) 05/05/19 05:46 Eos % (Auto) 1.2 % (0.0-4.3) 05/05/19 05:46 Baso % (Auto) 0.8 % (0.0-1.8) 05/05/19 05:46 Lymph # 0.6 K/mm3 (1.2-5.4) L 05/05/19 05:46 [place] # 0.5 K/mm3 (0.0-0.8) 05/05/19 05:46 Eos # 0.1 K/mm3 (0.0-0.4) 05/05/19 05:46 Baso # 0.1 K/mm3 (0.0-0.1) 05/05/19 05:46 Seg Neutrophils % 84.9 % (40.0-70.0) H 05/05/19 05:46 Seg Neutrophils # 6.7 K/mm3 (1.8-7.7) 05/05/19 05:46 PT 21.2 Sec. (12.2-14.9) H 04/24/19 12:55 INR 1.88 (0.87-1.13) H 04/24/19 12:55 APTT 41.8 Sec. (24.2-36.6) H 04/24/19 12:55 Sodium 138 mmol/L (137-145) 05/07/19 04:27 Potassium 3.5 mmol/L (3.6-5.0) L 05/07/19 04:27 Chloride 104.7 mmol/L (98-107) 05/07/19 04:27 Carbon Dioxide 22 mmol/L (22-30) 05/07/19 04:27 15 mmol/L 05/07/19 04:27 BUN 21 mg/dL (9-20) H 05/07/19 04:27 1.3 mg/dL (0.8-1.5) 05/07/19 04:27 Estimated GFR > 60 ml/min 05/07/19 04:27 16 % 05/07/19 04:27 Glucose 96 mg/dL (75-100) 05/07/19 04:27 POC Glucose 70 (70-105) 05/07/19 11:55 5.4 % (4-6) 04/25/19 06:06 Lactic Acid 1.80 mmol/L (0.7-2.0) 04/24/19 12:55 Calcium 8.0 mg/dL (8.4-10.2) L 05/07/19 04:27 Phosphorus 2.80 mg/dL (2.5-4.5) D 04/28/19 05:42 Magnesium 1.80 mg/dL (1.7-2.3) 04/30/19 05:57 0.50 mg/dL (0.1-1.2) 04/25/19 06:06 AST 19 units/L (5-40) 04/25/19 06:06 ALT 10 units/L (7-56) 04/25/19 06:06 86 units/L (35-129) 04/25/19 06:06 0.027 ng/mL (0.00-0.029) 04/24/19 16:09 NT-Pro-B Natriuret Pep 6067 pg/mL (0-900) H 04/24/19 12:55 6.9 g/dL (6.3-8.2) 04/25/19 06:06 3.5 g/dL (3.9-5) L 04/25/19 06:06 1.0 % 04/25/19 06:06 Triglycerides 59 mg/dL (2-149) 04/24/19 12:55 Cholesterol 114 mg/dL (50-199) 04/24/19 12:55 70 mg/dL (50-130) 04/24/19 12:55 47 mg/dL (40-59) 04/24/19 12:55 2.42 % 04/24/19 12:55 Yellow (Yellow) 04/25/19 05:20 Clear (Clear) 04/25/19 05:20 8.0 (5.0-7.0) H 04/25/19 05:20 Ur Specific [place] 1.009 (1.003-1.030) 04/25/19 05:20 <15 mg/dl mg/dL (Negative) 04/25/19 05:20 Neg mg/dL (Negative) 04/25/19 05:20 Neg mg/dL (Negative) 04/25/19 05:20 Lg (Negative) 04/25/19 05:20 Neg (Negative) 04/25/19 05:20 Neg (Negative) 04/25/19 05:20 < 2.0 mg/dL (<2.0) 04/25/19 05:20 Ur Leukocyte Esterase Neg (Negative) 04/25/19 05:20 2.0 /HPF (0.0-6.0) 04/25/19 05:20 15.0 /HPF (0.0-6.0) 04/25/19 05:20 U Epithel Cells (Auto) < 1.0 /HPF (0-13.0) 04/25/19 05:20 None seen (None Seen) 04/25/19 08:30 64.1 mg/dL (0.1-20.0) H 04/25/19 08:30 44 mmol/L 04/25/19 08:30 Vancomycin Trough 12.4 ug/mL (5.0-20.0) 05/07/19 14:34 Random Vancomycin 15.3 ug/mL (0-40.0) 04/27/19 03:53 Blood Type B POSITIVE 05/01/19 Unknown Antibody Screen Negative 05/01/19 Unknown Crossmatch See Detail 05/01/19 Unknown Active Medications - Current Medications Current Medications: Generic Name Dose Route Start Last Admin Trade Name Freq PRN Reason Stop Dose Admin Acetaminophen 650 mg 04/24/19 22:27 05/07/19 02:56 Tylenol PO 650 mg Q4H PRN Administration Pain MILD(1-3)/Fever >100.5/LEVY Albuterol 2.5 mg 05/05/19 22:07 Proventil IH Q4HRT PRN Shortness Of Breath Amiodarone HCl 200 mg 04/25/19 10:00 05/07/19 10:00 Cordarone PO Not Given QDAY [facility] Amlodipine Besylate 10 mg 04/25/19 10:00 05/07/19 10:00 Norvasc PO Not Given DAILY [facility] Aspirin 81 mg 04/25/19 10:00 05/07/19 10:00 Baby Aspirin PO Not Given QDAY [facility] Dextrose 25 gm 05/04/19 02:00 05/05/19 23:45 D50w (25gm) Vial IV 25 gm PRN PRN Administration Hypoglycemia Donepezil HCl 10 mg 04/25/19 10:00 05/07/19 10:00 Aricept PO Not Given QDAY [facility] Hydralazine HCl 5 mg 05/04/19 02:19 Apresoline IV Q6H PRN Hypertension Hydromorphone HCl 0.5 mg 04/24/19 22:28 05/01/19 21:40 Dilaudid IV 0.5 mg Q3H PRN Administration Pain , Severe (7-10) Vancomycin HCl 1,500 mg/ 530 mls @ 333.333 mls/hr 05/05/19 10:00 05/06/19 21:04 Sodium Chloride IV 333.333 mls/hr Q18H [facility] Administration Ceftriaxone Sodium 1 gm in 50 mls @ 100 mls/hr 05/07/19 10:00 05/07/19 09:02 Rocephin/Ns 1 Gm/50 Ml IV 100 mls/hr Q24HR [facility] Administration Protocol Magnesium Oxide 400 mg 04/27/19 10:00 05/07/19 10:00 Mag-Ox PO Not Given BID [facility] Memantine 10 mg 04/25/19 08:00 05/07/19 14:06 Namenda PO 10 mg TID [facility] Administration Metoclopramide HCl 5 mg 04/26/19 09:00 Reglan IV Q6H PRN Nausea And Vomiting Metoprolol Tartrate 25 mg 04/25/19 10:00 05/07/19 10:00 Lopressor PO Not Given QDAY [facility] Multivitamins 1 each 04/29/19 10:00 05/07/19 10:00 Theragran Tab PO Not Given QDAY [facility] Ondansetron HCl 4 mg 04/24/19 22:27 Zofran IV Q8H PRN Nausea And Vomiting Oxycodone/Acetaminophen 1 tab 04/24/19 22:28 05/06/19 20:47 Percocet 5/325 PO 1 tab Q6H PRN Administration Pain, Moderate (4-6) Pantoprazole Sodium 40 mg 04/25/19 14:00 05/07/19 10:00 Protonix PO Not Given QDAY [facility] Rivaroxaban 15 mg 05/08/19 09:00 Xarelto PO DAILY@0800 [facility] Sodium Chloride 10 ml 04/25/19 10:00 05/07/19 10:00 Sodium Chloride Flush Syringe 10 Ml IV Not Given BID [facility] Sodium Chloride 10 ml 04/24/19 22:27 04/30/19 08:29 Sodium Chloride Flush Syringe 10 Ml IV 10 ml PRN PRN Administration LINE FLUSH Sodium Hypochlorite 1 applic 04/26/19 10:00 05/07/19 10:00 Dakin's Half Strength TP Not Given DAILY [facility] Nutrition/Malnutrition Assess - Dietary Evaluation Nutrition/Malnutrition Findings: Nutrition Notes Start: 05/01/19 10:50 Freq: Status: Active Protocol: Document 05/01/19 10:50 KS (Rec: 05/01/19 11:24 KS [id number]) Co-Sign 05/01/19 10:50 LP Nutrition Notes Need for Assessment generated from: LOS Initial or Follow up Brief Note Current Diagnosis CKD (stage V CKD),Hypertension Other Pertinent Diagnosis Afib on AC, bi PAD, ARF toe amputation Current Diet NPO after midnight [place] Body Weight (kg) 0 Subjective/Other Information Pt consistently eating 100% of meals. Nutrition Intervention Revisit per MD consult or patient Sign Off request:
[2019-05-07] MEDS: VANCOMYCIN 1,500 MG in SODIUM CHLORIDE 0.9% 500 ML 500 ML IV SCH (17:22)
--- NOTE | 2019-05-07 23:37 | Progress Note ---
Assessment and Plan 1. Acute kidney injury: Vasomotor BRANDIE superimposed on CKD in the setting of obstrutive uropathy. CT abdomen showed distended bladder and hydronephrosis. Renal function is better. Monitor renal function. Avoid nephrotoxic agents. Meds dosage based on GFR. 2. FEN: Replete K. Monitor lytes. 3. Obstructive Uropathy: S/p delgado catheter. 4. PAD: S/p amputation of R great toe. S/p TMA, right 1st metatarsal head. 5. New fever: Followed by ID. 6. Normochromic anemia: POA. EGD negative. 7. Paroxysmal A.fib: SR now. 8. Hypertension. 9. Dementia. Subjective Date of service: 05/07/19 Principal diagnosis: Anemia Interval history: Patient was seen and examined at the bedside. Doing ok. Objective - Vital Signs Vital signs: Vital Signs - 12hr 05/07/19 05/07/19 13:47 20:53 Temperature 97.6 F 103.0 F H Pulse Rate 88 96 H Respiratory 18 28 H Rate Blood Pressure 138/48 134/56 O2 Sat by Pulse 95 95 Oximetry - General Appearance General appearance: well-developed, appears stated age, other (no distress) EENT: ATNC, PERRL, vision intact Neck: supple Respiratory: Present: Clear to Ascultation Cardiology: regular, S1S2, no murmurs Gastrointestinal: normoactive bowel sounds, no tenderness, no distended, other (delgado catheter) Integumentary: chronic venous stasis Neurologic: no focal deficit, no asterixis, confused Musculoskeletal: other (trace LE edema noted, R foot wound vac noted) - Lab 05/05/19 05:46 05/08/19 05:06 Most recent lab results Calcium 8.0 mg/dL (8.4-10.2) L 05/07/19 04:27 Phosphorus 2.80 mg/dL (2.5-4.5) D 04/28/19 05:42 Magnesium 1.80 mg/dL (1.7-2.3) 04/30/19 05:57 64.1 mg/dL (0.1-20.0) H 04/25/19 08:30 44 mmol/L 04/25/19 08:30 Medications & Allergies - Medications Allergies/Adverse Reactions: Allergies No Known Allergies Allergy (Unverified 04/11/19 10:16) Home Medications: Home Medications Medication Instructions Recorded Confirmed Last Taken Type Amiodarone [Cordarone 200 MG TAB] 200 mg PO QDAY 04/24/19 04/24/19 04/23/19 History Clopidogrel [Plavix] 75 mg PO QDAY 04/24/19 04/24/19 04/23/19 History Donepezil [Aricept] 10 mg PO QDAY 04/24/19 04/24/19 04/23/19 History Furosemide [Lasix TAB] 40 mg PO QDAY 04/24/19 04/24/19 04/23/19 History Memantine [Namenda] 10 mg PO TID 04/24/19 04/24/19 04/23/19 History Metoprolol [Lopressor] 25 mg PO QDAY 04/24/19 04/24/19 04/23/19 History Rivaroxaban [Xarelto] 20 mg PO QDAY 04/24/19 04/24/19 04/23/19 History amLODIPine [Norvasc] 10 mg PO DAILY 04/24/19 04/24/19 04/23/19 History Active Medications: Generic Name Dose Route Start Last Admin Trade Name Freq PRN Reason Stop Dose Admin Acetaminophen 650 mg 04/24/19 22:27 05/07/19 21:33 Tylenol PO 650 mg Q4H PRN Administration Pain MILD(1-3)/Fever >100.5/LEVY Albuterol 2.5 mg 05/05/19 22:07 Proventil IH Q4HRT PRN Shortness Of Breath Amiodarone HCl 200 mg 04/25/19 10:00 05/07/19 10:00 Cordarone PO Not Given QDAY [facility] Amlodipine Besylate 10 mg 04/25/19 10:00 05/07/19 10:00 Norvasc PO Not Given DAILY [facility] Aspirin 81 mg 04/25/19 10:00 05/07/19 10:00 Baby Aspirin PO Not Given QDAY [facility] Dextrose 25 gm 05/04/19 02:00 05/05/19 23:45 D50w (25gm) Vial IV 25 gm PRN PRN Administration Hypoglycemia Donepezil HCl 10 mg 04/25/19 10:00 05/07/19 10:00 Aricept PO Not Given QDAY [facility] Hydralazine HCl 5 mg 05/04/19 02:19 Apresoline IV Q6H PRN Hypertension Hydromorphone HCl 0.5 mg 04/24/19 22:28 05/01/19 21:40 Dilaudid IV 0.5 mg Q3H PRN Administration Pain , Severe (7-10) Vancomycin HCl 1,500 mg/ 530 mls @ 333.333 mls/hr 05/05/19 10:00 05/07/19 17:22 Sodium Chloride IV 333.333 mls/hr Q18H [facility] Administration Ceftriaxone Sodium 1 gm in 50 mls @ 100 mls/hr 05/07/19 10:00 05/07/19 09:02 Rocephin/Ns 1 Gm/50 Ml IV 100 mls/hr Q24HR [facility] Administration Protocol Magnesium Oxide 400 mg 04/27/19 10:00 05/07/19 21:33 Mag-Ox PO 400 mg BID [facility] Administration Memantine 10 mg 04/25/19 08:00 05/07/19 19:52 Namenda PO 10 mg TID [facility] Administration Metoclopramide HCl 5 mg 04/26/19 09:00 Reglan IV Q6H PRN Nausea And Vomiting Metoprolol Tartrate 25 mg 04/25/19 10:00 05/07/19 10:00 Lopressor PO Not Given QDAY [facility] Multivitamins 1 each 04/29/19 10:00 05/07/19 10:00 Theragran Tab PO Not Given QDAY [facility] Ondansetron HCl 4 mg 04/24/19 22:27 Zofran IV Q8H PRN Nausea And Vomiting Oxycodone/Acetaminophen 1 tab 04/24/19 22:28 05/06/19 20:47 Percocet 5/325 PO 1 tab Q6H PRN Administration Pain, Moderate (4-6) Pantoprazole Sodium 40 mg 04/25/19 14:00 05/07/19 10:00 Protonix PO Not Given QDAY [facility] Rivaroxaban 15 mg 05/08/19 09:00 Xarelto PO DAILY@0800 [facility] Sodium Chloride 10 ml 04/25/19 10:00 05/07/19 21:33 Sodium Chloride Flush Syringe 10 Ml IV 10 ml BID [facility] Administration Sodium Chloride 10 ml 04/24/19 22:27 04/30/19 08:29 Sodium Chloride Flush Syringe 10 Ml IV 10 ml PRN PRN Administration LINE FLUSH Sodium Hypochlorite 1 applic 04/26/19 10:00 05/07/19 10:00 Dakin's Half Strength TP Not Given DAILY [facility]
[2019-05-08 06:09] LABS: BUN/Creatinine Ratio 15; Blood Urea Nitrogen 18 mg/dL (9-20); Calcium 8.6 mg/dL (8.4-10.2); Hemolysis Index 15
[2019-05-08] MEDS: DEXTROSE 50% IN WATER (25GM) 50 ML VIAL IV PRN ×2 (07:34→22:06)
[2019-05-08] MEDS: MEMANTINE 10 MG TAB PO SCH ×3 (07:45→20:51)
[2019-05-08] MEDS: cefTRIAXone/NS 1 GM/50 ML 1 GM/50 ML BAG IV SCH (09:33)
[2019-05-08] MEDS: PANTOPRAZOLE 40 MG TAB PO SCH (09:34)
[2019-05-08] MEDS: MAGNESIUM OXIDE 400 MG TAB PO SCH ×2 (09:34→22:07)
[2019-05-08] MEDS: AMIODARONE 200 MG TAB PO SCH (09:34)
[2019-05-08] MEDS: MULTIVITAMINS ,THERAPEUTIC TAB PO SCH (09:34)
[2019-05-08] MEDS: DONEPEZIL 10 MG TAB PO SCH (09:34)
[2019-05-08] MEDS: ASPIRIN 81 MG TAB CHEW PO SCH (09:34)
[2019-05-08] MEDS: METOPROLOL TARTRATE 25 MG TAB PO SCH (09:35)
[2019-05-08] MEDS: amLODIPine 10 MG TAB PO SCH (09:36)
[2019-05-08] MEDS: VANCOMYCIN 1,500 MG in SODIUM CHLORIDE 0.9% 500 ML 500 ML IV SCH (09:41)
[2019-05-08] MEDS: RIVAROXABAN 15 MG TAB PO SCH (09:41)
[2019-05-08] MEDS: ACETAMINOPHEN 325 MG TAB PO PRN (09:57)
--- NOTE | 2019-05-08 10:47 | Progress Note ---
Assessment and Plan 1. Acute kidney injury: Vasomotor BRANDIE superimposed on CKD in the setting of obstrutive uropathy. CT abdomen showed distended bladder and hydronephrosis. Renal function is better. Monitor renal function. Avoid nephrotoxic agents. Meds dosage based on GFR. 2. FEN: Monitor lytes. 3. Obstructive Uropathy: S/p delgado catheter. 4. PAD: S/p amputation of R great toe. S/p TMA, right 1st metatarsal head. 5. New fever: Followed by ID. 6. Normochromic anemia: POA. EGD negative. 7. Paroxysmal A.fib: SR now. 8. Hypertension. 9. Dementia. Examination: General appearance: alert, well-developed, appears stated age, not in distress EENT: ATNC, HAJA, hearing diminished Neck: supple Respiratory: Clear to Ascultation Cardiology: regular, S1S2, no murmurs Gastrointestinal: normoactive bowel sounds, no tenderness, no distended Integumentary: b/l LE chronic venous stasis Neurologic: no focal deficit, no asterixis Musculoskeletal: other (amputation of R great toe) Subjective Date of service: 05/08/19 Principal diagnosis: Anemia Interval history: Patient was seen and examined at the bedside. Doing ok. Objective - Vital Signs Vital signs: Vital Signs - 12hr 05/08/19 05/08/19 05/08/19 02:37 07:32 07:53 Temperature 99.9 F H 99.3 F Pulse Rate 92 H 94 H Respiratory 20 18 Rate Blood Pressure 137/58 146/61 O2 Sat by Pulse 93 95 100 Oximetry 05/08/19 05/08/19 09:35 09:36 Temperature Pulse Rate 94 H 94 H Respiratory Rate Blood Pressure 146/61 146/61 O2 Sat by Pulse Oximetry - Lab 05/05/19 05:46 05/08/19 05:06 Most recent lab results Calcium 8.6 mg/dL (8.4-10.2) 05/08/19 05:06 Phosphorus 2.80 mg/dL (2.5-4.5) D 04/28/19 05:42 Magnesium 1.80 mg/dL (1.7-2.3) 04/30/19 05:57 64.1 mg/dL (0.1-20.0) H 04/25/19 08:30 44 mmol/L 04/25/19 08:30 Medications & Allergies - Medications Allergies/Adverse Reactions: Allergies No Known Allergies Allergy (Unverified 04/11/19 10:16) Home Medications: Home Medications Medication Instructions Recorded Confirmed Last Taken Type Amiodarone [Cordarone 200 MG TAB] 200 mg PO QDAY 04/24/19 04/24/19 04/23/19 History Clopidogrel [Plavix] 75 mg PO QDAY 04/24/19 04/24/19 04/23/19 History Donepezil [Aricept] 10 mg PO QDAY 04/24/19 04/24/19 04/23/19 History Furosemide [Lasix TAB] 40 mg PO QDAY 04/24/19 04/24/19 04/23/19 History Memantine [Namenda] 10 mg PO TID 04/24/19 04/24/19 04/23/19 History Metoprolol [Lopressor] 25 mg PO QDAY 04/24/19 04/24/19 04/23/19 History Rivaroxaban [Xarelto] 20 mg PO QDAY 04/24/19 04/24/19 04/23/19 History amLODIPine [Norvasc] 10 mg PO DAILY 04/24/19 04/24/19 04/23/19 History Active Medications: Generic Name Dose Route Start Last Admin Trade Name Freq PRN Reason Stop Dose Admin Acetaminophen 650 mg 04/24/19 22:27 05/08/19 09:57 Tylenol PO 650 mg Q4H PRN Administration Pain MILD(1-3)/Fever >100.5/LEVY Albuterol 2.5 mg 05/05/19 22:07 Proventil IH Q4HRT PRN Shortness Of Breath Amiodarone HCl 200 mg 04/25/19 10:00 05/08/19 09:34 Cordarone PO 200 mg QDAY [facility] Administration Amlodipine Besylate 10 mg 04/25/19 10:00 05/08/19 09:36 Norvasc PO 10 mg DAILY [facility] Administration Aspirin 81 mg 04/25/19 10:00 05/08/19 09:34 Baby Aspirin PO 81 mg QDAY [facility] Administration Dextrose 25 gm 05/04/19 02:00 05/08/19 07:34 D50w (25gm) Vial IV 25 gm PRN PRN Administration Hypoglycemia Donepezil HCl 10 mg 04/25/19 10:00 05/08/19 09:34 Aricept PO 10 mg QDAY [facility] Administration Hydralazine HCl 5 mg 05/04/19 02:19 Apresoline IV Q6H PRN Hypertension Hydromorphone HCl 0.5 mg 04/24/19 22:28 05/01/19 21:40 Dilaudid IV 0.5 mg Q3H PRN Administration Pain , Severe (7-10) Vancomycin HCl 1,500 mg/ 530 mls @ 333.333 mls/hr 05/05/19 10:00 05/08/19 09:41 Sodium Chloride IV 333.333 mls/hr Q18H [facility] Administration Ceftriaxone Sodium 1 gm in 50 mls @ 100 mls/hr 05/07/19 10:00 05/08/19 09:33 Rocephin/Ns 1 Gm/50 Ml IV 100 mls/hr Q24HR [facility] Administration Protocol Magnesium Oxide 400 mg 04/27/19 10:00 05/08/19 09:34 Mag-Ox PO 400 mg BID [facility] Administration Memantine 10 mg 04/25/19 08:00 05/08/19 07:45 Namenda PO 10 mg TID [facility] Administration Metoclopramide HCl 5 mg 04/26/19 09:00 Reglan IV Q6H PRN Nausea And Vomiting Metoprolol Tartrate 25 mg 04/25/19 10:00 05/08/19 09:35 Lopressor PO 25 mg QDAY [facility] Administration Multivitamins 1 each 04/29/19 10:00 05/08/19 09:34 Theragran Tab PO 1 each QDAY [facility] Administration Ondansetron HCl 4 mg 04/24/19 22:27 Zofran IV Q8H PRN Nausea And Vomiting Oxycodone/Acetaminophen 1 tab 04/24/19 22:28 05/06/19 20:47 Percocet 5/325 PO 1 tab Q6H PRN Administration Pain, Moderate (4-6) Pantoprazole Sodium 40 mg 04/25/19 14:00 05/08/19 09:34 Protonix PO 40 mg QDAY [facility] Administration Rivaroxaban 15 mg 05/08/19 09:00 05/08/19 09:41 Xarelto PO 15 mg DAILY@0800 [facility] Administration Sodium Chloride 10 ml 04/25/19 10:00 05/08/19 09:35 Sodium Chloride Flush Syringe 10 Ml IV 10 ml BID [facility] Administration Sodium Chloride 10 ml 04/24/19 22:27 04/30/19 08:29 Sodium Chloride Flush Syringe 10 Ml IV 10 ml PRN PRN Administration LINE FLUSH Sodium Hypochlorite 1 applic 04/26/19 10:00 05/07/19 10:00 Dakin's Half Strength TP Not Given DAILY [facility]
--- NOTE | 2019-05-08 12:38 | Progress Note ---
Assessment and Plan Cultures: 05/04/2019 blood culture: no growth thus far Assessment: 73 yo M PMHx severe bilateral PAD, CKD, HTN, Afib on AC admitted with R great toe gangrene and cellulitis 1. R great toe gangrene with cellulitis - S/P great toe amputation on 04/24/2019 followed by TMA, right 1st metatarsal head on 05/01/2019. Awaiting possible endovascular revascularization, vascular following, may be done outpatient. 2. Severe bilateral PAD - s/p recent revascularization. Vascular following. Possible endovascular revascularization as outpatient. 3. BRANDIE on CKD - renally dose antibiotics. BRANDIE improving. 4. HTN 5. Afib on AC 6. New fevers: ongoing since 05/02/2019 in spite of antibiotics. Blood cultures negative thus far, CXR unremarkable. Source: ?right middle finger paronychia v/s R great toe stump wound v/s a drug fever. Will get MRI of the R foot, rule out abscess. Recs: - MRI of the R foot, rule out abscess - ongoing fevers, inspite of antibiotics, could be related to right middle finger paronychia v/s R great toe stump wound v/s a drug fever - continue wound care of R great toe stump wound, has WoundVAC - continue empiric IV Ceftriaxone - continue IV Vancomycin with renal monitoring - added Flagyl today d/w Dr. Corwin Vernon MD [facility] C: [phone] Subjective Date of service: 05/08/19 Principal diagnosis: Anemia Interval history: Patient with persistent fever. Complaining of pain in right foot. No cough or shortness of breath. No nausea, vomiting. No abdominal pain. Objective - Exam Narrative Exam: Physical Exam: Constitutional: awake, alert. No acute distress Head, Ears, Nose: Normocephalic, atraumatic. External ears, nose normal Eyes: Conjunctivae/corneas clear. No icterus. No ptosis. Neck: Supple, no meningeal signs Cardiovascular: S1, S2 normal. Respiratory: Good air entry, clear to auscultation bilaterally GI: Soft, non-tender; bowel sounds normal. No peritoneal signs. Triplett + Musculoskeletal: No pedal edema, no cyanosis. R foot tenderness at surgical site, great toe amputation site with a woundVAC. Right middle finger with paronychia Skin: No rash or abscess Hem/Lymphatic: No palpable cervical or supraclavicular nodes. No lymphangitis Psych: mood ok, affect normal Neurological: awake, alert, no focal deficits - Constitutional Vitals: Vital Signs Temp Pulse Resp BP Pulse Ox 99.3 F 94 H 18 146/61 100 05/08/19 07:32 05/08/19 09:36 05/08/19 07:32 05/08/19 09:36 05/08/19 07:53 Temperature -Last 24 Hours Temperature 99.3 F Temperature 99.9 F Temperature 103.0 F Temperature 97.6 F - Labs CBC & Chem 7: 05/05/19 05:46 05/08/19 05:06 Labs: Abnormal lab results 05/07/19 05/08/19 05/08/19 Range/Units 22:39 05:06 07:35 Carbon Dioxide 21 L (22-30) mmol/L POC Glucose 108 H < 40 L (70-105) 05/08/19 05/08/19 Range/Units 09:10 11:32 Carbon Dioxide (22-30) mmol/L POC Glucose 130 H 116 H (70-105)
[2019-05-08] MEDS: metroNIDAZOLE/NS 500 MG/100 ML 500 MG/100 ML BAG IV SCH ×2 (13:15→22:07)
--- NOTE | 2019-05-08 19:05 | Progress Note ---
Assessment and Plan Assessment and plan: --R great toe gangrene with cellulitis - Continue antibiotics per ID. Continue wound care, wound VAC in place. --Right third finger paronychia/cellulitis. Ortho evaluation noted and appreciated . Continue current management --Sepsis. Etiology secondary to above. Patient with new temperature spike this morning. ID resumed antibiotics. --Severe bilateral PAD - s/p recent revascularization. Vascular following. As above. --Vasomotor BRANDIE on CKD :. BRANDIE improving. Follow-up BMP. CT abdomen showed distended bladder and hydronephrosis. --Obstructive uropathy. Urology evaluated at admission, Patient scheduled to discharge with Triplett catheter and follow up with urology as an outpatient --HTN. Continue antihypertensive medications. --Afib. Resume anticoagulation per cardiology. --Acute blood loss anemia. EGD and colonoscopy revealed no evidence of GI blood loss. --Sigmoid diverticulosis. Stable. --Dementia; continue Namenda, supportive care Consults and recommendations noted and appreciated Brief History and hospital course: Patient is a 73 yo man with a history of hypertension, Afib on Xarelto, AOCD, CKD 3-4, Dementia and PAD s/p recent RLE revascularization completed 2 weeks ago with revascularization of the right popliteal and tibioperoneal trunk from a left [employer]RE[employer] approach who came from Dr. Blake's [facility] office to [facility] ED with the concern for possible sepsis from a gangrenous right great toe. The patient has a history of bilateral critical limb ischemia and had revascularization done about 2 weeks ago. The patient also had an injury to the right great toe in which he hit it on some furniture and this also happened about 2 weeks ago. Since that time it has become black and necrotic with some oozing or drainage. The patient was scheduled to have a right great toe amputation done tomorrow, he was seen in the vascular office and he was ill-appearing and was sent into the emergency department for further evaluation. At the [facility] office, patient was fo und to have mild drop in hemoglobin and ARF. Patient was sent to the hospital for further evaluation. Dr. Orourke who will plan on performing amputation tomorrow. * CT abdomen IMPRESSION: Markedly distended bladder and mild bilateral hydronephrosis. Correlate for bladder outlet obstruction. Small gallstone. Scattered liver hypodensities consistent with small cysts or hemangiomas. No acute inflammatory process is identified History Interval history: Patient seen and examined medical records reviewed Patient complains of some pain in the foot Alert awake responding appropriately Vital signs noted Hospitalist Physical - Constitutional Vitals: Temp Pulse Resp BP Pulse Ox 98.8 F 81 18 119/73 94 05/08/19 13:28 05/08/19 13:29 05/08/19 13:28 05/08/19 13:30 05/08/19 13:29 General appearance: Present: no acute distress, cachectic, disheveled - EENT Eyes: Present: PERRL, EOM intact - Neck Neck: Present: supple, normal ROM - Respiratory Respiratory effort: normal Respiratory: bilateral: diminished, negative: rales, rhonchi, wheezing - Cardiovascular Rhythm: regular Heart Sounds: Present: S1 & S2 - Extremities Extremities: abnormal (surgical dressing in place/groundwork intact) Extremity abnormal: other (tip of the rt middle finger cellulitis/abscess) - Abdominal General gastrointestinal: soft, non-tender, non-distended, normal bowel sounds - Integumentary Integumentary: Present: clear, warm - Psychiatric Psychiatric: appropriate mood/affect, cooperative - Neurologic Neurologic: moves all extremities Results - Labs CBC & Chem 7: 05/05/19 05:46 05/08/19 05:06 Labs: Laboratory Last Values WBC 7.8 K/mm3 (4.5-11.0) 05/05/19 05:46 RBC 3.02 M/mm3 (3.65-5.03) L 05/05/19 05:46 Hgb 8.9 gm/dl (11.8-15.2) L 05/05/19 05:46 Hct 27.0 % (35.5-45.6) L 05/05/19 05:46 MCV 89 fl (84-94) 05/05/19 05:46 MCH 29 pg (28-32) 05/05/19 05:46 MCHC 33 % (32-34) 05/05/19 05:46 RDW 16.5 % (13.2-15.2) H 05/05/19 05:46 Plt Count 225 K/mm3 (140-440) 05/05/19 05:46 Lymph % (Auto) 7.2 % (13.4-35.0) L 05/05/19 05:46 Gage % (Auto) 5.9 % (0.0-7.3) 05/05/19 05:46 Eos % (Auto) 1.2 % (0.0-4.3) 05/05/19 05:46 Baso % (Auto) 0.8 % (0.0-1.8) 05/05/19 05:46 Lymph # 0.6 K/mm3 (1.2-5.4) L 05/05/19 05:46 Gage # 0.5 K/mm3 (0.0-0.8) 05/05/19 05:46 Eos # 0.1 K/mm3 (0.0-0.4) 05/05/19 05:46 Baso # 0.1 K/mm3 (0.0-0.1) 05/05/19 05:46 Seg Neutrophils % 84.9 % (40.0-70.0) H 05/05/19 05:46 Seg Neutrophils # 6.7 K/mm3 (1.8-7.7) 05/05/19 05:46 PT 21.2 Sec. (12.2-14.9) H 04/24/19 12:55 INR 1.88 (0.87-1.13) H 04/24/19 12:55 APTT 41.8 Sec. (24.2-36.6) H 04/24/19 12:55 Sodium 139 mmol/L (137-145) 05/08/19 05:06 Potassium 4.1 mmol/L (3.6-5.0) 05/08/19 05:06 Chloride 105.6 mmol/L (98-107) 05/08/19 05:06 Carbon Dioxide 21 mmol/L (22-30) L 05/08/19 05:06 17 mmol/L 05/08/19 05:06 BUN 18 mg/dL (9-20) 05/08/19 05:06 1.2 mg/dL (0.8-1.5) 05/08/19 05:06 Estimated GFR > 60 ml/min 05/08/19 05:06 15 % 05/08/19 05:06 Glucose 91 mg/dL (75-100) 05/08/19 05:06 POC Glucose 118 (70-105) H 05/08/19 16:27 5.4 % (4-6) 04/25/19 06:06 Lactic Acid 1.80 mmol/L (0.7-2.0) 04/24/19 12:55 Calcium 8.6 mg/dL (8.4-10.2) 05/08/19 05:06 Phosphorus 2.80 mg/dL (2.5-4.5) D 04/28/19 05:42 Magnesium 1.80 mg/dL (1.7-2.3) 04/30/19 05:57 0.50 mg/dL (0.1-1.2) 04/25/19 06:06 AST 19 units/L (5-40) 04/25/19 06:06 ALT 10 units/L (7-56) 04/25/19 06:06 86 units/L (35-129) 04/25/19 06:06 0.027 ng/mL (0.00-0.029) 04/24/19 16:09 NT-Pro-B Natriuret Pep 6067 pg/mL (0-900) H 04/24/19 12:55 6.9 g/dL (6.3-8.2) 04/25/19 06:06 3.5 g/dL (3.9-5) L 04/25/19 06:06 1.0 % 04/25/19 06:06 Triglycerides 59 mg/dL (2-149) 04/24/19 12:55 Cholesterol 114 mg/dL (50-199) 04/24/19 12:55 70 mg/dL (50-130) 04/24/19 12:55 47 mg/dL (40-59) 04/24/19 12:55 2.42 % 04/24/19 12:55 Yellow (Yellow) 04/25/19 05:20 Clear (Clear) 04/25/19 05:20 8.0 (5.0-7.0) H 04/25/19 05:20 Ur Specific [place] 1.009 (1.003-1.030) 04/25/19 05:20 <15 mg/dl mg/dL (Negative) 04/25/19 05:20 Neg mg/dL (Negative) 04/25/19 05:20 Neg mg/dL (Negative) 04/25/19 05:20 Lg (Negative) 04/25/19 05:20 Neg (Negative) 04/25/19 05:20 Neg (Negative) 04/25/19 05:20 < 2.0 mg/dL (<2.0) 04/25/19 05:20 Ur Leukocyte Esterase Neg (Negative) 04/25/19 05:20 2.0 /HPF (0.0-6.0) 04/25/19 05:20 15.0 /HPF (0.0-6.0) 04/25/19 05:20 U Epithel Cells (Auto) < 1.0 /HPF (0-13.0) 04/25/19 05:20 None seen (None Seen) 04/25/19 08:30 64.1 mg/dL (0.1-20.0) H 04/25/19 08:30 44 mmol/L 04/25/19 08:30 Vancomycin Trough 12.4 ug/mL (5.0-20.0) 05/07/19 14:34 Random Vancomycin 15.3 ug/mL (0-40.0) 04/27/19 03:53 Blood Type B POSITIVE 05/01/19 Unknown Antibody Screen Negative 05/01/19 Unknown Crossmatch See Detail 05/01/19 Unknown Active Medications - Current Medications Current Medications: Generic Name Dose Route Start Last Admin Trade Name Freq PRN Reason Stop Dose Admin Acetaminophen 650 mg 04/24/19 22:27 05/08/19 09:57 Tylenol PO 650 mg Q4H PRN Administration Pain MILD(1-3)/Fever >100.5/LEVY Albuterol 2.5 mg 05/05/19 22:07 Proventil IH Q4HRT PRN Shortness Of Breath Amiodarone HCl 200 mg 04/25/19 10:00 05/08/19 09:34 Cordarone PO 200 mg QDAY SAGE Administration Amlodipine Besylate 10 mg 04/25/19 10:00 05/08/19 09:36 Norvasc PO 10 mg DAILY SAGE Administration Aspirin 81 mg 04/25/19 10:00 05/08/19 09:34 Baby Aspirin PO 81 mg QDAY SAGE Administration Dextrose 25 gm 05/04/19 02:00 05/08/19 07:34 D50w (25gm) Vial IV 25 gm PRN PRN Administration Hypoglycemia Donepezil HCl 10 mg 04/25/19 10:00 05/08/19 09:34 Aricept PO 10 mg QDAY SAGE Administration Hydralazine HCl 5 mg 05/04/19 02:19 Apresoline IV Q6H PRN Hypertension Hydromorphone HCl 0.5 mg 04/24/19 22:28 05/01/19 21:40 Dilaudid IV 0.5 mg Q3H PRN Administration Pain , Severe (7-10) Vancomycin HCl 1,500 mg/ 530 mls @ 333.333 mls/hr 05/05/19 10:00 05/08/19 09:41 Sodium Chloride IV 333.333 mls/hr Q18H SAGE Administration Ceftriaxone Sodium 1 gm in 50 mls @ 100 mls/hr 05/07/19 10:00 05/08/19 09:33 Rocephin/Ns 1 Gm/50 Ml IV 100 mls/hr Q24HR SAGE Administration Protocol Metronidazole 500 mg in 100 mls @ 100 mls/hr 05/08/19 14:00 05/08/19 13:15 Flagyl 500 Mg/100 Ml IV 100 mls/hr Q8HR SAGE Administration Protocol Magnesium Oxide 400 mg 04/27/19 10:00 05/08/19 09:34 Mag-Ox PO 400 mg BID SAGE Administration Memantine 10 mg 04/25/19 08:00 05/08/19 13:16 Namenda PO 10 mg TID SAGE Administration Metoclopramide HCl 5 mg 04/26/19 09:00 Reglan IV Q6H PRN Nausea And Vomiting Metoprolol Tartrate 25 mg 04/25/19 10:00 05/08/19 09:35 Lopressor PO 25 mg QDAY SAGE Administration Multivitamins 1 each 04/29/19 10:00 05/08/19 09:34 Theragran Tab PO 1 each QDAY SAGE Administration Ondansetron HCl 4 mg 04/24/19 22:27 Zofran IV Q8H PRN Nausea And Vomiting Oxycodone/Acetaminophen 1 tab 04/24/19 22:28 05/06/19 20:47 Percocet 5/325 PO 1 tab Q6H PRN Administration Pain, Moderate (4-6) Pantoprazole Sodium 40 mg 04/25/19 14:00 05/08/19 09:34 Protonix PO 40 mg QDAY ASGE Administration Rivaroxaban 15 mg 05/08/19 09:00 05/08/19 09:41 Xarelto PO 15 mg DAILY@0800 SAGE Administration Sodium Chloride 10 ml 04/25/19 10:00 05/08/19 09:35 Sodium Chloride Flush Syringe 10 Ml IV 10 ml BID SAGE Administration Sodium Chloride 10 ml 04/24/19 22:27 04/30/19 08:29 Sodium Chloride Flush Syringe 10 Ml IV 10 ml PRN PRN Administration LINE FLUSH Nutrition/Malnutrition Assess - Dietary Evaluation Nutrition/Malnutrition Findings: Nutrition Notes Start: 05/01/19 10:50 Freq: Status: Active Protocol: Document 05/01/19 10:50 KS (Rec: 05/01/19 11:24 KS [id number]) Co-Sign 05/01/19 10:50 LP Nutrition Notes Need for Assessment generated from: LOS Initial or Follow up Brief Note Current Diagnosis CKD (stage V CKD),Hypertension Other Pertinent Diagnosis Afib on AC, bi PAD, ARF toe amputation Current Diet NPO after midnight [place] Body Weight (kg) 0 Subjective/Other Information Pt consistently eating 100% of meals. Nutrition Intervention Revisit per MD consult or patient Sign Off request:
[2019-05-09] MEDS: oxyCODONE /ACETAMINOPHEN 5-325MG TAB PO PRN (01:58)
[2019-05-09] MEDS: VANCOMYCIN 1,500 MG in SODIUM CHLORIDE 0.9% 500 ML 500 ML IV SCH (03:33)
[2019-05-09] MEDS: metroNIDAZOLE/NS 500 MG/100 ML 500 MG/100 ML BAG IV SCH ×2 (05:00→16:23)
[2019-05-09] MEDS: METOPROLOL TARTRATE 25 MG TAB PO SCH (09:43)
[2019-05-09] MEDS: MAGNESIUM OXIDE 400 MG TAB PO SCH ×2 (09:43→22:05)
[2019-05-09] MEDS: DONEPEZIL 10 MG TAB PO SCH (09:44)
[2019-05-09] MEDS: amLODIPine 10 MG TAB PO SCH (09:44)
[2019-05-09] MEDS: AMIODARONE 200 MG TAB PO SCH (09:44)
[2019-05-09] MEDS: ASPIRIN 81 MG TAB CHEW PO SCH (09:45)
[2019-05-09] MEDS: MEMANTINE 10 MG TAB PO SCH ×3 (09:45→22:05)
[2019-05-09] MEDS: MULTIVITAMINS ,THERAPEUTIC TAB PO SCH (09:45)
[2019-05-09] MEDS: PANTOPRAZOLE 40 MG TAB PO SCH (09:45)
[2019-05-09] MEDS: cefTRIAXone/NS 1 GM/50 ML 1 GM/50 ML BAG IV SCH (09:45)
[2019-05-09] MEDS: RIVAROXABAN 15 MG TAB PO SCH (09:53)
--- NOTE | 2019-05-09 13:40 | Progress Note ---
Assessment and Plan 1. Acute kidney injury: Vasomotor BRANDIE superimposed on CKD in the setting of obstrutive uropathy. CT abdomen showed distended bladder and hydronephrosis. Renal function is better. Monitor renal function. Avoid nephrotoxic agents. Meds dosage based on GFR. 2. FEN: Monitor lytes. 3. Obstructive Uropathy: S/p delgado catheter. 4. PAD: S/p amputation of R great toe. S/p TMA, right 1st metatarsal head. 5. New fever: Followed by ID. 6. Normochromic anemia: POA. EGD negative. 7. Paroxysmal A.fib: SR now. 8. Hypertension. 9. Dementia. Examination: General appearance: alert, well-developed, appears stated age, not in distress EENT: ATNC, HAJA, hearing diminished Neck: supple Respiratory: Clear to Auscultation Cardiology: regular, S1S2, no murmur Gastrointestinal: normoactive bowel sounds, no tenderness, no distended Integumentary: b/l LE chronic venous stasis Neurologic: no focal deficit, no asterixis, some confusion noted Musculoskeletal: other (amputation of R great toe) Subjective Date of service: 05/09/19 Principal diagnosis: Anemia Interval history: Patient was seen and examined at the bedside. Doing ok. Objective - Vital Signs Vital signs: Vital Signs - 12hr 05/09/19 05/09/19 05/09/19 02:33 02:35 02:36 Temperature 100.7 F H Pulse Rate 83 61 Respiratory 20 Rate Blood Pressure 169/60 O2 Sat by Pulse 84 92 Oximetry 05/09/19 05/09/19 05/09/19 07:09 07:55 09:44 Temperature 99.8 F H Pulse Rate 87 87 Respiratory 18 Rate Blood Pressure 133/56 133/56 O2 Sat by Pulse 98 99 Oximetry - Lab 05/05/19 05:46 05/09/19 00:59 Most recent lab results Calcium 8.6 mg/dL (8.4-10.2) 05/08/19 05:06 Phosphorus 2.80 mg/dL (2.5-4.5) D 04/28/19 05:42 Magnesium 1.80 mg/dL (1.7-2.3) 04/30/19 05:57 64.1 mg/dL (0.1-20.0) H 04/25/19 08:30 44 mmol/L 04/25/19 08:30 Medications & Allergies - Medications Allergies/Adverse Reactions: Allergies No Known Allergies Allergy (Unverified 04/11/19 10:16) Home Medications: Home Medications Medication Instructions Recorded Confirmed Last Taken Type Amiodarone [Cordarone 200 MG TAB] 200 mg PO QDAY 04/24/19 04/24/19 04/23/19 History Donepezil [Aricept] 10 mg PO QDAY 04/24/19 04/24/19 04/23/19 History Furosemide [Lasix TAB] 40 mg PO QDAY 04/24/19 04/24/19 04/23/19 History Memantine [Namenda] 10 mg PO TID 04/24/19 04/24/19 04/23/19 History Metoprolol [Lopressor TAB] 25 mg PO QDAY 04/24/19 04/24/19 04/23/19 History Rivaroxaban [Xarelto] 20 mg PO QDAY 04/24/19 04/24/19 04/23/19 History amLODIPine [Norvasc] 10 mg PO DAILY 04/24/19 04/24/19 04/23/19 History Aspirin [Aspirin BABY CHEW TAB] 81 mg PO QDAY #30 tab.chew 05/09/19 Unknown Rx DOXYCYCLINE Hyclate [Vibramycin 100 mg PO BID #14 capsule 05/09/19 Unknown Rx CAP] oxyCODONE /ACETAMINOPHEN [Percocet 1 tab PO BID PRN #14 tablet 05/09/19 Unknown Rx 5/325 mg] Active Medications: Generic Name Dose Route Start Last Admin Trade Name Robyn PRN Reason Stop Dose Admin Acetaminophen 650 mg 04/24/19 22:27 05/08/19 09:57 Tylenol PO 650 mg Q4H PRN Administration Pain MILD(1-3)/Fever >100.5/LEVY Albuterol 2.5 mg 05/05/19 22:07 Proventil IH Q4HRT PRN Shortness Of Breath Amiodarone HCl 200 mg 04/25/19 10:00 05/09/19 09:44 Cordarone PO 200 mg QDAY SAGE Administration Amlodipine Besylate 10 mg 04/25/19 10:00 05/09/19 09:44 Norvasc PO 10 mg DAILY SAGE Administration Aspirin 81 mg 04/25/19 10:00 05/09/19 09:45 Baby Aspirin PO 81 mg QDAY SAGE Administration Dextrose 25 gm 05/04/19 02:00 05/08/19 22:06 D50w (25gm) Vial IV 25 gm PRN PRN Administration Hypoglycemia Donepezil HCl 10 mg 04/25/19 10:00 05/09/19 09:44 Aricept PO 10 mg QDAY SAGE Administration Hydralazine HCl 5 mg 05/04/19 02:19 Apresoline IV Q6H PRN Hypertension Hydromorphone HCl 0.5 mg 04/24/19 22:28 05/01/19 21:40 Dilaudid IV 0.5 mg Q3H PRN Administration Pain , Severe (7-10) Vancomycin HCl 1,500 mg/ 530 mls @ 333.333 mls/hr 05/05/19 10:00 05/09/19 03:33 Sodium Chloride IV 333.333 mls/hr Q18H SAGE Administration Ceftriaxone Sodium 1 gm in 50 mls @ 100 mls/hr 05/07/19 10:00 05/09/19 09:45 Rocephin/Ns 1 Gm/50 Ml IV 100 mls/hr Q24HR SAGE Administration Protocol Metronidazole 500 mg in 100 mls @ 100 mls/hr 05/08/19 14:00 05/09/19 05:00 Flagyl 500 Mg/100 Ml IV 100 mls/hr Q8HR SAGE Administration Protocol Magnesium Oxide 400 mg 04/27/19 10:00 05/09/19 09:43 Mag-Ox PO 400 mg BID SAGE Administration Memantine 10 mg 04/25/19 08:00 05/09/19 09:45 Namenda PO 10 mg TID SAGE Administration Metoclopramide HCl 5 mg 04/26/19 09:00 Reglan IV Q6H PRN Nausea And Vomiting Metoprolol Tartrate 25 mg 04/25/19 10:00 05/09/19 09:43 Lopressor PO 25 mg QDAY SAGE Administration Multivitamins 1 each 04/29/19 10:00 05/09/19 09:45 Theragran Tab PO 1 each QDAY SAGE Administration Ondansetron HCl 4 mg 04/24/19 22:27 Zofran IV Q8H PRN Nausea And Vomiting Oxycodone/Acetaminophen 1 tab 04/24/19 22:28 05/09/19 01:58 Percocet 5/325 PO 1 tab Q6H PRN Administration Pain, Moderate (4-6) Pantoprazole Sodium 40 mg 04/25/19 14:00 05/09/19 09:45 Protonix PO 40 mg QDAY SAGE Administration Rivaroxaban 15 mg 05/08/19 09:00 05/09/19 09:53 Xarelto PO 15 mg DAILY@0800 SAGE Administration Sodium Chloride 10 ml 04/25/19 10:00 05/09/19 09:48 Sodium Chloride Flush Syringe 10 Ml IV 10 ml BID SAGE Administration Sodium Chloride 10 ml 04/24/19 22:27 04/30/19 08:29 Sodium Chloride Flush Syringe 10 Ml IV 10 ml PRN PRN Administration LINE FLUSH
--- NOTE | 2019-05-09 14:06 | Progress Note ---
Assessment and Plan Cultures: 05/04/2019 blood culture: no growth thus far Assessment: 73 yo M PMHx severe bilateral PAD, CKD, HTN, Afib on AC admitted with R great toe gangrene and cellulitis 1. R great toe gangrene with cellulitis - S/P great toe amputation on 04/24/2019 followed by TMA, right 1st metatarsal head on 05/01/2019. Awaiting possible endovascular revascularization, vascular following, may be done outpatient. MRI of the R foot today shows no abscess, there is subtle enhancement at the distal residual 1st metatarsal, these findings are likely post surgical and not osteomyelitis 2. Severe bilateral PAD - s/p recent revascularization. Vascular following. Possible endovascular revascularization as outpatient. 3. BRANDIE on CKD - renally dose antibiotics. BRANDIE improving. 4. HTN 5. Afib on AC 6. New fevers: ongoing since 05/02/2019 in spite of antibiotics. Blood cultures negative thus far, CXR unremarkable. Source: ?right middle finger paronychia v/s R great toe stump wound v/s a drug fever. MRI of the R foot today shows no abscess, there is subtle enhancement at the distal residual 1st metatarsal, these findings are likely post surgical and not osteomyelitis. Recs: - MRI of the R foot is negative for abscess and osteomyelitis - will d/c IV Ceftriaxone, Vancomycin and Flagyl - continue wound care of R great toe stump wound, has WoundVAC - short course of PO Doxycycline x 7 days for R middle finger paronychia and f/u with Dr. Owen, may need partial nail bed excision - monitor fever d/w [facility] Corwin Vernon [facility] C: [phone] Subjective Date of service: 05/09/19 Principal diagnosis: Anemia Interval history: Low grade fever. Had foot MRI. Eating his lunch. Feels well. No new complaints. Pain in right foot is improving. Objective - Exam Narrative Exam: Physical Exam: Constitutional: awake, alert. No acute distress Head, Ears, Nose: Normocephalic, atraumatic. External ears, nose normal Eyes: Conjunctivae/corneas clear. No icterus. No ptosis. Neck: Supple, no meningeal signs Cardiovascular: S1, S2 normal. Respiratory: Good air entry, clear to auscultation bilaterally GI: Soft, non-tender; bowel sounds normal. No peritoneal signs. Triplett + Musculoskeletal: No pedal edema, no cyanosis. R foot tenderness at great toe amputation site, woundVAC +. Right middle finger with paronychia Skin: No rash or abscess Hem/Lymphatic: No palpable cervical or supraclavicular nodes. No lymphangitis Psych: mood ok, affect normal Neurological: awake, alert, no focal deficits - Constitutional Vitals: Vital Signs Temp Pulse Resp BP Pulse Ox 99.8 F H 87 18 133/56 99 05/09/19 07:09 05/09/19 09:44 05/09/19 07:09 05/09/19 09:44 05/09/19 07:55 Temperature -Last 24 Hours Temperature 99.8 F Temperature 100.7 F Temperature 98.4 F Temperature 98.3 F - Labs CBC & Chem 7: 05/05/19 05:46 05/09/19 00:59 Labs: Abnormal lab results 05/08/19 05/08/19 05/09/19 Range/Units 16:27 21:45 00:46 POC Glucose 118 H 53 L < 40 L (70-105) 05/09/19 Range/Units 00:58 POC Glucose < 40 L (70-105)
--- NOTE | 2019-05-09 14:29 | Magnetic Resonance Report ---
MR LE joint RT wo/w con INDICATION / CLINICAL INFORMATION: Persistent fever, R foot infection, r/o abscess. TECHNIQUE: Multiplanar, multisequence MR images were obtained. COMPARISON: Radiographs 04/11/2019. FINDINGS: Since the prior radiographs, there has been resection of the first toe and distal portion of the firs t metatarsal. There is a large soft tissue defect at the surgical site which extends to the distal re sidual first metatarsal (sagittal image 23, coronal image 13). Deep to this, there is subtle abnormal low T1/high T2 signal and enhancement within the very distal residual first metatarsal (sagittal josefina ge 23). Bone marrow signal is otherwise unremarkable. No circumscribed fluid collections are seen. Th ere is mild soft tissue edema and enhancement about the large soft tissue defect. IMPRESSION: 1. Open wound at the first toe amputation site extends down to bone. There is subtle abnormal signal and enhancement within the residual distal first metatarsal which may be due to early osteomyelitis. No abscess is seen. 2. Bone marrow signal is otherwise unremarkable. Signer Name: Arnel Torres MD Signed: 05/09/2019 2:25 PM Workstation Name: [id number]
--- NOTE | 2019-05-09 15:46 | Discharge Summary ---
Providers - Providers Date of Admission: 04/24/19 17:16 Date of discharge: 05/10/19 Attending physician: CANDE BURKS 04/24/19 Consult to Case Management [CONS] Routine Services Needed at Discharge: Home Health Services Notified:: yes Phone number called:: [phone] Was contact made?: Yes If yes, spoke with:: gene Time called:: 09:49 Comment:: uli 04/24/19 15:11 Consult to Wound/ET Nurse [CONS] Routine Reason For Exam: wound eval 04/24/19 18:48 Consult to Physician [CONS] Routine Comment: Consulting Provider: CONNIE MUNOZ Physician Instructions: Reason For Exam: hx of limb ischemia and revascularization 04/25/19 05:02 Occupational Therapy Evaluate and Treat [CONS] Routine Comment: Reason For Exam: weakness Physical Therapy Evaluation and Treat [CONS] Routine Comment: Reason For Exam: weakness Mode of Transport?: Wheelchair 04/25/19 08:00 Consult to Physician [CONS] Routine Comment: spoke to dr. louise/ uli Consulting Provider: LARRY LOUISE Physician Instructions: Reason For Exam: arf Consult to Physician [CONS] Routine Comment: called answ. service/uli Consulting Provider: HENRY MONTOYA Physician Instructions: Reason For Exam: wound infections 04/25/19 08:39 Consult to Physician [CONS] Routine Comment: called office/ uli Consulting Provider: HENRY LOAIZA Physician Instructions: Reason For Exam: bladder outlet obstruction/BPH 04/25/19 08:43 Consult to Physician [CONS] Routine Comment: called office/ uli Consulting Provider: SURESH NEWBERRY Physician Instructions: Reason For Exam: decreased h/h 04/28/19 13:15 Consult to Wound/ET Nurse [CONS] Urgent Reason For Exam: RUE 3rd digit 05/05/19 08:00 Consult to Wound/ET Nurse [CONS] Routine Reason For Exam: wound vac RLE 1st digit 05/05/19 10:05 Consult to Physician [CONS] Routine Comment: called office/ uli Consulting Provider: JOAQUINA WHITE Physician Instructions: Reason For Exam: right 3rd finger paronychia Primary care physician: BREWING TECHNICIAN Hospitalization Reason for admission: Gangrene Rt great toe Condition: Fair Pertinent studies: cxr CT abd and pelvis MRI foot ECHO Procedures: tma rt first metatarsal Surgical debrediment EGD Colonoscopy Hospital course: Patient is a 73 yo man with a history of hypertension, Afib on Xarelto, AOCD, CKD 3-4, Dementia and PAD s/p recent RLE revascularization completed 2 weeks ago with revascularization of the right popliteal and tibioperoneal trunk from a left RELIEF DRILLER approach who came from Dr. Munoz's [facility] office to [facility] ED with the concern for possible sepsis from a gangrenous right great toe. The patient has a history of bilateral critical limb ischemia and had revascularization done about 2 weeks ago. The patient also had an injury to the right great toe in which he hit it on some furniture and this also happened about 2 weeks ago. Since that time it has become black and necrotic with some oozing or drainage. The patient was scheduled to have a right great toe amputation done tomorrow, he was seen in the vascular office and he was ill-appearing and was sent into the emergency department for further evaluation. At the [facility] office, patient was found to have mild drop in hemoglobin and ARF. Patient was sent to the hospital for further evaluation. Dr. Burch who will plan on performing amputation tomorrow. * CT abdomen IMPRESSION: Markedly distended bladder and mild bilateral hydronephrosis. Correlate for bladder outlet obstruction. Small gallstone. Scattered liver hypodensities consistent with small cysts or hemangiomas. No acute inflammatory process is identified Discharge Diagnosis: --Rt great toe gangrene with cellulitis : s/p debrediment MRI of the foot; no osteomyelitis, ID changed antibiotics to doxycycline oral for 7 days Continue wound care, home wound VAC ,f/u wound clinic upon discharge --Right third finger paronychia/cellulitis. Ortho evaluation noted and appreciated . wound care --Sepsis. Etiology secondary to above. Intermittent temperature spike --Severe bilateral PAD - s/p recent revascularization. Vascular following. As above. --Vasomotor BRANDIE on CKD :. Resolved Follow-up BMP. CT abdomen showed distended bladder and hydronephrosis. --Obstructive uropathy. Urology evaluated at admission,discharge with Triplett catheter and follow up with urology as an outpatient --HTN. Continue antihypertensive medications. --Afib. Amiodarone , beta blockers anticoagulation per cardiology. --Acute blood loss anemia. EGD and colonoscopy revealed no evidence of GI blood loss. --Sigmoid diverticulosis. Stable. --Dementia; continue Namenda, supportive care Plan to discharge the patient however patient had episodes of hypoglycemia Discharge held, started on D10 W, closely monitored overnight Discharge tomorrow if stable Disposition: [id number] HOME UNDER [facility] Time spent for discharge: 34 min Core Measure Documentation - Palliative Care Palliative Care/ Comfort Measures: Not Applicable - Core Measures Any of the following diagnoses?: none Exam - Constitutional Vitals: Temp Pulse Resp BP Pulse Ox 99.8 F H 87 18 133/56 99 05/09/19 07:09 05/09/19 10:00 05/09/19 07:09 05/09/19 09:44 05/09/19 10:00 General appearance: Present: no acute distress, well-nourished - EENT Eyes: Present: PERRL, EOM intact - Neck Neck: Present: supple, normal ROM - Respiratory Respiratory effort: normal Respiratory: bilateral: diminished, negative: rales, rhonchi, wheezing - Cardiovascular Rhythm: regular Heart Sounds: Present: S1 & S2 - Extremities Extremities: abnormal (surgical dressing foot wound/wound vac) Extremity abnormal: edema - Abdominal General gastrointestinal: Present: soft, non-tender, non-distended, normal bowel sounds - Integumentary Integumentary: Present: clear, warm - Musculoskeletal Musculoskeletal: strength equal bilaterally, generalized weakness - Psychiatric Psychiatric: appropriate mood/affect, cooperative - Neurologic Neurologic: moves all extremities Plan Activity: advance as tolerated, fall precautions Diet: other (cardiac diet) Wound: per wound nurse instructions Special Instructions: physical therapy Additional Instructions: f/u wound care clinic in 1 week. Home Health wound care. Continue wound VAC as before. Advised to take plenty of fruit juice[apple juice, orange juice] to maintain blood sugars. Glucose gel daily 1- 2 times if needed Follow up with: HENRY LOAIZA MD [Staff Physician] - 7 Days MARY BETH STEVENS MD [Staff Physician] - 14 Days JOAQUINA WHITE MD [Staff Physician] - 7 Days JONATHAN BURCH MD [Staff Physician] - 7 Days LARRY LOUISE MD [Staff Physician] - 7 Days [facility] MD AKSHAT [Referring] - 3-5 Days CONNIE MUNOZ MD [Staff Physician] - 14 Days KRUPA DOUGLASS MD [Staff Physician] - 14 Days Prescriptions: RX: Aspirin [Aspirin BABY CHEW TAB] 81 mg PO QDAY #30 tab.chew Dextrose [Glucose] 33 gm PO BID #30 gel.packet RX: oxyCODONE /ACETAMINOPHEN [Percocet 5/325 mg] 1 tab PO BID PRN #14 tablet PRN Reason: Pain, Moderate (4-6) RX: DOXYCYCLINE Hyclate [Vibramycin CAP] 100 mg PO BID #14 capsule
[2019-05-09] MEDS: DOXYCYCLINE 100 MG CAPSULE PO SCH ×2 (16:23→22:05)
[2019-05-09] MEDS ORDERED: DEXTROSE/DEXTRIN/MALTOSE 24 GM CARB PER 31 GM TUBE PO STA (16:35)
--- NOTE | 2019-05-09 17:55 | Progress Note ---
Assessment and Plan Assessment and plan: --Rt great toe gangrene with cellulitis : s/p debrediment MRI of the foot; no osteomyelitis, ID changed antibiotics to doxycycline oral for 7 days Continue wound care, home wound VAC ,f/u wound clinic upon discharge --Right third finger paronychia/cellulitis. Ortho evaluation noted and appreciated . wound care --Sepsis. Etiology secondary to above. Intermittent temperature spike --Severe bilateral PAD - s/p recent revascularization. Vascular following. As above. --Vasomotor BRANDIE on CKD :. Resolved Follow-up BMP. CT abdomen showed distended bladder and hydronephrosis. --Obstructive uropathy. Urology evaluated at admission,discharge with Triplett catheter and follow up with urology as an outpatient --HTN. Continue antihypertensive medications. --Afib. Amiodarone , beta blockers anticoagulation per cardiology. --Acute blood loss anemia. EGD and colonoscopy revealed no evidence of GI blood loss. --Sigmoid diverticulosis. Stable. --Dementia; continue Namenda, supportive care Plan to discharge the patient however patient had episodes of hypoglycemia Discharge held, started on D10 W, closely monitored overnight Discharge tomorrow if stable History Interval history: Patient was stable and planned to discharge home on oral antibiotics and home health However patient had episodes of hypoglycemia this evening Discharge held, started on D10 W, encourage increase oral nutrition Close monitoring of blood sugars Patient is alert and minimally communicative Not in acute distress Vital signs stable Hospitalist Physical - Constitutional Vitals: Temp Pulse Resp BP Pulse Ox 99.8 F H 87 18 133/56 99 05/09/19 07:09 05/09/19 10:00 05/09/19 07:09 05/09/19 09:44 05/09/19 10:00 General appearance: Present: no acute distress, cachectic - EENT Eyes: Present: PERRL, EOM intact - Neck Neck: Present: supple, normal ROM - Respiratory Respiratory effort: normal Respiratory: bilateral: diminished, negative: rales, rhonchi, wheezing - Cardiovascular Rhythm: regular Heart Sounds: Present: S1 & S2 - Extremities Extremities: abnormal (surgical dressing and wound VAC in place) - Abdominal General gastrointestinal: soft, non-tender, non-distended, normal bowel sounds - Integumentary Integumentary: Present: clear, warm - Psychiatric Psychiatric: other (minimally communicative) - Neurologic Neurologic: moves all extremities Results - Labs CBC & Chem 7: 05/05/19 05:46 05/09/19 00:59 Labs: Laboratory Last Values WBC 7.8 K/mm3 (4.5-11.0) 05/05/19 05:46 RBC 3.02 M/mm3 (3.65-5.03) L 05/05/19 05:46 Hgb 8.9 gm/dl (11.8-15.2) L 05/05/19 05:46 Hct 27.0 % (35.5-45.6) L 05/05/19 05:46 MCV 89 fl (84-94) 05/05/19 05:46 MCH 29 pg (28-32) 05/05/19 05:46 MCHC 33 % (32-34) 05/05/19 05:46 RDW 16.5 % (13.2-15.2) H 05/05/19 05:46 Plt Count 225 K/mm3 (140-440) 05/05/19 05:46 Lymph % (Auto) 7.2 % (13.4-35.0) L 05/05/19 05:46 Cameron % (Auto) 5.9 % (0.0-7.3) 05/05/19 05:46 Eos % (Auto) 1.2 % (0.0-4.3) 05/05/19 05:46 Baso % (Auto) 0.8 % (0.0-1.8) 05/05/19 05:46 Lymph # 0.6 K/mm3 (1.2-5.4) L 05/05/19 05:46 Cameron # 0.5 K/mm3 (0.0-0.8) 05/05/19 05:46 Eos # 0.1 K/mm3 (0.0-0.4) 05/05/19 05:46 Baso # 0.1 K/mm3 (0.0-0.1) 05/05/19 05:46 Seg Neutrophils % 84.9 % (40.0-70.0) H 05/05/19 05:46 Seg Neutrophils # 6.7 K/mm3 (1.8-7.7) 05/05/19 05:46 PT 21.2 Sec. (12.2-14.9) H 04/24/19 12:55 INR 1.88 (0.87-1.13) H 04/24/19 12:55 APTT 41.8 Sec. (24.2-36.6) H 04/24/19 12:55 Sodium 139 mmol/L (137-145) 05/08/19 05:06 Potassium 4.1 mmol/L (3.6-5.0) 05/08/19 05:06 Chloride 105.6 mmol/L (98-107) 05/08/19 05:06 Carbon Dioxide 21 mmol/L (22-30) L 05/08/19 05:06 17 mmol/L 05/08/19 05:06 BUN 18 mg/dL (9-20) 05/08/19 05:06 1.2 mg/dL (0.8-1.5) 05/08/19 05:06 Estimated GFR > 60 ml/min 05/08/19 05:06 15 % 05/08/19 05:06 Glucose 97 mg/dL (75-100) 05/09/19 00:59 POC Glucose 41 (70-105) L 05/09/19 16:48 5.4 % (4-6) 04/25/19 06:06 Lactic Acid 1.80 mmol/L (0.7-2.0) 04/24/19 12:55 Calcium 8.6 mg/dL (8.4-10.2) 05/08/19 05:06 Phosphorus 2.80 mg/dL (2.5-4.5) D 04/28/19 05:42 Magnesium 1.80 mg/dL (1.7-2.3) 04/30/19 05:57 0.50 mg/dL (0.1-1.2) 04/25/19 06:06 AST 19 units/L (5-40) 04/25/19 06:06 ALT 10 units/L (7-56) 04/25/19 06:06 86 units/L (35-129) 04/25/19 06:06 0.027 ng/mL (0.00-0.029) 04/24/19 16:09 NT-Pro-B Natriuret Pep 6067 pg/mL (0-900) H 04/24/19 12:55 6.9 g/dL (6.3-8.2) 04/25/19 06:06 3.5 g/dL (3.9-5) L 04/25/19 06:06 1.0 % 04/25/19 06:06 Triglycerides 59 mg/dL (2-149) 04/24/19 12:55 Cholesterol 114 mg/dL (50-199) 04/24/19 12:55 70 mg/dL (50-130) 04/24/19 12:55 47 mg/dL (40-59) 04/24/19 12:55 2.42 % 04/24/19 12:55 Yellow (Yellow) 04/25/19 05:20 Clear (Clear) 04/25/19 05:20 8.0 (5.0-7.0) H 04/25/19 05:20 Ur Specific [place] 1.009 (1.003-1.030) 04/25/19 05:20 <15 mg/dl mg/dL (Negative) 04/25/19 05:20 Neg mg/dL (Negative) 04/25/19 05:20 Neg mg/dL (Negative) 04/25/19 05:20 Lg (Negative) 04/25/19 05:20 Neg (Negative) 04/25/19 05:20 Neg (Negative) 04/25/19 05:20 < 2.0 mg/dL (<2.0) 04/25/19 05:20 Ur Leukocyte Esterase Neg (Negative) 04/25/19 05:20 2.0 /HPF (0.0-6.0) 04/25/19 05:20 15.0 /HPF (0.0-6.0) 04/25/19 05:20 U Epithel Cells (Auto) < 1.0 /HPF (0-13.0) 04/25/19 05:20 None seen (None Seen) 04/25/19 08:30 64.1 mg/dL (0.1-20.0) H 04/25/19 08:30 44 mmol/L 04/25/19 08:30 Vancomycin Trough 12.4 ug/mL (5.0-20.0) 05/07/19 14:34 Random Vancomycin 15.3 ug/mL (0-40.0) 04/27/19 03:53 Blood Type B POSITIVE 05/01/19 Unknown Antibody Screen Negative 05/01/19 Unknown Crossmatch See Detail 05/01/19 Unknown Active Medications - Current Medications Current Medications: Generic Name Dose Route Start Last Admin Trade Name Robyn PRN Reason Stop Dose Admin Acetaminophen 650 mg 04/24/19 22:27 05/08/19 09:57 Tylenol PO 650 mg Q4H PRN Administration Pain MILD(1-3)/Fever >100.5/LEVY Albuterol 2.5 mg 05/05/19 22:07 Proventil IH Q4HRT PRN Shortness Of Breath Amiodarone HCl 200 mg 04/25/19 10:00 05/09/19 09:44 Cordarone PO 200 mg QDAY SAGE Administration Amlodipine Besylate 10 mg 04/25/19 10:00 05/09/19 09:44 Norvasc PO 10 mg DAILY SAGE Administration Aspirin 81 mg 04/25/19 10:00 05/09/19 09:45 Baby Aspirin PO 81 mg QDAY SAGE Administration Dextrose 25 gm 05/04/19 02:00 05/08/19 22:06 D50w (25gm) Vial IV 25 gm PRN PRN Administration Hypoglycemia Donepezil HCl 10 mg 04/25/19 10:00 05/09/19 09:44 Aricept PO 10 mg QDAY SAGE Administration Doxycycline Hyclate 100 mg 05/09/19 15:00 05/09/19 16:23 Vibramycin PO 05/16/19 14:59 100 mg BID SAGE Administration Hydralazine HCl 5 mg 05/04/19 02:19 Apresoline IV Q6H PRN Hypertension Hydromorphone HCl 0.5 mg 04/24/19 22:28 05/01/19 21:40 Dilaudid IV 0.5 mg Q3H PRN Administration Pain , Severe (7-10) Dextrose 1,000 mls @ 75 mls/hr 05/09/19 18:00 D10w IV DIRECT SAGE Magnesium Oxide 400 mg 04/27/19 10:00 05/09/19 09:43 Mag-Ox PO 400 mg BID SAGE Administration Memantine 10 mg 04/25/19 08:00 05/09/19 16:15 Namenda PO 10 mg TID SAGE Administration Metoclopramide HCl 5 mg 04/26/19 09:00 Reglan IV Q6H PRN Nausea And Vomiting Metoprolol Tartrate 25 mg 04/25/19 10:00 05/09/19 09:43 Lopressor PO 25 mg QDAY SAGE Administration Multivitamins 1 each 04/29/19 10:00 05/09/19 09:45 Theragran Tab PO 1 each QDAY SAGE Administration Ondansetron HCl 4 mg 04/24/19 22:27 Zofran IV Q8H PRN Nausea And Vomiting Oxycodone/Acetaminophen 1 tab 04/24/19 22:28 05/09/19 01:58 Percocet 5/325 PO 1 tab Q6H PRN Administration Pain, Moderate (4-6) Pantoprazole Sodium 40 mg 04/25/19 14:00 05/09/19 09:45 Protonix PO 40 mg QDAY SAGE Administration Rivaroxaban 15 mg 05/08/19 09:00 05/09/19 09:53 Xarelto PO 15 mg DAILY@0800 SAGE Administration Sodium Chloride 10 ml 04/25/19 10:00 05/09/19 09:48 Sodium Chloride Flush Syringe 10 Ml IV 10 ml BID SAGE Administration Sodium Chloride 10 ml 04/24/19 22:27 04/30/19 08:29 Sodium Chloride Flush Syringe 10 Ml IV 10 ml PRN PRN Administration LINE FLUSH Nutrition/Malnutrition Assess - Dietary Evaluation Nutrition/Malnutrition Findings: Nutrition Notes Start: 05/01/19 10:50 Freq: Status: Active Protocol: Document 05/01/19 10:50 KS (Rec: 05/01/19 11:24 KS [id number]) Co-Sign 05/01/19 10:50 LP Nutrition Notes Need for Assessment generated from: LOS Initial or Follow up Brief Note Current Diagnosis CKD (stage V CKD),Hypertension Other Pertinent Diagnosis Afib on AC, bi PAD, ARF toe amputation Current Diet NPO after midnight Cylinder Body Weight (kg) 0 Subjective/Other Information Pt consistently eating 100% of meals. Nutrition Intervention Revisit per MD consult or patient Sign Off request:
[2019-05-09] MEDS ORDERED: DEXTROSE 10% IN WATER 1,000 ML IV SCH (18:00)
[2019-05-10 05:41] LABS: BUN/Creatinine Ratio 16; Blood Urea Nitrogen 16 mg/dL (9-20); Calcium 8.5 mg/dL (8.4-10.2); Hemolysis Index 0
[2019-05-10] MEDS ORDERED: PHOS-NAK POWDER PACKET PO ONE (09:00)
[2019-05-10] MEDS: MAGNESIUM OXIDE 400 MG TAB PO SCH (09:11)
[2019-05-10] MEDS: METOPROLOL TARTRATE 25 MG TAB PO SCH (09:11)
[2019-05-10] MEDS: DOXYCYCLINE 100 MG CAPSULE PO SCH (09:11)
[2019-05-10] MEDS: MULTIVITAMINS ,THERAPEUTIC TAB PO SCH (09:11)
[2019-05-10] MEDS: RIVAROXABAN 15 MG TAB PO SCH (09:12)
[2019-05-10] MEDS: MEMANTINE 10 MG TAB PO SCH ×2 (09:12→14:25)
[2019-05-10] MEDS: DONEPEZIL 10 MG TAB PO SCH (09:12)
[2019-05-10] MEDS: PANTOPRAZOLE 40 MG TAB PO SCH (09:12)
[2019-05-10] MEDS: amLODIPine 10 MG TAB PO SCH (09:12)
[2019-05-10] MEDS: ASPIRIN 81 MG TAB CHEW PO SCH (09:12)
[2019-05-10] MEDS: AMIODARONE 200 MG TAB PO SCH (09:12)
[2019-05-10 12:22] LABS: Basophils % (Auto) 0.6 % (0.0-1.8); Eosinophils # (Auto) 0.3 K/mm3 (0.0-0.4); Eosinophils % (Auto) 3.4 % (0.0-4.3); Hematocrit 23.4 % (35.5-45.6); Hemoglobin 7.8 gm/dl (11.8-15.2); Lymphocytes # (Auto) 0.6 K/mm3 (1.2-5.4); Lymphocytes % (Auto) 8.5 % (13.4-35.0); Mean Corpuscular HGB Conc 33 % (32-34); Mean Corpuscular Volume 88 fl (84-94); Monocytes # (Auto) 0.6 K/mm3 (0.0-0.8); Monocytes % (Auto) 7.3 % (0.0-7.3); Platelet Count 313 K/mm3 (140-440); Red Blood Count 2.67 M/mm3 (3.65-5.03); Red Cell Distribution Width 16.6 % (13.2-15.2)
[2019-05-10 13:44] VITALS: BP 130/56
[2019-05-10 16:14] LABS: % Iron Saturation 8.39 %
[2019-05-10] MEDS: oxyCODONE /ACETAMINOPHEN 5-325MG TAB PO PRN (16:51)
--- NOTE | 2019-05-11 01:08 | Progress Note ---
Assessment and Plan 1. Acute kidney injury: Vasomotor BRANDIE superimposed on CKD in the setting of obstrutive uropathy. CT abdomen showed distended bladder and hydronephrosis. Renal function is better. Monitor renal function. Avoid nephrotoxic agents. Meds dosage based on GFR. 2. FEN: Monitor lytes. 3. Obstructive Uropathy: S/p delgado catheter. 4. PAD: S/p amputation of R great toe. S/p TMA, right 1st metatarsal head. 5. New fever: Followed by ID. 6. Normochromic anemia: POA. EGD negative. 7. Paroxysmal A.fib: SR now. 8. Hypertension. 9. Dementia. Examination: General appearance: alert, well-developed, appears stated age, not in distress EENT: ATNC, HAJA, hearing diminished Neck: supple Respiratory: Clear to Auscultation Cardiology: regular, S1S2, no murmur Gastrointestinal: normoactive bowel sounds, no tenderness, no distended Integumentary: b/l LE chronic venous stasis Neurologic: no focal deficit, no asterixis, some confusion noted Musculoskeletal: amputation of R great toe Subjective Date of service: 05/10/19 Principal diagnosis: Anemia Interval history: Patient was seen and examined at the bedside. Doing ok. Objective Gastrointestinal: no tenderness - Lab 05/10/19 12:11 05/10/19 04:54 Most recent lab results Calcium 8.5 mg/dL (8.4-10.2) 05/10/19 04:54 Phosphorus 2.30 mg/dL (2.5-4.5) L 05/10/19 04:54 Magnesium 1.80 mg/dL (1.7-2.3) 04/30/19 05:57 64.1 mg/dL (0.1-20.0) H 04/25/19 08:30 44 mmol/L 04/25/19 08:30 Medications & Allergies - Medications Allergies/Adverse Reactions: Allergies No Known Allergies Allergy (Unverified 04/11/19 10:16) Home Medications: Home Medications Medication Instructions Recorded Confirmed Last Taken Type Amiodarone [Cordarone 200 MG TAB] 200 mg PO QDAY 04/24/19 04/24/19 04/23/19 History Donepezil [Aricept] 10 mg PO QDAY 04/24/19 04/24/19 04/23/19 History Furosemide [Lasix TAB] 40 mg PO QDAY 04/24/19 04/24/19 04/23/19 History Memantine [Namenda] 10 mg PO TID 04/24/19 04/24/19 04/23/19 History Metoprolol [Lopressor TAB] 25 mg PO QDAY 04/24/19 04/24/19 04/23/19 History Rivaroxaban [Xarelto] 20 mg PO QDAY 04/24/19 04/24/19 04/23/19 History amLODIPine [Norvasc] 10 mg PO DAILY 04/24/19 04/24/19 04/23/19 History Aspirin [Aspirin BABY CHEW TAB] 81 mg PO QDAY #30 tab.chew 05/09/19 Unknown Rx DOXYCYCLINE Hyclate [Vibramycin 100 mg PO BID #14 capsule 05/09/19 Unknown Rx CAP] oxyCODONE /ACETAMINOPHEN [Percocet 1 tab PO BID PRN #14 tablet 05/09/19 Unknown Rx 5/325 mg] Dextrose [Glucose] 33 gm PO BID #30 gel.packet 05/10/19 Unknown Rx
== END 2019-05-10 17:15 | disposition home health service (06) | DRG 853 ==
LOC: ED 12:05 → 2B-ACE 17:16
PROVIDERS: ADMIT Internal Medicine; ATTEND Internal Medicine
PROC: 0Y6P0Z0 Detachment at Right 1st Toe, Complete, Open Approach (ICD-10-PCS; 2019-04-24)
PROC: 0DJ08ZZ Inspection of Upper Intestinal Tract, Via Natural or Artificial Opening Endoscopic (ICD-10-PCS; 2019-04-28)
PROC: 0DJD8ZZ Inspection of Lower Intestinal Tract, Via Natural or Artificial Opening Endoscopic (ICD-10-PCS; 2019-04-28)
PROC: 0Y6M0Z9 Detachment at Right Foot, Partial 1st Ray, Open Approach (ICD-10-PCS; principal; 2019-05-01)
PROC: 30233N1 Transfusion of Nonautologous Red Blood Cells into Peripheral Vein, Percutaneous Approach (ICD-10-PCS; 2019-05-02)
DX: A41.9 Sepsis, unspecified organism (principal); N17.0 Acute kidney failure with tubular necrosis; I70.261 Atherosclerosis of native arteries of extremities with gangrene, right leg; L03.115 Cellulitis of right lower limb; D62 Acute posthemorrhagic anemia; N18.5 Chronic kidney disease, stage 5; E87.2 Acidosis; E87.0 Hyperosmolality and hypernatremia; I12.9 Hypertensive chronic kidney disease with stage 1 through stage 4 chronic kidney disease, or unspecified chronic kidney disease; I48.2 Chronic atrial fibrillation; D63.1 Anemia in chronic kidney disease; N13.9 Obstructive and reflux uropathy, unspecified; K64.8 Other hemorrhoids; I27.20 Pulmonary hypertension, unspecified; L03.011 Cellulitis of right finger; K57.30 Diverticulosis of large intestine without perforation or abscess without bleeding; K46.9 Unspecified abdominal hernia without obstruction or gangrene; N40.0 Benign prostatic hyperplasia without lower urinary tract symptoms; F03.90 Unspecified dementia, unspecified severity, without behavioral disturbance, psychotic disturbance, mood disturbance, and anxiety; Z89.411 Acquired absence of right great toe; Z79.899 Other long term (current) drug therapy; Z79.01 Long term (current) use of anticoagulants; Z82.49 Family history of ischemic heart disease and other diseases of the circulatory system
CPT/HCPCS: 36415; 71045; 71046; 74176; 80048; 80053; 80061; 80202; 81001; 82140; 82270; 82570; 82947; 82962; 83036; 83550; 83735; 83880; 84100; 84300; 84484; 85014; 85018; 85025; 85027; 85610; 85730; 86850; 86900; 86901; 86920; 87040; 88304; 88305; 88311; 89050; 93005; 93010; 93306; 93922; 93925; 93970; 94760; 96372; 96374; 96375; G0378; A6021; A6260; A9577; J0295; J0360; J0610; J0692; J0696; J1170; J1815; J1940; J2270; J2370; J2405; J2704; J3010; J3370; J3475; J7030; J7040; J7120; P9016

== ENCOUNTER 2019-05-22 13:04 | Outpatient (CLI) | payer MEDICARE ==
[~2019-05-22 13:04] MED LIST: XYLOCAINE 1% 20 mL ONE
== END 2019-05-22 13:05 | disposition home or self-care (01) ==
LOC: WOUND 13:04
PROVIDERS: ATTEND Surgery
DX: L97.522 Non-pressure chronic ulcer of other part of left foot with fat layer exposed (principal); L95.9 Vasculitis limited to the skin, unspecified; I73.9 Peripheral vascular disease, unspecified; L84 Corns and callosities; G60.3 Idiopathic progressive neuropathy; I10 Essential (primary) hypertension; Z87.891 Personal history of nicotine dependence
CPT/HCPCS: 97605

== ENCOUNTER 2019-06-03 11:19 | Outpatient (CLI) | payer MEDICARE ==
[2019-06-03] MEDS ORDERED: XYLOCAINE TOPICAL 4% TP ONE (12:00)
[2019-06-03] MEDS ORDERED: SILVER NITRATE TP ONE (12:00)
== END 2019-06-03 11:20 | disposition home or self-care (01) ==
LOC: WOUND 11:19
PROVIDERS: ATTEND Surgery
DX: L97.522 Non-pressure chronic ulcer of other part of left foot with fat layer exposed (principal); L95.9 Vasculitis limited to the skin, unspecified; I73.9 Peripheral vascular disease, unspecified; L84 Corns and callosities; G60.3 Idiopathic progressive neuropathy; I10 Essential (primary) hypertension; Z87.891 Personal history of nicotine dependence
CPT/HCPCS: 97605

== ENCOUNTER 2019-07-09 10:52 | Outpatient (CLI) | payer MEDICARE ==
[2019-07-09] MEDS ORDERED: LIDOCAINE (4%) 40 MG/ML TOPICAL SOLN 50 ML BOTTLE TP ONE (11:30)
== END 2019-07-09 10:53 | disposition home or self-care (01) ==
LOC: WOUND 10:52
PROVIDERS: ATTEND Surgery
DX: L97.522 Non-pressure chronic ulcer of other part of left foot with fat layer exposed (principal); L95.9 Vasculitis limited to the skin, unspecified; I73.9 Peripheral vascular disease, unspecified; L84 Corns and callosities; G60.3 Idiopathic progressive neuropathy; I10 Essential (primary) hypertension; Z87.891 Personal history of nicotine dependence

== ENCOUNTER 2019-08-07 10:50 | Outpatient (CLI) | payer MEDICARE | END 2019-08-07 10:51 | disposition home or self-care (01) | LOC: WOUND 10:50 | PROVIDERS: ATTEND Surgery | DX: L97.512 Non-pressure chronic ulcer of other part of right foot with fat layer exposed (principal); I10 Essential (primary) hypertension; I73.9 Peripheral vascular disease, unspecified; G60.3 Idiopathic progressive neuropathy; Z87.891 Personal history of nicotine dependence | CPT/HCPCS: 11042; G0463; 99213 ==